=== PATIENT | female | born 1960 | race Caucasian/White ===

== ENCOUNTER 2018-12-07 03:19 | Inpatient (IN) ==
--- NOTE | 2018-12-07 03:32 | Emergency Department Note ---
Disposition Clinical Impression: HCAP (healthcare-associated pneumonia), Collapse of left lung, Mucus plugging of bronchi, Chronic anemia, Hyponatremia Sepsis Qualifiers: Sepsis type: sepsis due to unspecified organism Qualified Code(s): A41.9 - Sepsis, unspecified organism COPD (chronic obstructive pulmonary disease) Qualifiers: COPD type: chronic bronchitis Chronic bronchitis type: unspecified Qualified Code(s): J42 - Unspecified chronic bronchitis Hypothyroid Qualifiers: Hypothyroidism type: unspecified Qualified Code(s): E03.9 - Hypothyroidism, unspecified Disposition: Admitted As Inpatient Condition: Good Referrals: NONE,PCP [Primary Care Provider] - Forms: ED Satisfaction Letter Time of Disposition: 05:36 General Adult HPI - General Chief complaint: ED Shortness of Breath/Dyspnea Stated complaint: SOB Time Seen by Provider: 12/07/18 03:21 Source: patient, EMS Mode of arrival: EMS Limitations: no limitations Nursing Notes Reviewed: Yes Vital Signs Reviewed: Yes - History of Present Illness HPI Narrative: Leanna is a pleasant 58-year-old female with a past medical history of chronic anemia, hypothyroidism, chronic kidney disease and COPD. She presents to the emergency room from a [facility] facility for hypoxia and feeling like she is unable to breathe. She arrives in the emergency room hypoxic on 3 L nasal cannula 70%. Adjustments up to 4 L nasal cannula brother to 92%. She was discharged from [facility] on December 06 to the [facility] facility. She stated and recovery from alcoholism for the past 12 years per her report. She states that she feels shortness of breath. She is unsure if she has any fevers. She denies CP. - Related Data Home Medications Medication Instructions Recorded Confirmed Metoprolol [Lopressor] 50 mg PO BID 02/12/18 12/07/18 Buspirone HCl [Buspar] 10 mg PO BID 12/02/18 12/07/18 Guaifenesin [Mucinex] 600 mg PO BID PRN 12/02/18 12/07/18 Naproxen [Naprosyn] 500 mg PO BID PRN 12/02/18 12/07/18 Quetiapine Fumarate [Seroquel] 300 mg PO HS 12/02/18 12/07/18 Previous Rx's Medication Instructions Recorded hydrOXYzine pamoate [HydrOXYzine 50 mg PO TID PRN #0 capsule 11/08/15 Pamoate] Albuterol Sulfate [Albuterol 2 puff IH Q4HR PRN #1 hfa.aer.ad 11/25/18 Inhaler] Calcium Carbonate [Tums] 1,000 mg PO TID #90 tab.chew 12/06/18 Levothyroxine [Synthroid] 25 mcg PO DAILY@0630 #30 tablet 12/06/18 Megestrol Acetate [Megace] 400 mg PO DAILY #30 udc 12/06/18 Spironolactone [Aldactone] 25 mg PO DAILY #30 tablet 12/06/18 Vitamin B Complex/Vit C/Vit E 1 each PO DAILY #30 tablet 12/06/18 [Stresstab] Allergies Allergy/AdvReac Type Severity Reaction Status Date / Time lamotrigine [From Lamictal] Allergy Nausea Verified 11/25/18 12:25 levetiracetam [From Keppra] Allergy Anaphylaxis Verified 11/25/18 12:25 lorazepam [From Ativan] Allergy Anaphylaxis Verified 11/25/18 12:25 alprazolam [From Xanax] AdvReac Agitated Verified 11/25/18 12:25 clonazepam [From Klonopin] AdvReac Seizure Verified 11/25/18 12:25 diazepam [From Valium] AdvReac Agitated Verified 11/25/18 12:25 latex AdvReac Itching Verified 11/25/18 12:25 All systems ED: reviewed and negative except as stated. 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 thin frame. no acute distress. - General General appearance: alert, cachectic - Head Head exam: atraumatic - ENT ENT exam: mucous membranes dry - Chest Chest inspection: Present: other (thin frame) - Respiratory Respiratory exam: Present: other (left lower crackes) - Cardiovascular Cardiovascular exam: Present: tachycardia (sinus tach varies between 118 and 124. ) - Abdominal Exam Abdominal exam: Present: tenderness (generalized without guarding or rebound), normal bowel sounds - Expanded Lower Extremity Exam Gait: not tested/not observed - Neurological Exam Neurological exam: Present: alert, oriented X3 Course Course Narrative: Patient with newly elevated troponin at 0.04. Second suspect this is residual heart strain due to the mucus plugging. EKG does not show any signs of STEMI. QTc elevated. She was started on Tigan Zosyn and azithromycin in the emergency room. Causing gluconate and magnesium were also replaced. Patient was admitted to the ICU per attending physician Dr. Arechiga. Patient at time of admission was in no acute distress talks in full sentences satting at 98% on a face mask with 5-6 L oxygen flowing. Suspect in ICU patient will need a bronchoscopy. Patient does meet sepsis criteria. Blood cultures were ordered prior to antibiotic administration. Other significant lab values include a change from one episode, 5000 on December 06- thousand white count today. Patient does note recent weight loss. Care of patient was coordinated with Dr. Theodore Simon. Vital Signs Temperature 99.3 F 12/07/18 03:34 Pulse Rate 120 12/07/18 03:34 Respiratory Rate 25 12/07/18 03:34 Blood Pressure 132/86 12/07/18 03:34 O2 Sat by Pulse Oximetry 92 12/07/18 03:34 Temperature 99.3 F 12/07/18 03:34 Pulse Rate 117 12/07/18 04:21 Respiratory Rate 20 12/07/18 04:33 Blood Pressure 130/94 12/07/18 04:21 O2 Sat by Pulse Oximetry 100 12/07/18 04:33 Oxygen Delivery Oxygen Delivery Oximizer Medical Decision Making - MDM Narrative Medical decision making narrative: Patient meets criteria for HCAP. Levaquin not ordered due to QTc level at 510. - Medical Records Medical records reviewed: Yes I reviewed the patient's medical records. - Lab Data Lab results reviewed: Yes I reviewed the patient's lab results. Result diagrams: 12/07/18 03:51 12/07/18 03:51 Lab Results 12/07/18 12/07/18 12/07/18 Range/Units 03:51 03:51 03:51 WBC 11.6 H D (4.3-11.1) K/mcL RBC 4.79 (3.82-4.97) M/mcL Hgb 11.4 L D (11.5-15.4) g/dL Hct 34.4 L (35.3-44.9) % MCV 71.8 L (83.0-100.0) fL MCH 23.8 L (28.0-33.3) pg MCHC 33.1 (31.6-35.5) g/dL RDW 23.9 H (11.5-14.5) % Plt Count 156 (140-400) K/mcL MPV 8.4 L (9.4-12.4) fL Immature Gran % 0.3 (0-4) % Seg Neutrophils % 81.9 % Lymphocytes % 11.5 % Monocytes % 5.6 % Eosinophils % 0.2 % Basophils % 0.5 % Neutrophils # 9.5 H (1.6-8.9) K/mcL Lymphocytes # 1.3 (0.6-4.6) K/mcL Monocytes # 0.7 (0.0-1.3) K/mcL Eosinophils # 0.0 (0.0-0.6) K/mcL Basophils # 0.1 (0.0-0.2) K/mcL Platelet Estimate Normal (Normal) Hypochromasia Present A (Not Present) Anisocytosis 3+ A (Not Present) Microcytosis Present A (Not Present) Macrocytosis Present A (Not Present) PT 11.6 (9.4-12.1) Seconds INR 1.0 APTT 32.1 (26.0-36.0) Seconds VBG pH (7.32-7.42) pH Units VBG pCO2 (41-51) mmHg VBG pO2 (25-50) mmHg VBG HCO3 (21-27) mEq/L Sodium 129 L (136-145) mEq/L Potassium 4.3 D (3.5-5.1) mEq/L Chloride 105 (98-107) mEq/L Carbon Dioxide 22 L (23-29) mEq/L BUN 18 (6-20) mg/dL Creatinine 0.88 (0.60-1.20) mg/dL Est GFR ( Amer) > 60 (> 60) Est GFR (Non-Af Amer) > 60 (> 60) BUN/Creatinine Ratio 20 (6-26) Glucose 100 (70-105) mg/dL Calculated Osmolality 270 L (280-300) Lactic Acid (0.5-2.2) mmol/L Calcium 8.0 L (8.6-10.3) mg/dL Phosphorus 2.4 L (2.7-4.5) mg/dL Magnesium 1.5 L (1.6-2.6) mg/dL Total Bilirubin 0.5 (0.3-1.0) mg/dL AST 13 (13-39) Units/L ALT 5 L (7-52) Units/L Alkaline Phosphatase 107 H (34-104) Units/L Troponin I 0.04 H* (< 0.04) ng/mL B-Natriuretic Peptide (Less than 100) pg/mL Serum Total Protein 5.9 L (6.4-8.9) g/dL Albumin 2.4 L (3.5-5.7) g/dL Globulin 3.5 (2.4-3.5) g/dL Albumin/Globulin Ratio 0.7 L (1.1-2.2) 12/07/18 12/07/18 12/07/18 Range/Units 03:51 03:51 04:02 WBC (4.3-11.1) K/mcL RBC (3.82-4.97) M/mcL Hgb (11.5-15.4) g/dL Hct (35.3-44.9) % MCV (83.0-100.0) fL MCH (28.0-33.3) pg MCHC (31.6-35.5) g/dL RDW (11.5-14.5) % Plt Count (140-400) K/mcL MPV (9.4-12.4) fL Immature Gran % (0-4) % Seg Neutrophils % % Lymphocytes % % Monocytes % % Eosinophils % % Basophils % % Neutrophils # (1.6-8.9) K/mcL Lymphocytes # (0.6-4.6) K/mcL Monocytes # (0.0-1.3) K/mcL Eosinophils # (0.0-0.6) K/mcL Basophils # (0.0-0.2) K/mcL Platelet Estimate (Normal) Hypochromasia (Not Present) Anisocytosis (Not Present) Microcytosis (Not Present) Macrocytosis (Not Present) PT (9.4-12.1) Seconds INR APTT (26.0-36.0) Seconds VBG pH 7.37 (7.32-7.42) pH Units VBG pCO2 39 L (41-51) mmHg VBG pO2 31 (25-50) mmHg VBG HCO3 22 (21-27) mEq/L Sodium (136-145) mEq/L Potassium (3.5-5.1) mEq/L Chloride (98-107) mEq/L Carbon Dioxide (23-29) mEq/L BUN (6-20) mg/dL Creatinine (0.60-1.20) mg/dL Est GFR ( Amer) (> 60) Est GFR (Non-Af Amer) (> 60) BUN/Creatinine Ratio (6-26) Glucose (70-105) mg/dL Calculated Osmolality (280-300) Lactic Acid 1.9 (0.5-2.2) mmol/L Calcium (8.6-10.3) mg/dL Phosphorus (2.7-4.5) mg/dL Magnesium (1.6-2.6) mg/dL Total Bilirubin (0.3-1.0) mg/dL AST (13-39) Units/L ALT (7-52) Units/L Alkaline Phosphatase (34-104) Units/L Troponin I (< 0.04) ng/mL B-Natriuretic Peptide 148 H (Less than 100) pg/mL Serum Total Protein (6.4-8.9) g/dL Albumin (3.5-5.7) g/dL Globulin (2.4-3.5) g/dL Albumin/Globulin Ratio (1.1-2.2) - Radiology Data Radiology results reviewed: Yes I reviewed the patient's radiology results.
[2018-12-07] MEDS ORDERED: Isovue-370 500 ML BOTTLE IVP ONE (03:38)
[2018-12-07] MEDS ORDERED: methylPREDNISolone 125 MG/2 ML VIAL IVP ONE (03:45)
[2018-12-07] MEDS ORDERED: Ipratropium/Albuterol Neb 3 ML IH ONE (03:45)
[2018-12-07 04:08] LABS: VBG HCO3 22 mEq/L (21-27); VBG PCO2 39 mmHg (41-51); VBG PH 7.37 pH Units (7.32-7.42); VBG PO2 31 mmHg (25-50)
[2018-12-07 04:11] LABS: Basophils # 0.1 K/mcL (0.0-0.2); Basophils % 0.5 %; Eosinophils % 0.2 %; Hematocrit 34.4 % (35.3-44.9); Immature Granulocytes % 0.3 % (0-4); Lymphocytes # 1.3 K/mcL (0.6-4.6); Lymphocytes % 11.5 %; Mean Corpuscular HGB Conc 33.1 g/dL (31.6-35.5); Mean Corpuscular Hemoglobin 23.8 pg (28.0-33.3); Mean Corpuscular Volume 71.8 fL (83.0-100.0); Mean Platelet Volume 8.4 fL (9.4-12.4); Monocytes # 0.7 K/mcL (0.0-1.3); Monocytes % 5.6 %; Neutrophils # 9.5 K/mcL (1.6-8.9); Platelet Count 156 K/mcL (140-400); Red Blood Count 4.79 M/mcL (3.82-4.97); Red Cell Distribution Width 23.9 % (11.5-14.5); Segmented Neutrophils % 81.9 %
[2018-12-07 04:12] LABS: Hemoglobin 11.4 g/dL (11.5-15.4)
[2018-12-07 04:18] LABS: Prothrombin Time 11.6 Seconds (9.4-12.1)
[2018-12-07] MEDS: 0.9 % Sodium Chloride 1,000 ML IVC SCH ×2 (04:19→11:43)
[2018-12-07 04:21] LABS: Activated Partial Thrombo Time 32.1 Seconds (26.0-36.0)
[2018-12-07 04:28] LABS: Anisocytosis 3+ (Not Present); Hypochromasia Present (Not Present); Macrocytosis Present (Not Present); Microcytosis Present (Not Present); Platelet Estimate Normal (Normal)
[2018-12-07 04:35] LABS: Alanine Aminotransferase 5 Units/L (7-52); Albumin 2.4 g/dL (3.5-5.7); Albumin/Globulin Ratio 0.7 (1.1-2.2); Alkaline Phosphatase 107 Units/L (34-104); Aspartate Amino Transferase 13 Units/L (13-39); BUN/Creatinine Ratio 20 (6-26); Bilirubin,Total 0.5 mg/dL (0.3-1.0); Blood Urea Nitrogen 18 mg/dL (6-20); Carbon Dioxide 22 mEq/L (23-29); Chloride 105 mEq/L (98-107); Globulin 3.5 g/dL (2.4-3.5); Glucose 100 mg/dL (70-105); Magnesium 1.5 mg/dL (1.6-2.6); Osmolality,Calculated 270 (280-300); Phosphorous 2.4 mg/dL (2.7-4.5); Potassium 4.3 mEq/L (3.5-5.1); Sodium 129 mEq/L (136-145); Total Protein 5.9 g/dL (6.4-8.9); Troponin I 0.04 ng/mL (< 0.04); eGFR For Non-African Americans > 60 (> 60)
[2018-12-07] MEDS ORDERED: Piperacillin/Tazobactam 3.375 GM in Water for inj. (sterile) 20 ML 20 ML IVP ONE (04:41)
--- NOTE | 2018-12-07 04:46 | Emergency Department Note ---
Disposition Clinical Impression: HCAP (healthcare-associated pneumonia), Collapse of left lung Disposition: Admitted As Inpatient Condition: Good Referrals: NONE,PCP [Primary Care Provider] - Forms: ED Satisfaction Letter General Adult HPI - General Chief complaint: ED Shortness of Breath/Dyspnea Stated complaint: SOB Time Seen by Provider: 12/07/18 03:21 Source: patient, EMS Mode of arrival: EMS Limitations: no limitations - History of Present Illness Pain Scale: 0 - Related Data Home Medications Medication Instructions Recorded Confirmed Metoprolol [Lopressor] 50 mg PO BID 02/12/18 12/07/18 Buspirone HCl [Buspar] 10 mg PO BID 12/02/18 12/07/18 Guaifenesin [Mucinex] 600 mg PO BID PRN 12/02/18 12/07/18 Naproxen [Naprosyn] 500 mg PO BID PRN 12/02/18 12/07/18 Quetiapine Fumarate [Seroquel] 300 mg PO HS 12/02/18 12/07/18 Previous Rx's Medication Instructions Recorded hydrOXYzine pamoate [HydrOXYzine 50 mg PO TID PRN #0 capsule 11/08/15 Pamoate] Albuterol Sulfate [Albuterol 2 puff IH Q4HR PRN #1 hfa.aer.ad 11/25/18 Inhaler] Calcium Carbonate [Tums] 1,000 mg PO TID #90 tab.chew 12/06/18 Levothyroxine [Synthroid] 25 mcg PO DAILY@0630 #30 tablet 12/06/18 Megestrol Acetate [Megace] 400 mg PO DAILY #30 udc 12/06/18 Spironolactone [Aldactone] 25 mg PO DAILY #30 tablet 12/06/18 Vitamin B Complex/Vit C/Vit E 1 each PO DAILY #30 tablet 12/06/18 [Stresstab] Allergies Allergy/AdvReac Type Severity Reaction Status Date / Time lamotrigine [From Lamictal] Allergy Nausea Verified 11/25/18 12:25 levetiracetam [From Keppra] Allergy Anaphylaxis Verified 11/25/18 12:25 lorazepam [From Ativan] Allergy Anaphylaxis Verified 11/25/18 12:25 alprazolam [From Xanax] AdvReac Agitated Verified 11/25/18 12:25 clonazepam [From Klonopin] AdvReac Seizure Verified 11/25/18 12:25 diazepam [From Valium] AdvReac Agitated Verified 11/25/18 12:25 latex AdvReac Itching Verified 11/25/18 12:25 Past Medical History - Past Medical History Medical history: Reports: renal disease, hyperlipidemia, hypertension, seizures, other, TIA, kidney stones, COPD Surgical history: Reports: carotid endarterectomy, other Psychiatric history: Reports: anxiety, bipolar, depression 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 - Social History Smoking Status: Current every day smoker Smokeless Tobacco Status: No Alcohol use: Reports: none Drug use: Reports: marijuana Physical Exam - General Limitations: no limitations General appearance: alert, in no apparent distress Course Vital Signs Temperature 99.3 F 12/07/18 03:34 Pulse Rate 120 12/07/18 03:34 Respiratory Rate 25 12/07/18 03:34 Blood Pressure 132/86 12/07/18 03:34 O2 Sat by Pulse Oximetry 92 12/07/18 03:34 Temperature 99.3 F 12/07/18 03:34 Pulse Rate 117 12/07/18 04:21 Respiratory Rate 22 12/07/18 04:21 Blood Pressure 130/94 12/07/18 04:21 O2 Sat by Pulse Oximetry 97 12/07/18 04:21 Oxygen Delivery Oxygen Delivery Oximizer Medical Decision Making - Lab Data Result diagrams: 12/07/18 03:51 12/07/18 03:51 Lab Results 12/07/18 12/07/18 12/07/18 Range/Units 03:51 03:51 03:51 WBC 11.6 H D (4.3-11.1) K/mcL RBC 4.79 (3.82-4.97) M/mcL Hgb 11.4 L D (11.5-15.4) g/dL Hct 34.4 L (35.3-44.9) % MCV 71.8 L (83.0-100.0) fL MCH 23.8 L (28.0-33.3) pg MCHC 33.1 (31.6-35.5) g/dL RDW 23.9 H (11.5-14.5) % Plt Count 156 (140-400) K/mcL MPV 8.4 L (9.4-12.4) fL Immature Gran % 0.3 (0-4) % Seg Neutrophils % 81.9 % Lymphocytes % 11.5 % Monocytes % 5.6 % Eosinophils % 0.2 % Basophils % 0.5 % Neutrophils # 9.5 H (1.6-8.9) K/mcL Lymphocytes # 1.3 (0.6-4.6) K/mcL Monocytes # 0.7 (0.0-1.3) K/mcL Eosinophils # 0.0 (0.0-0.6) K/mcL Basophils # 0.1 (0.0-0.2) K/mcL Platelet Estimate Normal (Normal) Hypochromasia Present A (Not Present) Anisocytosis 3+ A (Not Present) Microcytosis Present A (Not Present) Macrocytosis Present A (Not Present) PT 11.6 (9.4-12.1) Seconds INR 1.0 APTT 32.1 (26.0-36.0) Seconds VBG pH (7.32-7.42) pH Units VBG pCO2 (41-51) mmHg VBG pO2 (25-50) mmHg VBG HCO3 (21-27) mEq/L Sodium 129 L (136-145) mEq/L Potassium 4.3 D (3.5-5.1) mEq/L Chloride 105 (98-107) mEq/L Carbon Dioxide 22 L (23-29) mEq/L BUN 18 (6-20) mg/dL Creatinine 0.88 (0.60-1.20) mg/dL Est GFR ( Amer) > 60 (> 60) Est GFR (Non-Af Amer) > 60 (> 60) BUN/Creatinine Ratio 20 (6-26) Glucose 100 (70-105) mg/dL Calculated Osmolality 270 L (280-300) Lactic Acid (0.5-2.2) mmol/L Calcium 8.0 L (8.6-10.3) mg/dL Phosphorus 2.4 L (2.7-4.5) mg/dL Magnesium 1.5 L (1.6-2.6) mg/dL Total Bilirubin 0.5 (0.3-1.0) mg/dL AST 13 (13-39) Units/L ALT 5 L (7-52) Units/L Alkaline Phosphatase 107 H (34-104) Units/L Troponin I 0.04 H* (< 0.04) ng/mL B-Natriuretic Peptide (Less than 100) pg/mL Serum Total Protein 5.9 L (6.4-8.9) g/dL Albumin 2.4 L (3.5-5.7) g/dL Globulin 3.5 (2.4-3.5) g/dL Albumin/Globulin Ratio 0.7 L (1.1-2.2) 12/07/18 12/07/18 12/07/18 Range/Units 03:51 03:51 04:02 WBC (4.3-11.1) K/mcL RBC (3.82-4.97) M/mcL Hgb (11.5-15.4) g/dL Hct (35.3-44.9) % MCV (83.0-100.0) fL MCH (28.0-33.3) pg MCHC (31.6-35.5) g/dL RDW (11.5-14.5) % Plt Count (140-400) K/mcL MPV (9.4-12.4) fL Immature Gran % (0-4) % Seg Neutrophils % % Lymphocytes % % Monocytes % % Eosinophils % % Basophils % % Neutrophils # (1.6-8.9) K/mcL Lymphocytes # (0.6-4.6) K/mcL Monocytes # (0.0-1.3) K/mcL Eosinophils # (0.0-0.6) K/mcL Basophils # (0.0-0.2) K/mcL Platelet Estimate (Normal) Hypochromasia (Not Present) Anisocytosis (Not Present) Microcytosis (Not Present) Macrocytosis (Not Present) PT (9.4-12.1) Seconds INR APTT (26.0-36.0) Seconds VBG pH 7.37 (7.32-7.42) pH Units VBG pCO2 39 L (41-51) mmHg VBG pO2 31 (25-50) mmHg VBG HCO3 22 (21-27) mEq/L Sodium (136-145) mEq/L Potassium (3.5-5.1) mEq/L Chloride (98-107) mEq/L Carbon Dioxide (23-29) mEq/L BUN (6-20) mg/dL Creatinine (0.60-1.20) mg/dL Est GFR ( Amer) (> 60) Est GFR (Non-Af Amer) (> 60) BUN/Creatinine Ratio (6-26) Glucose (70-105) mg/dL Calculated Osmolality (280-300) Lactic Acid 1.9 (0.5-2.2) mmol/L Calcium (8.6-10.3) mg/dL Phosphorus (2.7-4.5) mg/dL Magnesium (1.6-2.6) mg/dL Total Bilirubin (0.3-1.0) mg/dL AST (13-39) Units/L ALT (7-52) Units/L Alkaline Phosphatase (34-104) Units/L Troponin I (< 0.04) ng/mL B-Natriuretic Peptide 148 H (Less than 100) pg/mL Serum Total Protein (6.4-8.9) g/dL Albumin (3.5-5.7) g/dL Globulin (2.4-3.5) g/dL Albumin/Globulin Ratio (1.1-2.2) Attestation Statement - Attestation Attestation: For this encounter, I have reviewed the EGG BREAKING MACHINE OPERATOR or PA documentation, treatment plan, and medical decision making; and I have had face to face time with this patient. 58 year old female presents to the ED with complaints from [facility] via EMS for difficulty in breathing. PAtient was most recently admitted to hospital for pnuemoina and discharged home to [facility]. She woke up this morning with increased difficuty in breathing and was originally 74% on RA and typically waers 3lNC continually. Patient was then initially increased to 4LNC and was at 88%. PAtinet was placed on an oximask and incresed to 6LNC and is now 98%. she was also tachycardiac to 120s and is inmproving to the 110s with duonebs, steroids, and fluid therapy for a partially collapsed left lung with pnuemonia on top. We will admit to medicine
[2018-12-07] MEDS ORDERED: Azithromycin 500 MG in D5% in Water 250 ML IVPB ONE (04:47)
[2018-12-07 05:50] LABS: Bilirubin,Urine Negative (Negative); Blood,Urine Negative (Negative); Clarity,Urine Cloudy (Clear); Color,Urine Yellow (Yellow); Glucose,Urine (UA) Normal (Normal); Ketones,Urine Negative (Negative); Leukocyte Esterase,Urine Small (Negative); Nitrite,Urine Negative (Negative); Protein,Urine Negative (Neg-Trace); Specific Gravity,Urine > 1.030 (1.010-1.025); Urobilinogen,Urine Normal (Normal)
[2018-12-07 05:53] LABS: Bacteria,Urine None Seen per hpf (None-Few); Hyaline Casts,Urine None Seen per lpf (None-Few); Squamous Epithelial Cell,Urine Many per lpf (None-Few)
--- NOTE | 2018-12-07 07:41 | Internal Med History&Physical ---
Date of Encounter: 12/07/18 Time of Encounter: 07:27 Internal Medicine - H&P: HPI Chief complaint: shortness of breath Admitted From: Long-term Nursing Facility History of present illness: Ms. 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 Patient had extensive malignancy workup which was unremarkable. Patient was started on Synthroid as her TSH was significantly elevated. Patient had a GI workup done for anemia which did not show any signs of active bleeding but she did receive PRBC. 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 Patient was subsequently transferred to rehabilitation facility. Patient started having acute shortness of breath when she went to SNF and was found to have hypoxia. Patient was evaluated in ER and had a CTA which did not show any PE but showed left lower lobe collapse and possible pneumonia. Patient was started on broad- spectrum antibiotics for HCAP given recent hospitalization, tachycardia, tachypnea and white count of 11. Patient subsequently was admitted in ICU. Patient was interviewed in ICU where she felt better in terms of her breathing. She denied any chest pain. She did admit when she had difficulty breathing she felt pressure-like symptoms. Denied any back pain abdominal pain urinary or bowel complaints. She received vancomycin and Zosyn and azithromycin in the ER. She also received magnesium, calcium, 1 L normal saline. She did not have any fevers in the hospital are previously. Admits to having some chills. Past Med Surg Social Fam HX - Past Medical History Medical history: renal disease, hyperlipidemia, hypertension, seizures, other, TIA, kidney stones, COPD Psychiatric history: anxiety, bipolar, depression - Past Surgical History Surgical History: carotid endarterectomy, other Additional surgical history: EAR SURGERY - Social History Smoking Status: Current every day smoker Smokeless Tobacco Status: No Alcohol use: none Drug use: marijuana - Family History Father Hx Family Cardiac Disorders: Yes (CABG) Internal Medicine - H&P: Meds hydrOXYzine pamoate [HydrOXYzine Pamoate] 50 mg PO TID PRN #0 capsule 11/08/15 [Rx] Metoprolol [Lopressor] 50 mg PO BID 02/12/18 [History] Albuterol Sulfate [Albuterol Inhaler] 2 puff IH Q4HR PRN #1 hfa.aer.ad 11/25/18 [Rx] Buspirone HCl [Buspar] 10 mg PO BID 12/02/18 [History] Guaifenesin [Mucinex] 600 mg PO BID PRN 12/02/18 [History] Naproxen [Naprosyn] 500 mg PO BID PRN 12/02/18 [History] Quetiapine Fumarate [Seroquel] 300 mg PO HS 12/02/18 [History] Calcium Carbonate [Tums] 1,000 mg PO TID #90 tab.chew 12/06/18 [Rx] Levothyroxine [Synthroid] 25 mcg PO DAILY@0630 #30 tablet 12/06/18 [Rx] Megestrol Acetate [Megace] 400 mg PO DAILY #30 udc 12/06/18 [Rx] Spironolactone [Aldactone] 25 mg PO DAILY #30 tablet 12/06/18 [Rx] Vitamin B Complex/Vit C/Vit E [Stresstab] 1 each PO DAILY #30 tablet 12/06/18 [ Rx] Allergy/AdvReac Type Severity Reaction Status Date / Time lamotrigine [From Lamictal] Allergy Nausea Verified 11/25/18 12:25 levetiracetam [From Keppra] Allergy Anaphylaxis Verified 11/25/18 12:25 lorazepam [From Ativan] Allergy Anaphylaxis Verified 11/25/18 12:25 alprazolam [From Xanax] AdvReac Agitated Verified 11/25/18 12:25 clonazepam [From Klonopin] AdvReac Seizure Verified 11/25/18 12:25 diazepam [From Valium] AdvReac Agitated Verified 11/25/18 12:25 latex AdvReac Itching Verified 11/25/18 12:25 All Systems PM: A 10-system review of systems was performed and is negative for pertinent findings except as documented above in the HPI. - Constitutional Vitals: Temp Pulse Resp BP Pulse Ox 99.3 F 117 22 140/96 95 12/07/18 03:34 12/07/18 05:51 12/07/18 05:51 12/07/18 05:51 12/07/18 05:51 Exam: Constitutional: Vitals as noted. Conversant. No Apparent Distress. thin build. Eyes : Sclera white, conjunctiva clear, no lid lag, PEARLA. ENT : Grossly normal hearing. Oropharyngeal exam unremarkable. Moist mucus membranes. No JVD, no cervical lymphadenopathy. no thyromegaly or mass. Respiratory : Decreased breath sounds. Occasional rhonchi. No accessory muscle use, rales Cardiovascular : tachycardic, +S1, +S2. no murmur, gallop, rubs. No chest wall tenderness GI/Abdominal : Soft, Non-tender, Non-distended, normal bowel sounds, soft, no peritoneal signs. no orgenomegaly or mass appreciated. no hernia. Musculoskeletal: no deformity noted. no edema or cyanosis. warm extremities, pulses palpable and symmetrical in UE/LE. no calf tenderness. Neurological: AO X3, CN II-XII grossly intact, non focal exam Skin: No skin rash, lesions or ulcers noted. Internal Med - H&P Results - Labs CBC & Chem 7: 12/07/18 03:51 12/07/18 03:51 Labs: Short CBC 12/07/18 Range/Units 03:51 WBC 11.6 H D (4.3-11.1) K/mcL Hgb 11.4 L D (11.5-15.4) g/dL Hct 34.4 L (35.3-44.9) % Plt Count 156 (140-400) K/mcL Neutrophils # 9.5 H (1.6-8.9) K/mcL BMP 12/07/18 03:51 Sodium 129 L Potassium 4.3 D Chloride 105 Carbon Dioxide 22 L BUN 18 Creatinine 0.88 Glucose 100 Calcium 8.0 L Cardiac Enzymes 12/07/18 Range/Units 03:51 Troponin I 0.04 H* (< 0.04) ng/mL Liver Function 12/07/18 Range/Units 03:51 Total Bilirubin 0.5 (0.3-1.0) mg/dL AST 13 (13-39) Units/L ALT 5 L (7-52) Units/L Alkaline Phosphatase 107 H (34-104) Units/L Albumin 2.4 L (3.5-5.7) g/dL Urine 12/07/18 Range/Units 05:00 Urine Color Yellow (Yellow) Urine Clarity Cloudy A (Clear) Urine pH 6.0 (5.0-8.0) pH Units Ur Specific [place] > 1.030 H (1.010-1.025) Urine Protein Negative (Neg-Trace) mg/dL Urine Glucose (UA) Normal (Normal) mg/dL - ABG Interpretation ABG results: 12/07/18 04:02 VBG pH 7.37 VBG pCO2 39 L VBG pO2 31 VBG HCO3 22 - EKG Data -: EKG Interpreted by Myself EKG shows normal: sinus rhythm Rate: tachycardia (st depressions in lead 2,3 avf, v4-5) - Impressions ITS Impressions Chest CTA 12/07/18 03:38 IMPRESSION: 1. No definite scan evidence for pulmonary embolus. 2. Complete left lower lobe collapse with left upper lobe atelectasis or pneumonia. 3. Mediastinal adenopathy. D/ / Phil Cary MD / Phil Cary MD Interpreting Provider: Phil Cary MD - Assessment and plan (1) Collapse of left lung Current Visit: Yes Status: Acute Assessment and plan: - May need bronchoscopy. Keep NPO. Will consult pulmonology - Incentive spirometry and pulmonary toilet. (2) COPD exacerbation Current Visit: Yes Status: Acute Assessment and plan: - Start patient on Duonebs, solumedrol - pulmonology recommendation appreicated. Start symbicort (3) HCAP (healthcare-associated pneumonia) Current Visit: Yes Status: Acute Assessment and plan: - continue Vancomycin, Zosyn and azithromycin - Send MRSA screen, legionella and strep urine antigen, blood and sputum cultures culture. (4) Hypothyroid Current Visit: Yes Status: Acute Assessment and plan: - continue home levothyroxin Qualifiers: Hypothyroidism type: unspecified Qualified Code(s): E03.9 - Hypothyroidism, unspecified (5) Hypomagnesemia Current Visit: No Status: Acute Assessment and plan: - repleted (6) Severe protein-calorie malnutrition Current Visit: No Status: Acute Assessment and plan: - supplements (7) DVT prophylaxis Current Visit: No Status: Acute Assessment and plan: - heparin - Monitor Hb. Will change to EPCD if Hb drops. - Time Spent With Patient Total time spent is greater than 50% in coordination of care (as documented) at patient's floor/unit and/or counseling patient:
--- NOTE | 2018-12-07 08:29 | Pulmonology Consult Note ---
Date of Encounter: 12/07/18 Time of Encounter: 08:25 Assessment and Plan (1) Atelectasis Current Visit: Yes Status: Acute This 58-year-old woman has medical history of COPD who was recently been to the hospital for failure to thrive was discharged to [facility] and return for hypoxia with CT scan findings notable for left lobar collapse. I had a chance to personally review her CT scan and look sick she had previous scans personally atelectasis in the lingula now with the extensive secretions suspected mucus plugging and collapse of lingula and left lower lobe. She does have some mediastinal adenopathy which is likely reactive in nature however patient does have risk factors for primary lung carcinoma. Overall picture concerning for aspiration versus new significant mucus plugging complicated by acute pneumonia and COPD exacerbation Recs: -Agree with broad-spectrum antibiotics to treat for hospital associated organisms given recent hospitalization including MRSA and Pseudomonas would also cover for anaerobic organisms giving him my concern for aspiration. Send sputum culture blood cultures and was per infection panel if not already done so also will need urinary strep pneumo and legionella antigens-MRSA nasal swab if not already obtained -Start IV Solu-Medrol 40 mg IV twice daily -Schedule bronchodilators (duo nebs) every 4 hours with every one hour albuterol as needed -Symbicort 160/4.52 puffs twice a day -Aggressive bronchopulmonary toileting including out of bed to chair suctioning incentive spirometry and would start flutter valve/Aerobika coupled with DuoNeb breathing treatments patient should be discharged with this -Recommend formal speech and swallow evaluation -A bronchoscopy is recommended. The procedure , risks, benefits, complications, and expected outcomes have been reviewed. Benefits of diagnosis, as well as risks to include bleeding, infection, pneumothorax which may require surgical intervention, and in a small population. The patient is aware that sometimes test is nondiagnostic. Discussed with patient and agrees to proceed. (2) COPD (chronic obstructive pulmonary disease) Current Visit: Yes Status: Chronic Qualifiers: COPD type: chronic bronchitis Chronic bronchitis type: unspecified Qualified Code(s): J42 - Unspecified chronic bronchitis (3) HCAP (healthcare-associated pneumonia) Current Visit: Yes Status: Acute (4) Collapse of left lung Current Visit: Yes Status: Acute History of Present Illness Consult date: 12/07/18 Requesting physician: Purav T Jain Reason for consult: pneumonia Chief complaint: Difficulty in Breathing History of present illness: This is a 58-year-old woman who presented to the ED from [facility] via EMS for dif ficulty in breathing. She was recently in the hospital within the last week and was discharged to [facility] but had woken up with increased difficulty in breathing and was known to be 74% on room air although patient has been prescribed 3 L nasal cannula continually. And presentation to the ED was noted to be tachycardic to the 120s she was given a DuoNeb steroids and fluid therapy with a chest x-ray and CT scan concerning for partially collapsed left lung with possible pneumonia. Pulmonary was consulted for further evaluation of this. Patient does have a medical history of COPD seizures hypertension hyperlipidemia former alcoholic and continues to smoke actively with approximately [id number] history of smoking. Most recent hospitalization was notable for failure to thrive of unclear etiology however she was found to be hypothyroid.. Has been noted to 30 pound weight loss and generalized weakness. Today when I spoke with the patient she states that breathing is still labored she said that symptoms hit "all at once" when she was getting into the ambulance to go to the [facility] and have gotten worse since. She is desiring to stop smoking and has not smoked since Sunday since she has been in the hospital we will help her with nicotine replacement as needed Past Med Surg Social Fam HX - Past Medical History Medical history: renal disease, hyperlipidemia, hypertension, seizures, other, TIA, kidney stones, COPD Psychiatric history: anxiety, bipolar, depression - Past Surgical History Surgical History: carotid endarterectomy, other Additional surgical history: EAR SURGERY - Social History Smoking Status: Current every day smoker Smokeless Tobacco Status: No Alcohol use: none Drug use: marijuana - Family History Father Hx Family Cardiac Disorders: Yes (CABG) Medications and Allergies hydrOXYzine pamoate [HydrOXYzine Pamoate] 50 mg PO TID PRN #0 capsule 11/08/15 [Rx] Metoprolol [Lopressor] 50 mg PO BID 02/12/18 [History] Albuterol Sulfate [Albuterol Inhaler] 2 puff IH Q4HR PRN #1 hfa.aer.ad 11/25/18 [Rx] Buspirone HCl [Buspar] 10 mg PO BID 12/02/18 [History] Guaifenesin [Mucinex] 600 mg PO BID PRN 12/02/18 [History] Naproxen [Naprosyn] 500 mg PO BID PRN 12/02/18 [History] Quetiapine Fumarate [Seroquel] 300 mg PO HS 12/02/18 [History] Calcium Carbonate [Tums] 1,000 mg PO TID #90 tab.chew 12/06/18 [Rx] Levothyroxine [Synthroid] 25 mcg PO DAILY@0630 #30 tablet 12/06/18 [Rx] Megestrol Acetate [Megace] 400 mg PO DAILY #30 udc 12/06/18 [Rx] Spironolactone [Aldactone] 25 mg PO DAILY #30 tablet 12/06/18 [Rx] Vitamin B Complex/Vit C/Vit E [Stresstab] 1 each PO DAILY #30 tablet 12/06/18 [Rx] Allergy/AdvReac Type Severity Reaction Status Date / Time lamotrigine [From Lamictal] Allergy Nausea Verified 11/25/18 12:25 levetiracetam [From Keppra] Allergy Anaphylaxis Verified 11/25/18 12:25 lorazepam [From Ativan] Allergy Anaphylaxis Verified 11/25/18 12:25 alprazolam [From Xanax] AdvReac Agitated Verified 11/25/18 12:25 clonazepam [From Klonopin] AdvReac Seizure Verified 11/25/18 12:25 diazepam [From Valium] AdvReac Agitated Verified 11/25/18 12:25 latex AdvReac Itching Verified 11/25/18 12:25 All Systems: The remainder of the systems were reviewed and are negative Physical Examination Vital Signs: Vital Signs, Last 4 Hours Temp Pulse Resp BP Pulse Ox 12/07/18 07:39 105 18 153/100 100 12/07/18 06:39 97.8 F 107 18 166/105 100 12/07/18 05:51 117 22 140/96 95 12/07/18 04:33 20 100 General appearance: other (Frail appearing very pleasant no acute distress) Eyes: nonicteric ENT: oropharynx moist Neck: supple Effort: normal Auscultation: left: diminished breath sounds, bilateral: rhonchi Cardiovascular: regular rate and rhythm Gastrointestinal: normoactive bowel sounds Integumentary: normal Extremities: no cyanosis, no edema, no clubbing Musculoskeletal: no deformities normal mental status, non-focal exam mood appropriate Results - Laboratory Findings CBC and BMP: 12/07/18 03:51 12/07/18 03:51 PT/INR, D-dimer PT 11.6 Seconds (9.4-12.1) 12/07/18 03:51 Abnormal lab findings: Abnormal lab results WBC 11.6 K/mcL (4.3-11.1) H D 12/07/18 03:51 Hgb 11.4 g/dL (11.5-15.4) L D 12/07/18 03:51 Hct 34.4 % (35.3-44.9) L 12/07/18 03:51 MCV 71.8 fL (83.0-100.0) L 12/07/18 03:51 MCH 23.8 pg (28.0-33.3) L 12/07/18 03:51 RDW 23.9 % (11.5-14.5) H 12/07/18 03:51 MPV 8.4 fL (9.4-12.4) L 12/07/18 03:51 Neutrophils # 9.5 K/mcL (1.6-8.9) H 12/07/18 03:51 Hypochromasia Present (Not Present) A 12/07/18 03:51 Anisocytosis 3+ (Not Present) A 12/07/18 03:51 Microcytosis Present (Not Present) A 12/07/18 03:51 Macrocytosis Present (Not Present) A 12/07/18 03:51 VBG pCO2 39 mmHg (41-51) L 12/07/18 04:02 Sodium 129 mEq/L (136-145) L 12/07/18 03:51 Carbon Dioxide 22 mEq/L (23-29) L 12/07/18 03:51 Calculated Osmolality 270 (280-300) L 12/07/18 03:51 Calcium 8.0 mg/dL (8.6-10.3) L 12/07/18 03:51 Phosphorus 2.4 mg/dL (2.7-4.5) L 12/07/18 03:51 Magnesium 1.5 mg/dL (1.6-2.6) L 12/07/18 03:51 ALT 5 Units/L (7-52) L 12/07/18 03:51 Alkaline Phosphatase 107 Units/L (34-104) H 12/07/18 03:51 Troponin I 0.04 ng/mL (< 0.04) H* 12/07/18 03:51 B-Natriuretic Peptide 148 pg/mL (Less than 100) H 12/07/18 03:51 Serum Total Protein 5.9 g/dL (6.4-8.9) L 12/07/18 03:51 Albumin 2.4 g/dL (3.5-5.7) L 12/07/18 03:51 Albumin/Globulin Ratio 0.7 (1.1-2.2) L 12/07/18 03:51 Urine Clarity Cloudy (Clear) A 12/07/18 05:00 Ur Specific [place] > 1.030 (1.010-1.025) H 12/07/18 05:00 Ur Leukocyte Esterase Small (Negative) H 12/07/18 05:00 Urine Microscopic RBC 5-15 per hpf (0-3) H 12/07/18 05:00 Urine Microscopic WBC 5-15 per hpf (0-3) H 12/07/18 05:00 Ur Squamous Epith Cells Many per lpf (None-Few) H 12/07/18 05:00 Ur Culture Indicated? NO. (NO) A 12/07/18 05:00 - Microbiology Findings Microbiology Findings: Microbiology, Last 48 Hours 12/07/18 03:51 Blood Culture - Preliminary Peripheral Venipuncture Culture is incubating and being continuously monitored for growth. Final report to follow. 12/07/18 04:40 Blood Culture - Preliminary Peripheral Venipuncture Culture is incubating and being continuously monitored for growth. Final report to follow. 12/07/18 03:59 Influenza Types A,B Antigen - Final Nasopharyngeal - Diagnostic Findings Chest x-ray: report reviewed, image reviewed CT scan - chest: report reviewed, image reviewed - Clinical Findings Intake & Output: Intake & Output 12/06/18 12/07/18 12/07/18 23:59 07:59 15:59 Intake Total 1532 / 1532 Balance 1532 / 1532 Weight 43.817 kg Consult Discharge Plan - Plan Referrals: NONE,PCP [Primary Care Provider] -
[2018-12-07] MEDS ORDERED: Levofloxacin 500 MG/100 ML 500 MG/100 ML BAG IVPB SCH (09:00)
[2018-12-07] MEDS ORDERED: Spironolactone 25 MG TABLET PO SCH (09:00)
[2018-12-07] MEDS: Piperacillin/Tazobactam 3.375 GM in 0.9 % Sodium Chloride Mini Bag 100 ML IVPB SCH ×2 (09:15→17:03)
[2018-12-07] MEDS: Megestrol Acetate 400 MG/10 ML UDC PO SCH (09:19)
--- NOTE | 2018-12-07 09:56 | Anesthesia Evaluation PreOp ---
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 INSERTER History: Seizures, Other (BIPOLAR, ANXIETY, DEPRESSION) Other Medical History: Other (ANEMIA, MALNUTRITION) Anesthesia History: No Prior Anesthetic Complications, Past Anesthesia Alcohol Use: none Drug use: marijuana Medications and Allergies hydrOXYzine pamoate [HydrOXYzine Pamoate] 50 mg PO TID PRN #0 capsule 11/08/15 [Rx] Metoprolol [Lopressor] 50 mg PO BID 02/12/18 [History] Albuterol Sulfate [Albuterol Inhaler] 2 puff IH Q4HR PRN #1 hfa.aer.ad 11/25/18 [Rx] Buspirone HCl [Buspar] 10 mg PO BID 12/02/18 [History] Guaifenesin [Mucinex] 600 mg PO BID PRN 12/02/18 [History] Naproxen [Naprosyn] 500 mg PO BID PRN 12/02/18 [History] Quetiapine Fumarate [Seroquel] 300 mg PO HS 12/02/18 [History] Calcium Carbonate [Tums] 1,000 mg PO TID #90 tab.chew 12/06/18 [Rx] Levothyroxine [Synthroid] 25 mcg PO DAILY@0630 #30 tablet 12/06/18 [Rx] Megestrol Acetate [Megace] 400 mg PO DAILY #30 udc 12/06/18 [Rx] Spironolactone [Aldactone] 25 mg PO DAILY #30 tablet 12/06/18 [Rx] Vitamin B Complex/Vit C/Vit E [Stresstab] 1 each PO DAILY #30 tablet 12/06/18 [Rx] Allergy/AdvReac Type Severity Reaction Status Date / Time lamotrigine [From Lamictal] Allergy Nausea Verified 11/25/18 12:25 levetiracetam [From Keppra] Allergy Anaphylaxis Verified 11/25/18 12:25 lorazepam [From Ativan] Allergy Anaphylaxis Verified 11/25/18 12:25 alprazolam [From Xanax] AdvReac Agitated Verified 11/25/18 12:25 clonazepam [From Klonopin] AdvReac Seizure Verified 11/25/18 12:25 diazepam [From Valium] AdvReac Agitated Verified 11/25/18 12:25 latex AdvReac Itching Verified 11/25/18 12:25 - Meds/Allergy Pre-op Review Medications Reviewed: Yes Allergies Reviewed: Yes Anesthesia Results - Labs 12/07/18 03:51 12/07/18 03:51 Laboratory Tests 12/07/18 12/07/18 03:51 03:51 Calcium 8.0 L Phosphorus 2.4 L Magnesium 1.5 L B-Natriuretic Peptide 148 H Albumin 2.4 L Globulin 3.5 Anesthesia Exam Vital Signs/O2 Sat/Glucose, Most Recent Temp Pulse Resp BP Pulse Ox 97.8 F 105 18 153/100 100 12/07/18 06:39 12/07/18 07:39 12/07/18 07:39 12/07/18 07:39 12/07/18 07:39 Blood Glucose* 168 Weight: 44 KG, BMI 16 NPO (# of Hours): >8 - HEENT Mallampati: I Teeth: Edentulous Denture Type: Upper: Complete, Lower: Complete Oral Opening: Greater than 3 - Cardiac Rhythm: Regular - Pulmonary Breath Sounds: bilateral Clear Respiratory Effort: Symmetrical Anesthesia Assess/Plan ASA Score: 4 Anesthetic Plan: General Monitoring Plan: Standard Monitors Recovery Plan: PACU
[2018-12-07] MEDS: Ipratropium/Albuterol Neb 3 ML IH SCH ×3 (11:35→19:40)
[2018-12-07] MEDS: Budesonide/Formoterol 160/4.5 1 PUFF INH IH SCH ×2 (11:35→19:40)
[2018-12-07] MEDS ORDERED: *HR* Propofol 200 MG/20 ML VIAL IVP ONE (12:09)
[2018-12-07] MEDS ORDERED: Propofol 500 MG/50 ML INFUS..BTL ONE (12:16)
[2018-12-07] MEDS ORDERED: Lidocaine -MPF 2% 2 ML VIAL ONE (12:19)
[2018-12-07] MEDS ORDERED: *HR* Succinylcholine 200 MG/10 ML VIAL IVP ONE (12:19)
[2018-12-07] MEDS ORDERED: Dexamethasone 4 MG/ML VIAL ONE (12:19)
[2018-12-07] MEDS ORDERED: Lidocaine -MPF 4% 5 ML AMPUL ONE (12:20)
[2018-12-07] MEDS ORDERED: *HR* Metoprolol 5 MG/5 ML VIAL IVP ONE (12:31)
[2018-12-07] MEDS ORDERED: *HR* Labetalol 20 MG/4 ML SYRINGE IVP ONE (12:40)
[2018-12-07] MEDS ORDERED: Albuterol 2.5 MG/3 ML NEBULIZER ONE (12:43)
[2018-12-07] MEDS ORDERED: Albuterol 2.5 MG/3 ML NEBULIZER IH ONE (12:45)
--- NOTE | 2018-12-07 13:19 | Anesthesia Evaluation Post Op ---
Date of Encounter: 12/07/18 Time of Encounter: 13:17 - Discharge PostOp Status: Transfer Patient to floor (Patient's vital signs have been reviewed. Patient is stable postoperatively and has adequately recovered from anesthesia. Patient is determined to have stable airway patency and respiratory function including respiratory rate and oxygen saturation. Patient has a stable heart rate, blood pressure and adequate hydration. Patients mental status is acceptable. Patients temperature is appropriate. Pain and nausea are adequately controlled.)
--- NOTE | 2018-12-07 13:24 | Anesthesia Evaluation Post Op ---
Date of Encounter: 12/07/18 Time of Encounter: 13:15 - Vital Signs Vital Signs: Vital Signs/O2 Sat, Most Current Temp Pulse Resp BP Pulse Ox 98.5 F 88 26 148/98 98 12/07/18 13:12/07/18 13:12/07/18 13:12/07/18 13:12/07/18 13:09 - Lungs Lungs: Clear Ascult./Percussion - Airway Airway: Non-obstructed - Cardiovascular Regular Rate, Baseline Rhythm - Mental Status Mental Status: Alert & Oriented, Answers Appropriately - Pain Pain Scale: 0 Pain Scale used: Numeric (1 - 10) - Nausea Vomiting Nausea Vomiting: Not Present - Hydration Hydration: Tolerates oral liquids, Has not voided - Discharge PostOp Status: Transfer Patient to floor
[2018-12-07 13:47] LABS: Source of Body Fluid LLL BAL
[2018-12-07 15:20] LABS: Appearance of Body Fluid Cloudy (Clear); Volume of Body Fluid 19 mL
[2018-12-07] MEDS: *HR* Heparin 5,000 UNIT/ML VIAL SQ SCH (17:04)
[2018-12-08] MEDS: Ipratropium/Albuterol Neb 3 ML IH SCH ×7 (00:09→23:13)
[2018-12-08] MEDS: Piperacillin/Tazobactam 3.375 GM in 0.9 % Sodium Chloride Mini Bag 100 ML IVPB SCH ×3 (00:18→15:55)
[2018-12-08] MEDS: *HR* Heparin 5,000 UNIT/ML VIAL SQ SCH (05:06)
[2018-12-08] MEDS: Levothyroxine 25 MCG TABLET PO SCH (05:06)
[2018-12-08 05:49] LABS: Hematocrit 21.8 % (35.3-44.9); Immature Granulocytes % 0.9 % (0-4); Lymphocytes # 0.9 K/mcL (0.6-4.6); Lymphocytes % 7.9 %; Mean Corpuscular Hemoglobin 23.9 pg (28.0-33.3); Mean Corpuscular Volume 72.4 fL (83.0-100.0); Mean Platelet Volume 8.5 fL (9.4-12.4); Monocytes # 0.7 K/mcL (0.0-1.3); Platelet Count 121 K/mcL (140-400); Red Blood Count 3.01 M/mcL (3.82-4.97); Red Cell Distribution Width 23.9 % (11.5-14.5); Segmented Neutrophils % 85.2 %
[2018-12-08 05:51] LABS: Hemoglobin 7.2 g/dL (11.5-15.4); Neutrophils # 9.5 K/mcL (1.6-8.9)
[2018-12-08 06:08] LABS: BUN/Creatinine Ratio 20 (6-26); Blood Urea Nitrogen 17 mg/dL (6-20); Calcium 7.5 mg/dL (8.6-10.3); Carbon Dioxide 23 mEq/L (23-29); Chloride 109 mEq/L (98-107); Glucose 122 mg/dL (70-105); Osmolality,Calculated 283 (280-300); Potassium 3.8 mEq/L (3.5-5.1); Sodium 135 mEq/L (136-145); eGFR For Non-African Americans > 60 (> 60)
[2018-12-08 06:22] LABS: Anisocytosis 3+ (Not Present); Hypochromasia Present (Not Present); Microcytosis Present (Not Present); Platelet Estimate Slight Decrease (Normal)
--- NOTE | 2018-12-08 06:42 | Pulmonology Progress Note ---
Date of Encounter: 12/08/18 Time of Encounter: 06:41 Assessment and Plan (1) Atelectasis Current Visit: Yes Status: Acute N significant mucous plugging on Bronch Will f/u Culture results. BPT including IS and Flutter valve (Aerobika TID) OOBTC and Ambulation/PT/OT (2) COPD (chronic obstructive pulmonary disease) Current Visit: Yes Status: Chronic 5day burst of prednisone 40mg cont BDs Symbicort Tobacco cessation Qualifiers: COPD type: chronic bronchitis Chronic bronchitis type: unspecified Qualified Code(s): J42 - Unspecified chronic bronchitis (3) HCAP (healthcare-associated pneumonia) Current Visit: Yes Status: Acute 5-7 days of ABx based upon micro data for Pneumonia. (4) Collapse of left lung Current Visit: Yes Status: Resolved s/p bronch. Pulmonary Will s/o please call with questions. Subjective Principal diagnosis: Pneumonia Interval history: NO acute events overnight. No untoward effects s/p Bronch. Says breathing is better. Afebrile. Hemodynamically stable. Objective PUL Vital signs: Last Vital Signs Temp 97.6 F 12/08/18 03:24 Pulse 92 12/08/18 03:24 Resp 16 12/08/18 03:55 BP 98/55 12/08/18 03:24 Pulse Ox 94 12/08/18 03:55 General appearance: no acute distress, other (frail appearing) Eyes: nonicteric Neck: supple Auscultation: bilateral: diminished breath sounds Cardiovascular: regular rate and rhythm Gastrointestinal: normoactive bowel sounds Integumentary: normal Extremities: no cyanosis, no edema, no clubbing Musculoskeletal: no deformities normal mental status mood appropriate Results - Laboratory Findings CBC and BMP: 12/08/18 07:44 12/08/18 05:37 PT/INR, D-dimer PT 11.6 Seconds (9.4-12.1) 12/07/18 03:51 Abnormal lab findings: Abnormal lab results WBC 11.2 K/mcL (4.3-11.1) H 12/08/18 05:37 RBC 3.01 M/mcL (3.82-4.97) L 12/08/18 05:37 Hgb 7.2 g/dL (11.5-15.4) L D 12/08/18 05:37 Hct 21.8 % (35.3-44.9) L 12/08/18 05:37 MCV 72.4 fL (83.0-100.0) L 12/08/18 05:37 MCH 23.9 pg (28.0-33.3) L 12/08/18 05:37 RDW 23.9 % (11.5-14.5) H 12/08/18 05:37 Plt Count 121 K/mcL (140-400) L 12/08/18 05:37 MPV 8.5 fL (9.4-12.4) L 12/08/18 05:37 Neutrophils # 9.5 K/mcL (1.6-8.9) H 12/08/18 05:37 Platelet Estimate Slight Decrease (Normal) L 12/08/18 05:37 Hypochromasia Present (Not Present) A 12/08/18 05:37 Anisocytosis 3+ (Not Present) A 12/08/18 05:37 Microcytosis Present (Not Present) A 12/08/18 05:37 Macrocytosis Present (Not Present) A 12/07/18 03:51 VBG pCO2 39 mmHg (41-51) L 12/07/18 04:02 Sodium 135 mEq/L (136-145) L 12/08/18 05:37 Chloride 109 mEq/L (98-107) H 12/08/18 05:37 Glucose 122 mg/dL (70-105) H 12/08/18 05:37 POC Glucose 150 mg/dL (70-99) H 12/07/18 11:30 Calcium 7.5 mg/dL (8.6-10.3) L 12/08/18 05:37 Phosphorus 2.4 mg/dL (2.7-4.5) L 12/07/18 03:51 Magnesium 1.5 mg/dL (1.6-2.6) L 12/07/18 03:51 ALT 5 Units/L (7-52) L 12/07/18 03:51 Alkaline Phosphatase 107 Units/L (34-104) H 12/07/18 03:51 Troponin I 0.04 ng/mL (< 0.04) H* 12/07/18 14:11 B-Natriuretic Peptide 148 pg/mL (Less than 100) H 12/07/18 03:51 Serum Total Protein 5.9 g/dL (6.4-8.9) L 12/07/18 03:51 Albumin 2.4 g/dL (3.5-5.7) L 12/07/18 03:51 Albumin/Globulin Ratio 0.7 (1.1-2.2) L 12/07/18 03:51 Urine Clarity Cloudy (Clear) A 12/07/18 05:00 Ur Specific [place] > 1.030 (1.010-1.025) H 12/07/18 05:00 Ur Leukocyte Esterase Small (Negative) H 12/07/18 05:00 Urine Microscopic RBC 5-15 per hpf (0-3) H 12/07/18 05:00 Urine Microscopic WBC 5-15 per hpf (0-3) H 12/07/18 05:00 Ur Squamous Epith Cells Many per lpf (None-Few) H 12/07/18 05:00 Ur Culture Indicated? NO. (NO) A 12/07/18 05:00 Fluid Appearance Cloudy (Clear) A 12/07/18 13:45 - Microbiology Findings Microbiology Findings: Microbiology, Last 48 Hours 12/07/18 13:45 Respiratory Culture - Preliminary Left Lower Lobe Lung 12/07/18 05:00 Legionella Antigen - Final Urine,Clean Catch Streptococcus pneumoniae Antigen (M - Final 12/07/18 03:51 Blood Culture - Preliminary Peripheral Venipuncture Culture is incubating and being continuously monitored for growth. Final report to follow. 12/07/18 04:40 Blood Culture - Preliminary Peripheral Venipuncture Culture is incubating and being continuously monitored for growth. Final report to follow. 12/07/18 03:59 Influenza Types A,B Antigen - Final Nasopharyngeal - Clinical Findings Intake & Output: Intake & Output 12/07/18 12/07/18 12/08/18 15:59 23:59 07:59 Intake Total 321.7 / 321.7 340 / 340 370 / 370 Balance 321.7 / 321.7 340 / 340 370 / 370 Weight 42.9 kg Consult Discharge Plan - Plan Referrals: NONE,PCP [Primary Care Provider] -
[2018-12-08] MEDS: Budesonide/Formoterol 160/4.5 1 PUFF INH IH SCH ×2 (07:19→19:45)
[2018-12-08] MEDS ORDERED: Azithromycin 250 MG TABLET PO SCH (08:00)
--- NOTE | 2018-12-08 08:15 | Internal Med Progress Note ---
Hospitalist Progress Note - Encounter Date of Encounter: 12/08/18 Time of Encounter: 08:12 - Subjective Interval History: I have seen and evaluated the patient at bedside. Patient reports significant improvement on her breathing after the bronchoscopy yesterday. she denies abdominal pain. denies lightheadedness, shortness of breath or chest pain. denies seeing blood in her urine or stool. - Exam Vitals: Temp Pulse Resp BP Pulse Ox 97.6 F 92 16 98/55 94 12/08/18 03:24 12/08/18 03:24 12/08/18 03:55 12/08/18 03:24 12/08/18 03:55 Exam: Vitals: Reviewed General: Cachectic appearing, In no acute distress. Skin: Warm and supple. HEENT: Moist mucous membranes. No conjunctivae pallor. Neck: No lymphadenopathy. No JVD. No carotid bruits. No palpable thyroid. Chest: Diminished thoracic expansion. Reduced breath sounds bilaterally. No wheezes, rales or rhonchi. Heart: RRR, Normal S1 & S2; rhythmic. No rubs or murmurs. Abdomen: Non-distended, soft and non-tender to palpation. Extremities: No edema. No calf tenderness. Normal distal pulses. Neurological: Awake, AOX4. No focal deficits. Psych: Affect appropriate. - Assessment and Plan (1) HCAP (healthcare-associated pneumonia) Current Visit: Yes Status: Acute Assessment and Plan: will continue broad spectrum IV antibiotic to cover MRSA and pseudomonas. on piperacillin/tazobactam 3.375mg/IV Q8HRS and vancomycin per pharmacy dosing. discontinue azithromycin. blood cultures: no growth, pending final report Left lung secretion grain stain: No bacteria observed. (2) Hypomagnesemia Current Visit: No Status: Acute Assessment and Plan: electrolyte will be replaced (3) Hypothyroid Current Visit: Yes Status: Chronic Assessment and Plan: on Levothythorxine 25 mcg/PO daily. (4) Severe protein-calorie malnutrition Current Visit: No Status: Acute Assessment and Plan: continue megestrol (5) Collapse of left lung Current Visit: Yes Status: Resolved Assessment and Plan: s/p brochoscopy. continue IV antibiotics. Incentive spirometry. Pulmonology recommendations appreciated. (6) COPD exacerbation Current Visit: Yes Status: Resolved Assessment and Plan: chest is clear to auscultation. continue scheduled bronchodilators, plus symbicort patient on empiric IV antibiotics (7) Hypotension Current Visit: Yes Status: Acute Assessment and Plan: Possible due to drop in H&H vs antihypertensive medications. will hold antihypertensive medications. (8) Anemia Current Visit: No Status: Chronic Assessment and Plan: significant drop in H&H. Patient had a EGD&colonoscopy 2 days ago for anemia work up and was unremarkable. will repeat cbc. Type and screen. crossmatch 1 unit of PRBCs. will consider transfusing 1 unit of PRBC if Hb <7, Htc <23. started on ferrous sulfate 325mg/PO BID. FOBT ordered. (9) Depression Current Visit: Yes Status: Chronic Assessment and Plan: patient on buspirone and Quetiapine DVT Prophylaxis: will discontinue chemical DVT prophylaxis pending FOBT result. mechanical DVT prophylaxis with plexipulses. - Summary of Assessment and Plan Summary of Assessment and Plan: Patient to remain in the hospital due to anemia, copd exacerbation. potential discharge in a day or two - Time Spent with Patient Total time spent is greater than 50% in coordination of care (as documented) at patient's floor/unit and/or counseling patient: Greater than 35 minutes (45) Plan of Care Discussed with: patient (and the nurse.) Internal Medicine: Result - Labs CBC & Chem 7: 12/08/18 05:37 12/08/18 05:37 Labs: Short CBC 12/08/18 Range/Units 05:37 WBC 11.2 H (4.3-11.1) K/mcL Hgb 7.2 L D (11.5-15.4) g/dL Hct 21.8 L (35.3-44.9) % Plt Count 121 L (140-400) K/mcL Neutrophils # 9.5 H (1.6-8.9) K/mcL BMP 12/08/18 05:37 Sodium 135 L Potassium 3.8 Chloride 109 H Carbon Dioxide 23 BUN 17 Creatinine 0.87 Glucose 122 H Calcium 7.5 L Cardiac Enzymes 12/07/18 12/07/18 Range/Units 08:18 14:11 Troponin I 0.05 H* 0.04 H* (< 0.04) ng/mL - ABG Interpretation ABG results: PT/INR, D-dimer PT 11.6 Seconds (9.4-12.1) 12/07/18 03:51 Consult Discharge Plan - Plan Referrals: NONE,PCP [Primary Care Provider] - (3) Hypothyroid Qualifiers: Hypothyroidism type: unspecified Qualified Code(s): E03.9 - Hypothyroidism, unspecified (7) Hypotension Qualifiers: Hypotension type: unspecified hypotension type Qualified Code(s): I95.9 - Hypotension, unspecified (8) Anemia Qualifiers: Folate deficiency anemia type: unspecified folate deficiency Qualified Code(s): D52.9 - Folate deficiency anemia, unspecified (9) Depression Qualifiers: Depression Type: unspecified Qualified Code(s): F32.9 - Major depressive disorder, single episode, unspecified
[2018-12-08 08:32] LABS: Basophils % 0.1 %; Hematocrit 22.2 % (35.3-44.9); Hemoglobin 7.4 g/dL (11.5-15.4); Immature Granulocytes % 1.2 % (0-4); Lymphocytes # 0.9 K/mcL (0.6-4.6); Lymphocytes % 7.7 %; Mean Corpuscular HGB Conc 33.3 g/dL (31.6-35.5); Mean Corpuscular Volume 72.1 fL (83.0-100.0); Monocytes # 0.8 K/mcL (0.0-1.3); Monocytes % 6.5 %; Platelet Count 138 K/mcL (140-400); Red Blood Count 3.08 M/mcL (3.82-4.97); Segmented Neutrophils % 84.5 %
[2018-12-08 08:33] LABS: Neutrophils # 10.2 K/mcL (1.6-8.9)
[2018-12-08 08:34] LABS: Anisocytosis 2+ (Not Present); Platelet Estimate Normal (Normal)
[2018-12-08 08:39] LABS: Magnesium 1.6 mg/dL (1.6-2.6)
[2018-12-08] MEDS: Megestrol Acetate 400 MG/10 ML UDC PO SCH (09:37)
[2018-12-08 16:28] LABS: Basophils % 0.1 %; Eosinophils % 0.1 %; Hematocrit 24.6 % (35.3-44.9); Hemoglobin 7.9 g/dL (11.5-15.4); Immature Granulocytes % 1.6 % (0-4); Lymphocytes # 1.5 K/mcL (0.6-4.6); Lymphocytes % 10.1 %; Mean Corpuscular HGB Conc 32.1 g/dL (31.6-35.5); Mean Corpuscular Hemoglobin 23.7 pg (28.0-33.3); Mean Corpuscular Volume 73.7 fL (83.0-100.0); Mean Platelet Volume 9.1 fL (9.4-12.4); Monocytes # 0.8 K/mcL (0.0-1.3); Neutrophils # 12.4 K/mcL (1.6-8.9); Platelet Count 158 K/mcL (140-400); Red Blood Count 3.34 M/mcL (3.82-4.97); Red Cell Distribution Width 24.3 % (11.5-14.5); Segmented Neutrophils % 83.1 %
[2018-12-08 16:46] LABS: Anisocytosis 2+ (Not Present); Hypochromasia Present (Not Present); Microcytosis Present (Not Present); Platelet Estimate Normal (Normal)
[2018-12-09] MEDS: Piperacillin/Tazobactam 3.375 GM in 0.9 % Sodium Chloride Mini Bag 100 ML IVPB SCH ×3 (00:44→16:26)
[2018-12-09] MEDS: Ipratropium/Albuterol Neb 3 ML IH SCH ×6 (03:27→23:48)
[2018-12-09] MEDS: Levothyroxine 25 MCG TABLET PO SCH (06:11)
[2018-12-09] MEDS: Budesonide/Formoterol 160/4.5 1 PUFF INH IH SCH ×2 (07:38→19:40)
[2018-12-09] MEDS: Megestrol Acetate 400 MG/10 ML UDC PO SCH (08:24)
--- NOTE | 2018-12-09 09:18 | Pulmonology Progress Note ---
<Rosi Godfrey - Last Filed: 12/09/18 14:08> Date of Encounter: 12/09/18 Time of Encounter: 09:00 Assessment and Plan (1) Atelectasis Current Visit: Yes Status: Acute S/p bronchoscopy on 12/07/18 with no significant mycos plugging noted on broncho scopy. Cytology pending for BAL Left lower lung lobe cultures positive for gram positive cocci, continue vancomycin until sensitivities Continue flutter valve Continue incentive spirometry (2) HCAP (healthcare-associated pneumonia) Current Visit: Yes Status: Acute Shortness of breath. Was recently admitted to the hospital for anemia and failure to thrive. Her CT is significant for emphysema -Left lower lung broncoscopy shows gram positive cocci, sensitivities pending, continue vancomycin -Noted to have left lung mucus plug, continue mucomyst (3) COPD (chronic obstructive pulmonary disease) Current Visit: Yes Status: Chronic History of emphysema, exacerbated due to pneumonia Continue Duoneb Continue symbicort Continue incentive spirometry Qualifiers: COPD type: emphysema Emphysema type: unspecified Qualified Code(s): J43.9 - Emphysema, unspecified Subjective Principal diagnosis: Pneumonia Interval history: Ms. Skelton was seen at bedside this morning. No acute events overnight, remain ed afebrile. Continues to have shortness of breath, stable since admission. Denies cough at this time. Objective PUL Vital signs: Last Vital Signs Temp 98.7 F 12/09/18 06:41 Pulse 102 12/09/18 06:41 Resp 18 12/09/18 06:41 BP 114/72 12/09/18 06:41 Pulse Ox 90 12/09/18 06:41 General appearance: no acute distress, alert, appears uncomfortable Eyes: nonicteric ENT: oropharynx moist Neck: supple Effort: mildly labored Auscultation: bilateral: clear, diminished breath sounds Cardiovascular: other (tahycardic) Gastrointestinal: soft, non-tender, non-distended Extremities: no edema, no clubbing Musculoskeletal: no deformities mood appropriate, affect normal Results - Laboratory Findings CBC and BMP: 12/09/18 08:51 12/09/18 08:51 PT/INR, D-dimer PT 11.6 Seconds (9.4-12.1) 12/07/18 03:51 Abnormal lab findings: Abnormal lab results WBC 14.9 K/mcL (4.3-11.1) H 12/08/18 16:09 RBC 3.34 M/mcL (3.82-4.97) L 12/08/18 16:09 Hgb 7.9 g/dL (11.5-15.4) L 12/08/18 16:09 Hct 24.6 % (35.3-44.9) L 12/08/18 16:09 MCV 73.7 fL (83.0-100.0) L 12/08/18 16:09 MCH 23.7 pg (28.0-33.3) L 12/08/18 16:09 RDW 24.3 % (11.5-14.5) H 12/08/18 16:09 MPV 9.1 fL (9.4-12.4) L 12/08/18 16:09 Neutrophils # 12.4 K/mcL (1.6-8.9) H 12/08/18 16:09 Hypochromasia Present (Not Present) A 12/08/18 16:09 Anisocytosis 2+ (Not Present) A 12/08/18 16:09 Microcytosis Present (Not Present) A 12/08/18 16:09 Macrocytosis Present (Not Present) A 12/07/18 03:51 VBG pCO2 39 mmHg (41-51) L 12/07/18 04:02 Sodium 135 mEq/L (136-145) L 12/08/18 05:37 Chloride 109 mEq/L (98-107) H 12/08/18 05:37 Glucose 122 mg/dL (70-105) H 12/08/18 05:37 POC Glucose 150 mg/dL (70-99) H 12/07/18 11:30 Calcium 7.5 mg/dL (8.6-10.3) L 12/08/18 05:37 Phosphorus 2.4 mg/dL (2.7-4.5) L 12/07/18 03:51 ALT 5 Units/L (7-52) L 12/07/18 03:51 Alkaline Phosphatase 107 Units/L (34-104) H 12/07/18 03:51 Troponin I 0.04 ng/mL (< 0.04) H* 12/07/18 14:11 B-Natriuretic Peptide 148 pg/mL (Less than 100) H 12/07/18 03:51 Serum Total Protein 5.9 g/dL (6.4-8.9) L 12/07/18 03:51 Albumin 2.4 g/dL (3.5-5.7) L 12/07/18 03:51 Albumin/Globulin Ratio 0.7 (1.1-2.2) L 12/07/18 03:51 Urine Clarity Cloudy (Clear) A 12/07/18 05:00 Ur Specific [place] > 1.030 (1.010-1.025) H 12/07/18 05:00 Ur Leukocyte Esterase Small (Negative) H 12/07/18 05:00 Urine Microscopic RBC 5-15 per hpf (0-3) H 12/07/18 05:00 Urine Microscopic WBC 5-15 per hpf (0-3) H 12/07/18 05:00 Ur Squamous Epith Cells Many per lpf (None-Few) H 12/07/18 05:00 Ur Culture Indicated? NO. (NO) A 12/07/18 05:00 Fluid Appearance Cloudy (Clear) A 12/07/18 13:45 - Microbiology Findings Microbiology Findings: Microbiology, Last 48 Hours 12/07/18 13:45 Acid Fast Stain - Final Left Lower Lobe Lung 12/07/18 13:45 Respiratory Culture - Preliminary Left Lower Lobe Lung Gram Positive Cocci 12/07/18 05:00 Legionella Antigen - Final Urine,Clean Catch Streptococcus pneumoniae Antigen (M - Final 12/07/18 03:51 Blood Culture - Preliminary Peripheral Venipuncture Culture is incubating and being continuously monitored for growth. Final report to follow. 12/07/18 04:40 Blood Culture - Preliminary Peripheral Venipuncture Culture is incubating and being continuously monitored for growth. Final report to follow. - Diagnostic Findings Chest x-ray: report reviewed, image reviewed CT scan - chest: report reviewed, image reviewed - Clinical Findings Intake & Output: Intake & Output 12/08/18 12/09/18 12/09/18 23:59 07:59 15:59 Intake Total 340 / 340 100 / 100 Balance 340 / 340 100 / 100 Weight 42 kg Consult Discharge Plan - Plan Referrals: NONE,PCP [Primary Care Provider] - <Koko Evans M - Last Filed: 12/10/18 22:56> Date of Encounter: 12/10/18 Objective PUL Vital signs: Last Vital Signs Temp 98.7 F 12/09/18 06:41 Pulse 102 12/09/18 06:41 Resp 18 12/09/18 06:41 BP 114/72 12/09/18 06:41 Pulse Ox 90 12/09/18 06:41 Results - Laboratory Findings CBC and BMP: 12/10/18 17:41 12/10/18 17:41 PT/INR, D-dimer PT 11.6 Seconds (9.4-12.1) 12/07/18 03:51 Abnormal lab findings: Abnormal lab results WBC 12.4 K/mcL (4.3-11.1) H 12/09/18 08:51 RBC 3.49 M/mcL (3.82-4.97) L 12/09/18 08:51 Hgb 8.5 g/dL (11.5-15.4) L 12/09/18 08:51 Hct 26.2 % (35.3-44.9) L 12/09/18 08:51 MCV 75.1 fL (83.0-100.0) L 12/09/18 08:51 MCH 24.4 pg (28.0-33.3) L 12/09/18 08:51 RDW 25.2 % (11.5-14.5) H 12/09/18 08:51 Neutrophils # 12.4 K/mcL (1.6-8.9) H 12/08/18 16:09 Hypochromasia Present (Not Present) A 12/08/18 16:09 Anisocytosis 2+ (Not Present) A 12/08/18 16:09 Microcytosis Present (Not Present) A 12/08/18 16:09 Macrocytosis Present (Not Present) A 12/07/18 03:51 VBG pCO2 39 mmHg (41-51) L 12/07/18 04:02 POC Glucose 150 mg/dL (70-99) H 12/07/18 11:30 Calcium 7.4 mg/dL (8.6-10.3) L 12/09/18 08:51 Phosphorus 1.5 mg/dL (2.7-4.5) L 12/09/18 08:51 ALT 5 Units/L (7-52) L 12/07/18 03:51 Alkaline Phosphatase 107 Units/L (34-104) H 12/07/18 03:51 Troponin I 0.04 ng/mL (< 0.04) H* 12/07/18 14:11 B-Natriuretic Peptide 148 pg/mL (Less than 100) H 12/07/18 03:51 Serum Total Protein 5.9 g/dL (6.4-8.9) L 12/07/18 03:51 Albumin 2.4 g/dL (3.5-5.7) L 12/07/18 03:51 Albumin/Globulin Ratio 0.7 (1.1-2.2) L 12/07/18 03:51 Urine Clarity Cloudy (Clear) A 12/07/18 05:00 Ur Specific [place] > 1.030 (1.010-1.025) H 12/07/18 05:00 Ur Leukocyte Esterase Small (Negative) H 12/07/18 05:00 Urine Microscopic RBC 5-15 per hpf (0-3) H 12/07/18 05:00 Urine Microscopic WBC 5-15 per hpf (0-3) H 12/07/18 05:00 Ur Squamous Epith Cells Many per lpf (None-Few) H 12/07/18 05:00 Ur Culture Indicated? NO. (NO) A 12/07/18 05:00 Fluid Appearance Cloudy (Clear) A 12/07/18 13:45 - Microbiology Findings Microbiology Findings: Microbiology, Last 48 Hours 12/07/18 13:45 Acid Fast Stain - Final Left Lower Lobe Lung 12/07/18 13:45 Respiratory Culture - Preliminary Left Lower Lobe Lung Gram Positive Cocci 12/07/18 05:00 Legionella Antigen - Final Urine,Clean Catch Streptococcus pneumoniae Antigen (M - Final - Clinical Findings Intake & Output: Intake & Output 12/08/18 12/09/18 12/09/18 23:59 07:59 15:59 Intake Total 340 / 340 100 / 100 Balance 340 / 340 100 / 100 Weight 42 kg - Attending Attestation I examined this patient and my medical decision-making was reviewed with the Resident Physician. I agree with the documented findings, disposition and treatment plan as described except to the extent set forth below. Patient seen and examined. Labs, radiology, chart personally reviewed. Agree with resident's history and physical, assessment, plan with following comments: [employer]: Patient follows commands, Pulmonary: Acceptable oxygenation and ventilation and patient has generalized weakness which unfortunately will affect her breathing status she does not have any significant muscle mass. On examination there is no significant wheezing audible and I do not feel strongly this is COPD exacerbation. Patient will need physical therapy and outpatient workup as well as follow-up in the clinic when she is discharged and pulmonary rehabilitation would be important for this patient. Incentive spirometry and mobilization is extremely important. Mucomyst nebulizer might be helpful as well. I suspect this patient's condition could deteriorate.
[2018-12-09 09:37] LABS: Hematocrit 26.2 % (35.3-44.9); Hemoglobin 8.5 g/dL (11.5-15.4); Mean Corpuscular HGB Conc 32.4 g/dL (31.6-35.5); Mean Corpuscular Hemoglobin 24.4 pg (28.0-33.3); Mean Corpuscular Volume 75.1 fL (83.0-100.0); Mean Platelet Volume 9.5 fL (9.4-12.4); Platelet Count 184 K/mcL (140-400); Red Blood Count 3.49 M/mcL (3.82-4.97); Red Cell Distribution Width 25.2 % (11.5-14.5)
[2018-12-09 09:58] LABS: BUN/Creatinine Ratio 21 (6-26); Blood Urea Nitrogen 18 mg/dL (6-20); Calcium 7.4 mg/dL (8.6-10.3); Carbon Dioxide 25 mEq/L (23-29); Chloride 106 mEq/L (98-107); Glucose 102 mg/dL (70-105); Magnesium 1.6 mg/dL (1.6-2.6); Osmolality,Calculated 284 (280-300); Phosphorous 1.5 mg/dL (2.7-4.5); Potassium 4.4 mEq/L (3.5-5.1); Sodium 136 mEq/L (136-145); eGFR For Non-African Americans > 60 (> 60)
--- NOTE | 2018-12-09 10:40 | Internal Med Progress Note ---
Hospitalist Progress Note - Encounter Date of Encounter: 12/09/18 Time of Encounter: 10:38 - Subjective Interval History: I have seen and evaluated the patient at bedside. she reports feeling short of breath after ambulating in the room. denies chest pain, lightheadedness. Had a BM, denies seeing blood in the stool. denies nausea or vomiting. - Exam Vitals: Temp Pulse Resp BP Pulse Ox 99.1 F 105 22 128/80 83 12/09/18 10:26 12/09/18 10:12/09/18 10:12/09/18 10:12/09/18 10:26 Exam: Vitals: Reviewed General: Cachectic appearing, In mild distress due to shortness of breath Chest: Diminished thoracic expansion. good air entry b/l, no wheezes, rales or rhonchi. Heart: Tachycardic, Normal S1 & S2; rhythmic. No rubs or murmurs. Abdomen: Non-distended, soft and non-tender to palpation. NABS in all 4 quadrants Extremities: No edema. Neurological: Awake, AOX4. Psych: Affect appropriate. - Assessment and Plan (1) Acute on chronic respiratory failure with hypoxemia Current Visit: Yes Status: Acute Assessment and Plan: Patient with a left lung collapse on presentation status post bronchoscopy. Still requiring high oxygen by nasal cannula. Plan Place patient on high flow oxygen We will repeat a chest x-ray Continue bronchodilators as scheduled. And when necessary On Symbicort Incentive spirometry Pulmonology recommendation appreciated. Standby BiPAP (2) Collapse of left lung Current Visit: Yes Status: Resolved (3) COPD exacerbation Current Visit: Yes Status: Chronic Assessment and Plan: Patient with a history of COPD. Not exacerbated. Plan of care as per problem #1. (4) HCAP (healthcare-associated pneumonia) Current Visit: Yes Status: Acute Assessment and Plan: spum culture growing gram positive cocci. negative AFB. continue vancomycin per pharmacy protocol and piperacillin/tazobactam 3.375mg/IV Q8HRs, will narrow antibiotics pending sensitivity and specificity. (5) Hypothyroid Current Visit: Yes Status: Chronic Assessment and Plan: On levothyroxine 25mcg/PO daily (6) Severe protein-calorie malnutrition Current Visit: No Status: Acute (7) Anemia Current Visit: No Status: Chronic Assessment and Plan: H&H is stable. No signs of active bleeding. Patient had a recent GI workup for chronic anemia and was negative. We will continue to monitor H&H. Continue ferrous sulfate 325 mg by mouth twice a day. (8) Depression Current Visit: Yes Status: Chronic Assessment and Plan: Patient is on quetiapine 200 mg by mouth at bedtime and buspirone 10 mg twice a day (9) Hypomagnesemia Current Visit: No Status: Resolved (10) Hypertension Current Visit: No Status: Chronic Assessment and Plan: Patient is on metoprolol 50 mg by mouth twice a day. (11) Sepsis Current Visit: Yes Status: Resolved DVT Prophylaxis: We will add heparin subcutaneous for DVT prophylaxis. - Summary of Assessment and Plan Summary of Assessment and Plan: Patient to remain in the hospital due to acute on chronic hypoxemic respiratory failure, multifocal pneumonia. On high flow oxygen. - Time Spent with Patient Total time spent is greater than 50% in coordination of care (as documented) at patient's floor/unit and/or counseling patient: Greater than 35 minutes (40) Plan of Care Discussed with: patient (and the nurse) Internal Medicine: Result - Labs CBC & Chem 7: 12/09/18 08:51 12/09/18 08:51 Labs: Short CBC 12/08/18 12/09/18 Range/Units 16:09 08:51 WBC 14.9 H 12.4 H (4.3-11.1) K/mcL Hgb 7.9 L 8.5 L (11.5-15.4) g/dL Hct 24.6 L 26.2 L (35.3-44.9) % Plt Count 158 184 (140-400) K/mcL Neutrophils # 12.4 H (1.6-8.9) K/mcL BMP 12/09/18 08:51 Sodium 136 Potassium 4.4 Chloride 106 Carbon Dioxide 25 BUN 18 Creatinine 0.86 Glucose 102 Calcium 7.4 L - ABG Interpretation ABG results: PT/INR, D-dimer PT 11.6 Seconds (9.4-12.1) 12/07/18 03:51 Consult Discharge Plan - Plan Referrals: NONE,PCP [Primary Care Provider] - (5) Hypothyroid Qualifiers: Hypothyroidism type: unspecified Qualified Code(s): E03.9 - Hypothyroidism, unspecified (7) Anemia Qualifiers: Folate deficiency anemia type: unspecified folate deficiency Qualified Code(s): D52.9 - Folate deficiency anemia, unspecified (8) Depression Qualifiers: Depression Type: unspecified Qualified Code(s): F32.9 - Major depressive disorder, single episode, unspecified (10) Hypertension Qualifiers: Hypertension type: essential hypertension Qualified Code(s): I10 - Essential (primary) hypertension (11) Sepsis Qualifiers: Sepsis type: sepsis due to unspecified organism Qualified Code(s): A41.9 - Sepsis, unspecified organism
[2018-12-09 11:24] LABS: ABG Base Excess 1 mEq/L (-2 to 3); ABG HCO3 24 mEq/L (21-27); ABG Oxygen Saturation 88 % (95-98); ABG PCO2 33 mmHg (35-45); ABG PH 7.48 pH Units (7.32-7.45); ABG PO2 50 mmHg (85-104); ABG TCO2 25 mEq/L (20-26)
[2018-12-09] MEDS: *HR* Heparin 5,000 UNIT/ML VIAL SQ SCH ×2 (12:00→16:26)
[2018-12-09] MEDS ORDERED: Aminoglycoside Consult 1 EACH MC ONE (13:47)
[2018-12-09] MEDS: Acetylcysteine 10% 2 ML INHSOL IH SCH ×2 (15:18→23:48)
[2018-12-09] MEDS ORDERED: Furosemide 20 MG TABLET PO SCH (16:00)
[2018-12-09] MEDS ORDERED: Furosemide 40 MG/4 ML VIAL ONE (16:11)
[2018-12-09] MEDS ORDERED: Furosemide 40 MG/4 ML VIAL IVP SCH (16:15)
[2018-12-09] MEDS: Furosemide 40 MG/4 ML VIAL IVP SCH (16:16)
[2018-12-09] MEDS ORDERED: *HR* Heparin 5,000 UNIT/ML VIAL IVP ONE (16:52)
[2018-12-09] MEDS ORDERED: *HR* Heparin 5,000 UNIT/ML VIAL IVP PRN ×2 (16:52)
--- NOTE | 2018-12-09 16:58 | Event Note ---
Date of Encounter: 12/09/18 Time of Encounter: 16:53 Called by the nurse to evaluate the patient due to complain of chest pressure and respiratory distress. O2sat keep trending down with minimal exertion to the mid to low 80s. trop ordered 0.12 from 0.4. chest x-ray with possible interstitial edema and b/l pleural effusion Plan will start patient on a heparin drip cardiology consulted for chest pressure and elevated trops. elevated trops likely due to demand ischemia from respiratory distress will trend trops place on BiPap started on furosemide 40mg/IV BID, first dose now fluid restriction to 1.5 litters a day will obtain a TTE 12 ekg ordered
[2018-12-09 18:22] LABS: Hematocrit 28.2 % (35.3-44.9); Hemoglobin 9.2 g/dL (11.5-15.4); Mean Corpuscular HGB Conc 32.6 g/dL (31.6-35.5); Mean Corpuscular Volume 73.6 fL (83.0-100.0); Platelet Count 210 K/mcL (140-400); Red Blood Count 3.83 M/mcL (3.82-4.97); Red Cell Distribution Width 25.1 % (11.5-14.5)
[2018-12-09 18:40] LABS: Heparin anti-factor XA UFH 0.3 IU/mL (0.30-0.70); INR 1.1; Prothrombin Time 12.5 Seconds (9.4-12.1)
[2018-12-09] MEDS: Heparin 25,000 UNIT/500 ML D5W 25,000 UNIT/500 ML BAG IVC SCH (19:15)
[2018-12-10] MEDS: Piperacillin/Tazobactam 3.375 GM in 0.9 % Sodium Chloride Mini Bag 100 ML IVPB SCH ×2 (00:49→09:27)
[2018-12-10 03:32] LABS: Troponin I 0.16 ng/mL (< 0.04)
[2018-12-10] MEDS: Ipratropium/Albuterol Neb 3 ML IH SCH ×6 (03:35→23:44)
[2018-12-10] MEDS: Levothyroxine 25 MCG TABLET PO SCH (06:44)
[2018-12-10] MEDS: Acetylcysteine 10% 2 ML INHSOL IH SCH ×3 (07:04→23:44)
[2018-12-10 07:48] LABS: BUN/Creatinine Ratio 21 (6-26); Blood Urea Nitrogen 19 mg/dL (6-20); Calcium 7.7 mg/dL (8.6-10.3); Carbon Dioxide 26 mEq/L (23-29); Chloride 102 mEq/L (98-107); Glucose 97 mg/dL (70-105); Magnesium 1.3 mg/dL (1.6-2.6); Osmolality,Calculated 286 (280-300); Phosphorous 4.1 mg/dL (2.7-4.5); Sodium 137 mEq/L (136-145); eGFR For Non-African Americans > 60 (> 60)
[2018-12-10] MEDS ORDERED: Aminoglycoside Consult 1 EACH MC ONE (07:53)
[2018-12-10] MEDS ORDERED: *HR* Atropine Sulfate 1 MG/10 ML SYRINGE IV ONE (07:54)
[2018-12-10] MEDS ORDERED: *HR* Norepinephrine 4 MG/4 ML VIAL IVC ONE (07:54)
[2018-12-10] MEDS ORDERED: D5% in Water 250 ML IV BAG IV ONE (07:54)
[2018-12-10 08:05] LABS: Hematocrit 24.4 % (35.3-44.9); Mean Corpuscular HGB Conc 32.8 g/dL (31.6-35.5); Mean Corpuscular Hemoglobin 24.2 pg (28.0-33.3); Mean Corpuscular Volume 73.9 fL (83.0-100.0); Mean Platelet Volume 8.9 fL (9.4-12.4); Platelet Count 165 K/mcL (140-400); Red Cell Distribution Width 25.5 % (11.5-14.5)
--- NOTE | 2018-12-10 08:46 | Pulmonology Progress Note ---
<Rosi Godfrey - Last Filed: 12/10/18 13:46> Date of Encounter: 12/10/18 Time of Encounter: 08:30 Assessment and Plan (1) Atelectasis Current Visit: Yes Status: Acute S/p bronchoscopy on 12/07/18 with no significant mucus plugging noted on broncho scopy. Cytology pending for BAL Left lower lung lobe cultures positive for gram positive cocci, continue vancomycin until sensitivities Continue flutter valve Continue incentive spirometry (2) HCAP (healthcare-associated pneumonia) Current Visit: Yes Status: Acute Shortness of breath. Was recently admitted to the hospital for anemia and failure to thrive. Her CT is significant for emphysema -Left lower lung broncoscopy shows staph aureus and Haemophilus influenza, on ceftriaxone, zosyn and vanc -Noted to have left lung mucus plug, continue mucomyst (3) COPD (chronic obstructive pulmonary disease) Current Visit: Yes Status: Chronic History of emphysema, exacerbated due to pneumonia Continue Duoneb Continue symbicort Continue incentive spirometry Added IV solu medrol 40 8QHR, taper as tolerated Qualifiers: COPD type: emphysema Emphysema type: unspecified Qualified Code(s): J43.9 - Emphysema, unspecified Subjective Principal diagnosis: Pneumonia Interval history: Ms. Skelton was seen at bedside this morning. No acute events overnight, remained afebrile. Has worsened shortness of breath with movement. She has no other complaints. Denies fever, chills, nausea or emesis. Objective PUL Vital signs: Last Vital Signs Temp 98.4 F 12/10/18 00:53 Pulse 91 12/10/18 00:53 Resp 23 12/10/18 07:05 BP 115/68 12/10/18 00:53 Pulse Ox 91 12/10/18 07:05 General appearance: no acute distress, alert Eyes: nonicteric ENT: oropharynx moist Neck: supple Effort: mildly labored Auscultation: bilateral: diminished breath sounds Cardiovascular: regular rate and rhythm Gastrointestinal: normoactive bowel sounds, soft, non-tender, non-distended Integumentary: normal Extremities: no cyanosis, no edema Musculoskeletal: no deformities normal mental status, pupils equal and round mood appropriate, affect normal Results - Laboratory Findings CBC and BMP: 12/10/18 02:50 12/10/18 02:50 ABG ABG pH 7.48 pH Units (7.32-7.45) H 12/09/18 11:13 ABG pCO2 33 mmHg (35-45) L 12/09/18 11:13 ABG pO2 50 mmHg (85-104) L* 12/09/18 11:13 ABG O2 Saturation 88 % (95-98) L 12/09/18 11:13 PT/INR, D-dimer PT 12.5 Seconds (9.4-12.1) H 12/09/18 17:55 Abnormal lab findings: Abnormal lab results RBC 3.30 M/mcL (3.82-4.97) L 12/10/18 02:50 Hgb 8.0 g/dL (11.5-15.4) L 12/10/18 02:50 Hct 24.4 % (35.3-44.9) L 12/10/18 02:50 MCV 73.9 fL (83.0-100.0) L 12/10/18 02:50 MCH 24.2 pg (28.0-33.3) L 12/10/18 02:50 RDW 25.5 % (11.5-14.5) H 12/10/18 02:50 MPV 8.9 fL (9.4-12.4) L 12/10/18 02:50 Neutrophils # 12.4 K/mcL (1.6-8.9) H 12/08/18 16:09 Hypochromasia Present (Not Present) A 12/08/18 16:09 Anisocytosis 2+ (Not Present) A 12/08/18 16:09 Microcytosis Present (Not Present) A 12/08/18 16:09 Macrocytosis Present (Not Present) A 12/07/18 03:51 PT 12.5 Seconds (9.4-12.1) H 12/09/18 17:55 ABG pH 7.48 pH Units (7.32-7.45) H 12/09/18 11:13 ABG pCO2 33 mmHg (35-45) L 12/09/18 11:13 ABG pO2 50 mmHg (85-104) L* 12/09/18 11:13 ABG O2 Saturation 88 % (95-98) L 12/09/18 11:13 VBG pCO2 39 mmHg (41-51) L 12/07/18 04:02 POC Glucose 150 mg/dL (70-99) H 12/07/18 11:30 Calcium 7.7 mg/dL (8.6-10.3) L 12/10/18 02:50 Magnesium 1.3 mg/dL (1.6-2.6) L 12/10/18 02:50 ALT 5 Units/L (7-52) L 12/07/18 03:51 Alkaline Phosphatase 107 Units/L (34-104) H 12/07/18 03:51 Troponin I 0.16 ng/mL (< 0.04) H* 12/10/18 02:50 B-Natriuretic Peptide 148 pg/mL (Less than 100) H 12/07/18 03:51 Serum Total Protein 5.9 g/dL (6.4-8.9) L 12/07/18 03:51 Albumin 2.4 g/dL (3.5-5.7) L 12/07/18 03:51 Albumin/Globulin Ratio 0.7 (1.1-2.2) L 12/07/18 03:51 Urine Clarity Cloudy (Clear) A 12/07/18 05:00 Ur Specific [place] > 1.030 (1.010-1.025) H 12/07/18 05:00 Ur Leukocyte Esterase Small (Negative) H 12/07/18 05:00 Urine Microscopic RBC 5-15 per hpf (0-3) H 12/07/18 05:00 Urine Microscopic WBC 5-15 per hpf (0-3) H 12/07/18 05:00 Ur Squamous Epith Cells Many per lpf (None-Few) H 12/07/18 05:00 Ur Culture Indicated? NO. (NO) A 12/07/18 05:00 Fluid Appearance Cloudy (Clear) A 12/07/18 13:45 - Microbiology Findings Microbiology Findings: Microbiology, Last 48 Hours 12/07/18 13:45 Respiratory Culture - Final Left Lower Lobe Lung Staphylococcus aureus Haemophilus influenzae 12/07/18 13:45 Acid Fast Stain - Final Left Lower Lobe Lung - Clinical Findings Intake & Output: Intake & Output 12/09/18 12/10/18 12/10/18 23:59 07:59 15:59 Intake Total 200 / 200 89 / 89 Output Total 1200 / 1200 1200 / 1200 Balance -1000 / -1000 -1111 / -1111 Consult Discharge Plan - Plan Referrals: NONE,PCP [Primary Care Provider] - <Koko Evans M - Last Filed: 12/10/18 22:42> Date of Encounter: 12/10/18 Objective PUL Vital signs: Last Vital Signs Temp 97.9 F 12/10/18 19:00 Pulse 91 12/10/18 22:00 Resp 13 12/10/18 22:00 BP 95/72 12/10/18 22:00 Pulse Ox 100 12/10/18 22:00 Ventilator Settings Ventilator Settings: Ventilator Settings, Last 8 Hours Ventilator Tidal Volume 400 Setting Ventilator Tidal Volume 400 Setting Ventilator Tidal Volume 400 Setting Ventilator Tidal Volume 400 Setting Ventilator Tidal Volume 400 Setting Ventilator Tidal Volume 400 Setting Ventilator Tidal Volume 400 Setting Ventilator Tidal Volume 400 Setting Ventilator Tidal Volume 400 Setting Ventilator Tidal Volume 400 Setting Ventilator Respiratory Rate 12 Setting Ventilator Respiratory Rate 12 Setting Ventilator Respiratory Rate 12 Setting Ventilator Respiratory Rate 12 Setting Ventilator Respiratory Rate 12 Setting Ventilator Respiratory Rate 12 Setting Ventilator Respiratory Rate 12 Setting Ventilator Respiratory Rate 12 Setting Ventilator Respiratory Rate 12 Setting Ventilator Respiratory Rate 12 Setting Actual Respiratory Rate 13 Actual Respiratory Rate 14 Actual Respiratory Rate 12 Actual Respiratory Rate 12 Actual Respiratory Rate 13 Actual Respiratory Rate 14 Actual Respiratory Rate 15 Actual Respiratory Rate 29 Positive End Expiratory 8 Pressure Positive End Expiratory 8 Pressure Positive End Expiratory 8 Pressure Positive End Expiratory 8 Pressure Positive End Expiratory 8 Pressure Positive End Expiratory 8 Pressure Positive End Expiratory 8 Pressure Positive End Expiratory 8 Pressure Positive End Expiratory 8 Pressure Positive End Expiratory 8 Pressure Peak Inspiratory Airway 8 Pressure Peak Inspiratory Airway 8.9 Pressure Peak Inspiratory Airway 15 Pressure Peak Inspiratory Airway 13 Pressure Peak Inspiratory Airway 19 Pressure Peak Inspiratory Airway 20 Pressure Peak Inspiratory Airway 20 Pressure Results - Laboratory Findings CBC and BMP: 12/10/18 17:41 12/10/18 17:41 ABG ABG pH 7.43 pH Units (7.32-7.45) 12/10/18 21:22 ABG pCO2 43 mmHg (35-45) 12/10/18 21:22 ABG pO2 134 mmHg (85-104) H D 12/10/18 21:22 ABG O2 Saturation 99 % (95-98) H 12/10/18 21:22 PT/INR, D-dimer PT 12.5 Seconds (9.4-12.1) H 12/09/18 17:55 Abnormal lab findings: Abnormal lab results WBC 16.4 K/mcL (4.3-11.1) H D 12/10/18 17:41 RBC 3.36 M/mcL (3.82-4.97) L 12/10/18 17:41 Hgb 8.1 g/dL (11.5-15.4) L 12/10/18 17:41 Hct 25.5 % (35.3-44.9) L 12/10/18 17:41 MCV 75.9 fL (83.0-100.0) L 12/10/18 17:41 MCH 24.1 pg (28.0-33.3) L 12/10/18 17:41 RDW 25.8 % (11.5-14.5) H 12/10/18 17:41 MPV 9.1 fL (9.4-12.4) L 12/10/18 17:41 Neutrophils # 12.4 K/mcL (1.6-8.9) H 12/08/18 16:09 Hypochromasia Present (Not Present) A 12/08/18 16:09 Anisocytosis 2+ (Not Present) A 12/08/18 16:09 Microcytosis Present (Not Present) A 12/08/18 16:09 Macrocytosis Present (Not Present) A 12/07/18 03:51 PT 12.5 Seconds (9.4-12.1) H 12/09/18 17:55 Heparin Anti-Xa, Unfract 0.01 IU/mL (0.30-0.70) L 12/10/18 17:41 ABG pO2 134 mmHg (85-104) H D 12/10/18 21:22 ABG HCO3 29 mEq/L (21-27) H 12/10/18 21:22 ABG Total CO2 30 mEq/L (20-26) H 12/10/18 21:22 ABG O2 Saturation 99 % (95-98) H 12/10/18 21:22 ABG Base Excess 4 mEq/L (-2 to 3) H 12/10/18 21:22 VBG pCO2 39 mmHg (41-51) L 12/07/18 04:02 BUN 21 mg/dL (6-20) H 12/10/18 17:41 Est GFR (Non-Af Amer) 54 (> 60) L 12/10/18 17:41 Glucose 144 mg/dL (70-105) H 12/10/18 17:41 POC Glucose 150 mg/dL (70-99) H 12/07/18 11:30 Lactic Acid 4.2 mmol/L (0.5-2.2) H* 12/10/18 17:41 Calcium 7.7 mg/dL (8.6-10.3) L 12/10/18 17:41 ALT 5 Units/L (7-52) L 12/07/18 03:51 Alkaline Phosphatase 107 Units/L (34-104) H 12/07/18 03:51 Troponin I 0.09 ng/mL (< 0.04) H* 12/10/18 17:41 B-Natriuretic Peptide 148 pg/mL (Less than 100) H 12/07/18 03:51 Serum Total Protein 5.9 g/dL (6.4-8.9) L 12/07/18 03:51 Albumin 2.4 g/dL (3.5-5.7) L 12/07/18 03:51 Albumin/Globulin Ratio 0.7 (1.1-2.2) L 12/07/18 03:51 Urine Clarity Cloudy (Clear) A 12/07/18 05:00 Ur Specific [place] > 1.030 (1.010-1.025) H 12/07/18 05:00 Ur Leukocyte Esterase Small (Negative) H 12/07/18 05:00 Urine Microscopic RBC 5-15 per hpf (0-3) H 12/07/18 05:00 Urine Microscopic WBC 5-15 per hpf (0-3) H 12/07/18 05:00 Ur Squamous Epith Cells Many per lpf (None-Few) H 12/07/18 05:00 Ur Culture Indicated? NO. (NO) A 12/07/18 05:00 Fluid Appearance Cloudy (Clear) A 12/07/18 13:45 - Microbiology Findings Microbiology Findings: Microbiology, Last 48 Hours 12/07/18 13:45 Respiratory Culture - Final Left Lower Lobe Lung Staphylococcus aureus Haemophilus influenzae 12/07/18 13:45 Acid Fast Stain - Final Left Lower Lobe Lung - Clinical Findings Intake & Output: Intake & Output 12/10/18 12/10/18 12/10/18 07:59 15:59 23:59 Intake Total 89 / 89 141 / 141 Output Total 1200 / 1200 500 / 500 750 / 750 Balance -1111 / -1111 -359 / -359 -722 / -722 Weight 39.3 kg - Attending Attestation I examined this patient and my medical decision-making was reviewed with the Resident Physician. I agree with the documented findings, disposition and treatment plan as described except to the extent set forth below. Patient seen and examined. Labs, radiology, chart personally reviewed. Agree with resident's history and physical, assessment, plan with following comments: Please see documentation under event note when patient was transferred to ICU.
[2018-12-10] MEDS: Megestrol Acetate 400 MG/10 ML UDC PO SCH (09:26)
[2018-12-10] MEDS: Furosemide 40 MG/4 ML VIAL IVP SCH ×2 (09:27→16:31)
[2018-12-10] MEDS ORDERED: MethylPREDNISolone 40 MG/ML VIAL IVP SCH (09:45)
[2018-12-10] MEDS: Budesonide/Formoterol 160/4.5 1 PUFF INH IH SCH ×2 (11:09→19:42)
--- NOTE | 2018-12-10 12:33 | Internal Med Progress Note ---
Hospitalist Progress Note - Encounter Date of Encounter: 12/10/18 Time of Encounter: 12:31 - Subjective Interval History: I have seen and evaluated the patient at bedside. patient reports improvement her respiratory status. denies chest pain or pressure today. denies nausea, vomiting or abdominal pain. - Exam Vitals: Temp Pulse Resp BP Pulse Ox 98.3 F 91 18 119/70 91 12/10/18 11:09 12/10/18 11:09 12/10/18 11:10 12/10/18 11:09 12/10/18 11:10 Exam: Vitals: Reviewed General: Cachectic appearing, In mild distress due to shortness of breath Heart: RRR, Normal S1 & S2; rhythmic. No rubs or murmurs. Chest:good air entry b/l, no wheezes, rales or rhonchi. decreased breath sounds at the bases b/l. Abdomen: Non-distended, soft and non-tender to palpation. NABS in all 4 quadrants Extremities: No edema. Neurological: Awake, AOX4. Psych: Affect appropriate. - Assessment and Plan (1) Acute on chronic respiratory failure with hypoxemia Current Visit: Yes Status: Acute Assessment and Plan: patient continues to require high O2 supplements, O2sat continues dropping to the low 80s with minimal ambulation. this could be related to volume overload and possible pulmonary edema seen on chest x-ray, plus b/l plural effusion. Plan continue high flow O2, alternating with Bipap. patient started on furosemide 40mg/IV BID on bronchodilators symbicort pulm recommendations appreciated will transition to PO steroids, discontinue methylprednisolone (2) COPD exacerbation Current Visit: Yes Status: Chronic (3) Collapse of left lung Current Visit: Yes Status: Resolved (4) HCAP (healthcare-associated pneumonia) Current Visit: Yes Status: Acute Assessment and Plan: sputum culture growing: H. influenza and staph MSSA. 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 on ferrous sulfate. will monitor (8) Depression Current Visit: Yes Status: Chronic Assessment and Plan: On quetiapine 200 mg by mouth at bedtime and buspirone 10 mg twice a day (9) Hypomagnesemia Current Visit: No Status: Resolved Assessment and Plan: electrolyte being replaced. will repeat mag level in the morning (10) Hypertension Current Visit: No Status: Chronic Assessment and Plan: Blood pressure is controlled. Patient on metoprolol 50 mg by mouth twice a day plus furosemide. (11) Sepsis Current Visit: Yes Status: Resolved (12) Elevated troponin Current Visit: Yes Status: Acute Assessment and Plan: Possible secondary to demand ischemia in the setting of acute respiratory failure. Plan Continue heparin drip On a beta glen Cardiology has been consulted, recommendation appreciated. Telemetry monitoring. (13) Diastolic CHF Current Visit: Yes Status: Acute Assessment and Plan: chest congestion x-ray plus b/l pleural effusion. TTE LVEF 60%. Normal LV chamber size, wall thickness and function. Moderate left ventricular diastolic dysfunction. Moderate concentric left ventricular hypertrophy. Plan: On fluid restriction to 1.5 litters a day. furosemide 40mg/IV BID strict intake and output consider repeating a chest x-ray in the morning to eval progression of pleural effusion. DVT Prophylaxis: Patient on a heparin drip due to elevated troponin. - Summary of Assessment and Plan Summary of Assessment and Plan: Patient to remain in the hospital due to acute on chronic hypoxemic respiratory failure, CHF, HCAP. Potential discharge in 1-2 days - Time Spent with Patient Total time spent is greater than 50% in coordination of care (as documented) at patient's floor/unit and/or counseling patient: Greater than 35 minutes (45) Plan of Care Discussed with: patient (and the nurse) Internal Medicine: Result - Labs CBC & Chem 7: 12/10/18 02:50 12/10/18 02:50 Labs: Short CBC 12/09/18 12/10/18 Range/Units 17:55 02:50 WBC 15.9 H 10.6 (4.3-11.1) K/mcL Hgb 9.2 L 8.0 L (11.5-15.4) g/dL Hct 28.2 L 24.4 L (35.3-44.9) % Plt Count 210 165 (140-400) K/mcL BMP 12/10/18 02:50 Sodium 137 Potassium 4.0 Chloride 102 Carbon Dioxide 26 BUN 19 Creatinine 0.91 Glucose 97 Calcium 7.7 L Cardiac Enzymes 12/09/18 12/09/18 12/10/18 Range/Units 16:13 20:39 02:50 Troponin I 0.12 H* 0.17 H* 0.16 H* (< 0.04) ng/mL 12/10/18 Range/Units 09:00 Troponin I 0.12 H* (< 0.04) ng/mL - ABG Interpretation ABG results: ABG ABG pH 7.48 pH Units (7.32-7.45) H 12/09/18 11:13 ABG pCO2 33 mmHg (35-45) L 12/09/18 11:13 ABG pO2 50 mmHg (85-104) L* 12/09/18 11:13 ABG O2 Saturation 88 % (95-98) L 12/09/18 11:13 PT/INR, D-dimer PT 12.5 Seconds (9.4-12.1) H 12/09/18 17:55 - Impressions Impressions Echocardiogram 12/10/18 16:58 Impressions: LVEF 60%. Normal LV chamber size, wall thickness and function. Moderate left ventricular diastolic dysfunction. Moderate concentric left ventricular hypertrophy. Normal right ventricular structure and function. Mild-moderate mitral regurgitation. Regurgitant jet is eccentric and may be underestimated in this study Mild-moderate tricuspid regurgitation. Mild pulmonary hypertension. Left Ventricular Wall Motion: Rest Echo Findings All wall segments showed normal motion. Findings: Study Quality * Technically sub-optimal due to poor echocardiographic windows. ECG Findings * Normal sinus rhythm. Left Ventricle * LVEF 60%. * Normal LV chamber size, wall thickness and function. * Moderate left ventricular diastolic dysfunction. * Moderate concentric left ventricular hypertrophy. Right Ventricle * Normal right ventricular structure and function. Left Atrium * Normal left atrial size. Right Atrium * Normal right atrial size. Interatrial Septum * No evidence of PFO by color Doppler. Aortic Valve * Aortic valve not well visualized. * No aortic regurgitation. * No aortic stenosis. Mitral Valve * No mitral stenosis. * Mildly thickened mitral valve leaflets. * Mild-moderate mitral regurgitation. Regurgitant jet is eccentric and may be underestimated in this study Tricuspid Valve * Mild-moderate tricuspid regurgitation. * Mild pulmonary hypertension. * Estimated RVSP is 38 mmHg. * Estimated RA pressure is 5 mmHg. Pulmonic Valve * Pulmonic valve not well visualized. Aorta * Normally sized aortic root. Pericardium * There is a trivial pericardial effusion present. IVC * Normal IVC dimensions and inspiratory collapse. Pulmonary Artery * Normal visualized portions of the main pulmonary artery. Consult Discharge Plan - Plan Referrals: NONE,PCP [Primary Care Provider] - (5) Hypothyroid Qualifiers: Hypothyroidism type: unspecified Qualified Code(s): E03.9 - Hypothyroidism, unspecified (7) Anemia Qualifiers: Folate deficiency anemia type: unspecified folate deficiency Qualified Code(s): D52.9 - Folate deficiency anemia, unspecified (8) Depression Qualifiers: Depression Type: unspecified Qualified Code(s): F32.9 - Major depressive disorder, single episode, unspecified (10) Hypertension Qualifiers: Hypertension type: essential hypertension Qualified Code(s): I10 - Essential (primary) hypertension (11) Sepsis Qualifiers: Sepsis type: sepsis due to unspecified organism Qualified Code(s): A41.9 - Sepsis, unspecified organism (13) Diastolic CHF Qualifiers: Heart failure chronicity: acute on chronic Qualified Code(s): I50.33 - Acute on chronic diastolic (congestive) heart failure
--- NOTE | 2018-12-10 14:56 | Event Note ---
Date of Encounter: 12/10/18 Time of Encounter: 14:55 - Cardiology Event Note Per discussion with Dr. Gamble, cardiology will signoff with recs for stress testing once resp. status improves. Cardiology follow-up arranged, re-consult if needed. Full cardiology consult pending per Dr. Gamble.
--- NOTE | 2018-12-10 16:17 | Cardiology Consult Note ---
Date of Encounter: 12/10/18 Time of Encounter: 16:14 Assessment and Plan (1) COPD exacerbation Current Visit: Yes Status: Chronic Relative contraindication to chemical stress test at this time (2) HCAP (healthcare-associated pneumonia) Current Visit: Yes Status: Acute Currently managed with antibiotics (3) Elevated troponin Current Visit: Yes Status: Acute Trivial elevated troponins possibly secondary to COPD, chronic kidney disease and severe anemia. Consider ischemic workup with chemical stress test once p atient underlying pulmonary etiologies are stabilized (4) Diastolic CHF Current Visit: Yes Status: Acute Moderate concentric LVH possible heart failure with preserved ejection fraction, low BNP in regards to her respiratory insufficiency therefore less likely cardiac and more likely pulmonary in etiology Qualifiers: Heart failure chronicity: acute on chronic Qualified Code(s): I50.33 - Acute on chronic diastolic (congestive) heart failure Discussion w patient/family: The assessment and plan as outlined above was discussed with the patient and/or family members who expressed understanding and agreement. All questions were answered. Thank you for involving us in the care of your patient. Please call with any questions. History of Present Illness Consult date: 12/10/18 Consult reason: Short of breath and elevated troponins Chief complaint: Short of breath History of present illness: Ms. Skelton is a 58 year old female with history of COPD, pneumonia, left lower lobe collapse, anemia with no obvious culprit lowest hemoglobin 6.3 currently at 8. Patient has nonspecific changes on her EKG with 2200 positive fluid balance. Patient's echocardiogram shows preserved ejection fraction with moderate concentric LVH and moderate diastolic dysfunction. Patient has a history of alcohol abuse currently recovering found to have a troponin of 0.0 6.18 and 0.13 currently with a creatinine kinase of 32 only. BNP was low not correlating with her significant shortness of breath and underlying pulmonary etiologies. Patient likely is a candidate for an ischemic workup however noninvasive and once patient's breathing is better controlled her pneumonia and COPD are stable. Currently slightly high risk for a chemical stress test to evaluate for ischemia with underlying lung etiologies. Once patient is stable and has i mproved with resolution of underlying pneumonia and lung collapse patient may be a candidate for a cardiac workup and ischemic evaluation. Mild troponin elevation may be secondary to her positive fluid balance versus concentric LVH and diastolic dysfunction in the setting of chronic kidney disease. Past Med Surg Social Fam HX - Past Medical History Medical history: renal disease, hyperlipidemia, hypertension, seizures, other, TIA, kidney stones, COPD Psychiatric history: anxiety, bipolar, depression - Past Surgical History Surgical History: carotid endarterectomy, other Additional surgical history: EAR SURGERY - Social History Smoking Status: Current every day smoker Smokeless Tobacco Status: No Alcohol use: none Drug use: marijuana - Family History Father Hx Family Cardiac Disorders: Yes (CABG) Medications and Allergies hydrOXYzine pamoate [HydrOXYzine Pamoate] 50 mg PO TID PRN #0 capsule 11/08/15 [Rx] Metoprolol [Lopressor] 50 mg PO BID 02/12/18 [History] Albuterol Sulfate [Albuterol Inhaler] 2 puff IH Q4HR PRN #1 [id number].[id number] 11/25/18 [Rx] Buspirone HCl [Buspar] 10 mg PO BID 12/02/18 [History] Guaifenesin [Mucinex] 600 mg PO BID PRN 12/02/18 [History] Naproxen [Naprosyn] 500 mg PO BID PRN 12/02/18 [History] Quetiapine Fumarate [Seroquel] 300 mg PO HS 12/02/18 [History] Calcium Carbonate [Tums] 1,000 mg PO TID #90 tab.chew 12/06/18 [Rx] Levothyroxine [Synthroid] 25 mcg PO DAILY@0630 #30 tablet 12/06/18 [Rx] Megestrol Acetate [Megace] 400 mg PO DAILY #30 udc 12/06/18 [Rx] Spironolactone [Aldactone] 25 mg PO DAILY #30 tablet 12/06/18 [Rx] Vitamin B Complex/Vit C/Vit E [Stresstab] 1 each PO DAILY #30 tablet 12/06/18 [Rx] Allergy/AdvReac Type Severity Reaction Status Date / Time levetiracetam [From Keppra] Allergy Anaphylaxis Verified 12/09/18 14:49 lorazepam [From Ativan] Allergy Anaphylaxis Verified 12/09/18 14:49 alprazolam [From Xanax] AdvReac Agitated Verified 12/09/18 14:49 clonazepam [From Klonopin] AdvReac Seizure Verified 12/09/18 14:49 diazepam [From Valium] AdvReac Agitated Verified 12/09/18 14:49 lamotrigine [From Lamictal] AdvReac Nausea Verified 12/09/18 14:49 latex AdvReac Itching Verified 12/09/18 14:49 All Systems Review: The remainder of the systems were reviewed and are negative Physical Examination Vital Signs, Last 4 Hours Temp Pulse Resp BP Pulse Ox 12/10/18 16:13 16 90 12/10/18 15:34 98.3 F 85 16 123/73 90 General: Conversant, No Apparent Distress HEENT: Atraumatic, Normocephaly, Mucus Membranes Moist Neck: No JVD, Normal carotid pulses Cardiac: Reg Rate and Rhythm, Normal S1 and S2, No Murmur Lungs: Normal Breath Sounds, No Wheeze, Rales, Rhonchi Neuro: Alert and responsive, No focal deficits noted Abdomen: Soft, Non-Tender Skin: No rashes noted on visualized skin Musculoskeletal: No Chest Wall Tenderness Extremities: No Clubbing, No Cyanosis, No Edema, Normal Pulses Results 12/10/18 02:50 12/10/18 02:50 Lab Results 12/09/18 12/09/18 12/09/18 16:13 17:55 17:55 WBC 15.9 H Hgb 9.2 L Hct 28.2 L Plt Count 210 INR 1.1 Sodium Potassium Chloride Carbon Dioxide BUN Creatinine Glucose Calcium Magnesium Troponin I 0.12 H* 12/09/18 12/10/18 12/10/18 20:39 02:50 02:50 WBC 10.6 Hgb 8.0 L Hct 24.4 L Plt Count 165 INR Sodium 137 Potassium 4.0 Chloride 102 Carbon Dioxide 26 BUN 19 Creatinine 0.91 Glucose 97 Calcium 7.7 L Magnesium 1.3 L Troponin I 0.17 H* 0.16 H* 12/10/18 09:00 WBC Hgb Hct Plt Count INR Sodium Potassium Chloride Carbon Dioxide BUN Creatinine Glucose Calcium Magnesium Troponin I 0.12 H* Consult Discharge Plan - Plan Referrals: NONE,PCP [Primary Care Provider] -
[2018-12-10] MEDS: cefTRIAXone 2,000 MG in Water for inj. (sterile) 20 ML 20 ML IVP SCH (16:31)
[2018-12-10] MEDS ORDERED: Naloxone 0.4 MG/ML INJ IVP PRN (17:09)
--- NOTE | 2018-12-10 17:09 | Event Note ---
Date of Encounter: 12/10/18 Time of Encounter: 17:05 rapid response was called due to patient being found significantly hypoxemic, lethargic. Patient has been refusing to wear BIPAP during the day. patient was suscessfully intubated and transferred to the ICU, concrete float maker sales compensation analyst informed. chest x-ray post intubation ordered. labs: CBC, mag, phosp, bmp ordered patient started on levophed, BP was found to be in the low 50s. will discontinue Heparin drip. trops elevation as per cardiology due to respiratory status
--- NOTE | 2018-12-10 17:18 | Electrocardiograph Report ---
[address] [place] [address] Test Date: 2018-12-07 Pat Name: Leanna Skelton Department: EXAM21 Room: [facility] Gender: F Regional Clinical Research Associate: : 1960 Requested By: Malia Babin Order Number: [id number] Reading MD: Deanna North Measurements Intervals [place] Rate: 119 P: 84 [place]: 121 QRS: 78 QRSD: 213 T: 72 QT: 467 QTc: 658 Interpretive Statements Sinus tachycardia Probable left ventricular hypertrophy Borderline T abnormalities, lateral leads Prolonged QT interval Electronically Signed On 12-10-2018 17:16:40 EST by Deanna North
[2018-12-10] MEDS ORDERED: *HR* Midazolam HCl 5 MG/5 ML VIAL IVP ONE (17:38)
[2018-12-10 17:43] LABS: ABG Base Excess 0 mEq/L (-2 to 3); ABG HCO3 25 mEq/L (21-27); ABG Oxygen Saturation 90 % (95-98); ABG PCO2 39 mmHg (35-45); ABG PH 7.41 pH Units (7.32-7.45); ABG PO2 58 mmHg (85-104); ABG TCO2 26 mEq/L (20-26); Blood Gas Modality VC; Blood Gas PEEP 8 cm H2O; Blood Gas Respiration Rate 12; Blood Gas VT 400 cc
[2018-12-10] MEDS: FentaNYL (PF) 1,000 MCG in 0.9 % Sodium Chloride 80 ML IVC SCH (18:16)
--- NOTE | 2018-12-10 18:19 | Procedure Note ---
<Maria L Espinosa - Last Filed: 12/10/18 18:16> Date of procedure: 12/10/18 Pre-op diagnosis: Hypotension Post-op diagnosis: same Procedure: Written consent was obtained from the patient's POA. The right femoral vein was surveyed using ultrasound deemed to be reasonable target. The area was cleaned and draped in usual sterile fashion. Under ultrasound guidance, the introducer needle was advanced into the right femoral vein. Dark red, nonpulsatile blood flow was returned. The guidewire was advanced through the needle into the vein without resistance. The needle was removed and the guidewire was confirmed to be in the vein using ultrasound. A alicia in the skin was made in the skin and soft tissues were dilated. The dilator was then removed, and a 16 cm lumen catheter was advanced over the guidewire and into the vein without resistance. The guidewire was removed intact. All 3 ports were tested and shown to draw blood and flush easily. The catheter was then sutured in place. Biopatch and sterile dressing were applied. The patient tolerated the procedure well, there were no immediate complications. Myself and the attending were in attendance for all parts of the procedure. Anesthesia: IV sedation Surgeon: Maria L Espinosa Was there an assistant store manager present: Yes Shaper And Presser: Koko Evans Estimated blood loss (cc): 5 Specimen: None Pathology: none sent Condition: critical Disposition: no change <Koko Evans - Last Filed: 12/10/18 21:46> Procedure: I examined this patient and my medical decision-making was reviewed with the Resident Physician. I agree with the documented findings, disposition and treatment plan as described except to the extent set forth below. I have personally supervised the resident placing central line complications.
[2018-12-10] MEDS ORDERED: *HR* Midazolam HCl 2 MG/2 ML VIAL IVP ONE (18:20)
[2018-12-10] MEDS ORDERED: Artificial Tears SOLN 15 ML BOTTLE BOTH EYES PRN (18:21)
[2018-12-10] MEDS: Norepinephrine 4 MG in D5% in Water 250 ML IVC SCH (18:30)
--- NOTE | 2018-12-10 18:44 | Electrocardiograph Report ---
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
--- NOTE | 2018-12-10 18:51 | Event Note ---
<Tijerina,Faraaz - Last Filed: 12/10/18 19:13> Date of Encounter: 12/10/18 Time of Encounter: 18:47 Rapid response called on patient due to lethargy, somnolence, and hypoxia with O2 Sats down to low 60s. Per hospitalist, pt had been refusing BIPAP throughout the day. Pt was intubated on the floor, and transferred to ICU. Currently on versed, precedex, fentanyl. Femoral Line placed and patient started on levophed. Currently managed with broad spectrum antibiotics - vanc, zosyn. - AB.41/39/58/25 A/P: 1. Acute on Chronic Respiratory Failure 2. Left Lower Lobe Atelectasis 3. HCAP 4. COPD <DevanbeatriceyobaniKoko Viramontes - Last Filed: 12/10/18 21:44> Date of Encounter: 12/10/18 I examined this patient and my medical decision-making was reviewed with the Resident Physician. I agree with the documented findings, disposition and treatment plan as described except to the extent set forth below. Patient seen and examined. Labs, radiology, chart personally reviewed. Agree with resident's history and physical, assessment, plan with following comments: Patient overall condition was deteriorating today and then rapid response was called and patient was transferred to intensive care unit intubated. When patient arrived she was very agitated and she was placed on sedation for comfort and she was also hypertensive. Overall patient condition and deterioration I suspect is multifactorial and unfortunately with her severe protein calorie malnutrition prognosis is is poor and I discussed with the power of finance attorney at the bedside who used to be a ICU nurse in [place] and patient remain full code. Patient is hypotensive and she appears to be in vasodilatory shock and possibly from sedation after intubation and she could be septic as well. I have reviewed her is x-ray and ET tube need to be adjusted and this was communicated with respiratory therapist and patient was started on vasopressors mainly due to acute on chronic respiratory failure and she is showed evidence of intrinsic PEEP which has improved after sedation and repeat ABG which she seems to be comp ensated. I have also discussed with power of finance attorney if she stabilizes, most likely will plan for bronchoscopy to check airway and may help to answer why her condition deteriorated. Central line was placed as well due to vasopressor need. She and is on broad-spectrum antibiotics and continue supportive care I spent 40 min of Critical Care time with this patient. It involved decision making of high complexity to assess, manipulate, and support vital organ system failure and/or to prevent further life threatening deterioration of the patient's condition. The time involved in the performance of separately reportable procedures was not counted toward critical care time.
[2018-12-10] MEDS: *HR* Heparin 5,000 UNIT/ML VIAL SQ SCH (18:53)
[2018-12-10 18:56] LABS: Hematocrit 25.5 % (35.3-44.9); Hemoglobin 8.1 g/dL (11.5-15.4); Mean Corpuscular HGB Conc 31.8 g/dL (31.6-35.5); Mean Corpuscular Hemoglobin 24.1 pg (28.0-33.3); Mean Corpuscular Volume 75.9 fL (83.0-100.0); Mean Platelet Volume 9.1 fL (9.4-12.4); Platelet Count 229 K/mcL (140-400); Red Blood Count 3.36 M/mcL (3.82-4.97); Red Cell Distribution Width 25.8 % (11.5-14.5)
[2018-12-10 19:15] LABS: BUN/Creatinine Ratio 20 (6-26); Blood Urea Nitrogen 21 mg/dL (6-20); Calcium 7.7 mg/dL (8.6-10.3); Carbon Dioxide 23 mEq/L (23-29); Chloride 102 mEq/L (98-107); Glucose 144 mg/dL (70-105); Osmolality,Calculated 292 (280-300); Potassium 3.6 mEq/L (3.5-5.1); Sodium 138 mEq/L (136-145); eGFR For Non-African Americans 54 (> 60)
[2018-12-10 19:20] LABS: Troponin I 0.09 ng/mL (< 0.04)
[2018-12-10] MEDS: Dexmedetomidine HCl 400 MCG/100 ML MLS IVC SCH (19:30)
[2018-12-10] MEDS: Chlorhexidine Rinse 15 ML MOUTHWASH MM SCH (20:10)
[2018-12-10] MEDS: Pantoprazole 40 MG VIAL IVP SCH (20:11)
[2018-12-10] MEDS: Artificial Tears SOLN 15 ML BOTTLE BOTH EYES SCH (20:15)
[2018-12-10 21:25] LABS: ABG Base Excess 4 mEq/L (-2 to 3); ABG HCO3 29 mEq/L (21-27); ABG Oxygen Saturation 99 % (95-98); ABG PCO2 43 mmHg (35-45); ABG PH 7.43 pH Units (7.32-7.45); ABG PO2 134 mmHg (85-104); ABG TCO2 30 mEq/L (20-26); Blood Gas Modality VC; Blood Gas PEEP 8 cm H2O; Blood Gas Respiration Rate 12; Blood Gas VT 400 cc
[2018-12-10 21:37] LABS: Influenza A PCR Body Fluid NOT DETECTED; Influenza B PCR Body Fluid NOT DETECTED; RVP Body Fluid Source BAL LLL
[2018-12-11] MEDS: Piperacillin/Tazobactam 3.375 GM in 0.9 % Sodium Chloride Mini Bag 100 ML IVPB SCH
[2018-12-11] MEDS: Ipratropium/Albuterol Neb 3 ML IH SCH ×6 (03:36→23:43)
[2018-12-11] MEDS: Artificial Tears SOLN 15 ML BOTTLE BOTH EYES SCH ×7 (03:40→23:31)
[2018-12-11 04:43] LABS: Basophils % 0.1 %; Eosinophils % 0.1 %; Hematocrit 22.8 % (35.3-44.9); Hemoglobin 7.4 g/dL (11.5-15.4); Immature Granulocytes % 0.7 % (0-4); Lymphocytes # 1.4 K/mcL (0.6-4.6); Mean Corpuscular HGB Conc 32.5 g/dL (31.6-35.5); Mean Platelet Volume 9.1 fL (9.4-12.4); Monocytes # 0.8 K/mcL (0.0-1.3); Monocytes % 5.1 %; Neutrophils # 13.1 K/mcL (1.6-8.9); Platelet Count 199 K/mcL (140-400); Red Blood Count 3.08 M/mcL (3.82-4.97); Red Cell Distribution Width 25.5 % (11.5-14.5)
[2018-12-11 05:02] LABS: Calcium 7.7 mg/dL (8.6-10.3); Potassium 3.4 mEq/L (3.5-5.1)
[2018-12-11 05:06] LABS: ABG Base Excess 5 mEq/L (-2 to 3); ABG HCO3 30 mEq/L (21-27); ABG Oxygen Saturation 98 % (95-98); ABG PCO2 43 mmHg (35-45); ABG PH 7.45 pH Units (7.32-7.45); ABG PO2 106 mmHg (85-104); ABG TCO2 31 mEq/L (20-26); Blood Gas Modality VC; Blood Gas PEEP 8 cm H2O; Blood Gas Respiration Rate 12; Blood Gas VT 400 cc
[2018-12-11 05:11] LABS: Anisocytosis 3+ (Not Present); Hypochromasia Present (Not Present); Macrocytosis Present (Not Present); Microcytosis Present (Not Present)
[2018-12-11 05:12] LABS: Platelet Estimate Normal (Normal)
[2018-12-11] MEDS: Levothyroxine 25 MCG TABLET PO SCH (05:47)
[2018-12-11] MEDS: *HR* Heparin 5,000 UNIT/ML VIAL SQ SCH ×2 (05:51→18:10)
[2018-12-11] MEDS: Acetylcysteine 10% 2 ML INHSOL IH SCH ×3 (07:25→23:43)
[2018-12-11] MEDS: Budesonide/Formoterol 160/4.5 1 PUFF INH IH SCH ×2 (07:25→20:03)
--- NOTE | 2018-12-11 08:04 | Pulmonology Progress Note ---
<Judy Tijerina - Last Filed: 12/11/18 14:12> Date of Encounter: 12/11/18 Time of Encounter: 08:04 Assessment and Plan (1) Acute on chronic respiratory failure with hypoxemia Current Visit: Yes Status: Acute This is a 58-year-old female with past medical history significant for anxiety/depression, bipolar disorder, hypertension, hyperlipidemia, COPD, active smoker, hypothyroidism who initially presented with shortness of breath. Pt underwent bronchoscopy during admission with following findings: - B/L Lung abnormalities - Mucus plug of airway throughout tracheobronchial tree - BAL Performed Left Lower Lobe Cultures: + Staph Aureus, Haemophilus Influenza Blood Culture Negative x 2 Influenza negative Legionella, Strep Ag negative - Yesterday evening, rapid response called on patient due to lethargy, somnolence, hypoxia, associated with hypotension. Pt intubated, sedated, and femoral line placed for pressors due to hypotension. Per hospitalist, pt had been refusing to use BIPAP throughout the day. PLAN: Acute on chronic respiratory failure likely secondary to CO2 Narcosis secondary to not using BIPAP. Pt has underlying pneumonia, with BAL growing Staph Aureus, Haemophilus Influenza - Cont to monitor vitals - Vent management: Decreased PEEP to 5 this morning. Wean off vent as tolerated. CPAP trial; Otherwise cont precedex, fentanyl for sedation - Wean off levophed as tolerated - Cont Rocephin 2g QD to treat for a total of 7 days - Cont scheduled bronchodilators, solumedrol QD (2) Atelectasis Current Visit: Yes Status: Acute CXR (12/11/18) - Persistent bilateral airspace disease with probable small right pleural effusion. PLAN: - Consider repeat bronchoscopy when extubated - Wean off mechanical intubation; CPAP trial today - Cont Rocephin 2g QD (3) COPD (chronic obstructive pulmonary disease) Current Visit: Yes Status: Chronic PLAN: - Cont duonebs, symbicort - Wean prednisone as tolerated Qualifiers: COPD type: emphysema Emphysema type: unspecified Qualified Code(s): J43.9 - Emphysema, unspecified (4) HCAP (healthcare-associated pneumonia) Current Visit: Yes Status: Acute PLAN: - D/C vanc, zosyn given BAL cultures growing MSSA, H. FLu - Cont Rocephin 2g QD (5) Anemia Current Visit: No Status: Chronic PLAN: - Monitor Hb/Hct; transfuse with Hb < 7 Qualifiers: Folate deficiency anemia type: unspecified folate deficiency Qualified Code(s): D52.9 - Folate deficiency anemia, unspecified (6) Hypertension Current Visit: No Status: Chronic Hold BP Meds for now Qualifiers: Hypertension type: essential hypertension Qualified Code(s): I10 - Essential (primary) hypertension (7) Hypothyroid Current Visit: Yes Status: Chronic - Cont Synthroid Qualifiers: Hypothyroidism type: unspecified Qualified Code(s): E03.9 - Hypothyroidism, unspecified (8) Severe protein-calorie malnutrition Current Visit: No Status: Chronic Follow up nutrition consult; recommendations appreciated (9) Diastolic CHF Current Visit: Yes Status: Acute TTE LVEF 60%. Normal LV chamber size, wall thickness and function. Moderate left ventricular diastolic dysfunction. Moderate concentric left ventricular hypertrophy. PLAN: - Strict Is and Os - Lasix PRN Qualifiers: Heart failure chronicity: acute on chronic Qualified Code(s): I50.33 - Acute on chronic diastolic (congestive) heart failure Subjective Principal diagnosis: Pneumonia Interval history: This is a 58-year-old female with past medical history significant for anxiety/depression, bipolar disorder, hypertension, hyperlipidemia, COPD, active smoker, hypothyroidism who initially presented with shortness of breath. [facility] she was found to have O2 S at = 74% on RA. In the ED patient had CTA negative for PE, but indicated left lower lobe atelectasis and possible pneumonia. Patient started on broad- spectrum antibiotics (Vanc, Zosyn) for treatment of HCAP. Initially admitted to ICU - Of note, Patiently had been recently admitted to the hospital due to failure to thrive and anemia. Malignancy workup was unremarkable. Patient found to be hypothyroid and started on Synthroid. Additionally patient had been started on spironolactone due to suspicion of Conn syndrome. Pt underwent bronchoscopy during admission with following findings: - B/L Lung abnormalities - Mucus plug of airway throughout tracheobronchial tree - BAL Performed Left Lower Lobe Cultures: + Staph Aureus, Haemophilus Influenza Yesterday evening, rapid response called on patient due to lethargy, somnolence, hypoxia, associated with hypotension. Pt intubated, sedated, and femoral line placed for pressors due to hypotension. Per hospitalist, pt had been refusing to use BIPAP throughout the day. Pt seen and examined at bedside this morning. No acute events overnight. ABG this AM = 7.45/43/106/30. Vent: VC mode, RR = 12, O2 = 60%, TV = 400, PEEP = 8. Objective PUL Vital signs: Last Vital Signs Temp 98.3 F 12/11/18 04:00 Pulse 90 12/11/18 06:00 Resp 16 12/11/18 06:00 BP 83/56 12/11/18 06:00 Pulse Ox 100 12/11/18 06:00 General appearance: no acute distress (Frail appearing, elderly female), asleep Eyes: nonicteric ENT: oropharynx moist Neck: supple Auscultation: bilateral: rales (Coarse breath sounds bilaterally; on mechanical ventilation; no wheezing, crackles) Cardiovascular: regular rate and rhythm Gastrointestinal: normoactive bowel sounds, soft, non-tender, non-distended Integumentary: normal Extremities: no edema (femoral line in place right femoral) unable to assess due to mental status Ventilator Settings Ventilator Settings: Ventilator Settings, Last 8 Hours Ventilator Tidal Volume 400 Setting Ventilator Tidal Volume 400 Setting Ventilator Tidal Volume 400 Setting Ventilator Tidal Volume 400 Setting Ventilator Tidal Volume 400 Setting Ventilator Tidal Volume 400 Setting Ventilator Tidal Volume 400 Setting Ventilator Tidal Volume 400 Setting Ventilator Tidal Volume 400 Setting Ventilator Tidal Volume 400 Setting Ventilator Respiratory Rate 12 Setting Ventilator Respiratory Rate 12 Setting Ventilator Respiratory Rate 12 Setting Ventilator Respiratory Rate 12 Setting Ventilator Respiratory Rate 12 Setting Ventilator Respiratory Rate 12 Setting Ventilator Respiratory Rate 12 Setting Ventilator Respiratory Rate 12 Setting Ventilator Respiratory Rate 12 Setting Ventilator Respiratory Rate 12 Setting Actual Respiratory Rate 16 Actual Respiratory Rate 15 Actual Respiratory Rate 16 Actual Respiratory Rate 12 Actual Respiratory Rate 14 Actual Respiratory Rate 12 Actual Respiratory Rate 12 Actual Respiratory Rate 12 Actual Respiratory Rate 12 Positive End Expiratory 8 Pressure Positive End Expiratory 8 Pressure Positive End Expiratory 8 Pressure Positive End Expiratory 8 Pressure Positive End Expiratory 8 Pressure Positive End Expiratory 8 Pressure Positive End Expiratory 8 Pressure Positive End Expiratory 8 Pressure Positive End Expiratory 8 Pressure Positive End Expiratory 8 Pressure Peak Inspiratory Airway 25 Pressure Peak Inspiratory Airway 20 Pressure Peak Inspiratory Airway 21 Pressure Peak Inspiratory Airway 26 Pressure Results - Laboratory Findings CBC and BMP: 12/11/18 04:25 12/11/18 04:25 ABG ABG pH 7.45 pH Units (7.32-7.45) 12/11/18 05:03 ABG pCO2 43 mmHg (35-45) 12/11/18 05:03 ABG pO2 106 mmHg (85-104) H 12/11/18 05:03 ABG O2 Saturation 98 % (95-98) 12/11/18 05:03 PT/INR, D-dimer PT 12.5 Seconds (9.4-12.1) H 12/09/18 17:55 Abnormal lab findings: Abnormal lab results WBC 15.4 K/mcL (4.3-11.1) H 12/11/18 04:25 RBC 3.08 M/mcL (3.82-4.97) L 12/11/18 04:25 Hgb 7.4 g/dL (11.5-15.4) L 12/11/18 04:25 Hct 22.8 % (35.3-44.9) L 12/11/18 04:25 MCV 74.0 fL (83.0-100.0) L 12/11/18 04:25 MCH 24.0 pg (28.0-33.3) L 12/11/18 04:25 RDW 25.5 % (11.5-14.5) H 12/11/18 04:25 MPV 9.1 fL (9.4-12.4) L 12/11/18 04:25 Neutrophils # 13.1 K/mcL (1.6-8.9) H 12/11/18 04:25 Hypochromasia Present (Not Present) A 12/11/18 04:25 Anisocytosis 3+ (Not Present) A 12/11/18 04:25 Microcytosis Present (Not Present) A 12/11/18 04:25 Macrocytosis Present (Not Present) A 12/11/18 04:25 PT 12.5 Seconds (9.4-12.1) H 12/09/18 17:55 Heparin Anti-Xa, Unfract 0.01 IU/mL (0.30-0.70) L 12/10/18 17:41 ABG pO2 106 mmHg (85-104) H 12/11/18 05:03 ABG HCO3 30 mEq/L (21-27) H 12/11/18 05:03 ABG Total CO2 31 mEq/L (20-26) H 12/11/18 05:03 ABG Base Excess 5 mEq/L (-2 to 3) H 12/11/18 05:03 VBG pCO2 39 mmHg (41-51) L 12/07/18 04:02 Potassium 3.4 mEq/L (3.5-5.1) L 12/11/18 04:25 BUN 24 mg/dL (6-20) H 12/11/18 04:25 Est GFR ( Amer) 57 (> 60) L 12/11/18 04:25 Est GFR (Non-Af Amer) 47 (> 60) L 12/11/18 04:25 Glucose 117 mg/dL (70-105) H 12/11/18 04:25 POC Glucose 122 mg/dL (70-99) H 12/10/18 23:46 Calcium 7.7 mg/dL (8.6-10.3) L 12/11/18 04:25 ALT 5 Units/L (7-52) L 12/07/18 03:51 Alkaline Phosphatase 107 Units/L (34-104) H 12/07/18 03:51 Troponin I 0.09 ng/mL (< 0.04) H* 12/10/18 17:41 B-Natriuretic Peptide 148 pg/mL (Less than 100) H 12/07/18 03:51 Serum Total Protein 5.9 g/dL (6.4-8.9) L 12/07/18 03:51 Albumin 2.4 g/dL (3.5-5.7) L 12/07/18 03:51 Albumin/Globulin Ratio 0.7 (1.1-2.2) L 12/07/18 03:51 Urine Clarity Cloudy (Clear) A 12/07/18 05:00 Ur Specific [place] > 1.030 (1.010-1.025) H 12/07/18 05:00 Ur Leukocyte Esterase Small (Negative) H 12/07/18 05:00 Urine Microscopic RBC 5-15 per hpf (0-3) H 12/07/18 05:00 Urine Microscopic WBC 5-15 per hpf (0-3) H 12/07/18 05:00 Ur Squamous Epith Cells Many per lpf (None-Few) H 12/07/18 05:00 Ur Culture Indicated? NO. (NO) A 12/07/18 05:00 Fluid Appearance Cloudy (Clear) A 12/07/18 13:45 - Microbiology Findings Microbiology Findings: Microbiology, Last 48 Hours 12/07/18 13:45 Respiratory Culture - Final Left Lower Lobe Lung Staphylococcus aureus Haemophilus influenzae 12/07/18 13:45 Acid Fast Stain - Final Left Lower Lobe Lung - Clinical Findings Intake & Output: Intake & Output 12/10/18 12/11/18 12/11/18 23:59 07:59 15:59 Intake Total 28 / 28 351 / 351 Output Total 750 / 750 200 / 200 Balance -722 / -722 151 / 151 Weight 39.3 kg 39.3 kg Consult Discharge Plan - Plan Referrals: NONE,PCP [Primary Care Provider] - <Koko Evans M - Last Filed: 12/11/18 14:44> Date of Encounter: 12/11/18 Objective PUL Vital signs: Last Vital Signs Temp 97.9 F 12/11/18 12:04 Pulse 98 12/11/18 14:00 Resp 16 12/11/18 14:00 BP 99/73 12/11/18 14:00 Pulse Ox 99 12/11/18 14:00 Ventilator Settings Ventilator Settings: Ventilator Settings, Last 8 Hours Ventilator Tidal Volume 400 Setting Ventilator Tidal Volume 400 Setting Ventilator Tidal Volume 400 Setting Ventilator Tidal Volume 400 Setting Ventilator Tidal Volume 400 Setting Ventilator Tidal Volume 400 Setting Ventilator Respiratory Rate 12 Setting Ventilator Respiratory Rate 12 Setting Ventilator Respiratory Rate 12 Setting Ventilator Respiratory Rate 12 Setting Ventilator Respiratory Rate 12 Setting Ventilator Respiratory Rate 12 Setting Ventilator Respiratory Rate 12 Setting Ventilator Respiratory Rate 12 Setting Actual Respiratory Rate 17 Actual Respiratory Rate 17 Actual Respiratory Rate 10 Actual Respiratory Rate 16 Actual Respiratory Rate 16 Actual Respiratory Rate 16 Actual Respiratory Rate 16 Actual Respiratory Rate 16 Positive End Expiratory 5 Pressure Positive End Expiratory 5 Pressure Positive End Expiratory 5 Pressure Positive End Expiratory 5 Pressure Positive End Expiratory 8 Pressure Positive End Expiratory 8 Pressure Positive End Expiratory 8 Pressure Positive End Expiratory 8 Pressure Peak Inspiratory Airway 16 Pressure Peak Inspiratory Airway 16 Pressure Peak Inspiratory Airway 16 Pressure Peak Inspiratory Airway 16 Pressure Peak Inspiratory Airway 16 Pressure Peak Inspiratory Airway 25 Pressure Peak Inspiratory Airway 26 Pressure Peak Inspiratory Airway 26 Pressure Results - Laboratory Findings CBC and BMP: 12/11/18 04:25 12/11/18 04:25 ABG ABG pH 7.45 pH Units (7.32-7.45) 12/11/18 05:03 ABG pCO2 43 mmHg (35-45) 12/11/18 05:03 ABG pO2 106 mmHg (85-104) H 12/11/18 05:03 ABG O2 Saturation 98 % (95-98) 12/11/18 05:03 PT/INR, D-dimer PT 12.5 Seconds (9.4-12.1) H 12/09/18 17:55 Abnormal lab findings: Abnormal lab results WBC 15.4 K/mcL (4.3-11.1) H 12/11/18 04:25 RBC 3.08 M/mcL (3.82-4.97) L 12/11/18 04:25 Hgb 7.4 g/dL (11.5-15.4) L 12/11/18 04:25 Hct 22.8 % (35.3-44.9) L 12/11/18 04:25 MCV 74.0 fL (83.0-100.0) L 12/11/18 04:25 MCH 24.0 pg (28.0-33.3) L 12/11/18 04:25 RDW 25.5 % (11.5-14.5) H 12/11/18 04:25 MPV 9.1 fL (9.4-12.4) L 12/11/18 04:25 Neutrophils # 13.1 K/mcL (1.6-8.9) H 12/11/18 04:25 Hypochromasia Present (Not Present) A 12/11/18 04:25 Anisocytosis 3+ (Not Present) A 12/11/18 04:25 Microcytosis Present (Not Present) A 12/11/18 04:25 Macrocytosis Present (Not Present) A 12/11/18 04:25 PT 12.5 Seconds (9.4-12.1) H 12/09/18 17:55 Heparin Anti-Xa, Unfract 0.01 IU/mL (0.30-0.70) L 12/10/18 17:41 ABG pO2 106 mmHg (85-104) H 12/11/18 05:03 ABG HCO3 30 mEq/L (21-27) H 12/11/18 05:03 ABG Total CO2 31 mEq/L (20-26) H 12/11/18 05:03 ABG Base Excess 5 mEq/L (-2 to 3) H 12/11/18 05:03 VBG pCO2 39 mmHg (41-51) L 12/07/18 04:02 Potassium 3.4 mEq/L (3.5-5.1) L 12/11/18 04:25 BUN 24 mg/dL (6-20) H 12/11/18 04:25 Est GFR ( Amer) 57 (> 60) L 12/11/18 04:25 Est GFR (Non-Af Amer) 47 (> 60) L 12/11/18 04:25 Glucose 117 mg/dL (70-105) H 12/11/18 04:25 POC Glucose 122 mg/dL (70-99) H 12/10/18 23:46 Calcium 7.7 mg/dL (8.6-10.3) L 12/11/18 04:25 Phosphorus 4.7 mg/dL (2.7-4.5) H 12/11/18 04:25 ALT 5 Units/L (7-52) L 12/07/18 03:51 Alkaline Phosphatase 107 Units/L (34-104) H 12/07/18 03:51 Troponin I 0.09 ng/mL (< 0.04) H* 12/10/18 17:41 B-Natriuretic Peptide 148 pg/mL (Less than 100) H 12/07/18 03:51 Serum Total Protein 5.9 g/dL (6.4-8.9) L 12/07/18 03:51 Albumin 2.4 g/dL (3.5-5.7) L 12/07/18 03:51 Albumin/Globulin Ratio 0.7 (1.1-2.2) L 12/07/18 03:51 Urine Clarity Cloudy (Clear) A 12/07/18 05:00 Ur Specific [place] > 1.030 (1.010-1.025) H 12/07/18 05:00 Ur Leukocyte Esterase Small (Negative) H 12/07/18 05:00 Urine Microscopic RBC 5-15 per hpf (0-3) H 12/07/18 05:00 Urine Microscopic WBC 5-15 per hpf (0-3) H 12/07/18 05:00 Ur Squamous Epith Cells Many per lpf (None-Few) H 12/07/18 05:00 Ur Culture Indicated? NO. (NO) A 12/07/18 05:00 Fluid Appearance Cloudy (Clear) A 12/07/18 13:45 - Microbiology Findings Microbiology Findings: Microbiology, Last 48 Hours 12/07/18 13:45 Respiratory Culture - Final Left Lower Lobe Lung Staphylococcus aureus Haemophilus influenzae 12/07/18 13:45 Acid Fast Stain - Final Left Lower Lobe Lung - Clinical Findings Intake & Output: Intake & Output 12/10/18 12/11/18 12/11/18 23:59 07:59 15:59 Intake Total 28 / 28 351 / 351 60 / 60 Output Total 750 / 750 200 / 200 50 / 50 Balance -722 / -722 151 / 151 10 10 Weight 39.3 kg 39.3 kg - Attending Attestation I examined this patient and my medical decision-making was reviewed with the Resident Physician. I agree with the documented findings, disposition and treatment plan as described except to the extent set forth below. Patient seen and examined. Labs, radiology, chart personally reviewed. Agree with resident's history and physical, assessment, plan with following comments: MOHEL: Patient follows commands, she seems to be agitated and anxious and she is on Precedex for that. Pulmonary: Acceptable oxygenation and ventilation. Reviewed Chest x-ray personally and there is some improvement. I will lower her PEEP on the ventilator and try to wean off FiO2 and if she tolerates this then we will plan for spontaneous breathing trial and possible extubation. There is no need for bronchoscopy since there is improvement and I do not see any major lung collapse. One problem with the patient's anxiety and if she does not tolerate noninvasive ventilation after extubation. Cardiovascular: Patient remained on low-dose vasopressor and still not clear but it could be sepsis. With more aggressive fluid resuscitation will affect her oxygenation and we may need to use some albumin for resuscitation. GI: Nutrition per dietary and GI prophylaxis per routine Heme: DVT prophylaxis per routine ID: Continue antibiotics and plan to de-escalation Renal; urine out put and renal funtion reviewed Endorcine: blood glucose is monitored Lines: all lines checked and no evidence of infections Skin: skin care to prevent pressure ulcers per nursing routine care I spent 35 min of Critical Care time with this patient. It involved decision making of high complexity to assess, manipulate, and support vital organ system failure and/or to prevent further life threatening deterioration of the patient's condition. The time involved in the performance of separately reportable procedures was not counted toward critical care time.
[2018-12-11] MEDS: Megestrol Acetate 400 MG/10 ML UDC PO SCH (08:46)
[2018-12-11] MEDS: MethylPREDNISolone 40 MG/ML VIAL IVP SCH (08:47)
[2018-12-11] MEDS: Pantoprazole 40 MG VIAL IVP SCH (08:47)
[2018-12-11] MEDS: Chlorhexidine Rinse 15 ML MOUTHWASH MM SCH ×2 (08:47→20:50)
[2018-12-11] MEDS ORDERED: Potassium Chloride Elixir 20 MEQ/15 ML UDC GTUBE ONE (10:26)
[2018-12-11 11:04] LABS: Magnesium 1.6 mg/dL (1.6-2.6); Phosphorous 4.7 mg/dL (2.7-4.5)
[2018-12-11] MEDS: Dexmedetomidine HCl 400 MCG/100 ML MLS IVC SCH (14:15)
[2018-12-11 15:15] LABS: RSV PCR Body Fluid NOT DETECTED
[2018-12-11] MEDS: cefTRIAXone 2,000 MG in Water for inj. (sterile) 20 ML 20 ML IVP SCH (16:14)
[2018-12-11] MEDS ORDERED: Ondansetron 4 MG/2 ML VIAL IVP ONE (17:47)
[2018-12-11] MEDS: FentaNYL (PF) 1,000 MCG in 0.9 % Sodium Chloride 80 ML IVC SCH (19:00)
[2018-12-11] MEDS: Norepinephrine 4 MG in D5% in Water 250 ML IVC SCH (20:15)
[2018-12-12] MEDS: Artificial Tears SOLN 15 ML BOTTLE BOTH EYES SCH ×2 (03:21→08:14)
[2018-12-12] MEDS: Ipratropium/Albuterol Neb 3 ML IH SCH ×6 (03:27→23:39)
[2018-12-12 04:59] LABS: ABG Base Excess 5 mEq/L (-2 to 3); ABG HCO3 29 mEq/L (21-27); ABG Oxygen Saturation 96 % (95-98); ABG PCO2 42 mmHg (35-45); ABG PH 7.46 pH Units (7.32-7.45); ABG PO2 79 mmHg (85-104); ABG TCO2 31 mEq/L (20-26); Blood Gas Modality ASSIST CONTROL; Blood Gas PEEP 5 cm H2O; Blood Gas Respiration Rate 12; Blood Gas VT 400 cc
[2018-12-12] MEDS: *HR* Heparin 5,000 UNIT/ML VIAL SQ SCH ×2 (06:03→17:07)
[2018-12-12] MEDS: Levothyroxine 25 MCG TABLET PO SCH (06:05)
[2018-12-12] MEDS: Acetylcysteine 10% 2 ML INHSOL IH SCH (07:29)
[2018-12-12] MEDS: Budesonide/Formoterol 160/4.5 1 PUFF INH IH SCH ×2 (07:30→20:17)
--- NOTE | 2018-12-12 07:48 | Pulmonology Progress Note ---
<Janessa Evansstefani M - Last Filed: 12/12/18 10:11> Date of Encounter: 12/12/18 Objective PUL Vital signs: Last Vital Signs Temp 97.6 F 12/12/18 07:40 Pulse 116 12/12/18 10:00 Resp 22 12/12/18 10:00 BP 105/77 12/12/18 10:00 Pulse Ox 89 12/12/18 10:00 Ventilator Settings Ventilator Settings: Ventilator Settings, Last 8 Hours Ventilator Tidal Volume 400 Setting Ventilator Tidal Volume 400 Setting Ventilator Tidal Volume 400 Setting Ventilator Tidal Volume 400 Setting Ventilator Tidal Volume 400 Setting Ventilator Tidal Volume 400 Setting Ventilator Tidal Volume 400 Setting Ventilator Tidal Volume 400 Setting Ventilator Respiratory Rate 12 Setting Ventilator Respiratory Rate 12 Setting Ventilator Respiratory Rate 12 Setting Ventilator Respiratory Rate 12 Setting Ventilator Respiratory Rate 12 Setting Ventilator Respiratory Rate 12 Setting Ventilator Respiratory Rate 12 Setting Ventilator Respiratory Rate 12 Setting Actual Respiratory Rate 10 Actual Respiratory Rate 15 Actual Respiratory Rate 15 Actual Respiratory Rate 14 Actual Respiratory Rate 20 Actual Respiratory Rate 20 Actual Respiratory Rate 14 Actual Respiratory Rate 15 Positive End Expiratory 5 Pressure Positive End Expiratory 5 Pressure Positive End Expiratory 5 Pressure Positive End Expiratory 5 Pressure Positive End Expiratory 5 Pressure Positive End Expiratory 5 Pressure Positive End Expiratory 5 Pressure Positive End Expiratory 5 Pressure Positive End Expiratory 5 Pressure Peak Inspiratory Airway 15 Pressure Peak Inspiratory Airway 16 Pressure Peak Inspiratory Airway 16 Pressure Peak Inspiratory Airway 14 Pressure Peak Inspiratory Airway 18 Pressure Peak Inspiratory Airway 7 Pressure Peak Inspiratory Airway 13 Pressure Peak Inspiratory Airway 15 Pressure Results - Laboratory Findings CBC and BMP: 12/12/18 08:15 12/12/18 08:15 ABG ABG pH 7.46 pH Units (7.32-7.45) H 12/12/18 04:56 ABG pCO2 42 mmHg (35-45) 12/12/18 04:56 ABG pO2 79 mmHg (85-104) L 12/12/18 04:56 ABG O2 Saturation 96 % (95-98) 12/12/18 04:56 PT/INR, D-dimer PT 12.5 Seconds (9.4-12.1) H 12/09/18 17:55 Abnormal lab findings: Abnormal lab results WBC 11.2 K/mcL (4.3-11.1) H 12/12/18 08:15 RBC 2.76 M/mcL (3.82-4.97) L 12/12/18 08:15 Hgb 6.7 g/dL (11.5-15.4) L 12/12/18 08:15 Hct 20.8 % (35.3-44.9) L 12/12/18 08:15 MCV 75.4 fL (83.0-100.0) L 12/12/18 08:15 MCH 24.3 pg (28.0-33.3) L 12/12/18 08:15 RDW 26.3 % (11.5-14.5) H 12/12/18 08:15 MPV 8.7 fL (9.4-12.4) L 12/12/18 08:15 Neutrophils # 9.8 K/mcL (1.6-8.9) H 12/12/18 08:15 Hypochromasia Present (Not Present) A 12/12/18 08:15 Poikilocytosis 1+ (Not Present) A 12/12/18 08:15 Anisocytosis 2+ (Not Present) A 12/12/18 08:15 Microcytosis Present (Not Present) A 12/12/18 08:15 Macrocytosis Present (Not Present) A 12/11/18 04:25 Spherocytes 1+ (Not Present) A 12/12/18 08:15 Target Cells 1+ (Not Present) A 12/12/18 08:15 Tear Drop Cells 1+ (Not Present) A 12/12/18 08:15 PT 12.5 Seconds (9.4-12.1) H 12/09/18 17:55 Heparin Anti-Xa, Unfract 0.01 IU/mL (0.30-0.70) L 12/10/18 17:41 ABG pH 7.46 pH Units (7.32-7.45) H 12/12/18 04:56 ABG pO2 79 mmHg (85-104) L 12/12/18 04:56 ABG HCO3 29 mEq/L (21-27) H 12/12/18 04:56 ABG Total CO2 31 mEq/L (20-26) H 12/12/18 04:56 ABG Base Excess 5 mEq/L (-2 to 3) H 12/12/18 04:56 VBG pCO2 39 mmHg (41-51) L 12/07/18 04:02 Potassium 3.2 mEq/L (3.5-5.1) L 12/12/18 08:15 BUN 27 mg/dL (6-20) H 12/12/18 08:15 Creatinine 1.24 mg/dL (0.60-1.20) H 12/12/18 08:15 Est GFR ( Amer) 54 (> 60) L 12/12/18 08:15 Est GFR (Non-Af Amer) 44 (> 60) L 12/12/18 08:15 POC Glucose 118 mg/dL (70-99) H 12/11/18 23:20 Calcium 8.0 mg/dL (8.6-10.3) L 12/12/18 08:15 ALT 5 Units/L (7-52) L 12/07/18 03:51 Alkaline Phosphatase 107 Units/L (34-104) H 12/07/18 03:51 Troponin I 0.09 ng/mL (< 0.04) H* 12/10/18 17:41 B-Natriuretic Peptide 148 pg/mL (Less than 100) H 12/07/18 03:51 Serum Total Protein 5.9 g/dL (6.4-8.9) L 12/07/18 03:51 Albumin 2.4 g/dL (3.5-5.7) L 12/07/18 03:51 Albumin/Globulin Ratio 0.7 (1.1-2.2) L 12/07/18 03:51 Urine Clarity Cloudy (Clear) A 12/07/18 05:00 Ur Specific [place] > 1.030 (1.010-1.025) H 12/07/18 05:00 Ur Leukocyte Esterase Small (Negative) H 12/07/18 05:00 Urine Microscopic RBC 5-15 per hpf (0-3) H 12/07/18 05:00 Urine Microscopic WBC 5-15 per hpf (0-3) H 12/07/18 05:00 Ur Squamous Epith Cells Many per lpf (None-Few) H 12/07/18 05:00 Ur Culture Indicated? NO. (NO) A 12/07/18 05:00 Fluid Appearance Cloudy (Clear) A 12/07/18 13:45 - Microbiology Findings Microbiology Findings: Microbiology, Last 48 Hours 12/07/18 03:51 Blood Culture - Final Peripheral Venipuncture No growth. Final report. 12/07/18 04:40 Blood Culture - Final Peripheral Venipuncture No growth. Final report. 12/07/18 13:45 Respiratory Culture - Final Left Lower Lobe Lung Staphylococcus aureus Haemophilus influenzae - Clinical Findings Intake & Output: Intake & Output 12/11/18 12/12/18 12/12/18 23:59 07:59 15:59 Intake Total 356 / 356 558 / 558 Output Total 50 / 50 150 / 150 Balance 306 / 306 408 / 408 Weight 36.8 kg Consult Discharge Plan - Plan Referrals: NONE,PCP [Primary Care Provider] - - Attending Attestation I examined this patient and my medical decision-making was reviewed with the Resident Physician. I agree with the documented findings, disposition and treatment plan as described except to the extent set forth below. Patient seen and examined. Labs, radiology, chart personally reviewed. Agree with resident's history and physical, assessment, plan with following comments: DESK EDITOR: Patient follows commands, Pulmonary: Acceptable oxygenation and ventilation and pt extubated. Change steroid to oral. Physical therapy. Cardiovascular: stable GI: Nutrition per dietary and GI prophylaxis per routine Heme: DVT prophylaxis per routine ID: Continue antibiotics and plan to de-escalation Renal; urine out put and renal funtion reviewed Endorcine: blood glucose is monitored Lines: all lines checked and no evidence of infections Skin: skin care to prevent pressure ulcers per nursing routine care <Judy Tijerina - Last Filed: 12/12/18 10:51> Date of Encounter: 12/12/18 Time of Encounter: 07:48 Assessment and Plan (1) Acute on chronic respiratory failure with hypoxemia Current Visit: Yes Status: Acute This is a 58-year-old female with past medical history significant for anxiety/depression, bipolar disorder, hypertension, hyperlipidemia, COPD, active smoker, hypothyroidism who initially presented with shortness of breath. Pt underwent bronchoscopy during admission with following findings: - B/L Lung abnormalities - Mucus plug of airway throughout tracheobronchial tree - BAL Performed Left Lower Lobe Cultures: + Staph Aureus, Haemophilus Influenza Blood Culture Negative x 2 Influenza negative Legionella, Strep Ag negative - Rapid response called on patient (12/10/18) due to lethargy, somnolence, hypoxia, associated with hypotension. Pt intubated, sedated, and femoral line placed for pressors due to hypotension. Per hospitalist, pt had been refusing to use BIPAP throughout the day. Pt improved this AM; No longer on pressors. ABG = 7.46/42/79/29. Completed CPAP trial, and extubated. Currently managed on 6L O2 via nasal cannula. Sats appropriate PLAN: Acute on chronic respiratory failure likely secondary to CO2 Narcosis secondary to not using BIPAP. Pt has underlying pneumonia, with BAL growing Staph Aureus, Haemophilus Influenza; Extubated this AM - Cont to monitor vitals; titrate to keep O2 > 88%; wean supplemental O2 as tolerated - Cont Rocephin 2g QD to treat for a total of 7 days - Cont scheduled bronchodilators - Will switch to PO steroids 40mg QD starting tomorrow; taper by 10mg every 3 days (2) Atelectasis Current Visit: Yes Status: Acute Per pulm, no need for bronchoscopy due to improvement on CXR, and no major atelectasis. CXR (12/11/18) - Persistent bilateral airspace disease with probable small right pleural effusion. PLAN: - Cont supplemental O2; titrate to keep O2 sat > 88% - Cont Rocephin 2g QD (3) COPD (chronic obstructive pulmonary disease) Current Visit: Yes Status: Chronic PLAN: - Cont duonebs, symbicort - Switch to PO Prednisone 40mg QD tomorrow Qualifiers: COPD type: emphysema Emphysema type: unspecified Qualified Code(s): J43.9 - Emphysema, unspecified (4) HCAP (healthcare-associated pneumonia) Current Visit: Yes Status: Acute PLAN: - D/C vanc, zosyn given BAL cultures growing MSSA, H. FLu - Cont Rocephin 2g QD (5) Anemia Current Visit: No Status: Chronic Hb this AM = 6.7 --> will transfuse 1U PRBC PLAN: - Monitor Hb/Hct; transfuse with Hb < 7 Qualifiers: Folate deficiency anemia type: unspecified folate deficiency Qualified Cod e(s): D52.9 - Folate deficiency anemia, unspecified (6) Hypertension Current Visit: No Status: Chronic Hold BP Meds for now Qualifiers: Hypertension type: essential hypertension Qualified Code(s): I10 - Essential (primary) hypertension (7) Hypothyroid Current Visit: Yes Status: Chronic - Cont Synthroid Qualifiers: Hypothyroidism type: unspecified Qualified Code(s): E03.9 - Hypothyroidism, unspecified (8) Severe protein-calorie malnutrition Current Visit: No Status: Chronic Follow up nutrition consult; recommendations appreciated PLAN: - Advance diet as tolerated --> Regular diet with ensure - Electrolyte protocol - replete as needed (9) Diastolic CHF Current Visit: Yes Status: Acute TTE LVEF 60%. Normal LV chamber size, wall thickness and function. Moderate left ventricular diastolic dysfunction. Moderate concentric left ventricular hypertrophy. PLAN: - Strict Is and Os - Lasix PRN Qualifiers: Heart failure chronicity: acute on chronic Qualified Code(s): I50.33 - Acute on chronic diastolic (congestive) heart failure (10) Hypokalemia Current Visit: No Status: Resolved Replete as needed Subjective Principal diagnosis: Pneumonia Interval history: Pt seen and examined resting comfortably at bedside. Extubated this AM, after CPAP trial. Currently O2 sats appropriate on 6L O2 via oxymask. However, with any movement to lean forward in bed, O2 sats drop. Looks significantly more alert, improved. Pt denies any current complaints aside from lethargy, fatigue. Will slowly advance diet. Cont Rocephin 2g QD for 7d total. Objective PUL Vital signs: Last Vital Signs Temp 97.6 F 12/12/18 04:00 Pulse 107 12/12/18 06:00 Resp 10 12/12/18 07:31 BP 122/84 12/12/18 06:00 Pulse Ox 99 12/12/18 07:31 General appearance: no acute distress, alert Eyes: nonicteric ENT: oropharynx moist Neck: supple Effort: normal Auscultation: bilateral: clear (No wheezes, rales, rhonchi) Cardiovascular: regular rate and rhythm Gastrointestinal: normoactive bowel sounds, soft, non-tender, non-distended Integumentary: normal Extremities: no cyanosis, no edema normal mental status, non-focal exam, pupils equal and round, CN II-XII normal mood appropriate, affect normal Ventilator Settings Ventilator Settings: Ventilator Settings, Last 8 Hours Ventilator Tidal Volume 400 Setting Ventilator Tidal Volume 400 Setting Ventilator Tidal Volume 400 Setting Ventilator Tidal Volume 400 Setting Ventilator Tidal Volume 400 Setting Ventilator Tidal Volume 400 Setting Ventilator Tidal Volume 400 Setting Ventilator Tidal Volume 400 Setting Ventilator Tidal Volume 400 Setting Ventilator Tidal Volume 400 Setting Ventilator Tidal Volume 400 Setting Ventilator Tidal Volume 400 Setting Ventilator Respiratory Rate 12 Setting Ventilator Respiratory Rate 12 Setting Ventilator Respiratory Rate 12 Setting Ventilator Respiratory Rate 12 Setting Ventilator Respiratory Rate 12 Setting Ventilator Respiratory Rate 12 Setting Ventilator Respiratory Rate 12 Setting Ventilator Respiratory Rate 12 Setting Ventilator Respiratory Rate 12 Setting Ventilator Respiratory Rate 12 Setting Ventilator Respiratory Rate 12 Setting Actual Respiratory Rate 10 Actual Respiratory Rate 15 Actual Respiratory Rate 14 Actual Respiratory Rate 20 Actual Respiratory Rate 20 Actual Respiratory Rate 14 Actual Respiratory Rate 15 Actual Respiratory Rate 15 Actual Respiratory Rate 14 Actual Respiratory Rate 18 Actual Respiratory Rate 16 Positive End Expiratory 5 Pressure Positive End Expiratory 5 Pressure Positive End Expiratory 5 Pressure Positive End Expiratory 5 Pressure Positive End Expiratory 5 Pressure Positive End Expiratory 5 Pressure Positive End Expiratory 5 Pressure Positive End Expiratory 5 Pressure Positive End Expiratory 5 Pressure Positive End Expiratory 5 Pressure Positive End Expiratory 5 Pressure Positive End Expiratory 5 Pressure Peak Inspiratory Airway 15 Pressure Peak Inspiratory Airway 16 Pressure Peak Inspiratory Airway 14 Pressure Peak Inspiratory Airway 18 Pressure Peak Inspiratory Airway 7 Pressure Peak Inspiratory Airway 13 Pressure Peak Inspiratory Airway 15 Pressure Peak Inspiratory Airway 19 Pressure Peak Inspiratory Airway 15 Pressure Peak Inspiratory Airway 18 Pressure Peak Inspiratory Airway 14 Pressure Results - Laboratory Findings CBC and BMP: 12/12/18 08:15 12/12/18 08:15 ABG ABG pH 7.46 pH Units (7.32-7.45) H 12/12/18 04:56 ABG pCO2 42 mmHg (35-45) 12/12/18 04:56 ABG pO2 79 mmHg (85-104) L 12/12/18 04:56 ABG O2 Saturation 96 % (95-98) 12/12/18 04:56 PT/INR, D-dimer PT 12.5 Seconds (9.4-12.1) H 12/09/18 17:55 Abnormal lab findings: Abnormal lab results WBC 15.4 K/mcL (4.3-11.1) H 12/11/18 04:25 RBC 3.08 M/mcL (3.82-4.97) L 12/11/18 04:25 Hgb 7.4 g/dL (11.5-15.4) L 12/11/18 04:25 Hct 22.8 % (35.3-44.9) L 12/11/18 04:25 MCV 74.0 fL (83.0-100.0) L 12/11/18 04:25 MCH 24.0 pg (28.0-33.3) L 12/11/18 04:25 RDW 25.5 % (11.5-14.5) H 12/11/18 04:25 MPV 9.1 fL (9.4-12.4) L 12/11/18 04:25 Neutrophils # 13.1 K/mcL (1.6-8.9) H 12/11/18 04:25 Hypochromasia Present (Not Present) A 12/11/18 04:25 Anisocytosis 3+ (Not Present) A 12/11/18 04:25 Microcytosis Present (Not Present) A 12/11/18 04:25 Macrocytosis Present (Not Present) A 12/11/18 04:25 PT 12.5 Seconds (9.4-12.1) H 12/09/18 17:55 Heparin Anti-Xa, Unfract 0.01 IU/mL (0.30-0.70) L 12/10/18 17:41 ABG pH 7.46 pH Units (7.32-7.45) H 12/12/18 04:56 ABG pO2 79 mmHg (85-104) L 12/12/18 04:56 ABG HCO3 29 mEq/L (21-27) H 12/12/18 04:56 ABG Total CO2 31 mEq/L (20-26) H 12/12/18 04:56 ABG Base Excess 5 mEq/L (-2 to 3) H 12/12/18 04:56 VBG pCO2 39 mmHg (41-51) L 12/07/18 04:02 Potassium 3.4 mEq/L (3.5-5.1) L 12/11/18 04:25 BUN 24 mg/dL (6-20) H 12/11/18 04:25 Est GFR ( Amer) 57 (> 60) L 12/11/18 04:25 Est GFR (Non-Af Amer) 47 (> 60) L 12/11/18 04:25 Glucose 117 mg/dL (70-105) H 12/11/18 04:25 POC Glucose 118 mg/dL (70-99) H 12/11/18 23:20 Calcium 7.7 mg/dL (8.6-10.3) L 12/11/18 04:25 Phosphorus 4.7 mg/dL (2.7-4.5) H 12/11/18 04:25 ALT 5 Units/L (7-52) L 12/07/18 03:51 Alkaline Phosphatase 107 Units/L (34-104) H 12/07/18 03:51 Troponin I 0.09 ng/mL (< 0.04) H* 12/10/18 17:41 B-Natriuretic Peptide 148 pg/mL (Less than 100) H 12/07/18 03:51 Serum Total Protein 5.9 g/dL (6.4-8.9) L 12/07/18 03:51 Albumin 2.4 g/dL (3.5-5.7) L 12/07/18 03:51 Albumin/Globulin Ratio 0.7 (1.1-2.2) L 12/07/18 03:51 Urine Clarity Cloudy (Clear) A 12/07/18 05:00 Ur Specific [place] > 1.030 (1.010-1.025) H 12/07/18 05:00 Ur Leukocyte Esterase Small (Negative) H 12/07/18 05:00 Urine Microscopic RBC 5-15 per hpf (0-3) H 12/07/18 05:00 Urine Microscopic WBC 5-15 per hpf (0-3) H 12/07/18 05:00 Ur Squamous Epith Cells Many per lpf (None-Few) H 12/07/18 05:00 Ur Culture Indicated? NO. (NO) A 12/07/18 05:00 Fluid Appearance Cloudy (Clear) A 12/07/18 13:45 - Microbiology Findings Microbiology Findings: Microbiology, Last 48 Hours 12/07/18 03:51 Blood Culture - Final Peripheral Venipuncture No growth. Final report. 12/07/18 04:40 Blood Culture - Final Peripheral Venipuncture No growth. Final report. 12/07/18 13:45 Respiratory Culture - Final Left Lower Lobe Lung Staphylococcus aureus Haemophilus influenzae - Clinical Findings Intake & Output: Intake & Output 12/11/18 12/11/18 12/12/18 15:59 23:59 07:59 Intake Total 120 / 120 356 / 356 558 / 558 Output Total 50 / 50 50 / 50 100 / 100 Balance 70 / 70 306 / 306 458 / 458 Weight 36.8 kg
[2018-12-12] MEDS: Chlorhexidine Rinse 15 ML MOUTHWASH MM SCH (08:15)
[2018-12-12 08:36] LABS: Eosinophils # 0.1 K/mcL (0.0-0.6); Eosinophils % 0.5 %; Hematocrit 20.8 % (35.3-44.9); Hemoglobin 6.7 g/dL (11.5-15.4); Immature Granulocytes % 0.7 % (0-4); Lymphocytes # 0.8 K/mcL (0.6-4.6); Lymphocytes % 7.5 %; Mean Corpuscular HGB Conc 32.2 g/dL (31.6-35.5); Mean Corpuscular Hemoglobin 24.3 pg (28.0-33.3); Mean Corpuscular Volume 75.4 fL (83.0-100.0); Mean Platelet Volume 8.7 fL (9.4-12.4); Monocytes # 0.4 K/mcL (0.0-1.3); Monocytes % 3.8 %; Neutrophils # 9.8 K/mcL (1.6-8.9); Platelet Count 181 K/mcL (140-400); Red Blood Count 2.76 M/mcL (3.82-4.97); Red Cell Distribution Width 26.3 % (11.5-14.5); Segmented Neutrophils % 87.5 %
[2018-12-12 08:53] LABS: Magnesium 1.6 mg/dL (1.6-2.6); Microcytosis Present (Not Present); Phosphorous 3.9 mg/dL (2.7-4.5); Potassium 3.2 mEq/L (3.5-5.1)
[2018-12-12 08:54] LABS: Platelet Estimate Normal (Normal); Poikilocytosis 1+ (Not Present); Spherocytes 1+ (Not Present); Target Cells 1+ (Not Present); Tear Drop Cells 1+ (Not Present)
[2018-12-12 08:55] LABS: Anisocytosis 2+ (Not Present); Hypochromasia Present (Not Present)
[2018-12-12] MEDS ORDERED: Potassium Chloride Elixir 20 MEQ/15 ML UDC PO ONE (09:45)
[2018-12-12] MEDS: Pantoprazole 40 MG VIAL IVP SCH (09:48)
[2018-12-12] MEDS: MethylPREDNISolone 40 MG/ML VIAL IVP SCH (09:48)
[2018-12-12] MEDS: Megestrol Acetate 400 MG/10 ML UDC PO SCH (09:48)
[2018-12-12] MEDS: Multivit/Ca/Min/Fe/FA 1 TAB TABLET PO SCH (11:43)
[2018-12-12] MEDS ORDERED: 0.9 % Sodium Chloride 250 ML ONE (14:00)
[2018-12-12] MEDS ORDERED: *HR* Metoprolol 5 MG/5 ML VIAL IVP ONE (16:51)
[2018-12-12] MEDS: cefTRIAXone 2,000 MG in Water for inj. (sterile) 20 ML 20 ML IVP SCH (17:06)
[2018-12-12] MEDS ORDERED: Potassium Phosphate 44 MEQ in 0.9 % Sodium Chloride 250 ML IVPB PRN (18:13)
[2018-12-12 18:50] LABS: VBG Ionized Calcium 1.17 mmol/L (1.15-1.35)
[2018-12-12 18:53] LABS: Basophils % 0.1 %; Immature Granulocytes % 0.6 % (0-4); Lymphocytes # 0.5 K/mcL (0.6-4.6); Lymphocytes % 2.9 %; Mean Corpuscular HGB Conc 31.9 g/dL (31.6-35.5); Mean Corpuscular Hemoglobin 24.8 pg (28.0-33.3); Mean Corpuscular Volume 77.7 fL (83.0-100.0); Mean Platelet Volume 9.1 fL (9.4-12.4); Monocytes # 0.4 K/mcL (0.0-1.3); Monocytes % 2.2 %; Neutrophils # 14.8 K/mcL (1.6-8.9); Platelet Count 232 K/mcL (140-400); Red Blood Count 4.12 M/mcL (3.82-4.97); Red Cell Distribution Width 23.9 % (11.5-14.5); Segmented Neutrophils % 94.2 %
[2018-12-12 19:12] LABS: Calcium 8.6 mg/dL (8.6-10.3); Potassium 4.2 mEq/L (3.5-5.1)
[2018-12-12 19:13] LABS: Magnesium 1.7 mg/dL (1.6-2.6); Phosphorous 3.3 mg/dL (2.7-4.5)
[2018-12-12 19:19] LABS: Hemoglobin 10.2 g/dL (11.5-15.4)
[2018-12-12 20:34] LABS: Anisocytosis 2+ (Not Present); Platelet Estimate Normal (Normal)
[2018-12-13] MEDS ORDERED: Ondansetron 4 MG/2 ML VIAL ONE (03:23)
[2018-12-13 03:54] LABS: Basophils % 0.1 %; Eosinophils % 0.3 %; Hematocrit 27.5 % (35.3-44.9); Hemoglobin 9.3 g/dL (11.5-15.4); Immature Granulocytes % 0.5 % (0-4); Lymphocytes # 1.4 K/mcL (0.6-4.6); Lymphocytes % 9.3 %; Mean Corpuscular HGB Conc 33.8 g/dL (31.6-35.5); Mean Corpuscular Hemoglobin 25.5 pg (28.0-33.3); Mean Corpuscular Volume 75.5 fL (83.0-100.0); Mean Platelet Volume 8.8 fL (9.4-12.4); Monocytes # 0.4 K/mcL (0.0-1.3); Monocytes % 2.4 %; Neutrophils # 13.2 K/mcL (1.6-8.9); Platelet Count 200 K/mcL (140-400); Red Blood Count 3.64 M/mcL (3.82-4.97); Red Cell Distribution Width 23.9 % (11.5-14.5); Segmented Neutrophils % 87.4 %
--- NOTE | 2018-12-13 03:54 | Procedure Note ---
Date of procedure: 12/13/18 Pre-op diagnosis: respiratory failure, not tolerating BiPAP Post-op diagnosis: same Procedure: Endotracheal Intubation Date: 12/13/18 Time: 0355 Indication: Respiratory Distress, BiPAP failure A time-out was completed verifying correct patient, procedure, site, positioning, and special equipment if applicable. The patient was placed in a flat position. Sedation was obtained using versed 5mg, and additionally with Etomidate 20mg. The patient was easily ventilated using an ambu bag. The glidoscope and Mac blade was used and inserted into the oropharynx at which time there was a Grade 1 view of the vocal cords. A 7.5-greenlandic endotracheal tube was inserted and visualized going through the vocal cords. The stylette was removed. Colorimetric change was visualized on the CO2 meter. Breath sounds were heard in both lung wolf equally. The endotracheal tube was placed at 23 cm, measured at the teeth. Myself, Dr Conti and Dr Worthington was present for the entire procedure. A chest x-ray was ordered to assess for pneumothorax and verify endotrachealtube placement. NG tube was visualized in the stomach. Estimated Blood Loss: 0cc The patient tolerated the procedure well and there were no complications At approx [address] Conti was notified that the pt was becoming increasingly hypoxic and was having difficulty maintaining O2 sat. She threw up as well. The decision was made to intubate the pt. We re-confirmed CODE status and she changed to DNR-CCA but still wishes to have intubation. Family notified at 0415. ABG ordered for 0500 with morning labs. Anesthesia: IV sedation Surgeon: Varun Yepez Was there an assistant professor of marine biology present: Yes Men'S Designer: Didier Conti Estimated blood loss (cc): 0 IV fluids (cc): 0 Urine output (cc): 0 Specimen: 0 Pathology: none sent Condition: critical Disposition: ICU
[2018-12-13 03:56] LABS: VBG Ionized Calcium 1.15 mmol/L (1.15-1.35)
[2018-12-13 03:59] LABS: Eosinophils # 0.1 K/mcL (0.0-0.6)
[2018-12-13] MEDS ORDERED: Dexmedetomidine HCl 400 MCG/100 ML MLS IVC ONE (04:07)
[2018-12-13 04:10] LABS: BUN/Creatinine Ratio 22 (6-26); Blood Urea Nitrogen 23 mg/dL (6-20); Calcium 8.3 mg/dL (8.6-10.3); Carbon Dioxide 25 mEq/L (23-29); Chloride 104 mEq/L (98-107); Glucose 98 mg/dL (70-105); Magnesium 2.1 mg/dL (1.6-2.6); Osmolality,Calculated 286 (280-300); Phosphorous 2.2 mg/dL (2.7-4.5); Potassium 3.5 mEq/L (3.5-5.1); Sodium 136 mEq/L (136-145); eGFR For Non-African Americans 53 (> 60)
[2018-12-13] MEDS: Dexmedetomidine HCl 400 MCG/100 ML MLS IVC SCH ×2 (04:10→16:30)
[2018-12-13] MEDS ORDERED: *HR* Midazolam HCl 2 MG/2 ML VIAL ONE ×2 (04:14→10:42)
[2018-12-13] MEDS ORDERED: Ondansetron 4 MG/2 ML VIAL IVP ONE (04:14)
[2018-12-13] MEDS ORDERED: *HR* Midazolam HCl 2 MG/2 ML VIAL IVP ONE ×2 (04:15→10:45)
[2018-12-13] MEDS ORDERED: *HR* FentaNYL (PF) 100 MCG/2 ML VIAL ONE (04:26)
[2018-12-13] MEDS ORDERED: *HR* FentaNYL (PF) 100 MCG/2 ML VIAL IVP ONE (04:27)
[2018-12-13] MEDS: Ipratropium/Albuterol Neb 3 ML IH SCH ×6 (04:31→23:29)
[2018-12-13] MEDS: Scopolamine Patch 1.5 MG PATCH.TD72 TD SCH (04:33)
[2018-12-13 04:45] LABS: Anisocytosis 2+ (Not Present); Hypochromasia Present (Not Present); Platelet Estimate Normal (Normal)
[2018-12-13] MEDS: FentaNYL (PF) 1,000 MCG in 0.9 % Sodium Chloride 80 ML IVC SCH ×2 (05:06→16:27)
[2018-12-13 05:36] LABS: ABG Base Excess 4 mEq/L (-2 to 3); ABG HCO3 28 mEq/L (21-27); ABG Oxygen Saturation 96 % (95-98); ABG PCO2 35 mmHg (35-45); ABG PO2 77 mmHg (85-104); ABG TCO2 29 mEq/L (20-26); Blood Gas Modality PRVC; Blood Gas PEEP 5 cm H2O; Blood Gas Respiration Rate 12; Blood Gas VT 450 cc
[2018-12-13] MEDS: Levothyroxine 25 MCG TABLET PO SCH (05:39)
[2018-12-13] MEDS: *HR* Heparin 5,000 UNIT/ML VIAL SQ SCH ×2 (05:41→16:59)
[2018-12-13] MEDS ORDERED: *HR* Succinylcholine 200 MG/10 ML VIAL IVP ONE (07:28)
[2018-12-13] MEDS ORDERED: *HR* Etomidate 20 MG/10 ML AMPUL IVP ONE (07:28)
[2018-12-13] MEDS: Budesonide/Formoterol 160/4.5 1 PUFF INH IH SCH ×2 (07:31→19:36)
[2018-12-13] MEDS: Megestrol Acetate 400 MG/10 ML UDC PO SCH (07:34)
[2018-12-13] MEDS: Piperacillin/Tazobactam 3.375 GM in 0.9 % Sodium Chloride Mini Bag 100 ML IVPB SCH (07:47)
[2018-12-13] MEDS: Heparin 25,000 UNIT/500 ML D5W 25,000 UNIT/500 ML BAG IVC SCH (07:47)
[2018-12-13] MEDS ORDERED: predniSONE 20 MG TABLET PO SCH (09:00)
[2018-12-13] MEDS ORDERED: Artificial Tears SOLN 15 ML BOTTLE BOTH EYES PRN (09:19)
[2018-12-13] MEDS: Pantoprazole 40 MG VIAL IVP SCH (09:21)
[2018-12-13] MEDS: Multivit/Ca/Min/Fe/FA 1 TAB TABLET PO SCH (09:21)
[2018-12-13] MEDS: predniSONE 20 MG TABLET PO SCH (09:21)
--- NOTE | 2018-12-13 09:25 | Pulmonology Progress Note ---
<Jesús,Lacey N - Last Filed: 12/13/18 14:51> Date of Encounter: 12/13/18 Time of Encounter: 09:25 Assessment and Plan (1) Acute on chronic respiratory failure with hypoxemia Current Visit: Yes Status: Acute This is a 58-year-old female with past medical history significant for anxiety/depression, bipolar disorder, hypertension, hyperlipidemia, COPD, active smoker, hypothyroidism who initially presented with shortness of breath. Pt underwent bronchoscopy during admission with following findings: - B/L Lung abnormalities - Mucus plug of airway throughout tracheobronchial tree - BAL Performed Left Lower Lobe Cultures: + Staph Aureus, Haemophilus Influenza Blood Culture Negative x 2 Influenza negative Legionella, Strep Ag negative - Rapid response called on patient (12/10/18) due to lethargy, somnolence, hypoxia, associated with hypotension. Pt intubated, sedated, and femoral line placed for pressors due to hypotension. Per hospitalist, pt had been refusing to use BIPAP throughout the day. Pt improved yesterday; however, she required reintubation overnight due to worsening hypoxia. Repeat bronchoscopy today revealed extensive mucous secretions, with several mucus plugs removed. PLAN: Acute on chronic respiratory failure likely secondary to CO2 Narcosis secondary to not using BIPAP as well as HCAP. - Cont to mechanical ventilation - Cont Rocephin 2g QD to treat for a total of 7 days - Cont scheduled bronchodilators - Continue prednisone 40mg QD; taper by 10mg every 3 days (2) HCAP (healthcare-associated pneumonia) Current Visit: Yes Status: Acute Repeat bronchoscopy this morning demonstrated presence of copious, mucoid, thick secretions in the left lower lobe completely obstructing the airway. Mucoid secretions were also found throughout the tracheobronchial tree. BAL was performed, with specimen sent for microbiology. - Continue rocephin 2g pending results of BAL microbiology studies. (3) Severe protein-calorie malnutrition Current Visit: No Status: Chronic - Continue tube feedings per nutrition recommendations. - Consider possibility of PEG tube placement prior to discharge. - Monitor for electrolytes and replete as necessary per protocol. Subjective Principal diagnosis: Pneumonia Interval history: Patient was noted to have worsening respiratory status with hypoxia and ov ernight, and ultimately required repeat intubation. She did undergo repeat bronchoscopy today with Dr. Evans this morning. At the time of examination, she is sedated and unable to answer any questions regarding her current condition. Objective PUL Vital signs: Last Vital Signs Temp 99.3 F 12/13/18 08:44 Pulse 95 12/13/18 06:00 Resp 15 12/13/18 09:09 BP 104/87 12/13/18 09:09 Pulse Ox 95 12/13/18 09:09 General appearance: no acute distress, other (sedated) Eyes: nonicteric Auscultation: bilateral: diminished breath sounds Cardiovascular: regular rate and rhythm Gastrointestinal: soft, non-tender, non-distended Integumentary: normal Extremities: no cyanosis, no edema, no clubbing non-focal exam, pupils equal and round, other Ventilator Settings Ventilator Settings: Ventilator Settings, Last 8 Hours Ventilator Tidal Volume 400 Setting Ventilator Tidal Volume 400 Setting Ventilator Tidal Volume 450 Setting Ventilator Tidal Volume 450 Setting Ventilator Tidal Volume 450 Setting Ventilator Tidal Volume 450 Setting Ventilator Tidal Volume 450 Setting Ventilator Tidal Volume 450 Setting Ventilator Respiratory Rate 12 Setting Ventilator Respiratory Rate 12 Setting Ventilator Respiratory Rate 12 Setting Ventilator Respiratory Rate 12 Setting Ventilator Respiratory Rate 12 Setting Ventilator Respiratory Rate 12 Setting Ventilator Respiratory Rate 12 Setting Ventilator Respiratory Rate 12 Setting Actual Respiratory Rate 14 Actual Respiratory Rate 12 Actual Respiratory Rate 12 Actual Respiratory Rate 12 Actual Respiratory Rate 12 Actual Respiratory Rate 12 Actual Respiratory Rate 12 Positive End Expiratory 5 Pressure Positive End Expiratory 5 Pressure Positive End Expiratory 5 Pressure Positive End Expiratory 5 Pressure Positive End Expiratory 5 Pressure Positive End Expiratory 5 Pressure Positive End Expiratory 5 Pressure Positive End Expiratory 5 Pressure Peak Inspiratory Airway 19 Pressure Peak Inspiratory Airway 16 Pressure Peak Inspiratory Airway 27 Pressure Peak Inspiratory Airway 28 Pressure Peak Inspiratory Airway 26 Pressure Peak Inspiratory Airway 22 Pressure Peak Inspiratory Airway 25 Pressure Results - Laboratory Findings CBC and BMP: 12/13/18 03:36 12/13/18 03:36 ABG ABG pH 7.50 pH Units (7.32-7.45) H 12/13/18 05:30 ABG pCO2 35 mmHg (35-45) 12/13/18 05:30 ABG pO2 77 mmHg (85-104) L 12/13/18 05:30 ABG O2 Saturation 96 % (95-98) 12/13/18 05:30 PT/INR, D-dimer PT 12.5 Seconds (9.4-12.1) H 12/09/18 17:55 Abnormal lab findings: Abnormal lab results WBC 15.1 K/mcL (4.3-11.1) H 12/13/18 03:36 RBC 3.64 M/mcL (3.82-4.97) L 12/13/18 03:36 Hgb 9.3 g/dL (11.5-15.4) L 12/13/18 03:36 Hct 27.5 % (35.3-44.9) L 12/13/18 03:36 MCV 75.5 fL (83.0-100.0) L 12/13/18 03:36 MCH 25.5 pg (28.0-33.3) L 12/13/18 03:36 RDW 23.9 % (11.5-14.5) H 12/13/18 03:36 MPV 8.8 fL (9.4-12.4) L 12/13/18 03:36 Neutrophils # 13.2 K/mcL (1.6-8.9) H 12/13/18 03:36 Hypochromasia Present (Not Present) A 12/13/18 03:36 Poikilocytosis 1+ (Not Present) A 12/12/18 08:15 Anisocytosis 2+ (Not Present) A 12/13/18 03:36 Microcytosis Present (Not Present) A 12/12/18 08:15 Macrocytosis Present (Not Present) A 12/11/18 04:25 Spherocytes 1+ (Not Present) A 12/12/18 08:15 Target Cells 1+ (Not Present) A 12/12/18 08:15 Tear Drop Cells 1+ (Not Present) A 12/12/18 08:15 PT 12.5 Seconds (9.4-12.1) H 12/09/18 17:55 Heparin Anti-Xa, Unfract 0.01 IU/mL (0.30-0.70) L 12/10/18 17:41 ABG pH 7.50 pH Units (7.32-7.45) H 12/13/18 05:30 ABG pO2 77 mmHg (85-104) L 12/13/18 05:30 ABG HCO3 28 mEq/L (21-27) H 12/13/18 05:30 ABG Total CO2 29 mEq/L (20-26) H 12/13/18 05:30 ABG Base Excess 4 mEq/L (-2 to 3) H 12/13/18 05:30 VBG pCO2 39 mmHg (41-51) L 12/07/18 04:02 BUN 23 mg/dL (6-20) H 12/13/18 03:36 Est GFR (Non-Af Amer) 53 (> 60) L 12/13/18 03:36 POC Glucose 103 mg/dL (70-99) H 12/12/18 11:25 Calcium 8.3 mg/dL (8.6-10.3) L 12/13/18 03:36 Phosphorus 2.2 mg/dL (2.7-4.5) L 12/13/18 03:36 ALT 5 Units/L (7-52) L 12/07/18 03:51 Alkaline Phosphatase 107 Units/L (34-104) H 12/07/18 03:51 Troponin I 0.09 ng/mL (< 0.04) H* 12/10/18 17:41 B-Natriuretic Peptide 148 pg/mL (Less than 100) H 12/07/18 03:51 Serum Total Protein 5.9 g/dL (6.4-8.9) L 12/07/18 03:51 Albumin 2.4 g/dL (3.5-5.7) L 12/07/18 03:51 Albumin/Globulin Ratio 0.7 (1.1-2.2) L 12/07/18 03:51 Urine Clarity Cloudy (Clear) A 12/07/18 05:00 Ur Specific Minerva > 1.030 (1.010-1.025) H 12/07/18 05:00 Ur Leukocyte Esterase Small (Negative) H 12/07/18 05:00 Urine Microscopic RBC 5-15 per hpf (0-3) H 12/07/18 05:00 Urine Microscopic WBC 5-15 per hpf (0-3) H 12/07/18 05:00 Ur Squamous Epith Cells Many per lpf (None-Few) H 12/07/18 05:00 Ur Culture Indicated? NO. (NO) A 12/07/18 05:00 Fluid Appearance Cloudy (Clear) A 12/07/18 13:45 - Microbiology Findings Microbiology Findings: Microbiology, Last 48 Hours 12/07/18 13:45 Legionella Culture - Final Left Lower Lobe Lung 12/07/18 03:51 Blood Culture - Final Peripheral Venipuncture No growth. Final report. 12/07/18 04:40 Blood Culture - Final Peripheral Venipuncture No growth. Final report. - Clinical Findings Intake & Output: Intake & Output 12/12/18 12/13/18 12/13/18 23:59 07:59 15:59 Intake Total 539 / 539 106 / 106 100 / 100 Output Total 125 / 125 250 / 250 Balance 414 / 414 -144 / -144 100 / 100 Weight 40 kg Consult Discharge Plan - Plan Referrals: NONE,PCP [Primary Care Provider] - <Koko Evans - Last Filed: 12/14/18 23:51> Date of Encounter: 12/14/18 Objective PUL Vital signs: Last Vital Signs Temp 98.6 F 12/13/18 15:33 Pulse 101 12/13/18 16:00 Resp 12 12/13/18 16:12 BP 100/68 12/13/18 16:12 Pulse Ox 98 12/13/18 16:12 Ventilator Settings Ventilator Settings: Ventilator Settings, Last 8 Hours Ventilator Tidal Volume 400 Setting Ventilator Tidal Volume 400 Setting Ventilator Tidal Volume 400 Setting Ventilator Tidal Volume 400 Setting Ventilator Tidal Volume 400 Setting Ventilator Tidal Volume 400 Setting Ventilator Respiratory Rate 12 Setting Ventilator Respiratory Rate 12 Setting Ventilator Respiratory Rate 12 Setting Ventilator Respiratory Rate 12 Setting Ventilator Respiratory Rate 12 Setting Ventilator Respiratory Rate 12 Setting Actual Respiratory Rate 13 Actual Respiratory Rate 13 Actual Respiratory Rate 14 Actual Respiratory Rate 15 Actual Respiratory Rate 12 Actual Respiratory Rate 14 Positive End Expiratory 5 Pressure Positive End Expiratory 5 Pressure Positive End Expiratory 5 Pressure Positive End Expiratory 5 Pressure Positive End Expiratory 5 Pressure Positive End Expiratory 5 Pressure Peak Inspiratory Airway 8.5 Pressure Peak Inspiratory Airway 7.6 Pressure Peak Inspiratory Airway 10 Pressure Peak Inspiratory Airway 9.4 Pressure Peak Inspiratory Airway 19 Pressure Peak Inspiratory Airway 19 Pressure Results - Laboratory Findings CBC and BMP: 12/14/18 03:30 12/14/18 03:30 ABG ABG pH 7.50 pH Units (7.32-7.45) H 12/13/18 05:30 ABG pCO2 35 mmHg (35-45) 12/13/18 05:30 ABG pO2 77 mmHg (85-104) L 12/13/18 05:30 ABG O2 Saturation 96 % (95-98) 12/13/18 05:30 PT/INR, D-dimer PT 12.5 Seconds (9.4-12.1) H 12/09/18 17:55 Abnormal lab findings: Abnormal lab results WBC 15.1 K/mcL (4.3-11.1) H 12/13/18 03:36 RBC 3.64 M/mcL (3.82-4.97) L 12/13/18 03:36 Hgb 9.3 g/dL (11.5-15.4) L 12/13/18 03:36 Hct 27.5 % (35.3-44.9) L 12/13/18 03:36 MCV 75.5 fL (83.0-100.0) L 12/13/18 03:36 MCH 25.5 pg (28.0-33.3) L 12/13/18 03:36 RDW 23.9 % (11.5-14.5) H 12/13/18 03:36 MPV 8.8 fL (9.4-12.4) L 12/13/18 03:36 Neutrophils # 13.2 K/mcL (1.6-8.9) H 12/13/18 03:36 Hypochromasia Present (Not Present) A 12/13/18 03:36 Poikilocytosis 1+ (Not Present) A 12/12/18 08:15 Anisocytosis 2+ (Not Present) A 12/13/18 03:36 Microcytosis Present (Not Present) A 12/12/18 08:15 Macrocytosis Present (Not Present) A 12/11/18 04:25 Spherocytes 1+ (Not Present) A 12/12/18 08:15 Target Cells 1+ (Not Present) A 12/12/18 08:15 Tear Drop Cells 1+ (Not Present) A 12/12/18 08:15 PT 12.5 Seconds (9.4-12.1) H 12/09/18 17:55 Heparin Anti-Xa, Unfract 0.01 IU/mL (0.30-0.70) L 12/10/18 17:41 ABG pH 7.50 pH Units (7.32-7.45) H 12/13/18 05:30 ABG pO2 77 mmHg (85-104) L 12/13/18 05:30 ABG HCO3 28 mEq/L (21-27) H 12/13/18 05:30 ABG Total CO2 29 mEq/L (20-26) H 12/13/18 05:30 ABG Base Excess 4 mEq/L (-2 to 3) H 12/13/18 05:30 VBG pCO2 39 mmHg (41-51) L 12/07/18 04:02 BUN 23 mg/dL (6-20) H 12/13/18 03:36 Est GFR (Non-Af Amer) 53 (> 60) L 12/13/18 03:36 POC Glucose 103 mg/dL (70-99) H 12/12/18 11:25 Calcium 8.3 mg/dL (8.6-10.3) L 12/13/18 03:36 Phosphorus 2.2 mg/dL (2.7-4.5) L 12/13/18 03:36 ALT 5 Units/L (7-52) L 12/07/18 03:51 Alkaline Phosphatase 107 Units/L (34-104) H 12/07/18 03:51 Troponin I 0.09 ng/mL (< 0.04) H* 12/10/18 17:41 B-Natriuretic Peptide 148 pg/mL (Less than 100) H 12/07/18 03:51 Serum Total Protein 5.9 g/dL (6.4-8.9) L 12/07/18 03:51 Albumin 2.4 g/dL (3.5-5.7) L 12/07/18 03:51 Albumin/Globulin Ratio 0.7 (1.1-2.2) L 12/07/18 03:51 Urine Clarity Cloudy (Clear) A 12/07/18 05:00 Ur Specific Minerva > 1.030 (1.010-1.025) H 12/07/18 05:00 Ur Leukocyte Esterase Small (Negative) H 12/07/18 05:00 Urine Microscopic RBC 5-15 per hpf (0-3) H 12/07/18 05:00 Urine Microscopic WBC 5-15 per hpf (0-3) H 12/07/18 05:00 Ur Squamous Epith Cells Many per lpf (None-Few) H 12/07/18 05:00 Ur Culture Indicated? NO. (NO) A 12/07/18 05:00 Fluid Appearance Cloudy (Clear) A 12/07/18 13:45 - Microbiology Findings Microbiology Findings: Microbiology, Last 48 Hours 12/13/18 10:50 Respiratory Culture - Preliminary Left Lower Lobe Lung 12/07/18 13:45 Legionella Culture - Final Left Lower Lobe Lung 12/07/18 03:51 Blood Culture - Final Peripheral Venipuncture No growth. Final report. 12/07/18 04:40 Blood Culture - Final Peripheral Venipuncture No growth. Final report. - Clinical Findings Intake & Output: Intake & Output 12/13/18 12/13/18 12/13/18 07:59 15:59 23:59 Intake Total 111 / 111 756 / 756 133 / 133 Output Total 250 / 250 150 / 150 75 / 75 Balance -139 / -139 606 / 606 58 / 58 Weight 40 kg - Attending Attestation I examined this patient and my medical decision-making was reviewed with the Resident Physician. I agree with the documented findings, disposition and treatment plan as described except to the extent set forth below. Patient seen and examined. Labs, radiology, chart personally reviewed. 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 There is significant intrinsic PEEP and had to adjust minute ventilation especially with lowering tidal volume and also there is a possibility this patient will need trach and PEG. Reviewing CXR there is an area that I suspect could be mucous plagging and bronchoscopy might be helpful and that was discussed with her POA and she understand agreed. Cardiovascular: relatively stable, however with sedation sometimes her BP in the low side GI: Nutrition per dietary and GI prophylaxis per routine. Nutrition is extremily important since she has severe protein calorie malnutrion that is affecting her overall condtion and prognosis. Heme: DVT prophylaxis per routine ID: Continue antibiotics and plan to de-escalation Renal; urine out put and renal funtion reviewed Endorcine: blood glucose is monitored Lines: all lines checked and no evidence of infections Skin: skin care to prevent pressure ulcers per nursing routine care Prognosis is poor and POA understand that. I spent 32 min of Critical Care time with this patient. It involved decision making of high complexity to assess, manipulate, and support vital organ system failure and/or to prevent further life threatening deterioration of the patient's condition. The time involved in the performance of separately reportable procedures was not counted toward critical care time.
[2018-12-13] MEDS ORDERED: Lidocaine -MPF 1% 5 ML AMPUL INFILT ONE (12:31)
[2018-12-13] MEDS: Artificial Tears SOLN 15 ML BOTTLE BOTH EYES SCH ×3 (12:47→19:42)
[2018-12-13] MEDS: Chlorhexidine Rinse 15 ML MOUTHWASH MM SCH ×2 (12:47→19:42)
[2018-12-13] MEDS: cefTRIAXone 2,000 MG in Water for inj. (sterile) 20 ML 20 ML IVP SCH (15:56)
[2018-12-13 17:56] LABS: Phosphorous 5.7 mg/dL (2.7-4.5); Potassium 5.2 mEq/L (3.5-5.1)
[2018-12-13 20:18] LABS: BUN/Creatinine Ratio 22 (6-26); Blood Urea Nitrogen 21 mg/dL (6-20); Calcium 7.9 mg/dL (8.6-10.3); Carbon Dioxide 26 mEq/L (23-29); Chloride 104 mEq/L (98-107); Glucose 113 mg/dL (70-105); Osmolality,Calculated 284 (280-300); Potassium 5.4 mEq/L (3.5-5.1); Sodium 135 mEq/L (136-145); eGFR For Non-African Americans > 60 (> 60)
[2018-12-14] MEDS: Artificial Tears SOLN 15 ML BOTTLE BOTH EYES SCH ×7 (00:48→23:53)
[2018-12-14] MEDS: FentaNYL (PF) 1,000 MCG in 0.9 % Sodium Chloride 80 ML IVC SCH ×3 (01:35→22:20)
[2018-12-14] MEDS: Ipratropium/Albuterol Neb 3 ML IH SCH ×6 (03:38→23:33)
[2018-12-14 03:48] LABS: VBG Ionized Calcium 1.13 mmol/L (1.15-1.35)
[2018-12-14 04:08] LABS: Magnesium 1.9 mg/dL (1.6-2.6)
[2018-12-14 04:09] LABS: BUN/Creatinine Ratio 23 (6-26); Basophils % 0.1 %; Blood Urea Nitrogen 21 mg/dL (6-20); Calcium 7.9 mg/dL (8.6-10.3); Carbon Dioxide 25 mEq/L (23-29); Chloride 104 mEq/L (98-107); Glucose 109 mg/dL (70-105); Hematocrit 24.7 % (35.3-44.9); Hemoglobin 8.1 g/dL (11.5-15.4); Immature Granulocytes % 0.6 % (0-4); Lymphocytes # 0.6 K/mcL (0.6-4.6); Lymphocytes % 5.4 %; Mean Corpuscular HGB Conc 32.8 g/dL (31.6-35.5); Mean Corpuscular Hemoglobin 25.6 pg (28.0-33.3); Mean Corpuscular Volume 78.2 fL (83.0-100.0); Monocytes # 0.3 K/mcL (0.0-1.3); Monocytes % 2.6 %; Neutrophils # 9.7 K/mcL (1.6-8.9); Osmolality,Calculated 286 (280-300); Platelet Count 177 K/mcL (140-400); Red Blood Count 3.16 M/mcL (3.82-4.97); Red Cell Distribution Width 24.5 % (11.5-14.5); Segmented Neutrophils % 91.3 %; Sodium 136 mEq/L (136-145); eGFR For Non-African Americans > 60 (> 60)
[2018-12-14 04:33] LABS: Anisocytosis 2+ (Not Present); Hypochromasia Present (Not Present); Platelet Estimate Normal (Normal)
[2018-12-14] MEDS: Dexmedetomidine HCl 400 MCG/100 ML MLS IVC SCH ×2 (05:15→18:24)
[2018-12-14] MEDS: Levothyroxine 25 MCG TABLET PO SCH (05:39)
[2018-12-14] MEDS: *HR* Heparin 5,000 UNIT/ML VIAL SQ SCH ×2 (05:39→17:22)
[2018-12-14 06:14] LABS: ABG Base Excess 1 mEq/L (-2 to 3); ABG HCO3 23 mEq/L (21-27); ABG Oxygen Saturation 100 % (95-98); ABG PCO2 26 mmHg (35-45); ABG PH 7.56 pH Units (7.32-7.45); ABG PO2 181 mmHg (85-104); ABG TCO2 24 mEq/L (20-26); Blood Gas Modality ASSIST CONTROL; Blood Gas PEEP 5 cm H2O; Blood Gas Respiration Rate 12; Blood Gas VT 400 cc
--- NOTE | 2018-12-14 07:55 | Pulmonology Progress Note ---
<Judy Tijerina - Last Filed: 12/14/18 10:15> Date of Encounter: 12/14/18 Time of Encounter: 10:15 Assessment and Plan (1) Acute on chronic respiratory failure with hypoxemia Current Visit: Yes Status: Acute This is a 58-year-old female with past medical history significant for anxiety/depression, bipolar disorder, hypertension, hyperlipidemia, COPD, active smoker, hypothyroidism who initially presented with shortness of breath. Pt underwent bronchoscopy during admission with following findings: - B/L Lung abnormalities - Mucus plug of airway throughout tracheobronchial tree - BAL Performed Left Lower Lobe Cultures: + Staph Aureus, Haemophilus Influenza Blood Culture Negative x 2 Influenza negative Legionella, Strep Ag negative - Rapid response called on patient (12/10/18) due to lethargy, somnolence, hypoxia, associated with hypotension. Pt intubated, sedated, and femoral line placed for pressors due to hypotension. Per hospitalist, pt had been refusing to use BIPAP throughout the day. Pt had improved as of 12/12/18, and was extubated. However, overnight she was noted to be hypoxic. Also noted to be vomiting. Pt was re-intubated. Pt underwent repeat bronchoscopy (12/13/18): - Noted to have copious, mucoid, thick secretions found in left lower lobe - Mucoid secretions found throughout tracheobronchial tree - BAL performed PLAN: Acute on chronic respiratory failure likely secondary to CO2 Narcosis secondary to not using BIPAP. Pt has underlying HCAP pneumonia, with BAL growing Staph Aureus, Haemophilus Influenza - Cont mechanical ventilation - Cont Rocephin 2g QD to treat for a total of 7 days (currently day #5) - Cont scheduled bronchodilators - Cont prednisone 40mg QD (2) COPD (chronic obstructive pulmonary disease) Current Visit: Yes Status: Chronic PLAN: - Cont duonebs, symbicort - Cont PO Prednisone 40mg QD Qualifiers: COPD type: emphysema Emphysema type: unspecified Qualified Code(s): J43.9 - Emphysema, unspecified (3) HCAP (healthcare-associated pneumonia) Current Visit: Yes Status: Acute S/p Bronchoscopy 12/13/18 - copious mucoid secretions found in tracheobronchial tree; mucoid secretions found completing obstructing LLL airway; BAL collected PLAN: - Cont Rocephin 2g QD - Follow BAL - adjust antibiotics as necessary (4) Anemia Current Visit: No Status: Chronic Hb this AM = 8.1 PLAN: - Monitor Hb/Hct; transfuse with Hb < 7 Qualifiers: Folate deficiency anemia type: unspecified folate deficiency Qualified Code(s): D52.9 - Folate deficiency anemia, unspecified (5) Hypothyroid Current Visit: Yes Status: Chronic PLAN: - Cont Synthroid Qualifiers: Hypothyroidism type: unspecified Qualified Code(s): E03.9 - Hypothyroidism, unspecified (6) Severe protein-calorie malnutrition Current Visit: No Status: Chronic PLAN: - Cont tube feedings per nutrition recommendations - Electrolyte protocol - replete as needed - Consider possibility of PEG tube placement prior to discharge Subjective Principal diagnosis: Pneumonia Interval history: Pt seen and examined at bedside. Remains intubated this morning. Currently on precedex and fentanyl drips. S/p repeat bronchoscopy yesterday. Currently managed with Rocephin 2g QD for management of MSSA, and Haemophilus Influenza. Pt currently sedated at time of examination. Accompanied by sister at bedside. ABG this AM = 7.56/26/181/23; adjusted vent settings to RR = 10, FiO2 = 40, PEEP = 5, TV = 380. Repeat ABG this afternoon. Objective PUL Vital signs: Last Vital Signs Temp 98.4 F 12/14/18 04:40 Pulse 98 12/14/18 06:00 Resp 12 12/14/18 06:00 BP 132/92 12/14/18 06:00 Pulse Ox 99 12/14/18 06:00 General appearance: no acute distress, lethargic (Awakes to verbal/ tactile stimulation), asleep Eyes: nonicteric Neck: supple Auscultation: bilateral: rhonchi (Mild rhonchi b/l, no wheezes, rales, crackles; remains intubated) Cardiovascular: regular rate and rhythm Gastrointestinal: hypoactive bowel sounds, soft, non-tender, non-distended Extremities: no cyanosis, no edema unable to assess due to mental status Ventilator Settings Ventilator Settings: Ventilator Settings, Last 8 Hours Ventilator Tidal Volume 400 Setting Ventilator Tidal Volume 400 Setting Ventilator Tidal Volume 400 Setting Ventilator Tidal Volume 400 Setting Ventilator Tidal Volume 400 Setting Ventilator Tidal Volume 400 Setting Ventilator Tidal Volume 400 Setting Ventilator Tidal Volume 400 Setting Ventilator Tidal Volume 400 Setting Ventilator Respiratory Rate 12 Setting Ventilator Respiratory Rate 12 Setting Ventilator Respiratory Rate 12 Setting Ventilator Respiratory Rate 12 Setting Ventilator Respiratory Rate 12 Setting Ventilator Respiratory Rate 12 Setting Ventilator Respiratory Rate 12 Setting Ventilator Respiratory Rate 12 Setting Ventilator Respiratory Rate 12 Setting Actual Respiratory Rate 14 Actual Respiratory Rate 12 Actual Respiratory Rate 12 Actual Respiratory Rate 12 Actual Respiratory Rate 12 Actual Respiratory Rate 13 Actual Respiratory Rate 12 Actual Respiratory Rate 14 Actual Respiratory Rate 14 Positive End Expiratory 5 Pressure Positive End Expiratory 5 Pressure Positive End Expiratory 5 Pressure Positive End Expiratory 5 Pressure Positive End Expiratory 5 Pressure Positive End Expiratory 5 Pressure Positive End Expiratory 5 Pressure Positive End Expiratory 5 Pressure Positive End Expiratory 5 Pressure Peak Inspiratory Airway 18 Pressure Peak Inspiratory Airway 17 Pressure Peak Inspiratory Airway 17 Pressure Peak Inspiratory Airway 17 Pressure Peak Inspiratory Airway 17 Pressure Peak Inspiratory Airway 17 Pressure Peak Inspiratory Airway 18 Pressure Peak Inspiratory Airway 16 Pressure Peak Inspiratory Airway 13 Pressure Results - Laboratory Findings CBC and BMP: 12/14/18 03:30 12/14/18 03:30 ABG ABG pH 7.56 pH Units (7.32-7.45) H 12/14/18 06:11 ABG pCO2 26 mmHg (35-45) L 12/14/18 06:11 ABG pO2 181 mmHg (85-104) H 12/14/18 06:11 ABG O2 Saturation 100 % (95-98) H 12/14/18 06:11 PT/INR, D-dimer PT 12.5 Seconds (9.4-12.1) H 12/09/18 17:55 Abnormal lab findings: Abnormal lab results RBC 3.16 M/mcL (3.82-4.97) L 12/14/18 03:30 Hgb 8.1 g/dL (11.5-15.4) L 12/14/18 03:30 Hct 24.7 % (35.3-44.9) L 12/14/18 03:30 MCV 78.2 fL (83.0-100.0) L 12/14/18 03:30 MCH 25.6 pg (28.0-33.3) L 12/14/18 03:30 RDW 24.5 % (11.5-14.5) H 12/14/18 03:30 MPV 9.0 fL (9.4-12.4) L 12/14/18 03:30 Neutrophils # 9.7 K/mcL (1.6-8.9) H 12/14/18 03:30 Hypochromasia Present (Not Present) A 12/14/18 03:30 Poikilocytosis 1+ (Not Present) A 12/12/18 08:15 Anisocytosis 2+ (Not Present) A 12/14/18 03:30 Microcytosis Present (Not Present) A 12/12/18 08:15 Macrocytosis Present (Not Present) A 12/11/18 04:25 Spherocytes 1+ (Not Present) A 12/12/18 08:15 Target Cells 1+ (Not Present) A 12/12/18 08:15 Tear Drop Cells 1+ (Not Present) A 12/12/18 08:15 PT 12.5 Seconds (9.4-12.1) H 12/09/18 17:55 Heparin Anti-Xa, Unfract 0.01 IU/mL (0.30-0.70) L 12/10/18 17:41 ABG pH 7.56 pH Units (7.32-7.45) H 12/14/18 06:11 ABG pCO2 26 mmHg (35-45) L 12/14/18 06:11 ABG pO2 181 mmHg (85-104) H 12/14/18 06:11 ABG O2 Saturation 100 % (95-98) H 12/14/18 06:11 VBG pCO2 39 mmHg (41-51) L 12/07/18 04:02 BUN 21 mg/dL (6-20) H 12/14/18 03:30 Glucose 109 mg/dL (70-105) H 12/14/18 03:30 POC Glucose 106 mg/dL (70-99) H 12/13/18 23:47 Calcium 7.9 mg/dL (8.6-10.3) L 12/14/18 03:30 Venous Ioniz Calcium 1.13 mmol/L (1.15-1.35) L 12/14/18 03:43 Phosphorus 5.0 mg/dL (2.7-4.5) H 12/14/18 03:30 ALT 5 Units/L (7-52) L 12/07/18 03:51 Alkaline Phosphatase 107 Units/L (34-104) H 12/07/18 03:51 Troponin I 0.09 ng/mL (< 0.04) H* 12/10/18 17:41 B-Natriuretic Peptide 148 pg/mL (Less than 100) H 12/07/18 03:51 Serum Total Protein 5.9 g/dL (6.4-8.9) L 12/07/18 03:51 Albumin 2.4 g/dL (3.5-5.7) L 12/07/18 03:51 Albumin/Globulin Ratio 0.7 (1.1-2.2) L 12/07/18 03:51 Urine Clarity Cloudy (Clear) A 12/07/18 05:00 Ur Specific [place] > 1.030 (1.010-1.025) H 12/07/18 05:00 Ur Leukocyte Esterase Small (Negative) H 12/07/18 05:00 Urine Microscopic RBC 5-15 per hpf (0-3) H 12/07/18 05:00 Urine Microscopic WBC 5-15 per hpf (0-3) H 12/07/18 05:00 Ur Squamous Epith Cells Many per lpf (None-Few) H 12/07/18 05:00 Ur Culture Indicated? NO. (NO) A 12/07/18 05:00 Fluid Appearance Cloudy (Clear) A 12/07/18 13:45 - Microbiology Findings Microbiology Findings: Microbiology, Last 48 Hours 12/13/18 10:50 Respiratory Culture - Preliminary Left Lower Lobe Lung 12/07/18 13:45 Legionella Culture - Final Left Lower Lobe Lung 12/07/18 03:51 Blood Culture - Final Peripheral Venipuncture No growth. Final report. 12/07/18 04:40 Blood Culture - Final Peripheral Venipuncture No growth. Final report. - Clinical Findings Intake & Output: Intake & Output 12/13/18 12/13/18 12/14/18 15:59 23:59 07:59 Intake Total 756 / 756 333 / 333 400 / 400 Output Total 150 / 150 125 / 125 125 / 125 Balance 606 / 606 208 / 208 275 / 275 Weight 42.4 kg Consult Discharge Plan - Plan Referrals: NONE,PCP [Primary Care Provider] - <Koko Evans - Last Filed: 12/14/18 22:46> Date of Encounter: 12/14/18 Objective PUL Vital signs: Last Vital Signs Temp 96.7 F L 12/14/18 08:57 Pulse 97 12/14/18 10:00 Resp 17 12/14/18 10:00 BP 141/94 12/14/18 10:00 Pulse Ox 97 12/14/18 10:00 Ventilator Settings Ventilator Settings: Ventilator Settings, Last 8 Hours Ventilator Tidal Volume 380 Setting Ventilator Tidal Volume 380 Setting Ventilator Tidal Volume 380 Setting Ventilator Tidal Volume 380 Setting Ventilator Tidal Volume 400 Setting Ventilator Tidal Volume 400 Setting Ventilator Tidal Volume 400 Setting Ventilator Tidal Volume 400 Setting Ventilator Tidal Volume 400 Setting Ventilator Tidal Volume 400 Setting Ventilator Tidal Volume 400 Setting Ventilator Respiratory Rate 10 Setting Ventilator Respiratory Rate 10 Setting Ventilator Respiratory Rate 10 Setting Ventilator Respiratory Rate 10 Setting Ventilator Respiratory Rate 10 Setting Ventilator Respiratory Rate 12 Setting Ventilator Respiratory Rate 12 Setting Ventilator Respiratory Rate 12 Setting Ventilator Respiratory Rate 12 Setting Ventilator Respiratory Rate 12 Setting Ventilator Respiratory Rate 12 Setting Actual Respiratory Rate 17 Actual Respiratory Rate 12 Actual Respiratory Rate 11 Actual Respiratory Rate 10 Actual Respiratory Rate 12 Actual Respiratory Rate 14 Actual Respiratory Rate 14 Actual Respiratory Rate 12 Actual Respiratory Rate 12 Actual Respiratory Rate 12 Positive End Expiratory 5 Pressure Positive End Expiratory 5 Pressure Positive End Expiratory 5 Pressure Positive End Expiratory 5 Pressure Positive End Expiratory 5 Pressure Positive End Expiratory 5 Pressure Positive End Expiratory 5 Pressure Positive End Expiratory 5 Pressure Positive End Expiratory 5 Pressure Positive End Expiratory 5 Pressure Positive End Expiratory 5 Pressure Peak Inspiratory Airway 8 Pressure Peak Inspiratory Airway 5.7 Pressure Peak Inspiratory Airway 5 Pressure Peak Inspiratory Airway 15 Pressure Peak Inspiratory Airway 14 Pressure Peak Inspiratory Airway 18 Pressure Peak Inspiratory Airway 18 Pressure Peak Inspiratory Airway 17 Pressure Peak Inspiratory Airway 17 Pressure Peak Inspiratory Airway 17 Pressure Results - Laboratory Findings CBC and BMP: 12/14/18 03:30 12/14/18 03:30 ABG ABG pH 7.56 pH Units (7.32-7.45) H 12/14/18 06:11 ABG pCO2 26 mmHg (35-45) L 12/14/18 06:11 ABG pO2 181 mmHg (85-104) H 12/14/18 06:11 ABG O2 Saturation 100 % (95-98) H 12/14/18 06:11 PT/INR, D-dimer PT 12.5 Seconds (9.4-12.1) H 12/09/18 17:55 Abnormal lab findings: Abnormal lab results RBC 3.16 M/mcL (3.82-4.97) L 12/14/18 03:30 Hgb 8.1 g/dL (11.5-15.4) L 12/14/18 03:30 Hct 24.7 % (35.3-44.9) L 12/14/18 03:30 MCV 78.2 fL (83.0-100.0) L 12/14/18 03:30 MCH 25.6 pg (28.0-33.3) L 12/14/18 03:30 RDW 24.5 % (11.5-14.5) H 12/14/18 03:30 MPV 9.0 fL (9.4-12.4) L 12/14/18 03:30 Neutrophils # 9.7 K/mcL (1.6-8.9) H 12/14/18 03:30 Hypochromasia Present (Not Present) A 12/14/18 03:30 Poikilocytosis 1+ (Not Present) A 12/12/18 08:15 Anisocytosis 2+ (Not Present) A 12/14/18 03:30 Microcytosis Present (Not Present) A 12/12/18 08:15 Macrocytosis Present (Not Present) A 12/11/18 04:25 Spherocytes 1+ (Not Present) A 12/12/18 08:15 Target Cells 1+ (Not Present) A 12/12/18 08:15 Tear Drop Cells 1+ (Not Present) A 12/12/18 08:15 PT 12.5 Seconds (9.4-12.1) H 12/09/18 17:55 Heparin Anti-Xa, Unfract 0.01 IU/mL (0.30-0.70) L 12/10/18 17:41 ABG pH 7.56 pH Units (7.32-7.45) H 12/14/18 06:11 ABG pCO2 26 mmHg (35-45) L 12/14/18 06:11 ABG pO2 181 mmHg (85-104) H 12/14/18 06:11 ABG O2 Saturation 100 % (95-98) H 12/14/18 06:11 VBG pCO2 39 mmHg (41-51) L 12/07/18 04:02 BUN 21 mg/dL (6-20) H 12/14/18 03:30 Glucose 109 mg/dL (70-105) H 12/14/18 03:30 POC Glucose 106 mg/dL (70-99) H 12/13/18 23:47 Calcium 7.9 mg/dL (8.6-10.3) L 12/14/18 03:30 Venous Ioniz Calcium 1.13 mmol/L (1.15-1.35) L 12/14/18 03:43 Phosphorus 5.0 mg/dL (2.7-4.5) H 12/14/18 03:30 ALT 5 Units/L (7-52) L 12/07/18 03:51 Alkaline Phosphatase 107 Units/L (34-104) H 12/07/18 03:51 Troponin I 0.09 ng/mL (< 0.04) H* 12/10/18 17:41 B-Natriuretic Peptide 148 pg/mL (Less than 100) H 12/07/18 03:51 Serum Total Protein 5.9 g/dL (6.4-8.9) L 12/07/18 03:51 Albumin 2.4 g/dL (3.5-5.7) L 12/07/18 03:51 Albumin/Globulin Ratio 0.7 (1.1-2.2) L 12/07/18 03:51 Urine Clarity Cloudy (Clear) A 12/07/18 05:00 Ur Specific [place] > 1.030 (1.010-1.025) H 12/07/18 05:00 Ur Leukocyte Esterase Small (Negative) H 12/07/18 05:00 Urine Microscopic RBC 5-15 per hpf (0-3) H 12/07/18 05:00 Urine Microscopic WBC 5-15 per hpf (0-3) H 12/07/18 05:00 Ur Squamous Epith Cells Many per lpf (None-Few) H 12/07/18 05:00 Ur Culture Indicated? NO. (NO) A 12/07/18 05:00 Fluid Appearance Cloudy (Clear) A 12/07/18 13:45 - Microbiology Findings Microbiology Findings: Microbiology, Last 48 Hours 12/13/18 10:50 Respiratory Culture - Preliminary Left Lower Lobe Lung 12/07/18 13:45 Legionella Culture - Final Left Lower Lobe Lung - Clinical Findings Intake & Output: Intake & Output 12/13/18 12/14/18 12/14/18 23:59 07:59 15:59 Intake Total 333 / 333 400 / 400 254 / 254 Output Total 125 / 125 125 / 125 100 / 100 Balance 208 / 208 275 / 275 154 / 154 Weight 42.4 kg - Attending Attestation I examined this patient and my medical decision-making was reviewed with the Resident Physician. I agree with the documented findings, disposition and treatment plan as described except to the extent set forth below. Patient seen and examined. Labs, radiology, chart personally reviewed. Agree with resident's history and physical, assessment, plan with following comments: WATCH TECHNICIAN: Patient follows commands, Patient has agitation sometimes and to continue drips for sedation to help that. Pulmonary: Acceptable oxygenation and ventilation and did trial of spontaneous breathing trial. Hopefully she will be able to be liberated from the ventilator before her condition worsen and may need tracheostomy. Cardiovascular: stable GI: Nutrition per dietary and GI prophylaxis per routine. Continue to feed for more nutrition and support. She has severe protein calorie malnutrition and perhaps she will get stronger with continuation of nutrition, maybe she will do better and will need for re-intubation if she get extubated. Heme: DVT prophylaxis per routine ID: Continue antibiotics and plan to de-escalation Renal; urine out put and renal funtion reviewed Endorcine: blood glucose is monitored Lines: all lines checked and no evidence of infections Skin: skin care to prevent pressure ulcers per nursing routine care Overall prognosis is poor.
[2018-12-14] MEDS: Budesonide/Formoterol 160/4.5 1 PUFF INH IH SCH ×2 (08:06→20:16)
[2018-12-14] MEDS: Chlorhexidine Rinse 15 ML MOUTHWASH MM SCH ×2 (10:21→20:51)
[2018-12-14] MEDS: Pantoprazole 40 MG VIAL IVP SCH (10:21)
[2018-12-14] MEDS: Megestrol Acetate 400 MG/10 ML UDC PO SCH (10:21)
[2018-12-14] MEDS: predniSONE 20 MG TABLET PO SCH (10:22)
[2018-12-14] MEDS: Multivit/Ca/Min/Fe/FA 1 TAB TABLET PO SCH (10:22)
[2018-12-14 13:53] LABS: ABG Base Excess 2 mEq/L (-2 to 3); ABG HCO3 26 mEq/L (21-27); ABG Oxygen Saturation 95 % (95-98); ABG PCO2 39 mmHg (35-45); ABG PH 7.44 pH Units (7.32-7.45); ABG PO2 73 mmHg (85-104); ABG TCO2 27 mEq/L (20-26); Blood Gas Modality AF; Blood Gas PEEP 5 cm H2O; Blood Gas Respiration Rate 10; Blood Gas VT 380 cc
[2018-12-14] MEDS: cefTRIAXone 2,000 MG in Water for inj. (sterile) 20 ML 20 ML IVP SCH (15:55)
[2018-12-15] MEDS: Ipratropium/Albuterol Neb 3 ML IH SCH ×5 (03:41→20:12)
[2018-12-15] MEDS: Artificial Tears SOLN 15 ML BOTTLE BOTH EYES SCH ×5 (04:35→21:06)
[2018-12-15 04:42] LABS: ABG Base Excess 1 mEq/L (-2 to 3); ABG HCO3 26 mEq/L (21-27); ABG Oxygen Saturation 96 % (95-98); ABG PCO2 40 mmHg (35-45); ABG PH 7.42 pH Units (7.32-7.45); ABG PO2 80 mmHg (85-104); ABG TCO2 27 mEq/L (20-26); Blood Gas PEEP 5 cm H2O; Blood Gas Respiration Rate 10; Blood Gas VT 380 cc
[2018-12-15 04:58] LABS: Eosinophils % 0.2 %; Hematocrit 25.5 % (35.3-44.9); Immature Granulocytes % 0.9 % (0-4); Lymphocytes # 0.9 K/mcL (0.6-4.6); Lymphocytes % 8.7 %; Mean Corpuscular HGB Conc 31.4 g/dL (31.6-35.5); Mean Corpuscular Hemoglobin 24.9 pg (28.0-33.3); Mean Corpuscular Volume 79.4 fL (83.0-100.0); Mean Platelet Volume 8.9 fL (9.4-12.4); Monocytes # 0.2 K/mcL (0.0-1.3); Monocytes % 1.9 %; Neutrophils # 8.7 K/mcL (1.6-8.9); Platelet Count 203 K/mcL (140-400); Red Blood Count 3.21 M/mcL (3.82-4.97); Red Cell Distribution Width 25.1 % (11.5-14.5); Segmented Neutrophils % 88.3 %
[2018-12-15 05:12] LABS: BUN/Creatinine Ratio 24 (6-26); Blood Urea Nitrogen 21 mg/dL (6-20); Calcium 8.2 mg/dL (8.6-10.3); Carbon Dioxide 25 mEq/L (23-29); Chloride 104 mEq/L (98-107); Glucose 118 mg/dL (70-105); Osmolality,Calculated 284 (280-300); Potassium 4.7 mEq/L (3.5-5.1); Sodium 135 mEq/L (136-145); eGFR For Non-African Americans > 60 (> 60)
[2018-12-15 05:16] LABS: Anisocytosis 2+ (Not Present); Hypochromasia Present (Not Present); Platelet Estimate Normal (Normal)
[2018-12-15] MEDS: Levothyroxine 25 MCG TABLET PO SCH (05:54)
[2018-12-15] MEDS: *HR* Heparin 5,000 UNIT/ML VIAL SQ SCH ×2 (05:54→18:28)
[2018-12-15] MEDS: Dexmedetomidine HCl 400 MCG/100 ML MLS IVC SCH ×2 (05:55→15:32)
--- NOTE | 2018-12-15 06:47 | Pulmonology Progress Note ---
Date of Encounter: 12/15/18 Time of Encounter: 06:47 Assessment and Plan (1) Acute and chronic respiratory failure with hypoxia Current Visit: Yes Status: Acute In conclusion Leanna Skelton and presented with acute on chronic respiratory failure found to have mucus plugging secondary to acute pneumonia complicated by COPD exacerbation and physical deconditioning/malnutrition. She underwent bronchoscopy on admission and unfortunately had subsequent respiratory failure requiring intubation this is multifactorial including her underlying poor perfo rmance status and physical deconditioning as well as his severity of her underlying lung disease (COPD acutely exacerbated). Plan to keep on vent today. She was on SBT for 2 hours with the failure s econdary to hypertension tachycardia and discomfort so will be placed back on assist control ventilation . We will continue with daily spontaneous breathing trials. May need Tracheostomy placement. I suspect she will need improvement nutrition to maintain work of breathing requirements once liberated. To this and formal consultation with nutrition services and we will consider a PEG tube placement as this has been discussed in the past. Continue bronchodilators steroids and antibiotics for Staph/Haemophilus PNA PPi/DVT prophy/VAP bundle given (2) Atelectasis Current Visit: Yes Status: Acute (3) COPD (chronic obstructive pulmonary disease) Current Visit: Yes Status: Chronic Qualifiers: COPD type: chronic bronchitis Chronic bronchitis type: unspecified Qualified Code(s): J42 - Unspecified chronic bronchitis (4) HCAP (healthcare-associated pneumonia) Current Visit: Yes Status: Acute (5) Collapse of left lung Current Visit: Yes Status: Resolved . Subjective Principal diagnosis: Pneumonia Interval history: NO acute events overnight. Patient is awake. She denies being in any pain. Objective PUL Vital signs: Last Vital Signs Temp 96.8 F L 12/15/18 04:00 Pulse 113 12/15/18 06:00 Resp 18 12/15/18 06:11 BP 148/104 12/15/18 06:00 Pulse Ox 99 12/15/18 06:11 General appearance: no acute distress, other (Appearing) ENT: other (Endotracheal tube noted in satisfactory position) Auscultation: bilateral: diminished breath sounds, rhonchi Cardiovascular: regular rate and rhythm Gastrointestinal: normoactive bowel sounds, soft, non-tender Integumentary: normal Extremities: no cyanosis, no edema, no clubbing Musculoskeletal: no deformities normal mental status, non-focal exam depressed Ventilator Settings Ventilator Settings: Ventilator Settings, Last 8 Hours Ventilator Tidal Volume 380 Setting Ventilator Tidal Volume 380 Setting Ventilator Tidal Volume 380 Setting Ventilator Tidal Volume 380 Setting Ventilator Tidal Volume 380 Setting Ventilator Tidal Volume 380 Setting Ventilator Tidal Volume 380 Setting Ventilator Tidal Volume 380 Setting Ventilator Tidal Volume 380 Setting Ventilator Tidal Volume 380 Setting Ventilator Tidal Volume 380 Setting Ventilator Tidal Volume 380 Setting Ventilator Respiratory Rate 10 Setting Ventilator Respiratory Rate 10 Setting Ventilator Respiratory Rate 10 Setting Ventilator Respiratory Rate 10 Setting Ventilator Respiratory Rate 10 Setting Ventilator Respiratory Rate 10 Setting Ventilator Respiratory Rate 10 Setting Ventilator Respiratory Rate 10 Setting Ventilator Respiratory Rate 10 Setting Ventilator Respiratory Rate 10 Setting Ventilator Respiratory Rate 10 Setting Ventilator Respiratory Rate 10 Setting Actual Respiratory Rate 12 Actual Respiratory Rate 10 Actual Respiratory Rate 11 Actual Respiratory Rate 11 Actual Respiratory Rate 10 Actual Respiratory Rate 12 Actual Respiratory Rate 22 Actual Respiratory Rate 12 Actual Respiratory Rate 11 Actual Respiratory Rate 12 Actual Respiratory Rate 12 Positive End Expiratory 5 Pressure Positive End Expiratory 5 Pressure Positive End Expiratory 5 Pressure Positive End Expiratory 5 Pressure Positive End Expiratory 5 Pressure Positive End Expiratory 5 Pressure Positive End Expiratory 5 Pressure Positive End Expiratory 5 Pressure Positive End Expiratory 5 Pressure Positive End Expiratory 5 Pressure Positive End Expiratory 5 Pressure Positive End Expiratory 5 Pressure Peak Inspiratory Airway 34 Pressure Peak Inspiratory Airway 12 Pressure Peak Inspiratory Airway 6 Pressure Peak Inspiratory Airway 16 Pressure Peak Inspiratory Airway 17 Pressure Peak Inspiratory Airway 5.3 Pressure Peak Inspiratory Airway 14 Pressure Peak Inspiratory Airway 17 Pressure Peak Inspiratory Airway 15 Pressure Peak Inspiratory Airway 18 Pressure Peak Inspiratory Airway 19 Pressure Results - Laboratory Findings CBC and BMP: 12/15/18 04:30 12/15/18 04:30 ABG ABG pH 7.42 pH Units (7.32-7.45) 12/15/18 04:38 ABG pCO2 40 mmHg (35-45) 12/15/18 04:38 ABG pO2 80 mmHg (85-104) L 12/15/18 04:38 ABG O2 Saturation 96 % (95-98) 12/15/18 04:38 PT/INR, D-dimer PT 12.5 Seconds (9.4-12.1) H 12/09/18 17:55 Abnormal lab findings: Abnormal lab results RBC 3.21 M/mcL (3.82-4.97) L 12/15/18 04:30 Hgb 8.0 g/dL (11.5-15.4) L 12/15/18 04:30 Hct 25.5 % (35.3-44.9) L 12/15/18 04:30 MCV 79.4 fL (83.0-100.0) L 12/15/18 04:30 MCH 24.9 pg (28.0-33.3) L 12/15/18 04:30 MCHC 31.4 g/dL (31.6-35.5) L 12/15/18 04:30 RDW 25.1 % (11.5-14.5) H 12/15/18 04:30 MPV 8.9 fL (9.4-12.4) L 12/15/18 04:30 Hypochromasia Present (Not Present) A 12/15/18 04:30 Poikilocytosis 1+ (Not Present) A 12/12/18 08:15 Anisocytosis 2+ (Not Present) A 12/15/18 04:30 Microcytosis Present (Not Present) A 12/12/18 08:15 Macrocytosis Present (Not Present) A 12/11/18 04:25 Spherocytes 1+ (Not Present) A 12/12/18 08:15 Target Cells 1+ (Not Present) A 12/12/18 08:15 Tear Drop Cells 1+ (Not Present) A 12/12/18 08:15 PT 12.5 Seconds (9.4-12.1) H 12/09/18 17:55 Heparin Anti-Xa, Unfract 0.01 IU/mL (0.30-0.70) L 12/10/18 17:41 ABG pO2 80 mmHg (85-104) L 12/15/18 04:38 ABG Total CO2 27 mEq/L (20-26) H 12/15/18 04:38 VBG pCO2 39 mmHg (41-51) L 12/07/18 04:02 Sodium 135 mEq/L (136-145) L 12/15/18 04:30 BUN 21 mg/dL (6-20) H 12/15/18 04:30 Glucose 118 mg/dL (70-105) H 12/15/18 04:30 POC Glucose 108 mg/dL (70-99) H 12/14/18 23:12 Calcium 8.2 mg/dL (8.6-10.3) L 12/15/18 04:30 Venous Ioniz Calcium 1.13 mmol/L (1.15-1.35) L 12/14/18 03:43 Phosphorus 5.0 mg/dL (2.7-4.5) H 12/14/18 03:30 ALT 5 Units/L (7-52) L 12/07/18 03:51 Alkaline Phosphatase 107 Units/L (34-104) H 12/07/18 03:51 Troponin I 0.09 ng/mL (< 0.04) H* 12/10/18 17:41 B-Natriuretic Peptide 148 pg/mL (Less than 100) H 12/07/18 03:51 Serum Total Protein 5.9 g/dL (6.4-8.9) L 12/07/18 03:51 Albumin 2.4 g/dL (3.5-5.7) L 12/07/18 03:51 Albumin/Globulin Ratio 0.7 (1.1-2.2) L 12/07/18 03:51 Urine Clarity Cloudy (Clear) A 12/07/18 05:00 Ur Specific [place] > 1.030 (1.010-1.025) H 12/07/18 05:00 Ur Leukocyte Esterase Small (Negative) H 12/07/18 05:00 Urine Microscopic RBC 5-15 per hpf (0-3) H 12/07/18 05:00 Urine Microscopic WBC 5-15 per hpf (0-3) H 12/07/18 05:00 Ur Squamous Epith Cells Many per lpf (None-Few) H 12/07/18 05:00 Ur Culture Indicated? NO. (NO) A 12/07/18 05:00 Fluid Appearance Cloudy (Clear) A 12/07/18 13:45 - Microbiology Findings Microbiology Findings: Microbiology, Last 48 Hours 12/13/18 10:50 Respiratory Culture - Preliminary Left Lower Lobe Lung - Clinical Findings Intake & Output: Intake & Output 12/14/18 12/14/18 12/15/18 15:59 23:59 07:59 Intake Total 484 / 484 838 / 838 272 / 272 Output Total 175 / 175 225 / 225 75 / 75 Balance 309 / 309 613 / 613 197 / 197 Weight 44 kg Consult Discharge Plan - Plan Referrals: NONE,PCP [Primary Care Provider] -
[2018-12-15] MEDS: Budesonide/Formoterol 160/4.5 1 PUFF INH IH SCH ×2 (08:11→20:12)
[2018-12-15] MEDS: predniSONE 20 MG TABLET PO SCH (09:25)
[2018-12-15] MEDS: Megestrol Acetate 400 MG/10 ML UDC PO SCH (09:25)
[2018-12-15] MEDS: Multivit/Ca/Min/Fe/FA 1 TAB TABLET PO SCH (09:25)
[2018-12-15] MEDS: Pantoprazole 40 MG VIAL IVP SCH (09:26)
[2018-12-15] MEDS: Chlorhexidine Rinse 15 ML MOUTHWASH MM SCH ×2 (09:26→21:06)
[2018-12-15 12:39] LABS: Hematocrit 25.5 % (35.3-44.9); Hemoglobin 8.1 g/dL (11.5-15.4)
[2018-12-15] MEDS: cefTRIAXone 2,000 MG in Water for inj. (sterile) 20 ML 20 ML IVP SCH (15:32)
[2018-12-15] MEDS: FentaNYL (PF) 1,000 MCG in 0.9 % Sodium Chloride 80 ML IVC SCH (21:20)
[2018-12-16] MEDS: Ipratropium/Albuterol Neb 3 ML IH SCH ×7 (00:21→23:49)
[2018-12-16] MEDS: Artificial Tears SOLN 15 ML BOTTLE BOTH EYES SCH ×7 (00:40→23:14)
[2018-12-16] MEDS: Dexmedetomidine HCl 400 MCG/100 ML MLS IVC SCH ×2 (02:35→15:43)
[2018-12-16 03:59] LABS: Basophils % 0.1 %; Eosinophils % 0.3 %; Hematocrit 24.9 % (35.3-44.9); Hemoglobin 7.9 g/dL (11.5-15.4); Immature Granulocytes % 0.9 % (0-4); Lymphocytes # 1.5 K/mcL (0.6-4.6); Lymphocytes % 15.4 %; Mean Corpuscular HGB Conc 31.7 g/dL (31.6-35.5); Mean Corpuscular Hemoglobin 25.5 pg (28.0-33.3); Mean Corpuscular Volume 80.3 fL (83.0-100.0); Mean Platelet Volume 8.8 fL (9.4-12.4); Monocytes # 0.4 K/mcL (0.0-1.3); Neutrophils # 7.6 K/mcL (1.6-8.9); Platelet Count 207 K/mcL (140-400); Red Cell Distribution Width 24.5 % (11.5-14.5); Segmented Neutrophils % 79.3 %
[2018-12-16 04:16] LABS: BUN/Creatinine Ratio 23 (6-26); Blood Urea Nitrogen 19 mg/dL (6-20); Carbon Dioxide 25 mEq/L (23-29); Chloride 104 mEq/L (98-107); Glucose 87 mg/dL (70-105); Osmolality,Calculated 282 (280-300); Potassium 4.5 mEq/L (3.5-5.1); Sodium 135 mEq/L (136-145); eGFR For Non-African Americans > 60 (> 60)
[2018-12-16 04:38] LABS: Anisocytosis 1+ (Not Present); Platelet Estimate Normal (Normal); Target Cells 1+ (Not Present)
[2018-12-16 05:02] LABS: ABG Base Excess 2 mEq/L (-2 to 3); ABG HCO3 26 mEq/L (21-27); ABG Oxygen Saturation 89 % (95-98); ABG PCO2 37 mmHg (35-45); ABG PH 7.46 pH Units (7.32-7.45); ABG PO2 53 mmHg (85-104); ABG TCO2 27 mEq/L (20-26); Blood Gas Modality ASSIST CONTROL; Blood Gas PEEP 5 cm H2O; Blood Gas Respiration Rate 10; Blood Gas VT 380 cc
[2018-12-16] MEDS: *HR* Heparin 5,000 UNIT/ML VIAL SQ SCH ×2 (05:13→19:03)
[2018-12-16] MEDS: Scopolamine Patch 1.5 MG PATCH.TD72 TD SCH (05:13)
[2018-12-16] MEDS: Levothyroxine 25 MCG TABLET PO SCH (05:14)
[2018-12-16] MEDS: Budesonide/Formoterol 160/4.5 1 PUFF INH IH SCH ×2 (07:50→19:44)
[2018-12-16] MEDS: Pantoprazole 40 MG VIAL IVP SCH (08:13)
[2018-12-16] MEDS: Megestrol Acetate 400 MG/10 ML UDC PO SCH (08:13)
[2018-12-16] MEDS: Chlorhexidine Rinse 15 ML MOUTHWASH MM SCH ×2 (08:13→19:54)
[2018-12-16] MEDS: predniSONE 20 MG TABLET PO SCH (08:13)
[2018-12-16] MEDS: Multivit/Ca/Min/Fe/FA 1 TAB TABLET PO SCH (08:13)
--- NOTE | 2018-12-16 08:48 | Pulmonology Progress Note ---
Date of Encounter: 12/16/18 Time of Encounter: 08:46 Assessment and Plan (1) Acute and chronic respiratory failure with hypoxia Current Visit: Yes Status: Acute In conclusion Leanna Skelton presented with acute on chronic respiratory failure found to have mucus plugging secondary to acute pneumonia complicated by COPD exacerbation and physical deconditioning/malnutrition. She underwent bronchoscopy on admission and unfortunately had subsequent respiratory failure requiring intubation this is multifactorial including her underlying poor performance status and physical deconditioning as well as his severity of her underlying lung disease (COPD acutely exacerbated). Recs: Passed SBT Extubation once definitive nutrition source has been determined (PEG vs TPN) Goal Sedation [place] 2 while in vent (Precedex as needed) Nutrition consult cont abx Steroids/BDs DVT Prophy/PPi/VAP bundle/TOILET PRODUCTS MOLDER protocol to prevent ulcers. Early PT/OT (2) Atelectasis Current Visit: Yes Status: Acute N significant mucous plugging on Bronch Will f/u Culture results. BPT including IS and Flutter valve (Aerobika TID) OOBTC and Ambulation/PT/OT (3) COPD (chronic obstructive pulmonary disease) Current Visit: Yes Status: Chronic 5day burst of prednisone 40mg cont BDs Symbicort Tobacco cessation Qualifiers: COPD type: chronic bronchitis Chronic bronchitis type: unspecified Qualified Code(s): J42 - Unspecified chronic bronchitis (4) HCAP (healthcare-associated pneumonia) Current Visit: Yes Status: Acute 5-7 days of ABx based upon micro data for Pneumonia. (5) Collapse of left lung Current Visit: Yes Status: Resolved . Subjective Principal diagnosis: Pneumonia Interval history: NO acute events overnight. Patient is awake sitting in bed. Remains hemodynamically stable and afebrile. Objective PUL Vital signs: Last Vital Signs Temp 100 F H 12/16/18 08:37 Pulse 118 12/16/18 06:00 Resp 13 12/16/18 07:51 BP 109/70 12/16/18 06:16 Pulse Ox 95 12/16/18 07:51 General appearance: no acute distress, other (Frail appearing) ENT: other (Endotracheal tube noted in satisfactory position) Neck: supple, no JVD Auscultation: bilateral: rhonchi (Scattered throughout both lung wolf) Cardiovascular: regular rate and rhythm Gastrointestinal: normoactive bowel sounds, soft, non-tender, other (scaphoid ab domen) Integumentary: normal, other (Heel ulcers bilaterally. Mild from pressure and dressed appropriately) Extremities: no cyanosis, no edema Musculoskeletal: no deformities normal mental status, non-focal exam mood appropriate Ventilator Settings Ventilator Settings: Ventilator Settings, Last 8 Hours Ventilator Tidal Volume 380 Setting Ventilator Tidal Volume 380 Setting Ventilator Tidal Volume 380 Setting Ventilator Tidal Volume 380 Setting Ventilator Tidal Volume 380 Setting Ventilator Tidal Volume 380 Setting Ventilator Tidal Volume 380 Setting Ventilator Tidal Volume 380 Setting Ventilator Tidal Volume 380 Setting Ventilator Respiratory Rate 10 Setting Ventilator Respiratory Rate 10 Setting Ventilator Respiratory Rate 10 Setting Ventilator Respiratory Rate 10 Setting Ventilator Respiratory Rate 10 Setting Ventilator Respiratory Rate 10 Setting Ventilator Respiratory Rate 10 Setting Ventilator Respiratory Rate 10 Setting Ventilator Respiratory Rate 10 Setting Actual Respiratory Rate 14 Actual Respiratory Rate 13 Actual Respiratory Rate 13 Actual Respiratory Rate 12 Actual Respiratory Rate 14 Actual Respiratory Rate 14 Actual Respiratory Rate 14 Actual Respiratory Rate 14 Actual Respiratory Rate 14 Positive End Expiratory 5 Pressure Positive End Expiratory 5 Pressure Positive End Expiratory 5 Pressure Positive End Expiratory 5 Pressure Positive End Expiratory 5 Pressure Positive End Expiratory 5 Pressure Positive End Expiratory 5 Pressure Positive End Expiratory 5 Pressure Positive End Expiratory 5 Pressure Positive End Expiratory 5 Pressure Peak Inspiratory Airway 10 Pressure Peak Inspiratory Airway 6.5 Pressure Peak Inspiratory Airway 7.9 Pressure Peak Inspiratory Airway 8.3 Pressure Peak Inspiratory Airway 20 Pressure Peak Inspiratory Airway 16 Pressure Peak Inspiratory Airway 16 Pressure Peak Inspiratory Airway 7.5 Pressure Peak Inspiratory Airway 5.3 Pressure Results - Laboratory Findings CBC and BMP: 12/16/18 03:48 12/16/18 03:48 ABG ABG pH 7.46 pH Units (7.32-7.45) H 12/16/18 04:59 ABG pCO2 37 mmHg (35-45) 12/16/18 04:59 ABG pO2 53 mmHg (85-104) L 12/16/18 04:59 ABG O2 Saturation 89 % (95-98) L 12/16/18 04:59 PT/INR, D-dimer PT 12.5 Seconds (9.4-12.1) H 12/09/18 17:55 Abnormal lab findings: Abnormal lab results RBC 3.10 M/mcL (3.82-4.97) L 12/16/18 03:48 Hgb 7.9 g/dL (11.5-15.4) L 12/16/18 03:48 Hct 24.9 % (35.3-44.9) L 12/16/18 03:48 MCV 80.3 fL (83.0-100.0) L 12/16/18 03:48 MCH 25.5 pg (28.0-33.3) L 12/16/18 03:48 RDW 24.5 % (11.5-14.5) H 12/16/18 03:48 MPV 8.8 fL (9.4-12.4) L 12/16/18 03:48 Hypochromasia Present (Not Present) A 12/15/18 04:30 Poikilocytosis 1+ (Not Present) A 12/12/18 08:15 Anisocytosis 1+ (Not Present) A 12/16/18 03:48 Microcytosis Present (Not Present) A 12/12/18 08:15 Macrocytosis Present (Not Present) A 12/11/18 04:25 Spherocytes 1+ (Not Present) A 12/12/18 08:15 Target Cells 1+ (Not Present) A 12/16/18 03:48 Tear Drop Cells 1+ (Not Present) A 12/12/18 08:15 PT 12.5 Seconds (9.4-12.1) H 12/09/18 17:55 Heparin Anti-Xa, Unfract 0.01 IU/mL (0.30-0.70) L 12/10/18 17:41 ABG pH 7.46 pH Units (7.32-7.45) H 12/16/18 04:59 ABG pO2 53 mmHg (85-104) L 12/16/18 04:59 ABG Total CO2 27 mEq/L (20-26) H 12/16/18 04:59 ABG O2 Saturation 89 % (95-98) L 12/16/18 04:59 VBG pCO2 39 mmHg (41-51) L 12/07/18 04:02 Sodium 135 mEq/L (136-145) L 12/16/18 03:48 Calcium 8.0 mg/dL (8.6-10.3) L 12/16/18 03:48 Venous Ioniz Calcium 1.13 mmol/L (1.15-1.35) L 12/14/18 03:43 Phosphorus 5.0 mg/dL (2.7-4.5) H 12/14/18 03:30 ALT 5 Units/L (7-52) L 12/07/18 03:51 Alkaline Phosphatase 107 Units/L (34-104) H 12/07/18 03:51 Troponin I 0.09 ng/mL (< 0.04) H* 12/10/18 17:41 B-Natriuretic Peptide 148 pg/mL (Less than 100) H 12/07/18 03:51 Serum Total Protein 5.9 g/dL (6.4-8.9) L 12/07/18 03:51 Albumin 2.4 g/dL (3.5-5.7) L 12/07/18 03:51 Albumin/Globulin Ratio 0.7 (1.1-2.2) L 12/07/18 03:51 Urine Clarity Cloudy (Clear) A 12/07/18 05:00 Ur Specific [place] > 1.030 (1.010-1.025) H 12/07/18 05:00 Ur Leukocyte Esterase Small (Negative) H 12/07/18 05:00 Urine Microscopic RBC 5-15 per hpf (0-3) H 12/07/18 05:00 Urine Microscopic WBC 5-15 per hpf (0-3) H 12/07/18 05:00 Ur Squamous Epith Cells Many per lpf (None-Few) H 12/07/18 05:00 Ur Culture Indicated? NO. (NO) A 12/07/18 05:00 Fluid Appearance Cloudy (Clear) A 12/07/18 13:45 - Microbiology Findings Microbiology Findings: Microbiology, Last 48 Hours 12/13/18 10:50 Respiratory Culture - Final Left Lower Lobe Lung - Clinical Findings Intake & Output: Intake & Output 12/15/18 12/16/18 12/16/18 23:59 07:59 15:59 Intake Total 203 / 203 607 / 607 Output Total 100 / 100 150 / 150 125 / 125 Balance 103 / 103 457 / 457 -125 / -125 Weight 41.9 kg Consult Discharge Plan - Plan Referrals: NONE,PCP [Primary Care Provider] -
[2018-12-16 09:27] LABS: Magnesium 1.5 mg/dL (1.6-2.6); Phosphorous 2.8 mg/dL (2.7-4.5)
--- NOTE | 2018-12-16 14:34 | General Surgery Consult Note ---
Addendum entered and electronically signed by Abiola Gruber CNP 12/16/18 16:12: After further review with Dr. Ventura and Dr. Ohara given that patinet appropriately nodds head yes and no to questions and refuses PEG d/t not wanting any further life sustaining measures. Surgery will not attempt PEG accordingly. IF the patient changes her mind, please reconsult surgery. Original Note: <Abiola Gruber - Last Filed: 12/16/18 15:58> Date of Encounter: 12/16/18 Time of Encounter: 14:34 Assessment and Plan (1) COPD (chronic obstructive pulmonary disease) Current Visit: Yes Status: Chronic Qualifiers: COPD type: emphysema Emphysema type: unspecified Qualified Code(s): J43.9 - Emphysema, unspecified (2) Decreased body mass index (BMI) Current Visit: Yes Status: Acute Nutrition profile pending. Recommendations regarding possible peg tube pending nutrition profile and further exploration of possibility of PEG tube. Pt's sister is at bedside during asst and states medical POA is en route to hospital. When asked about clincal course (as reviewed per HPI), pt nodds head "yes," when asked about PEG tube, patient shakes head, "no," and when further explored as to reasoning for refusing PEG, pt indicates she wants no further life-sustaining measures. Will further review when medical POA is present. History of Present Illness Consult date: 12/16/18 (Dr. Andrew Ventura) Reason for consult: other Requesting physician: Maria L Espinosa History of present illness: Pt is intubated. Past medical, surgical, social, and family history reviewed via EMR Surgery has been consulted for recommendations regarding possible PEG tube placement Limited ROS d/t intubation. She is awake and nodds head yes or no to questions. She denies pain at this time. She nodds head yes to clinical course below. Per record review, Ms. Skelton presented for copd exacerbation and subsequent acute on chronic respiratory failure found to have a mucous plug secondary to acute pneumonia complicated by a COPD exacerbation physical decond itioning/malnutrition. She underwent a bronchoscopy this admission and subsequently had respiratory failure requiring intubation; possibly to be extubated pending nutrition recommendations. Her code status has been changed to [id number] Past Med Surg Social Fam HX - Past Medical History Source: old records reviewed Medical history: renal disease, hyperlipidemia, hypertension, seizures, other, TIA, kidney stones, COPD Psychiatric history: anxiety, bipolar, depression - Past Surgical History Surgical History: carotid endarterectomy, other Additional surgical history: EAR SURGERY - Social History Smoking Status: Current every day smoker Smokeless Tobacco Status: No Alcohol use: none Drug use: marijuana - Family History Father Hx Family Cardiac Disorders: Yes (CABG) Medications and Allergies hydrOXYzine pamoate [HydrOXYzine Pamoate] 50 mg PO TID PRN #0 capsule 11/08/15 [Rx] Metoprolol [Lopressor] 50 mg PO BID 02/12/18 [History] Albuterol Sulfate [Albuterol Inhaler] 2 puff IH Q4HR PRN #1 hfa.aer.[id number] 11/25/18 [Rx] Buspirone HCl [Buspar] 10 mg PO BID 12/02/18 [History] Guaifenesin [Mucinex] 600 mg PO BID PRN 12/02/18 [History] Naproxen [Naprosyn] 500 mg PO BID PRN 12/02/18 [History] Quetiapine Fumarate [Seroquel] 300 mg PO HS 12/02/18 [History] Calcium Carbonate [Tums] 1,000 mg PO TID #90 tab.chew 12/06/18 [Rx] Levothyroxine [Synthroid] 25 mcg PO DAILY@0630 #30 tablet 12/06/18 [Rx] Megestrol Acetate [Megace] 400 mg PO DAILY #30 udc 12/06/18 [Rx] Spironolactone [Aldactone] 25 mg PO DAILY #30 tablet 12/06/18 [Rx] Vitamin B Complex/Vit C/Vit E [Stresstab] 1 each PO DAILY #30 tablet 12/06/18 [Rx] Allergy/AdvReac Type Severity Reaction Status Date / Time levetiracetam [From Keppra] Allergy Anaphylaxis Verified 12/09/18 14:49 lorazepam [From Ativan] Allergy Anaphylaxis Verified 12/09/18 14:49 alprazolam [From Xanax] AdvReac Agitated Verified 12/09/18 14:49 clonazepam [From Klonopin] AdvReac Seizure Verified 12/09/18 14:49 diazepam [From Valium] AdvReac Agitated Verified 12/09/18 14:49 lamotrigine [From Lamictal] AdvReac Nausea Verified 12/09/18 14:49 latex AdvReac Itching Verified 12/09/18 14:49 Review of Systems ROS unobtainable: due to endotracheal tube All systems PM: The remainder of the systems were reviewed and are negative General Surgery Exam Initial Vital Signs Temp Pulse Resp BP Pulse Ox 99.3 F 120 25 132/86 92 12/07/18 03:34 12/07/18 03:34 12/07/18 03:34 12/07/18 03:34 12/07/18 03:34 Exam Initial Vital Signs Temp Pulse Resp BP Pulse Ox 99.3 F 120 25 132/86 92 12/07/18 03:34 12/07/18 03:34 12/07/18 03:34 12/07/18 03:34 12/07/18 03:34 Results - Labs 12/16/18 03:48 12/16/18 03:48 Abnormal lab results RBC 3.10 M/mcL (3.82-4.97) L 12/16/18 03:48 Hgb 7.9 g/dL (11.5-15.4) L 12/16/18 03:48 Hct 24.9 % (35.3-44.9) L 12/16/18 03:48 MCV 80.3 fL (83.0-100.0) L 12/16/18 03:48 MCH 25.5 pg (28.0-33.3) L 12/16/18 03:48 RDW 24.5 % (11.5-14.5) H 12/16/18 03:48 MPV 8.8 fL (9.4-12.4) L 12/16/18 03:48 Hypochromasia Present (Not Present) A 12/15/18 04:30 Poikilocytosis 1+ (Not Present) A 12/12/18 08:15 Anisocytosis 1+ (Not Present) A 12/16/18 03:48 Microcytosis Present (Not Present) A 12/12/18 08:15 Macrocytosis Present (Not Present) A 12/11/18 04:25 Spherocytes 1+ (Not Present) A 12/12/18 08:15 Target Cells 1+ (Not Present) A 12/16/18 03:48 Tear Drop Cells 1+ (Not Present) A 12/12/18 08:15 PT 12.5 Seconds (9.4-12.1) H 12/09/18 17:55 Heparin Anti-Xa, Unfract 0.01 IU/mL (0.30-0.70) L 12/10/18 17:41 ABG pH 7.46 pH Units (7.32-7.45) H 12/16/18 04:59 ABG pO2 53 mmHg (85-104) L 12/16/18 04:59 ABG Total CO2 27 mEq/L (20-26) H 12/16/18 04:59 ABG O2 Saturation 89 % (95-98) L 12/16/18 04:59 VBG pCO2 39 mmHg (41-51) L 12/07/18 04:02 Sodium 135 mEq/L (136-145) L 12/16/18 03:48 Calcium 8.0 mg/dL (8.6-10.3) L 12/16/18 03:48 Venous Ioniz Calcium 1.13 mmol/L (1.15-1.35) L 12/14/18 03:43 Magnesium 1.5 mg/dL (1.6-2.6) L 12/16/18 08:51 ALT 5 Units/L (7-52) L 12/07/18 03:51 Alkaline Phosphatase 107 Units/L (34-104) H 12/07/18 03:51 Troponin I 0.09 ng/mL (< 0.04) H* 12/10/18 17:41 B-Natriuretic Peptide 148 pg/mL (Less than 100) H 12/07/18 03:51 Serum Total Protein 5.9 g/dL (6.4-8.9) L 12/07/18 03:51 Albumin 2.4 g/dL (3.5-5.7) L 12/07/18 03:51 Albumin/Globulin Ratio 0.7 (1.1-2.2) L 12/07/18 03:51 Urine Clarity Cloudy (Clear) A 12/07/18 05:00 Ur Specific [place] > 1.030 (1.010-1.025) H 12/07/18 05:00 Ur Leukocyte Esterase Small (Negative) H 12/07/18 05:00 Urine Microscopic RBC 5-15 per hpf (0-3) H 12/07/18 05:00 Urine Microscopic WBC 5-15 per hpf (0-3) H 12/07/18 05:00 Ur Squamous Epith Cells Many per lpf (None-Few) H 12/07/18 05:00 Ur Culture Indicated? NO. (NO) A 12/07/18 05:00 Fluid Appearance Cloudy (Clear) A 12/07/18 13:45 Diabetes panel 12/16/18 Range/Units 03:48 Sodium 135 L (136-145) mEq/L Potassium 4.5 (3.5-5.1) mEq/L Chloride 104 (98-107) mEq/L Carbon Dioxide 25 (23-29) mEq/L BUN 19 (6-20) mg/dL Creatinine 0.82 (0.60-1.20) mg/dL Glucose 87 (70-105) mg/dL Calcium 8.0 L (8.6-10.3) mg/dL Calcium panel 12/16/18 12/16/18 Range/Units 03:48 08:51 Calcium 8.0 L (8.6-10.3) mg/dL Phosphorus 2.8 (2.7-4.5) mg/dL Pituitary panel 12/16/18 Range/Units 03:48 Sodium 135 L (136-145) mEq/L Potassium 4.5 (3.5-5.1) mEq/L Chloride 104 (98-107) mEq/L Carbon Dioxide 25 (23-29) mEq/L BUN 19 (6-20) mg/dL Creatinine 0.82 (0.60-1.20) mg/dL Glucose 87 (70-105) mg/dL Calcium 8.0 L (8.6-10.3) mg/dL Adrenal panel 12/16/18 Range/Units 03:48 Sodium 135 L (136-145) mEq/L Potassium 4.5 (3.5-5.1) mEq/L Chloride 104 (98-107) mEq/L Carbon Dioxide 25 (23-29) mEq/L BUN 19 (6-20) mg/dL Creatinine 0.82 (0.60-1.20) mg/dL Glucose 87 (70-105) mg/dL Calcium 8.0 L (8.6-10.3) mg/dL All other labs normal. Consult Discharge Plan - Plan Referrals: NONE,PCP [Primary Care Provider] - <Andrew Ventura - Last Filed: 12/16/18 22:00> Date of Encounter: 12/16/18 Assessment and Plan (1) COPD (chronic obstructive pulmonary disease) Current Visit: Yes Status: Chronic Qualifiers: COPD type: emphysema Emphysema type: unspecified Qualified Code(s): J43.9 - Emphysema, unspecified (2) Decreased body mass index (BMI) Current Visit: Yes Status: Acute Review of Systems All systems PM: The remainder of the systems were reviewed and are negative General Surgery Exam Initial Vital Signs Temp Pulse Resp BP Pulse Ox 99.3 F 120 25 132/86 92 12/07/18 03:34 12/07/18 03:34 12/07/18 03:34 12/07/18 03:34 12/07/18 03:34 Exam Initial Vital Signs Temp Pulse Resp BP Pulse Ox 99.3 F 120 25 132/86 92 12/07/18 03:34 12/07/18 03:34 12/07/18 03:34 12/07/18 03:34 12/07/18 03:34 Results - Labs 12/16/18 03:48 12/16/18 03:48 Abnormal lab results RBC 3.10 M/mcL (3.82-4.97) L 12/16/18 03:48 Hgb 7.9 g/dL (11.5-15.4) L 12/16/18 03:48 Hct 24.9 % (35.3-44.9) L 12/16/18 03:48 MCV 80.3 fL (83.0-100.0) L 12/16/18 03:48 MCH 25.5 pg (28.0-33.3) L 12/16/18 03:48 RDW 24.5 % (11.5-14.5) H 12/16/18 03:48 MPV 8.8 fL (9.4-12.4) L 12/16/18 03:48 Hypochromasia Present (Not Present) A 12/15/18 04:30 Poikilocytosis 1+ (Not Present) A 12/12/18 08:15 Anisocytosis 1+ (Not Present) A 12/16/18 03:48 Microcytosis Present (Not Present) A 12/12/18 08:15 Macrocytosis Present (Not Present) A 12/11/18 04:25 Spherocytes 1+ (Not Present) A 12/12/18 08:15 Target Cells 1+ (Not Present) A 12/16/18 03:48 Tear Drop Cells 1+ (Not Present) A 12/12/18 08:15 PT 12.5 Seconds (9.4-12.1) H 12/09/18 17:55 Heparin Anti-Xa, Unfract 0.01 IU/mL (0.30-0.70) L 12/10/18 17:41 ABG pH 7.46 pH Units (7.32-7.45) H 12/16/18 04:59 ABG pO2 53 mmHg (85-104) L 12/16/18 04:59 ABG Total CO2 27 mEq/L (20-26) H 12/16/18 04:59 ABG O2 Saturation 89 % (95-98) L 12/16/18 04:59 VBG pCO2 39 mmHg (41-51) L 12/07/18 04:02 Sodium 135 mEq/L (136-145) L 12/16/18 03:48 Calcium 8.0 mg/dL (8.6-10.3) L 12/16/18 03:48 Venous Ioniz Calcium 1.13 mmol/L (1.15-1.35) L 12/14/18 03:43 Magnesium 1.5 mg/dL (1.6-2.6) L 12/16/18 08:51 AST 10 Units/L (13-39) L 12/16/18 14:50 Troponin I 0.09 ng/mL (< 0.04) H* 12/10/18 17:41 B-Natriuretic Peptide 148 pg/mL (Less than 100) H 12/07/18 03:51 Serum Total Protein 5.1 g/dL (6.4-8.9) L 12/16/18 14:50 Albumin 2.1 g/dL (3.5-5.7) L 12/16/18 17:00 Albumin/Globulin Ratio 0.6 (1.1-2.2) L 12/16/18 14:50 Prealbumin 10.0 mg/dL (17.0-34.0) L 12/16/18 14:50 Urine Clarity Cloudy (Clear) A 12/07/18 05:00 Ur Specific [place] > 1.030 (1.010-1.025) H 12/07/18 05:00 Ur Leukocyte Esterase Small (Negative) H 12/07/18 05:00 Urine Microscopic RBC 5-15 per hpf (0-3) H 12/07/18 05:00 Urine Microscopic WBC 5-15 per hpf (0-3) H 12/07/18 05:00 Ur Squamous Epith Cells Many per lpf (None-Few) H 12/07/18 05:00 Ur Culture Indicated? NO. (NO) A 12/07/18 05:00 Fluid Appearance Cloudy (Clear) A 12/07/18 13:45 Diabetes panel 12/16/18 12/16/18 12/16/18 Range/Units 03:48 14:50 17:00 Sodium 135 L (136-145) mEq/L Potassium 4.5 (3.5-5.1) mEq/L Chloride 104 (98-107) mEq/L Carbon Dioxide 25 (23-29) mEq/L BUN 19 (6-20) mg/dL Creatinine 0.82 (0.60-1.20) mg/dL Glucose 87 (70-105) mg/dL Calcium 8.0 L (8.6-10.3) mg/dL AST 10 L (13-39) Units/L ALT 7 (7-52) Units/L Alkaline Phosphatase 60 (34-104) Units/L Albumin 2.0 L 2.1 L (3.5-5.7) g/dL Calcium panel 12/16/18 12/16/18 12/16/18 Range/Units 03:48 08:51 14:50 Calcium 8.0 L (8.6-10.3) mg/dL Phosphorus 2.8 (2.7-4.5) mg/dL Albumin 2.0 L (3.5-5.7) g/dL 12/16/18 Range/Units 17:00 Calcium (8.6-10.3) mg/dL Phosphorus (2.7-4.5) mg/dL Albumin 2.1 L (3.5-5.7) g/dL Pituitary panel 12/16/18 Range/Units 03:48 Sodium 135 L (136-145) mEq/L Potassium 4.5 (3.5-5.1) mEq/L Chloride 104 (98-107) mEq/L Carbon Dioxide 25 (23-29) mEq/L BUN 19 (6-20) mg/dL Creatinine 0.82 (0.60-1.20) mg/dL Glucose 87 (70-105) mg/dL Calcium 8.0 L (8.6-10.3) mg/dL Adrenal panel 12/16/18 12/16/18 12/16/18 Range/Units 03:48 14:50 17:00 Sodium 135 L (136-145) mEq/L Potassium 4.5 (3.5-5.1) mEq/L Chloride 104 (98-107) mEq/L Carbon Dioxide 25 (23-29) mEq/L BUN 19 (6-20) mg/dL Creatinine 0.82 (0.60-1.20) mg/dL Glucose 87 (70-105) mg/dL Calcium 8.0 L (8.6-10.3) mg/dL Total Bilirubin 0.3 (0.3-1.0) mg/dL AST 10 L (13-39) Units/L ALT 7 (7-52) Units/L Alkaline Phosphatase 60 (34-104) Units/L Albumin 2.0 L 2.1 L (3.5-5.7) g/dL All other labs normal. - Attending Attestation I have personally performed a face to face evaluation on this patient. I have reviewed and agree with the care plan. History and Exam by me shows: Review the assessment and evaluation with the patient and family member degree to the above plan. Patient has had severe protein calorie malnutrition with poor appetite. She is currently intubated and plan for possible extubation was planned however due to her poor and overall nutrition which is been for many years there was concern about possible placing a feeding tube. The patient is only had a tubal ligation in the past she denies any history of abdominal pain. She is not tender to palpation on current examination she has had a prior EGD and colonoscopy during this admission which did not show any signs of a tumor mass or explanation behind her malnutrition. The patient and family member agree to a PEG tube placement.
[2018-12-16] MEDS: FentaNYL (PF) 1,000 MCG in 0.9 % Sodium Chloride 80 ML IVC SCH (15:19)
[2018-12-16 15:27] LABS: Albumin/Globulin Ratio 0.6 (1.1-2.2); Bilirubin,Direct 0.1 mg/dL (0.0-0.2); Bilirubin,Indirect 0.2 mg/dL (0.0-1.2); Bilirubin,Total 0.3 mg/dL (0.3-1.0); Globulin 3.1 g/dL (2.4-3.5); Total Protein 5.1 g/dL (6.4-8.9)
[2018-12-17] MEDS: Dexmedetomidine HCl 400 MCG/100 ML MLS IVC SCH ×3 (00:42→22:22)
[2018-12-17] MEDS: *HR* Metoprolol 5 MG/5 ML VIAL IVP PRN ×2 (02:07→20:09)
[2018-12-17 03:21] LABS: Basophils % 0.1 %; Eosinophils # 0.1 K/mcL (0.0-0.6); Eosinophils % 0.9 %; Hematocrit 24.4 % (35.3-44.9); Hemoglobin 7.8 g/dL (11.5-15.4); Mean Corpuscular Hemoglobin 25.4 pg (28.0-33.3); Mean Corpuscular Volume 79.5 fL (83.0-100.0); Mean Platelet Volume 8.7 fL (9.4-12.4); Monocytes # 0.4 K/mcL (0.0-1.3); Monocytes % 4.5 %; Neutrophils # 6.8 K/mcL (1.6-8.9); Platelet Count 232 K/mcL (140-400); Red Blood Count 3.07 M/mcL (3.82-4.97); Red Cell Distribution Width 24.3 % (11.5-14.5); Segmented Neutrophils % 73.5 %
[2018-12-17] MEDS: Artificial Tears SOLN 15 ML BOTTLE BOTH EYES SCH ×6 (03:21→23:57)
[2018-12-17 03:26] LABS: Lymphocytes # 1.8 K/mcL (0.6-4.6)
[2018-12-17 03:41] LABS: Alanine Aminotransferase 7 Units/L (7-52); Albumin 1.9 g/dL (3.5-5.7); Albumin/Globulin Ratio 0.7 (1.1-2.2); Alkaline Phosphatase 56 Units/L (34-104); Aspartate Amino Transferase 9 Units/L (13-39); BUN/Creatinine Ratio 21 (6-26); Bilirubin,Total 0.3 mg/dL (0.3-1.0); Blood Urea Nitrogen 17 mg/dL (6-20); Calcium 8.1 mg/dL (8.6-10.3); Carbon Dioxide 26 mEq/L (23-29); Chloride 101 mEq/L (98-107); Globulin 2.8 g/dL (2.4-3.5); Glucose 98 mg/dL (70-105); Magnesium 1.5 mg/dL (1.6-2.6); Osmolality,Calculated 276 (280-300); Phosphorous 3.1 mg/dL (2.7-4.5); Potassium 4.1 mEq/L (3.5-5.1); Sodium 132 mEq/L (136-145); Total Protein 4.7 g/dL (6.4-8.9); eGFR For Non-African Americans > 60 (> 60)
[2018-12-17 03:51] LABS: Anisocytosis 2+ (Not Present); Ovalocytes 2+ (Not Present); Platelet Estimate Normal (Normal); Target Cells 1+ (Not Present); Tear Drop Cells 2+ (Not Present)
[2018-12-17] MEDS: Ipratropium/Albuterol Neb 3 ML IH SCH ×5 (03:54→20:20)
[2018-12-17 05:21] LABS: ABG Base Excess 2 mEq/L (-2 to 3); ABG HCO3 26 mEq/L (21-27); ABG Oxygen Saturation 95 % (95-98); ABG PCO2 35 mmHg (35-45); ABG PH 7.48 pH Units (7.32-7.45); ABG PO2 68 mmHg (85-104); ABG TCO2 27 mEq/L (20-26); Blood Gas Modality ASSIST CONTROL; Blood Gas PEEP 5 cm H2O; Blood Gas Respiration Rate 10; Blood Gas VT 380 cc
[2018-12-17] MEDS: Levothyroxine 25 MCG TABLET PO SCH (05:38)
[2018-12-17] MEDS: *HR* Heparin 5,000 UNIT/ML VIAL SQ SCH ×2 (05:38→18:54)
--- NOTE | 2018-12-17 07:21 | Pulmonology Progress Note ---
Date of Encounter: 12/17/18 Time of Encounter: 07:21 Assessment and Plan (1) Acute and chronic respiratory failure with hypoxia Current Visit: Yes Status: Acute In conclusion Leanna Skelton presented with acute on chronic respiratory failure found to have mucus plugging secondary to acute pneumonia complicated by COPD exacerbation and physical deconditioning/malnutrition. She underwent bronchoscopy on admission and unfortunately had subsequent respiratory failure requiring intubation this is multifactorial including her underlying poor performance status and physical deconditioning as well as his severity of her underlying lung disease (COPD acutely exacerbated). Recs: Passed SBT Extubation once PEG placed - appreciate gen surgery consult. Goal Sedation Rachel 2 while in vent (Precedex as needed) Nutrition consulted - appreciate recs Completed ABx for PNA. Yeast species a contaminant Steroids/BDs DVT Prophy/PPi/VAP bundle/[employer] protocol to prevent ulcers. Early PT/OT (2) Atelectasis Current Visit: Yes Status: Acute N significant mucous plugging on Bronch Will f/u Culture results. BPT including IS and Flutter valve (Aerobika TID) OOBTC and Ambulation/PT/OT (3) COPD (chronic obstructive pulmonary disease) Current Visit: Yes Status: Chronic 5day burst of prednisone 40mg cont BDs Symbicort Tobacco cessation Qualifiers: COPD type: chronic bronchitis Chronic bronchitis type: unspecified Qualified Code(s): J42 - Unspecified chronic bronchitis (4) HCAP (healthcare-associated pneumonia) Current Visit: Yes Status: Acute 5-7 days of ABx based upon micro data for Pneumonia. (5) Collapse of left lung Current Visit: Yes Status: Resolved . Subjective Principal diagnosis: Pneumonia Interval history: No acute events overnight. Patient is awake sitting in bed. Remains hemodynamically stable and afebrile. Plan for PEG tube today Objective PUL Vital signs: Last Vital Signs Temp 99.0 F 12/17/18 06:58 Pulse 96 12/17/18 06:00 Resp 12 12/17/18 06:19 BP 133/81 12/17/18 06:19 Pulse Ox 98 12/17/18 06:19 General appearance: no acute distress, other (Frail appearing) Eyes: nonicteric ENT: other (Endotracheal tube noted in satisfactory position) Auscultation: bilateral: rhonchi Cardiovascular: regular rate and rhythm Gastrointestinal: normoactive bowel sounds, soft, non-tender Integumentary: normal Extremities: no cyanosis, no edema, no clubbing Musculoskeletal: no deformities normal mental status, non-focal exam mood appropriate Ventilator Settings Ventilator Settings: Ventilator Settings, Last 8 Hours Ventilator Tidal Volume 380 Setting Ventilator Tidal Volume 380 Setting Ventilator Tidal Volume 380 Setting Ventilator Tidal Volume 380 Setting Ventilator Tidal Volume 380 Setting Ventilator Tidal Volume 380 Setting Ventilator Tidal Volume 380 Setting Ventilator Tidal Volume 380 Setting Ventilator Tidal Volume 380 Setting Ventilator Tidal Volume 380 Setting Ventilator Tidal Volume 380 Setting Ventilator Respiratory Rate 10 Setting Ventilator Respiratory Rate 10 Setting Ventilator Respiratory Rate 10 Setting Ventilator Respiratory Rate 10 Setting Ventilator Respiratory Rate 10 Setting Ventilator Respiratory Rate 10 Setting Ventilator Respiratory Rate 10 Setting Ventilator Respiratory Rate 10 Setting Ventilator Respiratory Rate 10 Setting Ventilator Respiratory Rate 10 Setting Ventilator Respiratory Rate 10 Setting Actual Respiratory Rate 12 Actual Respiratory Rate 13 Actual Respiratory Rate 13 Actual Respiratory Rate 13 Actual Respiratory Rate 11 Actual Respiratory Rate 10 Actual Respiratory Rate 11 Actual Respiratory Rate 12 Actual Respiratory Rate 12 Actual Respiratory Rate 13 Positive End Expiratory 5 Pressure Positive End Expiratory 5 Pressure Positive End Expiratory 5 Pressure Positive End Expiratory 5 Pressure Positive End Expiratory 5 Pressure Positive End Expiratory 5 Pressure Positive End Expiratory 5 Pressure Positive End Expiratory 5 Pressure Positive End Expiratory 5 Pressure Positive End Expiratory 5 Pressure Positive End Expiratory 5 Pressure Peak Inspiratory Airway 5.6 Pressure Peak Inspiratory Airway 4.5 Pressure Peak Inspiratory Airway 5.6 Pressure Peak Inspiratory Airway 14 Pressure Peak Inspiratory Airway 17 Pressure Peak Inspiratory Airway 17 Pressure Peak Inspiratory Airway 18 Pressure Peak Inspiratory Airway 7.1 Pressure Peak Inspiratory Airway 11 Pressure Peak Inspiratory Airway 11 Pressure Results - Laboratory Findings CBC and BMP: 12/17/18 03:10 12/17/18 03:10 ABG ABG pH 7.48 pH Units (7.32-7.45) H 12/17/18 05:18 ABG pCO2 35 mmHg (35-45) 12/17/18 05:18 ABG pO2 68 mmHg (85-104) L 12/17/18 05:18 ABG O2 Saturation 95 % (95-98) 12/17/18 05:18 PT/INR, D-dimer PT 12.5 Seconds (9.4-12.1) H 12/09/18 17:55 Abnormal lab findings: Abnormal lab results RBC 3.07 M/mcL (3.82-4.97) L 12/17/18 03:10 Hgb 7.8 g/dL (11.5-15.4) L 12/17/18 03:10 Hct 24.4 % (35.3-44.9) L 12/17/18 03:10 MCV 79.5 fL (83.0-100.0) L 12/17/18 03:10 MCH 25.4 pg (28.0-33.3) L 12/17/18 03:10 RDW 24.3 % (11.5-14.5) H 12/17/18 03:10 MPV 8.7 fL (9.4-12.4) L 12/17/18 03:10 Hypochromasia Present (Not Present) A 12/15/18 04:30 Poikilocytosis 1+ (Not Present) A 12/12/18 08:15 Anisocytosis 2+ (Not Present) A 12/17/18 03:10 Microcytosis Present (Not Present) A 12/12/18 08:15 Macrocytosis Present (Not Present) A 12/11/18 04:25 Spherocytes 1+ (Not Present) A 12/12/18 08:15 Target Cells 1+ (Not Present) A 12/17/18 03:10 Tear Drop Cells 2+ (Not Present) A 12/17/18 03:10 Ovalocytes 2+ (Not Present) A 12/17/18 03:10 PT 12.5 Seconds (9.4-12.1) H 12/09/18 17:55 Heparin Anti-Xa, Unfract 0.01 IU/mL (0.30-0.70) L 12/10/18 17:41 ABG pH 7.48 pH Units (7.32-7.45) H 12/17/18 05:18 ABG pO2 68 mmHg (85-104) L 12/17/18 05:18 ABG Total CO2 27 mEq/L (20-26) H 12/17/18 05:18 VBG pCO2 39 mmHg (41-51) L 12/07/18 04:02 Sodium 132 mEq/L (136-145) L 12/17/18 03:10 Calculated Osmolality 276 (280-300) L 12/17/18 03:10 Calcium 8.1 mg/dL (8.6-10.3) L 12/17/18 03:10 Venous Ioniz Calcium 1.13 mmol/L (1.15-1.35) L 12/14/18 03:43 Magnesium 1.5 mg/dL (1.6-2.6) L 12/17/18 03:10 AST 9 Units/L (13-39) L 12/17/18 03:10 Troponin I 0.09 ng/mL (< 0.04) H* 12/10/18 17:41 B-Natriuretic Peptide 148 pg/mL (Less than 100) H 12/07/18 03:51 Serum Total Protein 4.7 g/dL (6.4-8.9) L 12/17/18 03:10 Albumin 1.9 g/dL (3.5-5.7) L 12/17/18 03:10 Albumin/Globulin Ratio 0.7 (1.1-2.2) L 12/17/18 03:10 Prealbumin 10.0 mg/dL (17.0-34.0) L 12/16/18 14:50 Urine Clarity Cloudy (Clear) A 12/07/18 05:00 Ur Specific [place] > 1.030 (1.010-1.025) H 12/07/18 05:00 Ur Leukocyte Esterase Small (Negative) H 12/07/18 05:00 Urine Microscopic RBC 5-15 per hpf (0-3) H 12/07/18 05:00 Urine Microscopic WBC 5-15 per hpf (0-3) H 12/07/18 05:00 Ur Squamous Epith Cells Many per lpf (None-Few) H 12/07/18 05:00 Ur Culture Indicated? NO. (NO) A 12/07/18 05:00 Fluid Appearance Cloudy (Clear) A 12/07/18 13:45 - Microbiology Findings Microbiology Findings: Microbiology, Last 48 Hours 12/07/18 13:45 Fungal Culture - Preliminary Left Lower Lobe Lung Yeast Species 12/13/18 10:50 Respiratory Culture - Final Left Lower Lobe Lung - Clinical Findings Intake & Output: Intake & Output 12/16/18 12/16/18 12/17/18 15:59 23:59 07:59 Intake Total 400 / 400 300 / 300 216.5 / 216.5 Output Total 225 / 225 175 / 175 350 / 350 Balance 175 / 175 125 / 125 -133.5 / -133.5 Weight 43.1 kg Consult Discharge Plan - Plan Referrals: NONE,PCP [Primary Care Provider] -
[2018-12-17] MEDS: Budesonide/Formoterol 160/4.5 1 PUFF INH IH SCH ×2 (07:22→20:21)
[2018-12-17] MEDS: Multivit/Ca/Min/Fe/FA 1 TAB TABLET PO SCH (08:06)
[2018-12-17] MEDS: Chlorhexidine Rinse 15 ML MOUTHWASH MM SCH ×2 (08:06→19:58)
[2018-12-17] MEDS: Pantoprazole 40 MG VIAL IVP SCH (08:06)
[2018-12-17] MEDS: predniSONE 20 MG TABLET PO SCH (08:06)
[2018-12-17] MEDS: Megestrol Acetate 400 MG/10 ML UDC PO SCH (08:06)
[2018-12-17] MEDS: FentaNYL (PF) 1,000 MCG in 0.9 % Sodium Chloride 80 ML IVC SCH ×3 (08:07→22:45)
--- NOTE | 2018-12-17 17:35 | Pre-Sedation Evaluation ---
Pre-sedation evaluation - Pre-sedation checklist Date of procedure: 12/13/18 Procedure: EGD/colonoscopy Recent Vitals: Last Vital Signs Temp 98.5 F 12/17/18 15:50 Pulse 96 12/17/18 15:25 Resp 10 12/17/18 15:34 BP 120/78 12/17/18 15:00 Pulse Ox 100 12/17/18 15:34 H&P (including ROS) documented in medical record: Yes Previous reaction to sedatives/anesthetics: No Dietary Status: NPO after Midnight Airway Assessment: Patient can open mouth completely, TMJ function normal Dentition: dentures removed Possible difficult airway: No ASA Classification *see protocol: CLASS IV-Severe systemic disease/constant threat to pt's life Plan of Care: Pt appropriate candidate for procedure/moderate/conscious sedation
[2018-12-17] MEDS ORDERED: cefOXitin 1,000 MG in Water for inj. (sterile) 20 ML 10 ML IVP ONE (18:40)
[2018-12-18] MEDS: Ipratropium/Albuterol Neb 3 ML IH SCH ×7 (00:08→23:57)
--- NOTE | 2018-12-18 00:37 | Electrocardiograph Report ---
[place] [id number] Test Date: 2018-12-13 Pat Name: Leanna Skelton Department: 109 Room: [facility] Gender: F Senior Executive Assistant: : 1960 Requested By: Didier Conti Order Number: [id number] Reading MD: Deanna North Measurements Intervals [place] Rate: 112 P: 71 KS: 162 QRS: 56 QRSD: 83 T: 58 QT: 315 QTc: 382 Interpretive Statements SINUS TACHYCARDIA NONSPECIFIC T-WAVE ABNORMALITY ABNORMAL RHYTHM ECG Electronically Signed On 12-18-2018 0:36:07 EST by Deanna North
[2018-12-18] MEDS: Artificial Tears SOLN 15 ML BOTTLE BOTH EYES SCH ×5 (03:49→19:53)
[2018-12-18 03:55] LABS: Basophils % 0.1 %; Eosinophils # 0.1 K/mcL (0.0-0.6); Eosinophils % 0.6 %; Hematocrit 24.8 % (35.3-44.9); Hemoglobin 7.7 g/dL (11.5-15.4); Immature Granulocytes % 1.2 % (0-4); Lymphocytes # 1.5 K/mcL (0.6-4.6); Lymphocytes % 19.8 %; Mean Corpuscular Hemoglobin 25.1 pg (28.0-33.3); Mean Corpuscular Volume 80.8 fL (83.0-100.0); Mean Platelet Volume 9.1 fL (9.4-12.4); Monocytes # 0.4 K/mcL (0.0-1.3); Monocytes % 5.6 %; Neutrophils # 5.6 K/mcL (1.6-8.9); Platelet Count 260 K/mcL (140-400); Red Blood Count 3.07 M/mcL (3.82-4.97); Red Cell Distribution Width 24.3 % (11.5-14.5); Segmented Neutrophils % 72.7 %
[2018-12-18 03:59] LABS: VBG Ionized Calcium 1.21 mmol/L (1.15-1.35)
[2018-12-18 04:15] LABS: Alanine Aminotransferase 7 Units/L (7-52); Albumin 1.9 g/dL (3.5-5.7); Albumin/Globulin Ratio 0.7 (1.1-2.2); Alkaline Phosphatase 54 Units/L (34-104); Aspartate Amino Transferase 9 Units/L (13-39); BUN/Creatinine Ratio 18 (6-26); Bilirubin,Total 0.3 mg/dL (0.3-1.0); Blood Urea Nitrogen 14 mg/dL (6-20); Calcium 8.2 mg/dL (8.6-10.3); Carbon Dioxide 24 mEq/L (23-29); Chloride 102 mEq/L (98-107); Globulin 2.7 g/dL (2.4-3.5); Glucose 77 mg/dL (70-105); Osmolality,Calculated 275 (280-300); Phosphorous 3.5 mg/dL (2.7-4.5); Potassium 4.2 mEq/L (3.5-5.1); Sodium 133 mEq/L (136-145); Total Protein 4.6 g/dL (6.4-8.9); eGFR For Non-African Americans > 60 (> 60)
[2018-12-18 04:21] LABS: ABG Base Excess 0 mEq/L (-2 to 3); ABG HCO3 25 mEq/L (21-27); ABG Oxygen Saturation 91 % (95-98); ABG PCO2 40 mmHg (35-45); ABG PH 7.41 pH Units (7.32-7.45); ABG PO2 60 mmHg (85-104); ABG TCO2 26 mEq/L (20-26); Blood Gas Modality VC; Blood Gas PEEP 5 cm H2O; Blood Gas Respiration Rate 10; Blood Gas VT 380 cc
[2018-12-18 04:30] LABS: Anisocytosis 2+ (Not Present); Hypochromasia Present (Not Present); Microcytosis Present (Not Present); Platelet Estimate Normal (Normal); Reactive Lymphocytes Present (Not Present)
[2018-12-18] MEDS: Levothyroxine 25 MCG TABLET PO SCH (05:55)
[2018-12-18] MEDS: *HR* Heparin 5,000 UNIT/ML VIAL SQ SCH ×2 (05:55→17:02)
[2018-12-18] MEDS: FentaNYL (PF) 1,000 MCG in 0.9 % Sodium Chloride 80 ML IVC SCH (06:01)
--- NOTE | 2018-12-18 07:31 | Pulmonology Progress Note ---
<Judy Tijerina - Last Filed: 12/18/18 11:34> Date of Encounter: 12/18/18 Time of Encounter: 07:31 Assessment and Plan (1) Acute on chronic respiratory failure with hypoxemia Current Visit: Yes Status: Acute This is a 58-year-old female with past medical history significant for anxiety/depression, bipolar disorder, hypertension, hyperlipidemia, COPD, active smoker, hypothyroidism who initially presented with shortness of breath. Pt underwent bronchoscopy during admission with following findings: - B/L Lung abnormalities - Mucus plug of airway throughout tracheobronchial tree - BAL Performed Left Lower Lobe Cultures: + Staph Aureus, Haemophilus Influenza Blood Culture Negative x 2 Influenza negative Legionella, Strep Ag negative - Rapid response called on patient (12/10/18) due to lethargy, somnolence, hypoxia, associated with hypotension. Pt intubated, sedated, and femoral line placed for pressors due to hypotension. Per hospitalist, pt had been refusing to use BIPAP throughout the day. Pt had improved as of 12/12/18, and was extubated. However, overnight she was noted to be hypoxic. Also noted to be vomiting. Pt was re-intubated. Pt underwent repeat bronchoscopy (12/13/18): - Noted to have copious, mucoid, thick secretions found in left lower lobe - Mucoid secretions found throughout tracheobronchial tree - BAL performed Improving this AM; AB.41/40/60/25; s/p PEG placement yesterday evening PLAN: Acute on chronic respiratory failure likely secondary to CO2 Narcosis secondary to not using BIPAP. Pt has underlying HCAP pneumonia, with BAL growing Staph Aureus, Haemophilus Influenza; s/p completed course of antibiotics - CPAP Trial this AM; Plan to extubate if tolerating; Cont BIPAP at night - Cont scheduled bronchodilators - Cont prednisone 30mg QD and wean as tolerated - Start incentive spirometry when extubated - Encourage out of bed to chair, ambulation, PT/OT as tolerated - Lasix PRN (2) COPD (chronic obstructive pulmonary disease) Current Visit: Yes Status: Chronic PLAN: - Cont duonebs, symbicort - Cont PO Prednisone 30mg QD Qualifiers: COPD type: emphysema Emphysema type: unspecified Qualified Code(s): J43.9 - Emphysema, unspecified (3) HCAP (healthcare-associated pneumonia) Current Visit: Yes Status: Acute S/p Bronchoscopy 12/13/18 - copious mucoid secretions found in tracheobronchial tree; mucoid secretions found completing obstructing LLL airway; BAL collected PLAN: - s/p full course of antibiotics - Follow BAL - adjust antibiotics as necessary (4) Anemia Current Visit: No Status: Chronic Hb this AM = 7.7 PLAN: - Monitor Hb/Hct; transfuse with Hb < 7 Qualifiers: Folate deficiency anemia type: unspecified folate deficiency Qualified Code(s): D52.9 - Folate deficiency anemia, unspecified (5) Hypothyroid Current Visit: Yes Status: Chronic PLAN: - Cont Synthroid Qualifiers: Hypothyroidism type: unspecified Qualified Code(s): E03.9 - Hypothyroidism, unspecified (6) Severe protein-calorie malnutrition Current Visit: No Status: Chronic PLAN: - Cont tube feedings per nutrition recommendations - Electrolyte protocol - replete as needed - S/p PEG placement yesterday Subjective Principal diagnosis: Pneumonia Interval history: Pt seen and examined at bedside this morning. No acute events overnight. Vitals hemodynamically stable. Remains intubated, but currently on CPAP trial. Alert, and rolls eyes, shakes head, and nods. Currently on precedex and fentanyl drips. Completed course of antibiotics for management of MSSA and Haemophilus Influenza. S/p PEG tube placement yesterday. Area clean, dry, non-erythematous. PEG tube in place. ABG this AM = 7.41/40/60/25. Objective PUL Vital signs: Last Vital Signs Temp 97.6 F 12/18/18 04:58 Pulse 88 12/18/18 07:00 Resp 10 12/18/18 07:00 BP 147/100 12/18/18 07:00 Pulse Ox 98 12/18/18 07:00 General appearance: no acute distress, alert Eyes: nonicteric ENT: oropharynx moist Neck: supple Effort: normal Auscultation: bilateral: clear (No wheezes, rales, rhonchi) Cardiovascular: regular rate and rhythm Gastrointestinal: soft, non-tender, non-distended Extremities: no edema normal mental status, non-focal exam, pupils equal and round, CN II-XII normal mood appropriate, affect normal Ventilator Settings Ventilator Settings: Ventilator Settings, Last 8 Hours Ventilator Tidal Volume 380 Setting Ventilator Tidal Volume 380 Setting Ventilator Tidal Volume 380 Setting Ventilator Tidal Volume 380 Setting Ventilator Tidal Volume 380 Setting Ventilator Tidal Volume 380 Setting Ventilator Tidal Volume 380 Setting Ventilator Tidal Volume 380 Setting Ventilator Tidal Volume 380 Setting Ventilator Tidal Volume 380 Setting Ventilator Tidal Volume 380 Setting Ventilator Tidal Volume 380 Setting Ventilator Respiratory Rate 10 Setting Ventilator Respiratory Rate 10 Setting Ventilator Respiratory Rate 10 Setting Ventilator Respiratory Rate 10 Setting Ventilator Respiratory Rate 10 Setting Ventilator Respiratory Rate 10 Setting Ventilator Respiratory Rate 10 Setting Ventilator Respiratory Rate 10 Setting Ventilator Respiratory Rate 10 Setting Ventilator Respiratory Rate 10 Setting Ventilator Respiratory Rate 10 Setting Ventilator Respiratory Rate 10 Setting Actual Respiratory Rate 10 Actual Respiratory Rate 10 Actual Respiratory Rate 10 Actual Respiratory Rate 10 Actual Respiratory Rate 13 Actual Respiratory Rate 10 Actual Respiratory Rate 10 Actual Respiratory Rate 10 Actual Respiratory Rate 10 Actual Respiratory Rate 10 Actual Respiratory Rate 10 Positive End Expiratory 5 Pressure Positive End Expiratory 5 Pressure Positive End Expiratory 5 Pressure Positive End Expiratory 5 Pressure Positive End Expiratory 5 Pressure Positive End Expiratory 5 Pressure Positive End Expiratory 5 Pressure Positive End Expiratory 5 Pressure Positive End Expiratory 5 Pressure Positive End Expiratory 5 Pressure Positive End Expiratory 5 Pressure Positive End Expiratory 5 Pressure Positive End Expiratory 5 Pressure Peak Inspiratory Airway 18 Pressure Peak Inspiratory Airway 20 Pressure Peak Inspiratory Airway 19 Pressure Peak Inspiratory Airway 21 Pressure Peak Inspiratory Airway 21 Pressure Peak Inspiratory Airway 25 Pressure Peak Inspiratory Airway 23 Pressure Peak Inspiratory Airway 28 Pressure Peak Inspiratory Airway 23 Pressure Peak Inspiratory Airway 23 Pressure Peak Inspiratory Airway 23 Pressure Results - Laboratory Findings CBC and BMP: 12/18/18 03:27 12/18/18 03:27 ABG ABG pH 7.41 pH Units (7.32-7.45) 12/18/18 04:18 ABG pCO2 40 mmHg (35-45) 12/18/18 04:18 ABG pO2 60 mmHg (85-104) L 12/18/18 04:18 ABG O2 Saturation 91 % (95-98) L 12/18/18 04:18 PT/INR, D-dimer PT 12.5 Seconds (9.4-12.1) H 12/09/18 17:55 Abnormal lab findings: Abnormal lab results RBC 3.07 M/mcL (3.82-4.97) L 12/18/18 03:27 Hgb 7.7 g/dL (11.5-15.4) L 12/18/18 03:27 Hct 24.8 % (35.3-44.9) L 12/18/18 03:27 MCV 80.8 fL (83.0-100.0) L 12/18/18 03:27 MCH 25.1 pg (28.0-33.3) L 12/18/18 03:27 MCHC 31.0 g/dL (31.6-35.5) L 12/18/18 03:27 RDW 24.3 % (11.5-14.5) H 12/18/18 03:27 MPV 9.1 fL (9.4-12.4) L 12/18/18 03:27 Reactive Lymphocytes Present (Not Present) A 12/18/18 03:27 Hypochromasia Present (Not Present) A 12/18/18 03:27 Poikilocytosis 1+ (Not Present) A 12/12/18 08:15 Anisocytosis 2+ (Not Present) A 12/18/18 03:27 Microcytosis Present (Not Present) A 12/18/18 03:27 Macrocytosis Present (Not Present) A 12/11/18 04:25 Spherocytes 1+ (Not Present) A 12/12/18 08:15 Target Cells 1+ (Not Present) A 12/17/18 03:10 Tear Drop Cells 2+ (Not Present) A 12/17/18 03:10 Ovalocytes 2+ (Not Present) A 12/17/18 03:10 PT 12.5 Seconds (9.4-12.1) H 12/09/18 17:55 Heparin Anti-Xa, Unfract 0.01 IU/mL (0.30-0.70) L 12/10/18 17:41 ABG pO2 60 mmHg (85-104) L 12/18/18 04:18 ABG O2 Saturation 91 % (95-98) L 12/18/18 04:18 VBG pCO2 39 mmHg (41-51) L 12/07/18 04:02 Sodium 133 mEq/L (136-145) L 12/18/18 03:27 Calculated Osmolality 275 (280-300) L 12/18/18 03:27 Calcium 8.2 mg/dL (8.6-10.3) L 12/18/18 03:27 AST 9 Units/L (13-39) L 12/18/18 03:27 Troponin I 0.09 ng/mL (< 0.04) H* 02/12/19 17:41 B-Natriuretic Peptide 148 pg/mL (Less than 100) H 12/07/18 03:51 Serum Total Protein 4.6 g/dL (6.4-8.9) L 12/18/18 03:27 Albumin 1.9 g/dL (3.5-5.7) L 12/18/18 03:27 Albumin/Globulin Ratio 0.7 (1.1-2.2) L 12/18/18 03:27 Prealbumin 10.0 mg/dL (17.0-34.0) L 12/16/18 14:50 Urine Clarity Cloudy (Clear) A 12/07/18 05:00 Ur Specific [place] > 1.030 (1.010-1.025) H 12/07/18 05:00 Ur Leukocyte Esterase Small (Negative) H 12/07/18 05:00 Urine Microscopic RBC 5-15 per hpf (0-3) H 12/07/18 05:00 Urine Microscopic WBC 5-15 per hpf (0-3) H 12/07/18 05:00 Ur Squamous Epith Cells Many per lpf (None-Few) H 12/07/18 05:00 Ur Culture Indicated? NO. (NO) A 12/07/18 05:00 Fluid Appearance Cloudy (Clear) A 12/07/18 13:45 - Microbiology Findings Microbiology Findings: Microbiology, Last 48 Hours 12/07/18 13:45 Legionella Culture - Final Left Lower Lobe Lung Legionella Culture - Final 12/07/18 13:45 Fungal Culture - Preliminary Left Lower Lobe Lung Yeast Species 12/13/18 10:50 Respiratory Culture - Final Left Lower Lobe Lung - Clinical Findings Intake & Output: Intake & Output 12/17/18 12/17/18 12/18/18 15:59 23:59 07:59 Intake Total 324.5 / 324.5 299 / 299 372.1 / 372.1 Output Total 300 / 300 100 / 100 400 / 400 Balance 24.5 / 24.5 199 / 199 -27.9 / -27.9 Weight 42.6 kg Consult Discharge Plan - Plan Referrals: NONE,PCP [Primary Care Provider] - <Beto Diego - Last Filed: 12/18/18 16:56> Date of Encounter: 12/18/18 Objective PUL Vital signs: Last Vital Signs Temp 97.7 F 12/18/18 14:30 Pulse 122 12/18/18 16:00 Resp 18 12/18/18 16:00 BP 112/75 12/18/18 16:00 Pulse Ox 96 12/18/18 16:00 Results - Laboratory Findings CBC and BMP: 12/18/18 03:27 12/18/18 03:27 ABG ABG pH 7.41 pH Units (7.32-7.45) 12/18/18 04:18 ABG pCO2 40 mmHg (35-45) 12/18/18 04:18 ABG pO2 60 mmHg (85-104) L 12/18/18 04:18 ABG O2 Saturation 91 % (95-98) L 12/18/18 04:18 PT/INR, D-dimer PT 12.5 Seconds (9.4-12.1) H 12/09/18 17:55 Abnormal lab findings: Abnormal lab results RBC 3.07 M/mcL (3.82-4.97) L 12/18/18 03:27 Hgb 7.7 g/dL (11.5-15.4) L 12/18/18 03:27 Hct 24.8 % (35.3-44.9) L 12/18/18 03:27 MCV 80.8 fL (83.0-100.0) L 12/18/18 03:27 MCH 25.1 pg (28.0-33.3) L 12/18/18 03:27 MCHC 31.0 g/dL (31.6-35.5) L 12/18/18 03:27 RDW 24.3 % (11.5-14.5) H 12/18/18 03:27 MPV 9.1 fL (9.4-12.4) L 12/18/18 03:27 Reactive Lymphocytes Present (Not Present) A 12/18/18 03:27 Hypochromasia Present (Not Present) A 12/18/18 03:27 Poikilocytosis 1+ (Not Present) A 12/12/18 08:15 Anisocytosis 2+ (Not Present) A 12/18/18 03:27 Microcytosis Present (Not Present) A 12/18/18 03:27 Macrocytosis Present (Not Present) A 12/11/18 04:25 Spherocytes 1+ (Not Present) A 12/12/18 08:15 Target Cells 1+ (Not Present) A 12/17/18 03:10 Tear Drop Cells 2+ (Not Present) A 12/17/18 03:10 Ovalocytes 2+ (Not Present) A 12/17/18 03:10 PT 12.5 Seconds (9.4-12.1) H 12/09/18 17:55 Heparin Anti-Xa, Unfract 0.01 IU/mL (0.30-0.70) L 12/10/18 17:41 ABG pO2 60 mmHg (85-104) L 12/18/18 04:18 ABG O2 Saturation 91 % (95-98) L 12/18/18 04:18 VBG pCO2 39 mmHg (41-51) L 12/07/18 04:02 Sodium 133 mEq/L (136-145) L 12/18/18 03:27 Calculated Osmolality 275 (280-300) L 12/18/18 03:27 Calcium 8.2 mg/dL (8.6-10.3) L 12/18/18 03:27 AST 9 Units/L (13-39) L 12/18/18 03:27 Troponin I 0.09 ng/mL (< 0.04) H* 12/10/18 17:41 B-Natriuretic Peptide 148 pg/mL (Less than 100) H 12/07/18 03:51 Serum Total Protein 4.6 g/dL (6.4-8.9) L 12/18/18 03:27 Albumin 1.9 g/dL (3.5-5.7) L 12/18/18 03:27 Albumin/Globulin Ratio 0.7 (1.1-2.2) L 12/18/18 03:27 Prealbumin 10.0 mg/dL (17.0-34.0) L 12/16/18 14:50 Urine Clarity Cloudy (Clear) A 12/07/18 05:00 Ur Specific [place] > 1.030 (1.010-1.025) H 12/07/18 05:00 Ur Leukocyte Esterase Small (Negative) H 12/07/18 05:00 Urine Microscopic RBC 5-15 per hpf (0-3) H 12/07/18 05:00 Urine Microscopic WBC 5-15 per hpf (0-3) H 12/07/18 05:00 Ur Squamous Epith Cells Many per lpf (None-Few) H 12/07/18 05:00 Ur Culture Indicated? NO. (NO) A 12/07/18 05:00 Fluid Appearance Cloudy (Clear) A 12/07/18 13:45 - Microbiology Findings Microbiology Findings: Microbiology, Last 48 Hours 12/07/18 13:45 Fungal Culture - Preliminary Left Lower Lobe Lung Yeast Species 12/07/18 13:45 Legionella Culture - Final Left Lower Lobe Lung Legionella Culture - Final - Clinical Findings Intake & Output: Intake & Output 12/18/18 12/18/18 12/18/18 07:59 15:59 23:59 Intake Total 372.1 / 372.1 247.9 / 247.9 Output Total 400 / 400 400 / 400 Balance -27.9 / -27.9 -152.1 / -152.1 Weight 42.6 kg - Attending Attestation I saw and evaluated this patient and my medical decision-making was reviewed with the Resident Physician. I agree with the documented findings, disposition and treatment plan as described except to the extent set forth below. We independently had [id number] contact with the patient I spent of 35 minutes of Critical Care time with this patient. It involved decision making of high complexity to assess, manipulate, and support vital organ system failure and/or to prevent further life threatening deterioration of the patient's condition. The time involved in the performance of separately reportable procedures was not counted toward critical care time. Patient seen and examined at bedside Labs, radiology, chart personally reviewed. Management was reviewed during multidisciplinary critical care rounds. GIMP TACKER: Patient is conscious oriented following commands Pulm: Patient has acceptable oxygenation and ventilation , we will attempt spontaneous breathing trial if she passes will extubate patient respiratory status is still tenuous will need BiPAP while sleeping and also at night. She completed the course of antibiotics. Cards: Patient is hemodynamically stable FEN-GI: Patient will be nothing by mouth until she gets extubated Renal: Labs and output were reviewed ID: Patient completed the course of antibiotics and BAL grew staph aureus and H influenza Heme/Onc: Labs reviewed Endo: Glucose Monitored Integ/MSK: Skin Care per routine ICU Nursing Protocol to prevent ulcers. Lines: All lines examined without evidence of infection : Dispo: Critically ill CODE:[id number]
[2018-12-18] MEDS: Budesonide/Formoterol 160/4.5 1 PUFF INH IH SCH ×2 (07:54→20:08)
[2018-12-18] MEDS: predniSONE 20 MG TABLET PO SCH (08:51)
[2018-12-18] MEDS: *HR* Metoprolol 5 MG/5 ML VIAL IVP PRN ×2 (08:52→17:03)
[2018-12-18] MEDS: Chlorhexidine Rinse 15 ML MOUTHWASH MM SCH ×2 (08:52→20:48)
[2018-12-18] MEDS: Multivit/Ca/Min/Fe/FA 1 TAB TABLET PO SCH (08:52)
[2018-12-18] MEDS: Megestrol Acetate 400 MG/10 ML UDC PO SCH (08:52)
[2018-12-18] MEDS: Pantoprazole 40 MG VIAL IVP SCH (08:52)
[2018-12-18] MEDS: Multivitamin Liquid 15 ML UDC GTUBE SCH (09:56)
[2018-12-18] MEDS ORDERED: Furosemide 40 MG/4 ML VIAL IVP ONE (11:02)
[2018-12-18] MEDS ORDERED: *HR* Dextrose 50 % in Water (Syg) 50 ML SYRINGE ONE (11:43)
[2018-12-18] MEDS: *HR* Dextrose 50 % in Water (Syg) 50 ML SYRINGE IVP PRN ×2 (11:54→14:31)
--- NOTE | 2018-12-18 13:27 | Event Note ---
Date of Encounter: 12/18/18 Time of Encounter: 13:26 PEG tube site CDI. OK to be used. Will sign off. No need for outpatient follow up. Please contact us if any questions.
[2018-12-19] MEDS: Artificial Tears SOLN 15 ML BOTTLE BOTH EYES SCH ×4 (00:22→10:27)
[2018-12-19] MEDS: Ipratropium/Albuterol Neb 3 ML IH SCH ×5 (03:20→20:12)
[2018-12-19] MEDS: Scopolamine Patch 1.5 MG PATCH.TD72 TD SCH (04:09)
[2018-12-19 04:13] LABS: Basophils % 0.1 %; Eosinophils % 0.2 %; Hematocrit 26.5 % (35.3-44.9); Hemoglobin 8.6 g/dL (11.5-15.4); Immature Granulocytes % 0.6 % (0-4); Lymphocytes # 1.8 K/mcL (0.6-4.6); Lymphocytes % 14.1 %; Mean Corpuscular HGB Conc 32.5 g/dL (31.6-35.5); Mean Corpuscular Hemoglobin 25.2 pg (28.0-33.3); Mean Corpuscular Volume 77.7 fL (83.0-100.0); Mean Platelet Volume 8.9 fL (9.4-12.4); Monocytes # 0.6 K/mcL (0.0-1.3); Monocytes % 5.1 %; Neutrophils # 9.9 K/mcL (1.6-8.9); Platelet Count 342 K/mcL (140-400); Red Blood Count 3.41 M/mcL (3.82-4.97); Red Cell Distribution Width 24.4 % (11.5-14.5); Segmented Neutrophils % 79.9 %
[2018-12-19 04:23] LABS: BUN/Creatinine Ratio 17 (6-26); Blood Urea Nitrogen 14 mg/dL (6-20); Calcium 6.7 mg/dL (8.6-10.3); Carbon Dioxide 26 mEq/L (23-29); Chloride 101 mEq/L (98-107); Glucose 93 mg/dL (70-105); Magnesium 1.5 mg/dL (1.6-2.6); Osmolality,Calculated 282 (280-300); Phosphorous 2.7 mg/dL (2.7-4.5); Potassium 4.2 mEq/L (3.5-5.1); Sodium 136 mEq/L (136-145); eGFR For Non-African Americans > 60 (> 60)
[2018-12-19 04:44] LABS: Platelet Estimate Normal (Normal)
[2018-12-19 04:45] LABS: Anisocytosis 2+ (Not Present); Hypochromasia Present (Not Present); Target Cells 1+ (Not Present)
[2018-12-19 04:46] LABS: Microcytosis Present (Not Present)
[2018-12-19] MEDS: *HR* Heparin 5,000 UNIT/ML VIAL SQ SCH ×2 (05:59→16:03)
[2018-12-19] MEDS: Levothyroxine 25 MCG TABLET PO SCH (06:00)
[2018-12-19] MEDS: Budesonide/Formoterol 160/4.5 1 PUFF INH IH SCH ×2 (07:34→20:12)
--- NOTE | 2018-12-19 08:05 | Pulmonology Progress Note ---
<Judy Tijerina - Last Filed: 12/19/18 12:19> Date of Encounter: 12/19/18 Time of Encounter: 08:05 Assessment and Plan (1) Acute on chronic respiratory failure with hypoxemia Current Visit: Yes Status: Acute This is a 58-year-old female with past medical history significant for anxiety/depression, bipolar disorder, hypertension, hyperlipidemia, COPD, active smoker, hypothyroidism who initially presented with shortness of breath. Pt underwent bronchoscopy during admission with following findings: - B/L Lung abnormalities - Mucus plug of airway throughout tracheobronchial tree - BAL Performed Left Lower Lobe Cultures: + Staph Aureus, Haemophilus Influenza Blood Culture Negative x 2 Influenza negative Legionella, Strep Ag negative - Rapid response called on patient (12/10/18) due to lethargy, somnolence, hypoxia, associated with hypotension. Pt intubated, sedated, and femoral line placed for pressors due to hypotension. Per hospitalist, pt had been refusing to use BIPAP throughout the day. Pt had improved as of 12/12/18, and was extubated. However, overnight she was noted to be hypoxic. Also noted to be vomiting. Pt was re-intubated. Pt underwent repeat bronchoscopy (12/13/18): - Noted to have copious, mucoid, thick secretions found in left lower lobe - Mucoid secretions found throughout tracheobronchial tree - BAL performed PLAN: Acute on chronic respiratory failure likely secondary to CO2 Narcosis secondary to not using BIPAP. Pt has underlying HCAP pneumonia, with BAL growing Staph Aureus, Haemophilus Influenza; s/p completed course of antibiotics - Pt extubated yesterday; O2 sats stable on 2L O2 via NC - Cont scheduled bronchodilators - Cont prednisone 20mg QD and wean as tolerated - Start incentive spirometry - Encourage out of bed to chair, ambulation, PT/OT as tolerated - Lasix 40mg BID - BIPAP QHS (2) COPD (chronic obstructive pulmonary disease) Current Visit: Yes Status: Chronic PLAN: - Cont duonebs, symbicort - Cont PO Prednisone 20mg QD; and weans as tolerated - Encourage use of BIPAP at night Qualifiers: COPD type: emphysema Emphysema type: unspecified Qualified Code(s): J43.9 - Emphysema, unspecified (3) HCAP (healthcare-associated pneumonia) Current Visit: Yes Status: Acute S/p Bronchoscopy 12/13/18 - copious mucoid secretions found in tracheobronchial tree; mucoid secretions found completing obstructing LLL airway; BAL collected PLAN: - s/p full course of antibiotics - Follow BAL - adjust antibiotics as necessary - Consider broad spectrum antibiotics with fever or increasing WBCs - currently clinically in no distress and no signs of acute infection (4) Anemia Current Visit: No Status: Chronic Hb this AM = 8.6 PLAN: - Monitor Hb/Hct; transfuse with Hb < 7 Qualifiers: Folate deficiency anemia type: unspecified folate deficiency Qualified Code(s): D52.9 - Folate deficiency anemia, unspecified (5) Hypothyroid Current Visit: Yes Status: Chronic PLAN: - Cont Synthroid Qualifiers: Hypothyroidism type: unspecified Qualified Code(s): E03.9 - Hypothyroidism, unspecified (6) Severe protein-calorie malnutrition Current Visit: No Status: Chronic PLAN: - Cont tube feedings per nutrition recommendations - Electrolyte protocol - replete as needed - S/p PEG placement yesterday Subjective Principal diagnosis: Pneumonia Interval history: Pt seen and examined at bedside this morning. No acute events overnight. Vitals remain hemodynamically stable. O2 sats appropriate on 2L O2 via NC. Pt is supposed to use BIPAP at night, but did not receive BIPAP yesterday overnight. Denies any current complaints. States that she has been eating, but has very little appetite. Plan to transfer patient to telemetry today. Spoke with hospitalist Dr. Singh who accepted patient. Objective PUL Vital signs: Last Vital Signs Temp 98.8 F 12/19/18 04:00 Pulse 105 12/19/18 07:00 Resp 16 12/19/18 07:34 BP 134/79 12/19/18 07:00 Pulse Ox 100 12/19/18 07:34 General appearance: no acute distress, alert Eyes: nonicteric ENT: oropharynx moist Neck: supple Auscultation: bilateral: diminished breath sounds (Slightly diminished breath sounds, but otherwise no wheezes, rales, crackles, rhonchi) Cardiovascular: regular rate and rhythm Gastrointestinal: normoactive bowel sounds, soft, non-tender, non-distended, other (PEG tube in place; no erythema, no signs of infection) Integumentary: normal Extremities: no cyanosis, no edema normal mental status, non-focal exam, pupils equal and round, CN II-XII normal mood appropriate, affect normal Results - Laboratory Findings CBC and BMP: 12/19/18 03:20 12/19/18 03:20 ABG ABG pH 7.41 pH Units (7.32-7.45) 12/18/18 04:18 ABG pCO2 40 mmHg (35-45) 12/18/18 04:18 ABG pO2 60 mmHg (85-104) L 12/18/18 04:18 ABG O2 Saturation 91 % (95-98) L 12/18/18 04:18 PT/INR, D-dimer PT 12.5 Seconds (9.4-12.1) H 12/09/18 17:55 Abnormal lab findings: Abnormal lab results WBC 12.4 K/mcL (4.3-11.1) H D 12/19/18 03:20 RBC 3.41 M/mcL (3.82-4.97) L 12/19/18 03:20 Hgb 8.6 g/dL (11.5-15.4) L 12/19/18 03:20 Hct 26.5 % (35.3-44.9) L 12/19/18 03:20 MCV 77.7 fL (83.0-100.0) L 12/19/18 03:20 MCH 25.2 pg (28.0-33.3) L 12/19/18 03:20 RDW 24.4 % (11.5-14.5) H 12/19/18 03:20 MPV 8.9 fL (9.4-12.4) L 12/19/18 03:20 Neutrophils # 9.9 K/mcL (1.6-8.9) H 12/19/18 03:20 Reactive Lymphocytes Present (Not Present) A 12/18/18 03:27 Hypochromasia Present (Not Present) A 12/19/18 03:20 Poikilocytosis 1+ (Not Present) A 12/12/18 08:15 Anisocytosis 2+ (Not Present) A 12/19/18 03:20 Microcytosis Present (Not Present) A 12/19/18 03:20 Macrocytosis Present (Not Present) A 12/11/18 04:25 Spherocytes 1+ (Not Present) A 12/12/18 08:15 Target Cells 1+ (Not Present) A 12/19/18 03:20 Tear Drop Cells 2+ (Not Present) A 12/17/18 03:10 Ovalocytes 2+ (Not Present) A 12/17/18 03:10 PT 12.5 Seconds (9.4-12.1) H 12/09/18 17:55 Heparin Anti-Xa, Unfract 0.01 IU/mL (0.30-0.70) L 12/10/18 17:41 ABG pO2 60 mmHg (85-104) L 12/18/18 04:18 ABG O2 Saturation 91 % (95-98) L 12/18/18 04:18 VBG pCO2 39 mmHg (41-51) L 12/07/18 04:02 Calcium 6.7 mg/dL (8.6-10.3) L 12/19/18 03:20 Magnesium 1.5 mg/dL (1.6-2.6) L 12/19/18 03:20 AST 9 Units/L (13-39) L 12/18/18 03:27 Troponin I 0.09 ng/mL (< 0.04) H* 12/10/18 17:41 B-Natriuretic Peptide 148 pg/mL (Less than 100) H 12/07/18 03:51 Serum Total Protein 4.6 g/dL (6.4-8.9) L 12/18/18 03:27 Albumin 1.9 g/dL (3.5-5.7) L 12/18/18 03:27 Albumin/Globulin Ratio 0.7 (1.1-2.2) L 12/18/18 03:27 Prealbumin 10.0 mg/dL (17.0-34.0) L 12/16/18 14:50 Urine Clarity Cloudy (Clear) A 12/07/18 05:00 Ur Specific [place] > 1.030 (1.010-1.025) H 12/07/18 05:00 Ur Leukocyte Esterase Small (Negative) H 12/07/18 05:00 Urine Microscopic RBC 5-15 per hpf (0-3) H 12/07/18 05:00 Urine Microscopic WBC 5-15 per hpf (0-3) H 12/07/18 05:00 Ur Squamous Epith Cells Many per lpf (None-Few) H 12/07/18 05:00 Ur Culture Indicated? NO. (NO) A 12/07/18 05:00 Fluid Appearance Cloudy (Clear) A 12/07/18 13:45 - Microbiology Findings Microbiology Findings: Microbiology, Last 48 Hours 12/07/18 13:45 Fungal Culture - Preliminary Left Lower Lobe Lung Yeast Species 12/07/18 13:45 Legionella Culture - Final Left Lower Lobe Lung Legionella Culture - Final - Clinical Findings Intake & Output: Intake & Output 12/18/18 12/19/18 12/19/18 23:59 07:59 15:59 Intake Total 357 / 357 0 / 0 Output Total 400 / 400 100 / 100 Balance -43 / -43 -100 / -100 Weight 41.2 kg Consult Discharge Plan - Plan Referrals: NONE,PCP [Primary Care Provider] - <Beto Diego - Last Filed: 12/19/18 14:26> Date of Encounter: 12/19/18 Objective PUL Vital signs: Last Vital Signs Temp 97.3 F L 12/19/18 12:26 Pulse 102 12/19/18 12:00 Resp 18 12/19/18 12:00 BP 139/84 12/19/18 12:00 Pulse Ox 99 12/19/18 12:00 Results - Laboratory Findings CBC and BMP: 12/19/18 03:20 12/19/18 03:20 ABG ABG pH 7.41 pH Units (7.32-7.45) 12/18/18 04:18 ABG pCO2 40 mmHg (35-45) 12/18/18 04:18 ABG pO2 60 mmHg (85-104) L 12/18/18 04:18 ABG O2 Saturation 91 % (95-98) L 12/18/18 04:18 PT/INR, D-dimer PT 12.5 Seconds (9.4-12.1) H 12/09/18 17:55 Abnormal lab findings: Abnormal lab results WBC 12.4 K/mcL (4.3-11.1) H D 12/19/18 03:20 RBC 3.41 M/mcL (3.82-4.97) L 12/19/18 03:20 Hgb 8.6 g/dL (11.5-15.4) L 12/19/18 03:20 Hct 26.5 % (35.3-44.9) L 12/19/18 03:20 MCV 77.7 fL (83.0-100.0) L 12/19/18 03:20 MCH 25.2 pg (28.0-33.3) L 12/19/18 03:20 RDW 24.4 % (11.5-14.5) H 12/19/18 03:20 MPV 8.9 fL (9.4-12.4) L 12/19/18 03:20 Neutrophils # 9.9 K/mcL (1.6-8.9) H 12/19/18 03:20 Reactive Lymphocytes Present (Not Present) A 12/18/18 03:27 Hypochromasia Present (Not Present) A 12/19/18 03:20 Poikilocytosis 1+ (Not Present) A 12/12/18 08:15 Anisocytosis 2+ (Not Present) A 12/19/18 03:20 Microcytosis Present (Not Present) A 12/19/18 03:20 Macrocytosis Present (Not Present) A 12/11/18 04:25 Spherocytes 1+ (Not Present) A 12/12/18 08:15 Target Cells 1+ (Not Present) A 12/19/18 03:20 Tear Drop Cells 2+ (Not Present) A 12/17/18 03:10 Ovalocytes 2+ (Not Present) A 12/17/18 03:10 PT 12.5 Seconds (9.4-12.1) H 12/09/18 17:55 Heparin Anti-Xa, Unfract 0.01 IU/mL (0.30-0.70) L 12/10/18 17:41 ABG pO2 60 mmHg (85-104) L 12/18/18 04:18 ABG O2 Saturation 91 % (95-98) L 12/18/18 04:18 VBG pCO2 39 mmHg (41-51) L 12/07/18 04:02 Calcium 6.7 mg/dL (8.6-10.3) L 12/19/18 03:20 Magnesium 1.5 mg/dL (1.6-2.6) L 12/19/18 03:20 AST 9 Units/L (13-39) L 12/18/18 03:27 Troponin I 0.09 ng/mL (< 0.04) H* 12/10/18 17:41 B-Natriuretic Peptide 148 pg/mL (Less than 100) H 12/07/18 03:51 Serum Total Protein 4.6 g/dL (6.4-8.9) L 12/18/18 03:27 Albumin 1.9 g/dL (3.5-5.7) L 12/18/18 03:27 Albumin/Globulin Ratio 0.7 (1.1-2.2) L 12/18/18 03:27 Prealbumin 10.0 mg/dL (17.0-34.0) L 12/16/18 14:50 Urine Clarity Cloudy (Clear) A 12/07/18 05:00 Ur Specific [place] > 1.030 (1.010-1.025) H 12/07/18 05:00 Ur Leukocyte Esterase Small (Negative) H 12/07/18 05:00 Urine Microscopic RBC 5-15 per hpf (0-3) H 12/07/18 05:00 Urine Microscopic WBC 5-15 per hpf (0-3) H 12/07/18 05:00 Ur Squamous Epith Cells Many per lpf (None-Few) H 12/07/18 05:00 Ur Culture Indicated? NO. (NO) A 12/07/18 05:00 Fluid Appearance Cloudy (Clear) A 12/07/18 13:45 - Microbiology Findings Microbiology Findings: Microbiology, Last 48 Hours 12/07/18 13:45 Fungal Culture - Preliminary Left Lower Lobe Lung Yeast Species 12/07/18 13:45 Legionella Culture - Final Left Lower Lobe Lung Legionella Culture - Final - Clinical Findings Intake & Output: Intake & Output 12/18/18 12/19/18 12/19/18 23:59 07:59 15:59 Intake Total 357 / 357 0 / 0 1759 / 1759 Output Total 400 / 400 100 / 100 1050 / 1050 Balance -43 / -43 -100 / -100 709 / 709 Weight 41.2 kg - Attending Attestation - Attending Attestation I saw and evaluated this patient and my medical decision-making was reviewed with the Resident Physician. I agree with the documented findings, disposition and treatment plan as described except to the extent set forth below. We independently had [id number] contact with the patient Patient seen and examined at bedside Labs, radiology, chart personally reviewed. Management was reviewed during multidisciplinary critical care rounds. HAND PACKER: Patient is conscious oriented following commands Pulm: Patient has acceptable oxygenation and ventilation ,patient will need BIPAP at night Cards: Patient is hemodynamically stable FEN-GI: Advance diet as tolerated Renal: Labs and output were reviewed ID: Patient completed the course of antibiotics and BAL grew staph aureus and H influenza Heme/Onc: Labs reviewed Endo: Glucose Monitored Integ/MSK: Skin Care per routine ICU Nursing Protocol to prevent ulcers. Lines: All lines examined without evidence of infection : Dispo: Can be transferred to Medical Telemetry CODE:[id number]
[2018-12-19] MEDS: predniSONE 20 MG TABLET PO SCH (08:42)
[2018-12-19] MEDS: Megestrol Acetate 400 MG/10 ML UDC PO SCH (08:42)
[2018-12-19] MEDS: Chlorhexidine Rinse 15 ML MOUTHWASH MM SCH (08:44)
[2018-12-19] MEDS: Pantoprazole 40 MG VIAL IVP SCH (08:44)
[2018-12-19] MEDS: Multivitamin Liquid 15 ML UDC GTUBE SCH (08:44)
[2018-12-19] MEDS ORDERED: Furosemide 40 MG/4 ML VIAL IVP SCH (09:00)
[2018-12-19] MEDS ORDERED: *HR* Metoprolol 5 MG/5 ML VIAL IVP PRN (13:10)
[2018-12-19] MEDS ORDERED: Potassium Phosphate 44 MEQ in 0.9 % Sodium Chloride 250 ML IVPB PRN (13:10)
[2018-12-19] MEDS ORDERED: Naloxone 0.4 MG/ML INJ IVP PRN (13:10)
[2018-12-19] MEDS ORDERED: *HR* Dextrose 50 % in Water (Syg) 50 ML SYRINGE IVP PRN (13:10)
[2018-12-19] MEDS: Furosemide 40 MG/4 ML VIAL IVP SCH (16:01)
[2018-12-20] MEDS: Ipratropium/Albuterol Neb 3 ML IH SCH ×6 (00:16→19:51)
[2018-12-20] MEDS ORDERED: Melatonin 3 MG TABLET PO ONE (00:33)
[2018-12-20 05:21] LABS: Basophils % 0.1 %; Hematocrit 24.6 % (35.3-44.9); Hemoglobin 7.9 g/dL (11.5-15.4); Immature Granulocytes % 0.5 % (0-4); Lymphocytes # 0.7 K/mcL (0.6-4.6); Lymphocytes % 9.1 %; Mean Corpuscular HGB Conc 32.1 g/dL (31.6-35.5); Mean Corpuscular Hemoglobin 25.4 pg (28.0-33.3); Mean Corpuscular Volume 79.1 fL (83.0-100.0); Mean Platelet Volume 9.5 fL (9.4-12.4); Monocytes # 0.5 K/mcL (0.0-1.3); Neutrophils # 6.5 K/mcL (1.6-8.9); Platelet Count 317 K/mcL (140-400); Red Blood Count 3.11 M/mcL (3.82-4.97); Red Cell Distribution Width 24.6 % (11.5-14.5); Segmented Neutrophils % 84.3 %
[2018-12-20 05:33] LABS: BUN/Creatinine Ratio 20 (6-26); Blood Urea Nitrogen 16 mg/dL (6-20); Calcium 7.8 mg/dL (8.6-10.3); Carbon Dioxide 28 mEq/L (23-29); Chloride 99 mEq/L (98-107); Glucose 134 mg/dL (70-105); Osmolality,Calculated 291 (280-300); Potassium 3.1 mEq/L (3.5-5.1); Sodium 139 mEq/L (136-145); eGFR For Non-African Americans > 60 (> 60)
[2018-12-20 05:56] LABS: Anisocytosis 3+ (Not Present); Hypochromasia Present (Not Present)
[2018-12-20] MEDS: Levothyroxine 25 MCG TABLET PO SCH (05:56)
[2018-12-20] MEDS: *HR* Heparin 5,000 UNIT/ML VIAL SQ SCH ×2 (05:56→18:45)
[2018-12-20 05:57] LABS: Platelet Estimate Normal (Normal)
[2018-12-20] MEDS: Budesonide/Formoterol 160/4.5 1 PUFF INH IH SCH ×2 (07:22→19:51)
--- NOTE | 2018-12-20 08:44 | Internal Med Progress Note ---
Hospitalist Progress Note - Encounter Date of Encounter: 12/20/18 Time of Encounter: 08:41 - Subjective Interval History: I have seen and evaluated the patient at bedside. she reports improvement on her breathing, but reports concern about going to back to ECF today because she thinks she will be back in the hospital. denies chest pain, nausea or vomiting. - Exam Vitals: Temp Pulse Resp BP Pulse Ox 98.3 F 103 18 130/75 96 12/20/18 06:49 12/20/18 06:49 12/20/18 06:49 12/20/18 06:49 12/20/18 06:49 Exam: Vitals: Reviewed General: Cachectic appearing, In no acute distress. Chest: Diminished thoracic expansion. Reduced breath sounds bilaterally. No wheezes, rales or rhonchi. Heart: RRR, Normal S1 & S2; rhythmic. No rubs or murmurs. Abdomen: Non-distended, soft and non-tender to palpation. PEG in place, intact. Extremities: No edema. Neurological: Awake, AOX4. Psych: Affect appropriate. - Assessment and Plan (1) Severe protein-calorie malnutrition Current Visit: No Status: Chronic Assessment and Plan: s/p PEG tube placement. continue nutritional support with osmolite, per chief technician team recommendations. (2) Acute on chronic respiratory failure with hypoxemia Current Visit: Yes Status: Resolved Assessment and Plan: patient status post 2 bronchoscopy and short intubation course. respiratory status significantly improved. will continue bronchodilators Q4HR scheduled and PRN stand by Bipap O2 by nasal cannula, titrate for O2Sat >92% Incentive spirometry continue prednisone 20mg/PO daily on symbicort (3) HCAP (healthcare-associated pneumonia) Current Visit: Yes Status: Resolved Assessment and Plan: patient completed treatment for pneumonia. (4) Diastolic CHF Current Visit: Yes Status: Chronic Assessment and Plan: not acutely exacerbated. continue furosemide 40mg/PO BID fluids restriction to 1.5 litters a day, patient has a positive balance of 6 litters due to requiring fluids resuscitation due to hypotension on a bb (5) Depression Current Visit: Yes Status: Chronic Assessment and Plan: Any some buspirone 10 mg by mouth twice a day, and quetiapine 300 mg by mouth at bedtime. (6) Hypothyroid Current Visit: Yes Status: Chronic Assessment and Plan: On levothyroxine 25 mcg/po daily (7) Hypokalemia Current Visit: No Status: Acute Assessment and Plan: electrolyte replaced (8) Hypomagnesemia Current Visit: No Status: Acute Assessment and Plan: Electrolytes being replaced. DVT Prophylaxis: Continue heparin subcutaneous. - Summary of Assessment and Plan Summary of Assessment and Plan: Patient pending placement to ECF. - Time Spent with Patient Total time spent is greater than 50% in coordination of care (as documented) at patient's floor/unit and/or counseling patient: Greater than 35 minutes (40) Plan of Care Discussed with: patient (and the nurse) Internal Medicine: Result - Labs CBC & Chem 7: 12/20/18 04:59 12/20/18 04:59 Labs: Short CBC 12/20/18 Range/Units 04:59 WBC 7.7 (4.3-11.1) K/mcL Hgb 7.9 L (11.5-15.4) g/dL Hct 24.6 L (35.3-44.9) % Plt Count 317 (140-400) K/mcL Neutrophils # 6.5 (1.6-8.9) K/mcL BMP 12/20/18 04:59 Sodium 139 Potassium 3.1 L Chloride 99 Carbon Dioxide 28 BUN 16 Creatinine 0.82 Glucose 134 H Calcium 7.8 L - ABG Interpretation ABG results: ABG ABG pH 7.41 pH Units (7.32-7.45) 12/18/18 04:18 ABG pCO2 40 mmHg (35-45) 12/18/18 04:18 ABG pO2 60 mmHg (85-104) L 12/18/18 04:18 ABG O2 Saturation 91 % (95-98) L 12/18/18 04:18 PT/INR, D-dimer PT 12.5 Seconds (9.4-12.1) H 12/09/18 17:55 Consult Discharge Plan - Plan Referrals: NONE,PCP [Primary Care Provider] - (4) Diastolic CHF Qualifiers: Heart failure chronicity: acute on chronic Qualified Code(s): I50.33 - Acute on chronic diastolic (congestive) heart failure (5) Depression Qualifiers: Depression Type: unspecified Qualified Code(s): F32.9 - Major depressive disorder, single episode, unspecified (6) Hypothyroid Qualifiers: Hypothyroidism type: unspecified Qualified Code(s): E03.9 - Hypothyroidism, unspecified
[2018-12-20 09:11] LABS: Magnesium 1.6 mg/dL (1.6-2.6)
[2018-12-20] MEDS: Furosemide 40 MG/4 ML VIAL IVP SCH ×2 (10:46→18:45)
[2018-12-20] MEDS: Megestrol Acetate 400 MG/10 ML UDC PO SCH (10:46)
[2018-12-20] MEDS: Multivitamin Liquid 15 ML UDC GTUBE SCH (10:46)
[2018-12-20] MEDS: predniSONE 20 MG TABLET PO SCH (10:47)
[2018-12-20] MEDS: traMADol 50 MG TABLET PO PRN (13:05)
[2018-12-21] MEDS: Ipratropium/Albuterol Neb 3 ML IH SCH ×7 (00:12→23:32)
[2018-12-21] MEDS: Levothyroxine 25 MCG TABLET PO SCH (06:09)
[2018-12-21] MEDS: *HR* Heparin 5,000 UNIT/ML VIAL SQ SCH ×2 (06:10→17:33)
[2018-12-21] MEDS: Budesonide/Formoterol 160/4.5 1 PUFF INH IH SCH ×2 (07:22→19:44)
[2018-12-21] MEDS: Furosemide 40 MG/4 ML VIAL IVP SCH ×2 (09:00→17:33)
--- NOTE | 2018-12-21 09:03 | Discharge Summary ---
- NOTES TO OUTPATIENT PROVIDER Notes to Outpatient Provider: Follow up with pulmonology within a week of hospital discharge Orders not resulted at time of discharge: Pending orders 12/07/18 13:45 AFB Culture, Respiratory [TB] Routine AFB Smear [TB] Routine 12/21/18 07:47 BMP [Basic Metabolic Panel] Stat CBC [Complete Blood Count] [HEME] Stat Magnesium Stat Phosphorous Stat Date of Encounter: 12/21/18 Time of Encounter: 08:58 - Discharge Diagnosis (1) Acute on chronic respiratory failure with hypoxemia Priority: Primary Status: Resolved (2) Severe protein-calorie malnutrition Priority: Secondary Status: Chronic (3) HCAP (healthcare-associated pneumonia) Priority: Primary Status: Resolved (4) Diastolic CHF Priority: Secondary Status: Chronic Qualifiers: Heart failure chronicity: acute on chronic Qualified Code(s): I50.33 - Acute on chronic diastolic (congestive) heart failure (5) Depression Priority: Secondary Status: Chronic Qualifiers: Depression Type: unspecified Qualified Code(s): F32.9 - Major depressive disorder, single episode, unspecified (6) Hypothyroid Priority: Secondary Status: Chronic Qualifiers: Hypothyroidism type: unspecified Qualified Code(s): E03.9 - Hypothyroidism, unspecified (7) Hypokalemia Priority: Secondary Status: Resolved (8) Hypomagnesemia Priority: Secondary Status: Resolved (9) Chronic anemia Priority: Secondary Status: Chronic (10) Collapse of left lung Priority: Primary Status: Resolved (11) Hypertension Priority: Secondary Status: Chronic Qualifiers: Hypertension type: essential hypertension Qualified Code(s): I10 - Essential (primary) hypertension Hospital course: Ms. Skelton is a 58 year old female PMH hyperlipidemia, hypertension, seizures, TIA, kidney stones, COPD, anxiety, bipolar, and depression. patient was brought to the ED from a longterm due to shortness of breath and hypoxia. A CTA of the chest done in the ED and patient was found to have left lower lobe collapse and pneumonia. Pulmonology was consulted and patient underwent bronchoscopy. With resolution of her symptoms. But during the hospitalization patient respiratory status deteriotated and patient refused to be placed on Bipap. on (12/10/18) a Rapid response was called due to lethargy, somnolence, hypoxia, associated with hypotension. Pt intubated, sedated and transferred to ICU. on 12/12/18 patient was extubated, but required to be re-intubated and underwent a second bronchoscopy. Patient successful extubated and transferred to the floor. Left Lower Lobe Cultures: + Staph Aureus, Haemophilus Influenza, Blood Culture Negative x 2. Influenza negative Legionella, Strep Ag negative. Patient completed treatment for HCAP with broad spectrum antibiotics while hospitalized. Due to patient severe caloric malnutrition surgery was consulted for PEG tube placement for nutritional support. PEG inserted on 12/13/18. Patient's acute symptoms have resolved and she is hemodynamically stable to be transferred to ECF/SNF. Recommended to follow up with pulmonology within 1-2 weeks of hospital discharge. - Time Spent with Patient Total time spent providing and/or coordinating discharge services: Greater than 30 minutes (35) - Discharge Medications Prescriptions: New Furosemide [Lasix] 40 mg PO DAILY 30 Days #30 tablet predniSONE [PredniSONE] 20 mg PO DAILY 2 Days #2 tablet predniSONE [PredniSONE] 10 mg PO DAILY 2 Days #2 tablet predniSONE [PredniSONE] 5 mg PO DAILY 1 Days #1 tablet Continue Naproxen [Naprosyn] 500 mg PO BID PRN PRN Reason: Pain Guaifenesin [Mucinex] 600 mg PO BID PRN PRN Reason: Congestion Quetiapine Fumarate [Seroquel] 300 mg PO HS Buspirone HCl [Buspar] 10 mg PO BID Calcium Carbonate [Tums] 1,000 mg PO TID #90 tab.chew Levothyroxine [Synthroid] 25 mcg PO DAILY@0630 #30 tablet Megestrol Acetate [Megace] 400 mg PO DAILY #30 udc Vitamin B Complex/Vit C/Vit E [Stresstab] 1 each PO DAILY #30 tablet hydrOXYzine pamoate [HydrOXYzine Pamoate] 50 mg PO TID PRN #0 capsule PRN Reason: Anxiety Metoprolol [Lopressor] 50 mg PO BID Albuterol Sulfate [Albuterol Inhaler] 2 puff IH Q4HR PRN #1 hfa.aer.ad PRN Reason: Shortness Of Breath Discontinued Spironolactone [Aldactone] 25 mg PO DAILY #30 tablet Home Medications: hydrOXYzine pamoate [HydrOXYzine Pamoate] 50 mg PO TID PRN #0 capsule 01/11/16 [Rx] Metoprolol [Lopressor] 50 mg PO BID 02/12/18 [History] Albuterol Sulfate [Albuterol Inhaler] 2 puff IH Q4HR PRN #1 hfa.aer.ad 11/25/18 [Rx] Buspirone HCl [Buspar] 10 mg PO BID 12/02/18 [History] Guaifenesin [Mucinex] 600 mg PO BID PRN 12/02/18 [History] Naproxen [Naprosyn] 500 mg PO BID PRN 12/02/18 [History] Quetiapine Fumarate [Seroquel] 300 mg PO HS 12/02/18 [History] Calcium Carbonate [Tums] 1,000 mg PO TID #90 tab.chew 12/06/18 [Rx] Levothyroxine [Synthroid] 25 mcg PO DAILY@0630 #30 tablet 12/06/18 [Rx] Megestrol Acetate [Megace] 400 mg PO DAILY #30 udc 12/06/18 [Rx] Vitamin B Complex/Vit C/Vit E [Stresstab] 1 each PO DAILY #30 tablet 12/06/18 [Rx] Furosemide [Lasix] 40 mg PO DAILY 30 Days #30 tablet 12/21/18 [Rx] predniSONE [PredniSONE] 5 mg PO DAILY 1 Days #1 tablet 12/21/18 [Rx] predniSONE [PredniSONE] 10 mg PO DAILY 2 Days #2 tablet 12/21/18 [Rx] predniSONE [PredniSONE] 20 mg PO DAILY 2 Days #2 tablet 12/21/18 [Rx] Allergies/Adverse Reactions: Allergy/AdvReac Type Severity Reaction Status Date / Time levetiracetam [From Keppra] Allergy Anaphylaxis Verified 12/09/18 14:49 lorazepam [From Ativan] Allergy Anaphylaxis Verified 12/09/18 14:49 alprazolam [From Xanax] AdvReac Agitated Verified 12/09/18 14:49 clonazepam [From Klonopin] AdvReac Seizure Verified 12/09/18 14:49 diazepam [From Valium] AdvReac Agitated Verified 12/09/18 14:49 lamotrigine [From Lamictal] AdvReac Nausea Verified 12/09/18 14:49 latex AdvReac Itching Verified 12/09/18 14:49 Date of admission: 12/07/18 08:51 Primary care physician: PCP NONE Consults: 12/07/18 07:52 Consult to Pulmonology [CONS] Routine Consulting Provider: [facility] Reason for Consult: left lower lobe collapse Call Completed: Yes 12/09/18 08:22 Consult to Bindery Worker [CONS] Routine Reason for SW Consult: return to signature 12/09/18 08:23 Consult to Nurse Navigator [CONS] Routine Comment: copd, pn 12/09/18 16:51 Consult to Cardiology [CONS] Routine Comment: Consulting Provider: Cardiology [facility] Reason for Consult: elevated trops Call Completed: No 12/11/18 15:40 Consult to Nutrition [CONS] Routine Comment: Verbal order, also per physician note Consulting Provider: NUTRITION Reason for Dietary Consult: Tube Feed Start & Manage 12/13/18 11:41 PICC LINE [Consult to Invasive Line Access Team] [CONS] Stat Reason for Consult: Hypotension requiring pressors Line Type: PICC 12/13/18 12:31 Consult to Invasive Line Access Team [CONS] Routine Reason for Consult: Picc Line Insertion Line Type: PICC 12/16/18 11:19 Consult to Surgery [CONS] Routine Consulting Provider: Surgery [facility] Reason for Consult: PEG tube placement Time Notified: 11:20 Call Completed: No 12/20/18 10:28 Consult to Physical Therapy [CONS] Routine Comment: Evaluate, develop and implement POC Reason for Consult: Patient is medically stable to work with now. Deconditioning. Would like to go to a different SNF and will need therapy notes for referral. Does patient have active BEDREST order?: No Is patient medically & hemodynamically stable?: Yes Patient assessed for mobility or mobilized this visit?: Yes 12/20/18 10:29 Consult to Occupational Therapy [CONS] Routine Comment: Evaluate, develop and implement POC Reason for Consult: Patient is medically stable to work with now. Deconditioning. Would like to go to a different SNF and will need therapy notes for referral. Does patient have active BEDREST order?: No Is patient medically & hemodynamically stable?: Yes Patient assessed for mobility or mobilized this visit?: Yes - Constitutional Vitals: Temp Pulse Resp BP Pulse Ox 98.4 F 89 18 108/68 94 12/21/18 07:34 12/21/18 07:34 12/21/18 07:34 02/23/19 07:34 12/21/18 07:34 Exam: Vitals: Reviewed General: Cachectic appearing, In no acute distress. Chest: Diminished thoracic expansion. Reduced breath sounds bilaterally. No wheezes, rales or rhonchi. Heart: RRR, Normal S1 & S2; rhythmic. No rubs or murmurs. Abdomen: Non-distended, soft and non-tender to palpation. PEG in place, intact. NABS in all 4 quadrants Extremities: No edema. Neurological: Awake, AOX4. Psych: Affect appropriate. - Patient Status Disposition: Transfer SNF Condition: Good Functional capacity at discharge: uses cane/walker Overall status at discharge: patient is back to baseline - Discharge Instructions Follow Up With: NONE,PCP [Primary Care Provider] - - Diet and Activity Activity: as per physical therapy, wear oxygen at all times Diet: low salt diet
--- NOTE | 2018-12-21 09:16 | Physician Discharge Referral ---
[facility] Referral Info [facility] - Diagnosis (1) Acute on chronic respiratory failure with hypoxemia Priority: Primary Status: Resolved (2) Severe protein-calorie malnutrition Priority: Secondary Status: Chronic (3) HCAP (healthcare-associated pneumonia) Priority: Secondary Status: Resolved (4) Diastolic CHF Priority: Secondary Status: Chronic (5) Depression Priority: Secondary Status: Chronic (6) Hypothyroid Priority: Secondary Status: Chronic (7) Hypokalemia Priority: Secondary Status: Resolved (8) Hypomagnesemia Priority: Secondary Status: Resolved (9) Chronic anemia Priority: Secondary Status: Chronic (10) Collapse of left lung Priority: Secondary Status: Resolved (11) Hypertension Priority: Secondary Status: Chronic Prognosis: Fair Aware of Diagnosis: Patient Aware of Prognosis: Patient - Transfer Medications Prescriptions: Furosemide [Lasix] 40 mg PO DAILY 30 Days #30 tablet predniSONE [PredniSONE] 10 mg PO DAILY 2 Days #2 tablet predniSONE [PredniSONE] 20 mg PO DAILY 2 Days #2 tablet predniSONE [PredniSONE] 5 mg PO DAILY 1 Days #1 tablet Home Medications: hydrOXYzine pamoate [HydrOXYzine Pamoate] 50 mg PO TID PRN #0 capsule 11/08/15 [Rx] Metoprolol [Lopressor] 50 mg PO BID 02/12/18 [History] Albuterol Sulfate [Albuterol Inhaler] 2 puff IH Q4HR PRN #1 hfa.aer.ad 11/25/18 [Rx] Buspirone HCl [Buspar] 10 mg PO BID 12/02/18 [History] Guaifenesin [Mucinex] 600 mg PO BID PRN 12/02/18 [History] Naproxen [Naprosyn] 500 mg PO BID PRN 12/02/18 [History] Quetiapine Fumarate [Seroquel] 300 mg PO HS 12/02/18 [History] Calcium Carbonate [Tums] 1,000 mg PO TID #90 tab.chew 12/06/18 [Rx] Levothyroxine [Synthroid] 25 mcg PO DAILY@0630 #30 tablet 12/06/18 [Rx] Megestrol Acetate [Megace] 400 mg PO DAILY #30 udc 12/06/18 [Rx] Vitamin B Complex/Vit C/Vit E [Stresstab] 1 each PO DAILY #30 tablet 12/06/18 [Rx] Furosemide [Lasix] 40 mg PO DAILY 30 Days #30 tablet 12/21/18 [Rx] predniSONE [PredniSONE] 5 mg PO DAILY 1 Days #1 tablet 12/21/18 [Rx] predniSONE [PredniSONE] 10 mg PO DAILY 2 Days #2 tablet 12/21/18 [Rx] predniSONE [PredniSONE] 20 mg PO DAILY 2 Days #2 tablet 12/21/18 [Rx] Allergies/Adverse Reactions: Allergy/AdvReac Type Severity Reaction Status Date / Time levetiracetam [From Keppra] Allergy Anaphylaxis Verified 12/09/18 14:49 lorazepam [From Ativan] Allergy Anaphylaxis Verified 12/09/18 14:49 alprazolam [From Xanax] AdvReac Agitated Verified 12/09/18 14:49 clonazepam [From Klonopin] AdvReac Seizure Verified 12/09/18 14:49 diazepam [From Valium] AdvReac Agitated Verified 12/09/18 14:49 lamotrigine [From Lamictal] AdvReac Nausea Verified 12/09/18 14:49 latex AdvReac Itching Verified 12/09/18 14:49 - Respiratory Orders Oxygen / L per min (3 litters) Smoking Cessation: Smoking cessation has been advised. For more information, call the [place] Tobacco Quit Line at 7-423-BMNCNOW. - Advance Directives Code Status: DNR-Comfort Care - Mobility Orders Chair, Ambulate - Rehabiliation Orders Rehab Potential: Fair Rehab Orders: Evaluation for Physical Therapy, Evaluation for Occupational Therapy - Diet Orders Regular CERTIFICATION: I certify that the transfer of the above named patient to an Extended Care Facility is necessary for the continuing treatment of the diagnosis listed. The above information is true and accurate reflection of patient's current condition. Confidential - Redisclosure prohibited without a patient's written consent.
[2018-12-21 09:24] LABS: Eosinophils # 0.1 K/mcL (0.0-0.6); Eosinophils % 0.9 %; Hemoglobin 8.3 g/dL (11.5-15.4); Immature Granulocytes % 0.4 % (0-4); Lymphocytes # 1.8 K/mcL (0.6-4.6); Lymphocytes % 22.6 %; Mean Corpuscular HGB Conc 31.9 g/dL (31.6-35.5); Mean Corpuscular Hemoglobin 25.9 pg (28.0-33.3); Mean Platelet Volume 9.2 fL (9.4-12.4); Monocytes # 0.5 K/mcL (0.0-1.3); Monocytes % 5.9 %; Neutrophils # 5.5 K/mcL (1.6-8.9); Platelet Count 344 K/mcL (140-400); Red Blood Count 3.21 M/mcL (3.82-4.97); Red Cell Distribution Width 24.5 % (11.5-14.5); Segmented Neutrophils % 70.2 %
[2018-12-21 09:33] LABS: Anisocytosis 2+ (Not Present); Platelet Estimate Normal (Normal)
[2018-12-21 09:43] LABS: BUN/Creatinine Ratio 22 (6-26); Blood Urea Nitrogen 17 mg/dL (6-20); Calcium 7.8 mg/dL (8.6-10.3); Carbon Dioxide 32 mEq/L (23-29); Chloride 98 mEq/L (98-107); Glucose 135 mg/dL (70-105); Magnesium 1.2 mg/dL (1.6-2.6); Osmolality,Calculated 286 (280-300); Phosphorous 2.1 mg/dL (2.7-4.5); Potassium 2.9 mEq/L (3.5-5.1); Sodium 136 mEq/L (136-145); eGFR For Non-African Americans > 60 (> 60)
[2018-12-21] MEDS: predniSONE 20 MG TABLET PO SCH (12:58)
[2018-12-21] MEDS: traMADol 50 MG TABLET PO PRN ×2 (12:58→20:41)
[2018-12-21] MEDS: Megestrol Acetate 400 MG/10 ML UDC PO SCH (12:59)
[2018-12-21] MEDS: Multivitamin Liquid 15 ML UDC GTUBE SCH (12:59)
[2018-12-22] MEDS: Ipratropium/Albuterol Neb 3 ML IH SCH ×6 (04:19→23:04)
[2018-12-22] MEDS ORDERED: Scopolamine Patch 1.5 MG PATCH.TD72 TD SCH (04:30)
[2018-12-22 05:42] LABS: Hematocrit 22.9 % (35.3-44.9); Hemoglobin 7.1 g/dL (11.5-15.4); Immature Granulocytes % 0.4 % (0-4); Lymphocytes # 0.8 K/mcL (0.6-4.6); Mean Corpuscular Volume 83.9 fL (83.0-100.0); Mean Platelet Volume 9.2 fL (9.4-12.4); Monocytes # 0.4 K/mcL (0.0-1.3); Monocytes % 6.5 %; Neutrophils # 5.5 K/mcL (1.6-8.9); Platelet Count 308 K/mcL (140-400); Red Blood Count 2.73 M/mcL (3.82-4.97); Red Cell Distribution Width 25.2 % (11.5-14.5); Segmented Neutrophils % 81.1 %
[2018-12-22 06:05] LABS: BUN/Creatinine Ratio 30 (6-26); Blood Urea Nitrogen 19 mg/dL (6-20); Calcium 6.9 mg/dL (8.6-10.3); Carbon Dioxide 30 mEq/L (23-29); Chloride 99 mEq/L (98-107); Glucose 124 mg/dL (70-105); Magnesium 1.5 mg/dL (1.6-2.6); Osmolality,Calculated 304 (280-300); Phosphorous > 20.0 mg/dL (2.7-4.5); Sodium 145 mEq/L (136-145); eGFR For Non-African Americans > 60 (> 60)
[2018-12-22 06:08] LABS: Anisocytosis 2+ (Not Present); Hypochromasia Present (Not Present); Microcytosis Present (Not Present); Platelet Estimate Normal (Normal)
[2018-12-22] MEDS: Levothyroxine 25 MCG TABLET PO SCH (06:35)
[2018-12-22] MEDS: *HR* Heparin 5,000 UNIT/ML VIAL SQ SCH ×2 (06:35→17:05)
[2018-12-22] MEDS: Budesonide/Formoterol 160/4.5 1 PUFF INH IH SCH ×2 (07:35→20:03)
--- NOTE | 2018-12-22 08:46 | Internal Med Progress Note ---
Hospitalist Progress Note - Encounter Date of Encounter: 12/22/18 Time of Encounter: 08:42 - Subjective Interval History: I have seen and evaluated the patient at bedside. patient reports feeling well. her breathing is back to her baseline. but reports feeling tired. denies chest pain or shortness of breath. - Exam Vitals: Temp Pulse Resp BP Pulse Ox 98.5 F 97 12 131/77 92 12/22/18 07:47 12/22/18 07:47 12/22/18 07:47 12/22/18 07:47 12/22/18 07:47 Exam: Vitals: Reviewed General: Cachectic appearing. In mild distress due to generalized weakness Chest: Diminished thoracic expansion. Reduced breath sounds bilaterally. No wheezes, rales or rhonchi. Heart: RRR, Normal S1 & S2; rhythmic. No rubs or murmurs. Abdomen: Non-distended, soft and non-tender to palpation. PEG in place, intact. NABS in all 4 quadrants Extremities: No edema. Neurological: Awake, AOX4. No focal neurological deficits Psych: Affect appropriate. - Assessment and Plan (1) Acute on chronic respiratory failure with hypoxemia Current Visit: Yes Status: Resolved Assessment and Plan: patient respiratory status is back to her baseline. Plan Decrease prednisone to 10mg/PO daily x3 days Incentive spirometry Continue Symbicort, and bronchodilators scheduled. Oxygen by nasal cannula, titrate for O2 sat duration more than 92%. (2) Severe protein-calorie malnutrition Current Visit: No Status: Chronic Assessment and Plan: Patient with PEG tube for nutritional support. patient had a watery diarrhea BM. Possible due to Tube feeding, will test for C.diff with diarrhea persists. (3) HCAP (healthcare-associated pneumonia) Current Visit: Yes Status: Resolved Assessment and Plan: patient completed treatment (4) Diastolic CHF Current Visit: Yes Status: Chronic Assessment and Plan: Patient is euvolemic. Change furosemide to by mouth. Continue fluid restrictive strategies to 1.5 L a day. strict intake and outputs and daily weight. (5) Depression Current Visit: Yes Status: Chronic Assessment and Plan: Patient on buspirone 10 mg twice a day and quetiapine 300mgPO daily (6) Hypothyroid Current Visit: Yes Status: Chronic Assessment and Plan: ON levothyroxine 50 mcg/PO daily (7) Hypokalemia Current Visit: No Status: Resolved (8) Hypomagnesemia Current Visit: No Status: Acute Assessment and Plan: Electrolytes being replaced. (9) Chronic anemia Current Visit: Yes Status: Chronic Assessment and Plan: Likely AOCD. H&H stable. patient with extensive GI work up recently. No sings of active bleeding. (10) Collapse of left lung Current Visit: Yes Status: Resolved (11) Hypertension Current Visit: No Status: Chronic Assessment and Plan: Blood pressure is controlled on metoprolol and furosemide. (12) Weakness Current Visit: No Status: Acute Assessment and Plan: daily PT/OT ordered DVT Prophylaxis: On heparin subcutaneous. - Summary of Assessment and Plan Summary of Assessment and Plan: Patient pending placement to ECF/SNF - Time Spent with Patient Total time spent is greater than 50% in coordination of care (as documented) at patient's floor/unit and/or counseling patient: Greater than 35 minutes (40) Plan of Care Discussed with: patient (and the nurse) Internal Medicine: Result - Labs CBC & Chem 7: 12/22/18 05:33 12/22/18 04:00 Labs: Short CBC 12/21/18 12/22/18 Range/Units 08:10 05:33 WBC 7.8 6.8 (4.3-11.1) K/mcL Hgb 8.3 L 7.1 L (11.5-15.4) g/dL Hct 26.0 L 22.9 L (35.3-44.9) % Plt Count 344 308 (140-400) K/mcL Neutrophils # 5.5 5.5 (1.6-8.9) K/mcL BMP 12/21/18 12/22/18 08:10 04:00 Sodium 136 145 D Potassium 2.9 L 4.0 D Chloride 98 99 Carbon Dioxide 32 H 30 H BUN 17 19 Creatinine 0.78 0.63 Glucose 135 H 124 H Calcium 7.8 L 6.9 L - ABG Interpretation ABG results: ABG ABG pH 7.41 pH Units (7.32-7.45) 12/18/18 04:18 ABG pCO2 40 mmHg (35-45) 12/18/18 04:18 ABG pO2 60 mmHg (85-104) L 12/18/18 04:18 ABG O2 Saturation 91 % (95-98) L 12/18/18 04:18 PT/INR, D-dimer PT 12.5 Seconds (9.4-12.1) H 12/09/18 17:55 Consult Discharge Plan - Plan Referrals: NONE,PCP [Primary Care Provider] - Prescriptions: Furosemide [Lasix] 40 mg PO DAILY 30 Days #30 tablet predniSONE [PredniSONE] 10 mg PO DAILY 2 Days #2 tablet predniSONE [PredniSONE] 20 mg PO DAILY 2 Days #2 tablet (4) Diastolic CHF Qualifiers: Heart failure chronicity: acute on chronic Qualified Code(s): I50.33 - Acute on chronic diastolic (congestive) heart failure (5) Depression Qualifiers: Depression Type: unspecified Qualified Code(s): F32.9 - Major depressive disorder, single episode, unspecified (6) Hypothyroid Qualifiers: Hypothyroidism type: unspecified Qualified Code(s): E03.9 - Hypothyroidism, unspecified (11) Hypertension Qualifiers: Hypertension type: essential hypertension Qualified Code(s): I10 - Essential (primary) hypertension
[2018-12-22] MEDS: Magnesium Oxide 400 MG TABLET PO SCH (09:18)
[2018-12-22] MEDS: Megestrol Acetate 400 MG/10 ML UDC PO SCH (09:18)
[2018-12-22] MEDS: Multivitamin Liquid 15 ML UDC GTUBE SCH (09:18)
[2018-12-22] MEDS: predniSONE 10 MG TABLET PO SCH (09:18)
[2018-12-22] MEDS: traMADol 50 MG TABLET PO PRN ×3 (09:21→21:11)
[2018-12-22] MEDS: Furosemide 40 MG TABLET PO SCH (17:05)
[2018-12-23] MEDS: Ipratropium/Albuterol Neb 3 ML IH SCH ×5 (04:13→19:40)
[2018-12-23] MEDS: traMADol 50 MG TABLET PO PRN ×2 (04:34→11:18)
[2018-12-23] MEDS: *HR* Heparin 5,000 UNIT/ML VIAL SQ SCH ×2 (06:19→17:07)
[2018-12-23] MEDS: Levothyroxine 25 MCG TABLET PO SCH (06:19)
[2018-12-23] MEDS: Budesonide/Formoterol 160/4.5 1 PUFF INH IH SCH ×2 (07:25→19:40)
[2018-12-23 08:56] LABS: Basophils % 0.2 %; Eosinophils # 0.2 K/mcL (0.0-0.6); Eosinophils % 1.9 %; Hemoglobin 8.5 g/dL (11.5-15.4); Immature Granulocytes % 0.5 % (0-4); Lymphocytes % 26.4 %; Mean Corpuscular HGB Conc 31.5 g/dL (31.6-35.5); Mean Corpuscular Hemoglobin 26.1 pg (28.0-33.3); Mean Corpuscular Volume 82.8 fL (83.0-100.0); Mean Platelet Volume 9.1 fL (9.4-12.4); Monocytes # 0.7 K/mcL (0.0-1.3); Monocytes % 6.4 %; Neutrophils # 6.7 K/mcL (1.6-8.9); Platelet Count 380 K/mcL (140-400); Red Blood Count 3.26 M/mcL (3.82-4.97); Red Cell Distribution Width 24.6 % (11.5-14.5); Segmented Neutrophils % 64.6 %
[2018-12-23 08:57] LABS: Lymphocytes # 2.8 K/mcL (0.6-4.6)
[2018-12-23 09:37] LABS: BUN/Creatinine Ratio 26 (6-26); Blood Urea Nitrogen 20 mg/dL (6-20); Calcium 7.9 mg/dL (8.6-10.3); Carbon Dioxide 31 mEq/L (23-29); Chloride 98 mEq/L (98-107); Glucose 98 mg/dL (70-105); Magnesium 1.5 mg/dL (1.6-2.6); Osmolality,Calculated 279 (280-300); Phosphorous 2.5 mg/dL (2.7-4.5); Potassium 4.5 mEq/L (3.5-5.1); Sodium 133 mEq/L (136-145); eGFR For Non-African Americans > 60 (> 60)
[2018-12-23] MEDS: Furosemide 40 MG TABLET PO SCH ×2 (10:35→17:06)
[2018-12-23] MEDS: Magnesium Oxide 400 MG TABLET PO SCH (11:01)
[2018-12-23] MEDS: predniSONE 10 MG TABLET PO SCH (11:01)
[2018-12-23] MEDS: Megestrol Acetate 400 MG/10 ML UDC PO SCH (11:01)
[2018-12-23] MEDS: Multivitamin Liquid 15 ML UDC GTUBE SCH (11:01)
--- NOTE | 2018-12-23 11:15 | Event Note ---
Date of Encounter: 12/23/18 Time of Encounter: 11:09 I have seen and evaluated the patient at bedside. she voices no complaints. Physical exam: Vitals: Reviewed General: Cachectic appearing. In mild distress due to generalized weakness Chest: Diminished thoracic expansion. Reduced breath sounds bilaterally. No wheezes, rales or rhonchi. Heart: RRR, Normal S1 & S2; rhythmic. No rubs or murmurs. Abdomen: Non-distended, soft and non-tender to palpation. PEG in place, intact. NABS in all 4 quadrants Extremities: No edema. Neurological: Awake, AOX4. No focal neurological deficits Psych: Affect appropriate. Assessment and Plan 1. chronic hypoxic respiratory failure 2. COPD 3. Severe caloric malnutrition 4. Hypomagnesemia 5. Hypophosphatemia 6. HFpEF 7. HTN 8. VTE prophylaxis 9. HCAP (treated) 10. Hypothyroidism 12. Depression Plan electrolyte being replaced continue bronchodilators on furosemide and metoprolol for BP control Tube feed by backup engineer recommendations continue mood stabilizing medication continue prednisone 10mg/PO once more dose on Levothyroxine continue mood stabilizing medications Disposition: - Patient discharged. Pending placement.
[2018-12-23 14:21] VITALS: BP 132/77
[2018-12-23] MEDS ORDERED: Magnesium Oxide 400 MG TABLET PO ONE (16:45)
== END 2018-12-23 20:21 | disposition other institution (70) | DRG 853 ==
LOC: EMEROOARM 03:19 → ICNU 03:19 → SUATTDRO 08:51 → 2ANU 11:12 → ICNU 12-10 16:59 → 3ANU 12-19 19:16
PROVIDERS: ADMIT Pediatrics; ATTEND Internal Medicine

== ENCOUNTER 2020-07-16 12:08 | Inpatient (IN) ==
[2020-07-16] MEDS ORDERED: Acetaminophen 325 MG TABLET PO PRN (17:57)
[2020-07-16] MEDS ORDERED: Ondansetron 4 MG/2 ML VIAL IVP PRN (17:57)
[2020-07-16] MEDS ORDERED: Naloxone 0.4 MG/ML INJ IVP PRN (17:57)
[2020-07-16 19:21] LABS: Acetaminophen < 10 mcg/mL (10-20); Salicylate < 2.5 mg/dL (15.0-30.0)
[2020-07-16] MEDS ORDERED: Ringers Solution, Lactated 1,000 ML IVC SCH (20:00)
[2020-07-16] MEDS: Divalproex (24 HR) 500 MG TABLET PO SCH (20:50)
[2020-07-16] MEDS: OLANZapine 5 MG TAB.RAPDIS PO SCH (20:50)
[2020-07-16] MEDS: QUEtiapine Fumarate 300 MG TABLET PO SCH (21:23)
[2020-07-16] MEDS ORDERED: 0.9 % Sodium Chloride 250 ML IVC ONE (23:08)
[2020-07-16] MEDS ORDERED: 0.9 % Sodium Chloride 250 ML ONE (23:11)
[2020-07-17 01:13] LABS: Basophils # 0.1 K/mcL (0.0-0.2); Basophils % 1.2 %; Eosinophils % 0.4 %; Hematocrit 33.6 % (35.3-44.9); Hemoglobin 11.6 g/dL (11.5-15.4); Immature Granulocytes % 0.9 % (0-4); Lymphocytes # 2.8 K/mcL (0.6-4.6); Lymphocytes % 41.6 %; Mean Corpuscular HGB Conc 34.5 g/dL (31.6-35.5); Mean Corpuscular Hemoglobin 30.5 pg (28.0-33.3); Mean Corpuscular Volume 88.4 fL (83.0-100.0); Mean Platelet Volume 8.4 fL (9.4-12.4); Monocytes # 0.9 K/mcL (0.0-1.3); Monocytes % 12.6 %; Platelet Count 277 K/mcL (140-400); Red Cell Distribution Width 14.7 % (11.5-14.5); Segmented Neutrophils % 43.3 %; White Blood Count 6.8 K/mcL (4.3-11.1)
[2020-07-17 01:33] LABS: Calcium 8.6 mg/dL (8.6-10.3); Magnesium 1.7 mg/dL (1.6-2.6); Phosphorous 3.6 mg/dL (2.7-4.5); Potassium 3.2 mEq/L (3.5-5.1)
[2020-07-17 01:50] LABS: Triiodothyronine (T3) Free 3.24 pg/mL (2.50-3.90)
[2020-07-17 01:55] LABS: Triiodothyronine (T3) Total 0.93 ng/mL (0.87-1.78)
[2020-07-17] MEDS: *HR* Heparin 5,000 UNIT/ML VIAL SQ SCH ×2 (05:01→19:37)
[2020-07-17 05:35] LABS: ABG Base Excess 3 mEq/L (-2 to 3); ABG HCO3 26 mEq/L (21-27); ABG Oxygen Saturation 95 % (95-98); ABG PCO2 36 mmHg (35-45); ABG PH 7.48 pH Units (7.32-7.45); ABG PO2 70 mmHg (85-104); ABG TCO2 28 mEq/L (20-26)
[2020-07-17] MEDS: cefTRIAXone 1,000 MG in Water for inj. (sterile) 10 ML IVP SCH (08:05)
[2020-07-17] MEDS: Mirtazapine 15 MG TABLET PO SCH (09:48)
[2020-07-17] MEDS: Vitamin B Complex/Vit C/Vit E 1 EACH TABLET PO SCH (09:49)
[2020-07-17] MEDS: Furosemide 20 MG TABLET PO SCH (09:49)
[2020-07-17] MEDS: Zinc Sulfate 220 MG CAPSULE PO SCH (09:49)
[2020-07-17 12:20] LABS: Hematocrit 40.2 % (35.3-44.9)
[2020-07-17 12:23] LABS: Hemoglobin 13.2 g/dL (11.5-15.4)
[2020-07-17] MEDS: QUEtiapine Fumarate 300 MG TABLET PO SCH (19:45)
[2020-07-17] MEDS: hydrOXYzine pamoate 25 MG CAPSULE PO SCH (19:45)
[2020-07-17] MEDS: Divalproex (24 HR) 500 MG TABLET PO SCH (19:45)
[2020-07-17] MEDS: OLANZapine 5 MG TAB.RAPDIS PO SCH (20:06)
[2020-07-17] MEDS: Divalproex Sodium 125 MG Sprinkle Capsule (DR) PO SCH (21:46)
[2020-07-18 03:34] LABS: Hematocrit 36.1 % (35.3-44.9); Hemoglobin 12.2 g/dL (11.5-15.4); Mean Corpuscular HGB Conc 33.8 g/dL (31.6-35.5); Mean Corpuscular Hemoglobin 30.2 pg (28.0-33.3); Mean Corpuscular Volume 89.4 fL (83.0-100.0); Mean Platelet Volume 8.7 fL (9.4-12.4); Platelet Count 319 K/mcL (140-400); Red Blood Count 4.04 M/mcL (3.82-4.97); Red Cell Distribution Width 14.5 % (11.5-14.5); White Blood Count 7.3 K/mcL (4.3-11.1)
[2020-07-18 03:53] LABS: Calcium 9.3 mg/dL (8.6-10.3); Potassium 2.8 mEq/L (3.5-5.1)
[2020-07-18] MEDS: *HR* Heparin 5,000 UNIT/ML VIAL SQ SCH ×2 (06:28→17:29)
[2020-07-18] MEDS: Furosemide 20 MG TABLET PO SCH (09:36)
[2020-07-18] MEDS: Zinc Sulfate 220 MG CAPSULE PO SCH (09:36)
[2020-07-18] MEDS: Vitamin B Complex/Vit C/Vit E 1 EACH TABLET PO SCH (09:36)
[2020-07-18] MEDS: Divalproex Sodium 125 MG Sprinkle Capsule (DR) PO SCH ×2 (09:36→20:08)
[2020-07-18] MEDS: Mirtazapine 15 MG TABLET PO SCH (09:37)
[2020-07-18] MEDS: cefTRIAXone 1,000 MG in Water for inj. (sterile) 10 ML IVP SCH (09:37)
[2020-07-18] MEDS: QUEtiapine Fumarate 300 MG TABLET PO SCH (20:08)
[2020-07-18] MEDS: hydrOXYzine pamoate 25 MG CAPSULE PO SCH (20:08)
[2020-07-18] MEDS: OLANZapine 5 MG TAB.RAPDIS PO SCH (20:08)
[2020-07-19] MEDS ORDERED: hydrOXYzine pamoate 25 MG CAPSULE PO ONE (03:35)
[2020-07-19 04:24] LABS: Hematocrit 37.4 % (35.3-44.9); Hemoglobin 12.2 g/dL (11.5-15.4); Mean Corpuscular HGB Conc 32.6 g/dL (31.6-35.5); Mean Corpuscular Hemoglobin 28.6 pg (28.0-33.3); Mean Corpuscular Volume 87.8 fL (83.0-100.0); Mean Platelet Volume 8.2 fL (9.4-12.4); Platelet Count 277 K/mcL (140-400); Red Blood Count 4.26 M/mcL (3.82-4.97); Red Cell Distribution Width 14.4 % (11.5-14.5); White Blood Count 7.1 K/mcL (4.3-11.1)
[2020-07-19 04:48] LABS: BUN/Creatinine Ratio 26 (6-26); Blood Urea Nitrogen 27 mg/dL (8-23); Calcium 9.3 mg/dL (8.6-10.3); Carbon Dioxide 26 mEq/L (23-29); Chloride 95 mEq/L (98-107); Glucose 102 mg/dL (70-105); Osmolality,Calculated 279 (280-300); Sodium 132 mEq/L (136-145); eGFR For African Americans > 60 (> 60); eGFR For Non-African Americans 54 (> 60)
[2020-07-19] MEDS: *HR* Heparin 5,000 UNIT/ML VIAL SQ SCH (05:54)
[2020-07-19] MEDS: Zinc Sulfate 220 MG CAPSULE PO SCH (10:19)
[2020-07-19] MEDS: Mirtazapine 15 MG TABLET PO SCH (10:20)
[2020-07-19] MEDS: Vitamin B Complex/Vit C/Vit E 1 EACH TABLET PO SCH (10:20)
[2020-07-19] MEDS: cefTRIAXone 1,000 MG in Water for inj. (sterile) 10 ML IVP SCH (10:20)
[2020-07-19] MEDS: Divalproex Sodium 125 MG Sprinkle Capsule (DR) PO SCH (10:20)
[2020-07-19 10:54] VITALS: BP 167/89
== END 2020-07-19 13:50 | disposition home or self-care (01) | DRG 92 ==
LOC: 3BNU → SUATTDRO 14:21
PROVIDERS: ADMIT Internal Medicine; ATTEND Internal Medicine

== ENCOUNTER 2022-03-08 15:10 | Observation (INO) ==
[2022-03-08] MEDS ORDERED: Naloxone 0.4 MG/ML INJ IVP PRN (19:26)
[2022-03-08] MEDS ORDERED: Acetaminophen 325 MG TABLET PO PRN (19:26)
[2022-03-08] MEDS ORDERED: Ondansetron 4 MG/2 ML VIAL IVP PRN (19:26)
[2022-03-08 20:56] LABS: Acetaminophen < 10 mcg/mL (10-20); Creatine Kinase 49 Units/L (30-223); Salicylate < 2.5 mg/dL (15.0-30.0); Troponin I 0.05 ng/mL (< 0.04)
[2022-03-08 21:07] LABS: Folate > 22.3 ng/mL (3.0-16.0); Thyroid Stimulating Hormone 0.944 mcIU/mL (0.340-5.600); Vitamin B12 735 pg/mL (250-1100)
[2022-03-08] MEDS ORDERED: Perflutren Lipid Microsphere 1.3 ML in 0.9 % Sodium Chloride 8.7 ML IVP PRN (21:22)
[2022-03-08] MEDS ORDERED: Ringers Solution, Lactated 1,000 ML IVC SCH (21:30)
[2022-03-08] MEDS: Ipratropium/Albuterol Neb 3 ML IH SCH (21:59)
[2022-03-08] MEDS: Budesonide/Formoterol 160/4.5 1 PUFF INH IH SCH (21:59)
[2022-03-08] MEDS ORDERED: Valproic Acid INJ 1,000 MG in 0.9 % Sodium Chloride 100 ML IVPB ONE (22:00)
[2022-03-08 22:15] LABS: Triiodothyronine (T3) Total 82 ng/dL (87-178)
[2022-03-08] MEDS: Metoprolol XL (24 HR) Succ 25 MG TAB.ER.24H PO SCH (22:54)
[2022-03-09 02:18] LABS: Basophils % 0.6 %; Hematocrit 43.5 % (35.3-44.9); Hemoglobin 14.5 g/dL (11.5-15.4); Immature Granulocytes % 0.6 % (0-4); Lymphocytes # 0.8 K/mcL (0.6-4.6); Lymphocytes % 23.8 %; Mean Corpuscular HGB Conc 33.3 g/dL (31.6-35.5); Mean Corpuscular Hemoglobin 28.9 pg (28.0-33.3); Mean Corpuscular Volume 86.7 fL (83.0-100.0); Mean Platelet Volume 8.9 fL (9.4-12.4); Monocytes # 0.1 K/mcL (0.0-1.3); Monocytes % 2.9 %; Neutrophils # 2.5 K/mcL (1.6-8.9); Platelet Count 335 K/mcL (140-400); Red Blood Count 5.02 M/mcL (3.82-4.97); Red Cell Distribution Width 13.8 % (11.5-14.5); Segmented Neutrophils % 72.1 %; White Blood Count 3.4 K/mcL (4.3-11.1)
[2022-03-09] MEDS: Melatonin 3 MG TABLET PO PRN ×2 (02:21→21:35)
[2022-03-09 02:26] LABS: INR 1.1; Prothrombin Time 12.4 Seconds (9.4-12.1)
[2022-03-09 02:28] LABS: Activated Partial Thrombo Time 36.2 Seconds (26.0-36.0)
[2022-03-09 02:32] LABS: Alanine Aminotransferase 9 Units/L (7-52); Albumin/Globulin Ratio 1.2 (1.1-2.2); Alkaline Phosphatase 157 Units/L (34-104); Aspartate Amino Transferase 15 Units/L (13-39); BUN/Creatinine Ratio 18 (6-26); Bilirubin,Total 0.3 mg/dL (0.3-1.0); Blood Urea Nitrogen 19 mg/dL (8-23); Calcium 9.6 mg/dL (8.6-10.3); Carbon Dioxide 26 mEq/L (23-29); Chloride 95 mEq/L (98-107); Globulin 3.4 g/dL (2.4-3.5); Glucose 105 mg/dL (70-105); Osmolality,Calculated 283 (280-300); Phosphorous 3.2 mg/dL (2.7-4.5); Sodium 135 mEq/L (136-145); Total Protein 7.4 g/dL (6.4-8.9); eGFR For African Americans > 60 (> 60); eGFR For Non-African Americans 51 (> 60)
[2022-03-09 02:33] LABS: Chol/HDL Ratio 3.3 (0-4.9)
[2022-03-09 02:37] LABS: Estimated Average Glucose 120 mg/dl; Hemoglobin A1C 5.8 %
[2022-03-09] MEDS: Ipratropium/Albuterol Neb 3 ML IH SCH ×4 (04:33→19:54)
[2022-03-09] MEDS ORDERED: cefTRIAXone 1,000 MG in 0.9 % Sodium Chloride 10 ML IVPB SCH (09:00)
[2022-03-09] MEDS: Nicotine 14 MG PATCH.TD24 TD SCH (09:19)
[2022-03-09] MEDS: Chlorhexidine Rinse 15 ML MOUTHWASH MM SCH ×2 (09:20→21:36)
[2022-03-09] MEDS: Metoprolol XL (24 HR) Succ 25 MG TAB.ER.24H PO SCH (09:20)
[2022-03-09] MEDS: Multivit/Ca/Min/Fe/FA 1 TAB TABLET PO SCH (09:21)
[2022-03-09] MEDS: Aspirin 81 MG TAB.CHEW PO SCH (09:22)
[2022-03-09] MEDS: levoFLOXacin 750 MG/150 ML 750 MG/150 ML BAG IVPB SCH (09:25)
[2022-03-09] MEDS: *HR* Heparin 5,000 UNIT/ML VIAL SQ SCH ×3 (09:47→21:35)
[2022-03-09] MEDS: Budesonide/Formoterol 160/4.5 1 PUFF INH IH SCH ×2 (10:43→19:54)
[2022-03-09] MEDS ORDERED: Mirtazapine 15 MG TABLET PO SCH (21:00)
[2022-03-09] MEDS ORDERED: Divalproex (24 HR) 500 MG TABLET PO SCH (21:00)
[2022-03-09] MEDS ORDERED: QUEtiapine Fumarate 300 MG TABLET PO SCH (21:00)
[2022-03-09] MEDS ORDERED: *HR* Metoprolol 5 MG/5 ML VIAL IVP ONE (22:44)
[2022-03-10] MEDS: *HR* Heparin 5,000 UNIT/ML VIAL SQ SCH ×2 (06:15→14:39)
[2022-03-10] MEDS: levoFLOXacin 750 MG/150 ML 750 MG/150 ML BAG IVPB SCH (08:42)
[2022-03-10] MEDS: Aspirin 81 MG TAB.CHEW PO SCH (08:46)
[2022-03-10] MEDS: Multivit/Ca/Min/Fe/FA 1 TAB TABLET PO SCH (08:46)
[2022-03-10] MEDS: Nicotine 14 MG PATCH.TD24 TD SCH (08:47)
[2022-03-10] MEDS ORDERED: Furosemide 20 MG TABLET PO SCH (09:00)
[2022-03-10 15:01] VITALS: BP 160/86; PULSE 85; TEMP 98.1
[2022-03-10 16:15] VITALS: O2SAT 93
== END 2022-03-10 18:55 | disposition home or self-care (01) ==
LOC: 3BNU → SUATTDRO 18:33
PROVIDERS: ADMIT Internal Medicine; ATTEND Registered Nurse

== ENCOUNTER 2022-03-30 01:21 | Observation (INO) ==
[2022-03-30] MEDS ORDERED: Naloxone 0.4 MG/ML INJ IVP PRN (03:17)
[2022-03-30] MEDS ORDERED: Acetaminophen 325 MG TABLET PO PRN (03:17)
[2022-03-30] MEDS ORDERED: Ondansetron 4 MG/2 ML VIAL IVP PRN (03:17)
[2022-03-30 04:57] LABS: Basophils % 0.5 %; Eosinophils # 0.1 K/mcL (0.0-0.6); Eosinophils % 1.2 %; Hematocrit 32.7 % (35.3-44.9); Hemoglobin 11.1 g/dL (11.5-15.4); Immature Granulocytes % 0.5 % (0-4); Lymphocytes # 1.9 K/mcL (0.6-4.6); Lymphocytes % 45.2 %; Mean Corpuscular HGB Conc 33.9 g/dL (31.6-35.5); Mean Corpuscular Hemoglobin 28.5 pg (28.0-33.3); Mean Corpuscular Volume 84.1 fL (83.0-100.0); Mean Platelet Volume 9.4 fL (9.4-12.4); Monocytes # 0.7 K/mcL (0.0-1.3); Monocytes % 16.4 %; Neutrophils # 1.5 K/mcL (1.6-8.9); Platelet Count 220 K/mcL (140-400); Red Blood Count 3.89 M/mcL (3.82-4.97); Red Cell Distribution Width 13.6 % (11.5-14.5); Segmented Neutrophils % 36.2 %; White Blood Count 4.1 K/mcL (4.3-11.1)
[2022-03-30 05:05] LABS: INR 1.2; Prothrombin Time 13.7 Seconds (9.4-12.1)
[2022-03-30 05:14] LABS: BUN/Creatinine Ratio 7 (6-26); Blood Urea Nitrogen 7 mg/dL (8-23); Calcium 7.7 mg/dL (8.6-10.3); Carbon Dioxide 31 mEq/L (23-29); Chloride 92 mEq/L (98-107); Chol/HDL Ratio 2.7 (0-4.9); Glucose 92 mg/dL (70-105); Magnesium 1.6 mg/dL (1.6-2.6); Osmolality,Calculated 264 (280-300); Phosphorous 2.2 mg/dL (2.7-4.5); Sodium 128 mEq/L (136-145); eGFR For African Americans > 60 (> 60); eGFR For Non-African Americans 58 (> 60)
[2022-03-30 05:30] LABS: Thyroid Stimulating Hormone 0.041 mcIU/mL (0.340-5.600)
[2022-03-30] MEDS: 0.9 % Sodium Chloride 1,000 ML IVC SCH ×2 (05:30→18:36)
[2022-03-30 11:52] LABS: BUN/Creatinine Ratio 7 (6-26); Blood Urea Nitrogen 6 mg/dL (8-23); Carbon Dioxide 28 mEq/L (23-29); Chloride 96 mEq/L (98-107); Glucose 84 mg/dL (70-105); Osmolality,Calculated 267 (280-300); Potassium 3.7 mEq/L (3.5-5.1); Sodium 130 mEq/L (136-145); eGFR For African Americans > 60 (> 60); eGFR For Non-African Americans > 60 (> 60)
[2022-03-30 12:48] LABS: Influenza A PCR Negative (Negative); Influenza B PCR Negative (Negative); Resp. Syncytial Virus PCR Negative (Negative)
[2022-03-30 12:49] LABS: SARS-CoV-2 by PCR (In House) Negative (Negative)
[2022-03-30] MEDS ORDERED: Ipratropium/Albuterol Neb 3 ML IH PRN (17:07)
[2022-03-30 17:30] LABS: BUN/Creatinine Ratio 5 (6-26); Blood Urea Nitrogen 5 mg/dL (8-23); Calcium 8.4 mg/dL (8.6-10.3); Carbon Dioxide 29 mEq/L (23-29); Chloride 96 mEq/L (98-107); Glucose 136 mg/dL (70-105); Osmolality,Calculated 271 (280-300); Potassium 3.6 mEq/L (3.5-5.1); Sodium 131 mEq/L (136-145); eGFR For African Americans > 60 (> 60); eGFR For Non-African Americans 59 (> 60)
[2022-03-30] MEDS: Zinc Sulfate 220 MG CAPSULE PO SCH (20:07)
[2022-03-30] MEDS: Mirtazapine 15 MG TABLET PO SCH (20:07)
[2022-03-30] MEDS: QUEtiapine Fumarate 300 MG TABLET PO SCH (20:07)
[2022-03-30] MEDS: Magnesium Oxide 400 MG TABLET PO SCH (20:07)
[2022-03-30 23:16] LABS: BUN/Creatinine Ratio 5 (6-26); Blood Urea Nitrogen 5 mg/dL (8-23); Calcium 7.9 mg/dL (8.6-10.3); Carbon Dioxide 28 mEq/L (23-29); Chloride 96 mEq/L (98-107); Glucose 85 mg/dL (70-105); Osmolality,Calculated 265 (280-300); Potassium 4.3 mEq/L (3.5-5.1); Sodium 129 mEq/L (136-145); eGFR For African Americans > 60 (> 60); eGFR For Non-African Americans > 60 (> 60)
[2022-03-31 04:31] LABS: Eosinophils # 0.1 K/mcL (0.0-0.6); Hematocrit 31.8 % (35.3-44.9); Hemoglobin 10.6 g/dL (11.5-15.4); Mean Corpuscular HGB Conc 33.3 g/dL (31.6-35.5); Mean Corpuscular Volume 86.9 fL (83.0-100.0); Mean Platelet Volume 9.6 fL (9.4-12.4); Platelet Count 208 K/mcL (140-400); Red Blood Count 3.66 M/mcL (3.82-4.97); Red Cell Distribution Width 14.4 % (11.5-14.5); White Blood Count 3.8 K/mcL (4.3-11.1)
[2022-03-31 04:55] LABS: % Iron Saturation 11 % (15-50); Alanine Aminotransferase 8 Units/L (7-52); Albumin 2.8 g/dL (3.5-5.7); Albumin/Globulin Ratio 1.2 (1.1-2.2); Alkaline Phosphatase 85 Units/L (34-104); Aspartate Amino Transferase 13 Units/L (13-39); BUN/Creatinine Ratio 6 (6-26); Bilirubin,Direct 0.1 mg/dL (0.0-0.2); Bilirubin,Indirect 0.2 mg/dL (0.0-1.0); Bilirubin,Total 0.3 mg/dL (0.3-1.0); Blood Urea Nitrogen 5 mg/dL (8-23); Carbon Dioxide 27 mEq/L (23-29); Chloride 98 mEq/L (98-107); Globulin 2.3 g/dL (2.4-3.5); Glucose 97 mg/dL (70-105); Iron 26 mcg/dL (50-170); Magnesium 1.3 mg/dL (1.6-2.6); Osmolality,Calculated 267 (280-300); Potassium 4.1 mEq/L (3.5-5.1); Sodium 130 mEq/L (136-145); Total Protein 5.1 g/dL (6.4-8.9); Transferrin 165 mg/dL (203-362); eGFR For African Americans > 60 (> 60); eGFR For Non-African Americans > 60 (> 60)
[2022-03-31 05:07] LABS: Ferritin 47 ng/mL (10-120)
[2022-03-31 05:13] LABS: Folate 18.9 ng/mL (3.0-16.0)
[2022-03-31 05:31] LABS: Monocytes # 0.3 K/mcL (0.0-1.3); Neutrophils # 1.4 K/mcL (1.6-8.9); Platelet Estimate Normal (Normal)
[2022-03-31] MEDS: *HR* Enoxaparin 40 MG/0.4 ML SYRINGE SQ SCH (07:12)
[2022-03-31] MEDS ORDERED: Iron Sucrose Complex 250 MG in 0.9 % Sodium Chloride 250 ML IVPB ONE (07:39)
[2022-03-31] MEDS: Divalproex (24 HR) 500 MG TABLET PO SCH (09:37)
[2022-03-31] MEDS: Furosemide 20 MG TABLET PO SCH (09:37)
[2022-03-31] MEDS: Zinc Sulfate 220 MG CAPSULE PO SCH ×4 (09:37→20:28)
[2022-03-31] MEDS: Magnesium Oxide 400 MG TABLET PO SCH ×2 (09:37→20:28)
[2022-03-31] MEDS: 0.9 % Sodium Chloride 1,000 ML IVC SCH ×2 (18:23)
[2022-03-31] MEDS: QUEtiapine Fumarate 300 MG TABLET PO SCH (20:28)
[2022-03-31] MEDS: Mirtazapine 15 MG TABLET PO SCH (20:28)
[2022-04-01 02:01] LABS: Basophils # 0.1 K/mcL (0.0-0.2); Basophils % 1.3 %; Eosinophils # 0.1 K/mcL (0.0-0.6); Eosinophils % 1.9 %; Hematocrit 32.1 % (35.3-44.9); Hemoglobin 10.5 g/dL (11.5-15.4); Immature Granulocytes % 0.4 % (0-4); Lymphocytes # 2.1 K/mcL (0.6-4.6); Lymphocytes % 45.7 %; Mean Corpuscular HGB Conc 32.7 g/dL (31.6-35.5); Mean Corpuscular Hemoglobin 28.5 pg (28.0-33.3); Mean Corpuscular Volume 87.2 fL (83.0-100.0); Mean Platelet Volume 9.6 fL (9.4-12.4); Monocytes # 0.7 K/mcL (0.0-1.3); Monocytes % 15.8 %; Neutrophils # 1.6 K/mcL (1.6-8.9); Platelet Count 208 K/mcL (140-400); Red Blood Count 3.68 M/mcL (3.82-4.97); Red Cell Distribution Width 14.6 % (11.5-14.5); Segmented Neutrophils % 34.9 %; White Blood Count 4.6 K/mcL (4.3-11.1)
[2022-04-01 02:13] LABS: BUN/Creatinine Ratio 6 (6-26); Blood Urea Nitrogen 5 mg/dL (8-23); Carbon Dioxide 26 mEq/L (23-29); Chloride 100 mEq/L (98-107); Glucose 88 mg/dL (70-105); Magnesium 1.7 mg/dL (1.6-2.6); Osmolality,Calculated 269 (280-300); Sodium 131 mEq/L (136-145); eGFR For African Americans > 60 (> 60); eGFR For Non-African Americans > 60 (> 60)
[2022-04-01] MEDS: Divalproex (24 HR) 500 MG TABLET PO SCH (07:20)
[2022-04-01] MEDS: Magnesium Oxide 400 MG TABLET PO SCH ×2 (07:20→20:44)
[2022-04-01] MEDS: Furosemide 20 MG TABLET PO SCH (07:20)
[2022-04-01] MEDS: *HR* Enoxaparin 40 MG/0.4 ML SYRINGE SQ SCH (07:20)
[2022-04-01] MEDS: Zinc Sulfate 220 MG CAPSULE PO SCH ×3 (07:21→20:43)
[2022-04-01] MEDS: 0.9 % Sodium Chloride 1,000 ML IVC SCH ×2 (08:56→22:08)
[2022-04-01] MEDS ORDERED: Iron Sucrose Complex 200 MG in 0.9 % Sodium Chloride 100 ML IVPB ONE (09:00)
[2022-04-01] MEDS: Mirtazapine 15 MG TABLET PO SCH (20:43)
[2022-04-01] MEDS: QUEtiapine Fumarate 300 MG TABLET PO SCH (20:44)
[2022-04-02 04:42] LABS: Basophils # 0.1 K/mcL (0.0-0.2); Basophils % 1.2 %; Eosinophils # 0.2 K/mcL (0.0-0.6); Eosinophils % 2.9 %; Hematocrit 34.2 % (35.3-44.9); Hemoglobin 11.3 g/dL (11.5-15.4); Immature Granulocytes % 0.4 % (0-4); Lymphocytes # 2.2 K/mcL (0.6-4.6); Lymphocytes % 42.8 %; Mean Corpuscular Hemoglobin 28.9 pg (28.0-33.3); Mean Corpuscular Volume 87.5 fL (83.0-100.0); Mean Platelet Volume 9.4 fL (9.4-12.4); Monocytes # 0.7 K/mcL (0.0-1.3); Monocytes % 13.2 %; Platelet Count 234 K/mcL (140-400); Red Blood Count 3.91 M/mcL (3.82-4.97); Red Cell Distribution Width 14.6 % (11.5-14.5); Segmented Neutrophils % 39.5 %; White Blood Count 5.2 K/mcL (4.3-11.1)
[2022-04-02 05:01] LABS: BUN/Creatinine Ratio 7 (6-26); Blood Urea Nitrogen 6 mg/dL (8-23); Calcium 8.3 mg/dL (8.6-10.3); Carbon Dioxide 26 mEq/L (23-29); Chloride 100 mEq/L (98-107); Glucose 83 mg/dL (70-105); Magnesium 1.2 mg/dL (1.6-2.6); Osmolality,Calculated 273 (280-300); Potassium 3.7 mEq/L (3.5-5.1); Sodium 133 mEq/L (136-145); eGFR For African Americans > 60 (> 60); eGFR For Non-African Americans > 60 (> 60)
[2022-04-02] MEDS: *HR* Enoxaparin 40 MG/0.4 ML SYRINGE SQ SCH (06:30)
[2022-04-02] MEDS: Divalproex (24 HR) 500 MG TABLET PO SCH (09:53)
[2022-04-02] MEDS: Magnesium Oxide 400 MG TABLET PO SCH ×2 (09:53→20:25)
[2022-04-02] MEDS: Zinc Sulfate 220 MG CAPSULE PO SCH ×3 (09:53→20:26)
[2022-04-02] MEDS: Furosemide 20 MG TABLET PO SCH (09:53)
[2022-04-02] MEDS: 0.9 % Sodium Chloride 1,000 ML IVC SCH (11:57)
[2022-04-02] MEDS: QUEtiapine Fumarate 300 MG TABLET PO SCH (20:25)
[2022-04-02] MEDS: Mirtazapine 15 MG TABLET PO SCH (20:25)
[2022-04-03] MEDS ORDERED: *HR* Labetalol 20 MG/4 ML SYRINGE IVP ONE (02:26)
[2022-04-03] MEDS: 0.9 % Sodium Chloride 1,000 ML IVC SCH (02:45)
[2022-04-03 08:19] LABS: Basophils % 0.6 %; Eosinophils # 0.1 K/mcL (0.0-0.6); Eosinophils % 1.4 %; Hematocrit 37.5 % (35.3-44.9); Immature Granulocytes % 0.2 % (0-4); Lymphocytes # 1.3 K/mcL (0.6-4.6); Lymphocytes % 20.9 %; Mean Corpuscular Hemoglobin 28.6 pg (28.0-33.3); Mean Corpuscular Volume 89.5 fL (83.0-100.0); Mean Platelet Volume 9.3 fL (9.4-12.4); Monocytes # 0.7 K/mcL (0.0-1.3); Neutrophils # 4.2 K/mcL (1.6-8.9); Platelet Count 240 K/mcL (140-400); Red Blood Count 4.19 M/mcL (3.82-4.97); Red Cell Distribution Width 14.6 % (11.5-14.5); Segmented Neutrophils % 65.9 %; White Blood Count 6.4 K/mcL (4.3-11.1)
[2022-04-03 08:48] LABS: BUN/Creatinine Ratio 8 (6-26); Blood Urea Nitrogen 7 mg/dL (8-23); Calcium 8.7 mg/dL (8.6-10.3); Carbon Dioxide 28 mEq/L (23-29); Chloride 97 mEq/L (98-107); Glucose 105 mg/dL (70-105); Magnesium 1.4 mg/dL (1.6-2.6); Osmolality,Calculated 272 (280-300); Potassium 3.4 mEq/L (3.5-5.1); Sodium 132 mEq/L (136-145); eGFR For African Americans > 60 (> 60); eGFR For Non-African Americans > 60 (> 60)
[2022-04-03] MEDS: Zinc Sulfate 220 MG CAPSULE PO SCH ×3 (09:17→20:12)
[2022-04-03] MEDS: Divalproex (24 HR) 500 MG TABLET PO SCH (09:17)
[2022-04-03] MEDS: Furosemide 20 MG TABLET PO SCH (09:17)
[2022-04-03] MEDS: Magnesium Oxide 400 MG TABLET PO SCH ×2 (09:19→20:12)
[2022-04-03] MEDS: *HR* Enoxaparin 40 MG/0.4 ML SYRINGE SQ SCH (09:22)
[2022-04-03] MEDS: QUEtiapine Fumarate 300 MG TABLET PO SCH (20:12)
[2022-04-03] MEDS: Mirtazapine 15 MG TABLET PO SCH (20:12)
[2022-04-03] MEDS ORDERED: Melatonin 3 MG TABLET PO ONE (21:08)
[2022-04-04 02:54] LABS: Basophils # 0.1 K/mcL (0.0-0.2); Basophils % 0.8 %; Eosinophils # 0.1 K/mcL (0.0-0.6); Eosinophils % 1.6 %; Hematocrit 34.6 % (35.3-44.9); Hemoglobin 11.5 g/dL (11.5-15.4); Immature Granulocytes % 0.4 % (0-4); Lymphocytes # 1.9 K/mcL (0.6-4.6); Lymphocytes % 26.4 %; Mean Corpuscular HGB Conc 33.2 g/dL (31.6-35.5); Mean Corpuscular Volume 87.2 fL (83.0-100.0); Mean Platelet Volume 9.3 fL (9.4-12.4); Monocytes # 1.1 K/mcL (0.0-1.3); Monocytes % 15.2 %; Neutrophils # 4.1 K/mcL (1.6-8.9); Platelet Count 244 K/mcL (140-400); Red Blood Count 3.97 M/mcL (3.82-4.97); Red Cell Distribution Width 14.6 % (11.5-14.5); Segmented Neutrophils % 55.6 %; White Blood Count 7.3 K/mcL (4.3-11.1)
[2022-04-04 03:21] LABS: BUN/Creatinine Ratio 11 (6-26); Blood Urea Nitrogen 10 mg/dL (8-23); Calcium 8.6 mg/dL (8.6-10.3); Carbon Dioxide 25 mEq/L (23-29); Chloride 101 mEq/L (98-107); Glucose 85 mg/dL (70-105); Magnesium 1.8 mg/dL (1.6-2.6); Osmolality,Calculated 272 (280-300); Potassium 5.7 mEq/L (3.5-5.1); Sodium 132 mEq/L (136-145); eGFR For African Americans > 60 (> 60); eGFR For Non-African Americans > 60 (> 60)
[2022-04-04] MEDS ORDERED: Furosemide 40 MG/4 ML VIAL IVP ONE (07:40)
[2022-04-04] MEDS ORDERED: *HR* Dextrose 50 % in Water (Syg) 50 ML SYRINGE IVP ONE (07:41)
[2022-04-04] MEDS ORDERED: Insulin Human Regular 10 UNIT in 0.9 % Sodium Chloride 10 ML IV ONE (07:41)
[2022-04-04] MEDS: Divalproex (24 HR) 500 MG TABLET PO SCH (07:43)
[2022-04-04] MEDS: Magnesium Oxide 400 MG TABLET PO SCH (07:44)
[2022-04-04] MEDS: Zinc Sulfate 220 MG CAPSULE PO SCH (07:44)
[2022-04-04] MEDS: *HR* Enoxaparin 40 MG/0.4 ML SYRINGE SQ SCH (08:22)
[2022-04-04 11:20] VITALS: BP 103/62; PULSE 70; TEMP 98.2; O2SAT 94
== END 2022-04-04 13:35 | disposition home health service (06) ==
LOC: 2ANU → SUATTDRO 02:23
PROVIDERS: ADMIT Internal Medicine; ATTEND Pharmacist

== ENCOUNTER 2022-04-25 17:15 | Inpatient (IN) ==
[2022-04-25] MEDS ORDERED: Naloxone 0.4 MG/ML INJ IVP PRN (18:46)
[2022-04-25] MEDS ORDERED: *HR* HYDROcodone/Acet 5/325 mg TABLET PO PRN (18:46)
[2022-04-25] MEDS ORDERED: Ondansetron 4 MG/2 ML VIAL IVP PRN (18:46)
[2022-04-25] MEDS ORDERED: Acetaminophen 325 MG TABLET PO PRN (18:46)
[2022-04-25] MEDS: 0.9 % Sodium Chloride 1,000 ML IVC SCH (20:37)
[2022-04-25] MEDS ORDERED: Ipratropium/Albuterol Neb 3 ML IH PRN (21:08)
[2022-04-26] MEDS: 0.9 % Sodium Chloride 1,000 ML IVC SCH ×3 (03:23→23:09)
[2022-04-26] MEDS ORDERED: *HR* Metoprolol 5 MG/5 ML VIAL IVP ONE (03:29)
[2022-04-26] MEDS: *HR* Enoxaparin 40 MG/0.4 ML SYRINGE SQ SCH (06:04)
[2022-04-26 07:07] LABS: Basophils # 0.1 K/mcL (0.0-0.2); Basophils % 0.4 %; Eosinophils % 0.1 %; Hematocrit 26.2 % (35.3-44.9); Hemoglobin 8.6 g/dL (11.5-15.4); Immature Granulocytes % 1.6 % (0-4); Lymphocytes # 0.7 K/mcL (0.6-4.6); Lymphocytes % 5.7 %; Mean Corpuscular HGB Conc 32.8 g/dL (31.6-35.5); Mean Corpuscular Volume 88.2 fL (83.0-100.0); Mean Platelet Volume 9.5 fL (9.4-12.4); Monocytes # 1.7 K/mcL (0.0-1.3); Monocytes % 13.5 %; Neutrophils # 9.7 K/mcL (1.6-8.9); Platelet Count 154 K/mcL (140-400); Red Blood Count 2.97 M/mcL (3.82-4.97); Segmented Neutrophils % 78.7 %; White Blood Count 12.3 K/mcL (4.3-11.1)
[2022-04-26 07:33] LABS: Calcium 7.3 mg/dL (8.6-10.3); Magnesium 1.2 mg/dL (1.6-2.6); Phosphorous 2.7 mg/dL (2.7-4.5); Potassium 3.5 mEq/L (3.5-5.1)
[2022-04-26] MEDS: Divalproex (24 HR) 500 MG TABLET PO SCH ×2 (10:54→11:07)
[2022-04-26] MEDS ORDERED: Iopamidol - 370 500 ML MLS IVP ONE (13:40)
[2022-04-26] MEDS ORDERED: Metoprolol XL (24 HR) Succ 25 MG TAB.ER.24H PO SCH (13:45)
[2022-04-26] MEDS: Divalproex Sodium 125 MG Sprinkle Capsule (DR) PO SCH (23:20)
[2022-04-27] MEDS: *HR* Enoxaparin 40 MG/0.4 ML SYRINGE SQ SCH (05:31)
[2022-04-27] MEDS: 0.9 % Sodium Chloride 1,000 ML IVC SCH (05:35)
[2022-04-27 06:04] LABS: Basophils % 0.2 %; Hematocrit 33.5 % (35.3-44.9); Hemoglobin 10.3 g/dL (11.5-15.4); Immature Granulocytes % 2.6 % (0-4); Lymphocytes # 0.8 K/mcL (0.6-4.6); Lymphocytes % 5.9 %; Mean Corpuscular HGB Conc 30.7 g/dL (31.6-35.5); Mean Corpuscular Hemoglobin 28.2 pg (28.0-33.3); Mean Corpuscular Volume 91.8 fL (83.0-100.0); Mean Platelet Volume 9.6 fL (9.4-12.4); Monocytes # 1.3 K/mcL (0.0-1.3); Neutrophils # 11.6 K/mcL (1.6-8.9); Platelet Count 190 K/mcL (140-400); Red Blood Count 3.65 M/mcL (3.82-4.97); Red Cell Distribution Width 15.7 % (11.5-14.5); Segmented Neutrophils % 82.3 %; White Blood Count 14.1 K/mcL (4.3-11.1)
[2022-04-27 06:33] LABS: Calcium 7.7 mg/dL (8.6-10.3); Magnesium 1.2 mg/dL (1.6-2.6); Phosphorous 2.7 mg/dL (2.7-4.5)
[2022-04-27] MEDS ORDERED: levoFLOXacin 750 MG/150 ML 750 MG/150 ML BAG IVPB SCH ×2 (09:00)
[2022-04-27] MEDS: Divalproex Sodium 125 MG Sprinkle Capsule (DR) PO SCH ×2 (10:10→20:26)
[2022-04-27] MEDS: QUEtiapine Fumarate 300 MG TABLET PO SCH (20:26)
[2022-04-27] MEDS: Mirtazapine 15 MG TABLET PO SCH (20:26)
[2022-04-28] MEDS: 0.9 % Sodium Chloride 1,000 ML IVC SCH ×3 (02:51→20:15)
[2022-04-28 04:39] LABS: CTX-M ESBL Gene Not Detected (Not Detect); Enterococcus faecalis by PCR Not Detected (Not Detect); Enterococcus faecium by PCR Not Detected (Not Detect); IMP Carbapenem-Resist Gene Not Detected (Not Detect); NDM Carbapenem-Resist Gene Not Detected (Not Detect); OXA-48-like Carbap-Resist Gene Not Detected (Not Detect); Staph epidermidis by PCR Not Detected (Not Detect); Staph lugdunensis by PCR Not Detected (Not Detect); Staphylococcus aureus by PCR Not Detected (Not Detect); Staphylococcus by PCR Not Detected (Not Detect); VIM Carbapenem-Resist Gene Not Detected (Not Detect); blaKPC Carbapenem-Resist Gene Not Detected (Not Detect); mcr-1 Colistin-Resist Gene Not Detected (Not Detect)
[2022-04-28 04:40] LABS: A.calcoaceticus-baumannii cplx Not Detected (Not Detect); Bacteroides fragilis by PCR Not Detected (Not Detect); Candida albicans by PCR Not Detected (Not Detect); Candida auris by PCR Not Detected (Not Detect); Candida glabrata by PCR Not Detected (Not Detect); Candida krusei by PCR Not Detected (Not Detect); Candida parapsilosis by PCR Not Detected (Not Detect); Candida tropicalis by PCR Not Detected (Not Detect); Crypto. neoformans/gattii PCR Not Detected (Not Detect); Enterobacter cloacae Cmplx PCR Not Detected (Not Detect); Escherichia coli by PCR DETECTED (Not Detect); Klebs. pneumoniae group by PCR Not Detected (Not Detect); Klebsiella aerogenes by PCR Not Detected (Not Detect); Klebsiella oxytoca by PCR Not Detected (Not Detect); Proteus by PCR Not Detected (Not Detect); Pseudomonas aeruginosa by PCR Not Detected (Not Detect); Salmonella species by PCR Not Detected (Not Detect); Serratia marcescens by PCR Not Detected (Not Detect); Stenotrophomonas maltophilia Not Detected (Not Detect); Streptococcus agalactiae(B)PCR Not Detected (Not Detect); Streptococcus by PCR Not Detected (Not Detect); Streptococcus pneumoniae PCR Not Detected (Not Detect); Streptococcus pyogenes (A) PCR Not Detected (Not Detect)
[2022-04-28] MEDS: *HR* Enoxaparin 40 MG/0.4 ML SYRINGE SQ SCH (05:20)
[2022-04-28 05:39] LABS: Basophils % 0.2 %; Hematocrit 31.2 % (35.3-44.9); Hemoglobin 10.1 g/dL (11.5-15.4); Immature Granulocytes % 1.3 % (0-4); Lymphocytes # 0.7 K/mcL (0.6-4.6); Lymphocytes % 5.4 %; Mean Corpuscular HGB Conc 32.4 g/dL (31.6-35.5); Mean Corpuscular Hemoglobin 28.4 pg (28.0-33.3); Mean Corpuscular Volume 87.6 fL (83.0-100.0); Mean Platelet Volume 9.6 fL (9.4-12.4); Monocytes % 7.5 %; Neutrophils # 11.1 K/mcL (1.6-8.9); Platelet Count 229 K/mcL (140-400); Red Blood Count 3.56 M/mcL (3.82-4.97); Red Cell Distribution Width 15.3 % (11.5-14.5); Segmented Neutrophils % 85.6 %
[2022-04-28 06:50] LABS: BUN/Creatinine Ratio 14 (6-26); Blood Urea Nitrogen 15 mg/dL (8-23); Calcium 6.6 mg/dL (8.6-10.3); Carbon Dioxide 20 mEq/L (23-29); Chloride 101 mEq/L (98-107); Glucose 67 mg/dL (70-105); Magnesium 1.5 mg/dL (1.6-2.6); Osmolality,Calculated 273 (280-300); Phosphorous 2.7 mg/dL (2.7-4.5); Potassium 3.1 mEq/L (3.5-5.1); Sodium 132 mEq/L (136-145); eGFR For African Americans > 60 (> 60); eGFR For Non-African Americans 52 (> 60)
[2022-04-28] MEDS: Divalproex Sodium 125 MG Sprinkle Capsule (DR) PO SCH ×2 (09:38→20:04)
[2022-04-28] MEDS: Ertapenem 1,000 MG in 0.9 % Sodium Chloride Mini Bag 100 ML IVPB SCH (09:38)
[2022-04-28] MEDS: Potassium Chloride Elixir 20 MEQ/15 ML UDC PO SCH ×2 (14:58→18:24)
[2022-04-28] MEDS: QUEtiapine Fumarate 300 MG TABLET PO SCH (20:04)
[2022-04-28] MEDS: Mirtazapine 15 MG TABLET PO SCH (20:05)
[2022-04-29 04:13] LABS: Basophils % 0.4 %; Eosinophils % 0.3 %; Hematocrit 29.1 % (35.3-44.9); Hemoglobin 9.6 g/dL (11.5-15.4); Lymphocytes # 0.7 K/mcL (0.6-4.6); Lymphocytes % 6.9 %; Mean Corpuscular Hemoglobin 28.8 pg (28.0-33.3); Mean Corpuscular Volume 87.4 fL (83.0-100.0); Mean Platelet Volume 9.4 fL (9.4-12.4); Monocytes % 9.7 %; Neutrophils # 8.5 K/mcL (1.6-8.9); Platelet Count 205 K/mcL (140-400); Red Blood Count 3.33 M/mcL (3.82-4.97); Red Cell Distribution Width 15.5 % (11.5-14.5); Segmented Neutrophils % 80.7 %; White Blood Count 10.5 K/mcL (4.3-11.1)
[2022-04-29 04:30] LABS: BUN/Creatinine Ratio 18 (6-26); Blood Urea Nitrogen 16 mg/dL (8-23); Carbon Dioxide 21 mEq/L (23-29); Chloride 105 mEq/L (98-107); Glucose 82 mg/dL (70-105); Magnesium 1.6 mg/dL (1.6-2.6); Osmolality,Calculated 280 (280-300); Phosphorous 2.8 mg/dL (2.7-4.5); Potassium 3.1 mEq/L (3.5-5.1); Sodium 135 mEq/L (136-145); eGFR For African Americans > 60 (> 60); eGFR For Non-African Americans > 60 (> 60)
[2022-04-29] MEDS: *HR* Enoxaparin 40 MG/0.4 ML SYRINGE SQ SCH (04:55)
[2022-04-29] MEDS: Divalproex Sodium 125 MG Sprinkle Capsule (DR) PO SCH ×2 (08:59→20:22)
[2022-04-29] MEDS: Ertapenem 1,000 MG in 0.9 % Sodium Chloride Mini Bag 100 ML IVPB SCH (08:59)
[2022-04-29] MEDS ORDERED: levoFLOXacin 750 MG/150 ML 750 MG/150 ML BAG IVPB SCH (09:00)
[2022-04-29] MEDS: Mirtazapine 15 MG TABLET PO SCH (20:22)
[2022-04-29] MEDS: Furosemide 40 MG/4 ML VIAL IVP SCH (20:22)
[2022-04-29] MEDS: QUEtiapine Fumarate 300 MG TABLET PO SCH (20:22)
[2022-04-29] MEDS: Magnesium Oxide 400 MG TABLET PO SCH (20:22)
[2022-04-29] MEDS: Ipratropium 1 PUFF INHALER IH SCH (22:56)
[2022-04-30] MEDS: Ipratropium 1 PUFF INHALER IH SCH ×4 (03:53→21:43)
[2022-04-30] MEDS: *HR* Enoxaparin 40 MG/0.4 ML SYRINGE SQ SCH (05:14)
[2022-04-30] MEDS ORDERED: Furosemide 20 MG TABLET PO SCH (09:00)
[2022-04-30] MEDS: Furosemide 40 MG/4 ML VIAL IVP SCH (09:05)
[2022-04-30] MEDS: Ertapenem 1,000 MG in 0.9 % Sodium Chloride Mini Bag 100 ML IVPB SCH (09:08)
[2022-04-30] MEDS: Magnesium Oxide 400 MG TABLET PO SCH ×2 (09:09→20:17)
[2022-04-30] MEDS: Loratadine 10 MG TABLET PO SCH (09:09)
[2022-04-30] MEDS: Divalproex Sodium 125 MG Sprinkle Capsule (DR) PO SCH ×2 (09:09→20:18)
[2022-04-30 09:31] LABS: Hematocrit 35.4 % (35.3-44.9); Mean Corpuscular HGB Conc 32.2 g/dL (31.6-35.5); Mean Corpuscular Hemoglobin 28.1 pg (28.0-33.3); Mean Corpuscular Volume 87.4 fL (83.0-100.0); Mean Platelet Volume 9.6 fL (9.4-12.4); Platelet Count 239 K/mcL (140-400); Red Blood Count 4.05 M/mcL (3.82-4.97); Red Cell Distribution Width 15.7 % (11.5-14.5)
[2022-04-30 09:41] LABS: Hemoglobin 11.4 g/dL (11.5-15.4); White Blood Count 4.8 K/mcL (4.3-11.1)
[2022-04-30 10:14] LABS: Alanine Aminotransferase 15 Units/L (7-52); Albumin 2.4 g/dL (3.5-5.7); Albumin/Globulin Ratio 0.8 (1.1-2.2); Alkaline Phosphatase 88 Units/L (34-104); Aspartate Amino Transferase 40 Units/L (13-39); BUN/Creatinine Ratio 19 (6-26); Bilirubin,Direct 0.1 mg/dL (0.0-0.2); Bilirubin,Indirect 0.1 mg/dL (0.0-1.0); Bilirubin,Total 0.2 mg/dL (0.3-1.0); Blood Urea Nitrogen 17 mg/dL (8-23); Calcium 7.7 mg/dL (8.6-10.3); Carbon Dioxide 22 mEq/L (23-29); Chloride 106 mEq/L (98-107); Ferritin 1297 ng/mL (10-120); Globulin 2.9 g/dL (2.4-3.5); Glucose 115 mg/dL (70-105); Magnesium 1.7 mg/dL (1.6-2.6); Osmolality,Calculated 284 (280-300); Potassium 3.9 mEq/L (3.5-5.1); Sodium 136 mEq/L (136-145); Total Protein 5.3 g/dL (6.4-8.9); eGFR For African Americans > 60 (> 60); eGFR For Non-African Americans > 60 (> 60)
[2022-04-30 10:29] LABS: Lymphocytes # 0.3 K/mcL (0.6-4.6); Monocytes # 0.1 K/mcL (0.0-1.3); Neutrophils # 4.3 K/mcL (1.6-8.9); Platelet Estimate Normal (Normal)
[2022-04-30] MEDS: Mirtazapine 15 MG TABLET PO SCH (20:17)
[2022-04-30] MEDS: QUEtiapine Fumarate 300 MG TABLET PO SCH (20:17)
[2022-05-01] MEDS: Ipratropium 1 PUFF INHALER IH SCH ×4 (04:05→22:17)
[2022-05-01 05:56] LABS: Hematocrit 30.5 % (35.3-44.9); Mean Corpuscular HGB Conc 32.8 g/dL (31.6-35.5); Mean Corpuscular Hemoglobin 28.2 pg (28.0-33.3); Mean Corpuscular Volume 86.2 fL (83.0-100.0); Mean Platelet Volume 9.8 fL (9.4-12.4); Monocytes # 0.5 K/mcL (0.0-1.3); Platelet Count 279 K/mcL (140-400); Red Blood Count 3.54 M/mcL (3.82-4.97); Red Cell Distribution Width 15.6 % (11.5-14.5)
[2022-05-01] MEDS: *HR* Enoxaparin 40 MG/0.4 ML SYRINGE SQ SCH (06:15)
[2022-05-01 06:16] LABS: BUN/Creatinine Ratio 22 (6-26); Blood Urea Nitrogen 21 mg/dL (8-23); Calcium 7.5 mg/dL (8.6-10.3); Carbon Dioxide 27 mEq/L (23-29); Chloride 105 mEq/L (98-107); Glucose 93 mg/dL (70-105); Magnesium 1.6 mg/dL (1.6-2.6); Osmolality,Calculated 287 (280-300); Potassium 3.6 mEq/L (3.5-5.1); Sodium 137 mEq/L (136-145); eGFR For African Americans > 60 (> 60); eGFR For Non-African Americans 58 (> 60)
[2022-05-01 06:44] LABS: Hypochromasia Present (Not Present); Platelet Estimate Normal (Normal); Reactive Lymphocytes Present (Not Present)
[2022-05-01 06:46] LABS: Lymphocytes # 2.7 K/mcL (0.6-4.6); Neutrophils # 4.6 K/mcL (1.6-8.9)
[2022-05-01] MEDS: Magnesium Oxide 400 MG TABLET PO SCH ×2 (08:25→21:15)
[2022-05-01] MEDS: Ertapenem 1,000 MG in 0.9 % Sodium Chloride Mini Bag 100 ML IVPB SCH (08:26)
[2022-05-01] MEDS: Loratadine 10 MG TABLET PO SCH (08:26)
[2022-05-01] MEDS: Divalproex Sodium 125 MG Sprinkle Capsule (DR) PO SCH ×2 (08:26→21:14)
[2022-05-01] MEDS: Furosemide 40 MG/4 ML VIAL IVP SCH (08:27)
[2022-05-01] MEDS: Mirtazapine 15 MG TABLET PO SCH (21:15)
[2022-05-01] MEDS: QUEtiapine Fumarate 300 MG TABLET PO SCH (21:16)
[2022-05-02] MEDS: Ipratropium 1 PUFF INHALER IH SCH ×4 (04:06→21:51)
[2022-05-02] MEDS: *HR* Enoxaparin 40 MG/0.4 ML SYRINGE SQ SCH (06:04)
[2022-05-02 09:51] LABS: Hemoglobin 10.4 g/dL (11.5-15.4); Mean Corpuscular HGB Conc 32.5 g/dL (31.6-35.5); Mean Corpuscular Hemoglobin 28.6 pg (28.0-33.3); Mean Corpuscular Volume 87.9 fL (83.0-100.0); Mean Platelet Volume 9.4 fL (9.4-12.4); Platelet Count 299 K/mcL (140-400); Red Blood Count 3.64 M/mcL (3.82-4.97); Red Cell Distribution Width 15.5 % (11.5-14.5); White Blood Count 8.4 K/mcL (4.3-11.1)
[2022-05-02] MEDS: Magnesium Oxide 400 MG TABLET PO SCH ×2 (10:00→20:21)
[2022-05-02] MEDS: Loratadine 10 MG TABLET PO SCH (10:00)
[2022-05-02] MEDS: Divalproex Sodium 125 MG Sprinkle Capsule (DR) PO SCH ×2 (10:00→20:21)
[2022-05-02] MEDS: Ertapenem 1,000 MG in 0.9 % Sodium Chloride Mini Bag 100 ML IVPB SCH (10:01)
[2022-05-02] MEDS: Furosemide 40 MG/4 ML VIAL IVP SCH (10:01)
[2022-05-02 10:24] LABS: BUN/Creatinine Ratio 24 (6-26); Blood Urea Nitrogen 24 mg/dL (8-23); Calcium 7.8 mg/dL (8.6-10.3); Carbon Dioxide 30 mEq/L (23-29); Chloride 102 mEq/L (98-107); Glucose 66 mg/dL (70-105); Magnesium 1.6 mg/dL (1.6-2.6); Osmolality,Calculated 290 (280-300); Potassium 3.5 mEq/L (3.5-5.1); Sodium 139 mEq/L (136-145); eGFR For African Americans > 60 (> 60); eGFR For Non-African Americans 55 (> 60)
[2022-05-02 12:34] LABS: Monocytes # 0.8 K/mcL (0.0-1.3); Platelet Estimate Normal (Normal)
[2022-05-02] MEDS: QUEtiapine Fumarate 300 MG TABLET PO SCH (20:21)
[2022-05-02] MEDS: Mirtazapine 15 MG TABLET PO SCH (20:21)
[2022-05-03] MEDS: Ipratropium 1 PUFF INHALER IH SCH ×4 (03:35→21:50)
[2022-05-03] MEDS: *HR* Enoxaparin 40 MG/0.4 ML SYRINGE SQ SCH (05:48)
[2022-05-03 06:57] LABS: Hematocrit 31.9 % (35.3-44.9); Hemoglobin 10.1 g/dL (11.5-15.4); Mean Corpuscular HGB Conc 31.7 g/dL (31.6-35.5); Mean Corpuscular Volume 88.4 fL (83.0-100.0); Mean Platelet Volume 9.1 fL (9.4-12.4); Platelet Count 323 K/mcL (140-400); Red Blood Count 3.61 M/mcL (3.82-4.97); Red Cell Distribution Width 15.5 % (11.5-14.5); White Blood Count 7.9 K/mcL (4.3-11.1)
[2022-05-03 07:13] LABS: BUN/Creatinine Ratio 24 (6-26); Blood Urea Nitrogen 23 mg/dL (8-23); Calcium 7.6 mg/dL (8.6-10.3); Carbon Dioxide 35 mEq/L (23-29); Chloride 99 mEq/L (98-107); Glucose 71 mg/dL (70-105); Magnesium 1.6 mg/dL (1.6-2.6); Osmolality,Calculated 290 (280-300); Potassium 3.8 mEq/L (3.5-5.1); Sodium 139 mEq/L (136-145); eGFR For African Americans > 60 (> 60); eGFR For Non-African Americans 58 (> 60)
[2022-05-03 08:19] LABS: Lymphocytes # 1.9 K/mcL (0.6-4.6); Monocytes # 0.6 K/mcL (0.0-1.3); Neutrophils # 5.1 K/mcL (1.6-8.9); Platelet Estimate Normal (Normal)
[2022-05-03] MEDS: Divalproex Sodium 125 MG Sprinkle Capsule (DR) PO SCH ×2 (09:59→20:51)
[2022-05-03] MEDS: Loratadine 10 MG TABLET PO SCH (10:01)
[2022-05-03] MEDS: Magnesium Oxide 400 MG TABLET PO SCH ×2 (10:01→20:51)
[2022-05-03] MEDS: Furosemide 40 MG/4 ML VIAL IVP SCH (10:02)
[2022-05-03] MEDS: Meropenem 1,000 MG in 0.9 % Sodium Chloride Mini Bag 100 ML IVPB SCH ×2 (10:03→20:50)
[2022-05-03] MEDS: QUEtiapine Fumarate 300 MG TABLET PO SCH (20:51)
[2022-05-03] MEDS: Mirtazapine 15 MG TABLET PO SCH (20:51)
[2022-05-04] MEDS: Ipratropium 1 PUFF INHALER IH SCH ×4 (03:34→21:00)
[2022-05-04] MEDS: *HR* Enoxaparin 40 MG/0.4 ML SYRINGE SQ SCH (05:35)
[2022-05-04] MEDS: Magnesium Oxide 400 MG TABLET PO SCH ×2 (09:28→20:19)
[2022-05-04] MEDS: Divalproex Sodium 125 MG Sprinkle Capsule (DR) PO SCH ×2 (09:28→20:19)
[2022-05-04] MEDS: Loratadine 10 MG TABLET PO SCH (09:28)
[2022-05-04] MEDS: Furosemide 40 MG/4 ML VIAL IVP SCH (09:29)
[2022-05-04] MEDS: Meropenem 1,000 MG in 0.9 % Sodium Chloride Mini Bag 100 ML IVPB SCH ×2 (09:30→20:20)
[2022-05-04 09:35] LABS: Hematocrit 36.1 % (35.3-44.9); Hemoglobin 11.4 g/dL (11.5-15.4); Mean Corpuscular HGB Conc 31.6 g/dL (31.6-35.5); Mean Corpuscular Hemoglobin 27.9 pg (28.0-33.3); Mean Corpuscular Volume 88.5 fL (83.0-100.0); Platelet Count 385 K/mcL (140-400); Red Blood Count 4.08 M/mcL (3.82-4.97); Red Cell Distribution Width 15.5 % (11.5-14.5); White Blood Count 10.8 K/mcL (4.3-11.1)
[2022-05-04 09:54] LABS: Alanine Aminotransferase 13 Units/L (7-52); Albumin 2.6 g/dL (3.5-5.7); Albumin/Globulin Ratio 0.9 (1.1-2.2); Alkaline Phosphatase 101 Units/L (34-104); Aspartate Amino Transferase 33 Units/L (13-39); BUN/Creatinine Ratio 19 (6-26); Bilirubin,Direct 0.1 mg/dL (0.0-0.2); Bilirubin,Indirect 0.2 mg/dL (0.0-1.0); Bilirubin,Total 0.3 mg/dL (0.3-1.0); Blood Urea Nitrogen 20 mg/dL (8-23); Calcium 7.9 mg/dL (8.6-10.3); Carbon Dioxide 35 mEq/L (23-29); Chloride 97 mEq/L (98-107); Globulin 2.9 g/dL (2.4-3.5); Glucose 80 mg/dL (70-105); Magnesium 1.8 mg/dL (1.6-2.6); Osmolality,Calculated 288 (280-300); Potassium 3.2 mEq/L (3.5-5.1); Sodium 138 mEq/L (136-145); Total Protein 5.5 g/dL (6.4-8.9); eGFR For African Americans > 60 (> 60); eGFR For Non-African Americans 54 (> 60)
[2022-05-04 10:14] LABS: ABG Base Excess 9 mEq/L (-2 to 3); ABG HCO3 33 mEq/L (21-27); ABG Oxygen Saturation 89 % (95-98); ABG PCO2 41 mmHg (35-45); ABG PH 7.51 pH Units (7.32-7.45); ABG PO2 51 mmHg (85-104); ABG TCO2 34 mEq/L (20-26)
[2022-05-04 10:18] LABS: Lymphocytes # 1.3 K/mcL (0.6-4.6); Monocytes # 0.2 K/mcL (0.0-1.3); Neutrophils # 8.9 K/mcL (1.6-8.9); Platelet Estimate Normal (Normal); Reactive Lymphocytes Present (Not Present); Smudge Cells Present (Not Present)
[2022-05-04 10:19] LABS: Anisocytosis 1+ (Not Present); Poikilocytosis 1+ (Not Present)
[2022-05-04 10:23] LABS: Platelet Clumps Few (Not Present)
[2022-05-04 10:43] LABS: VBG HCO3 32 mEq/L (21-27); VBG PCO2 51 mmHg (41-51); VBG PO2 65 mmHg (25-50)
[2022-05-04] MEDS: QUEtiapine Fumarate 300 MG TABLET PO SCH (20:19)
[2022-05-04] MEDS: Mirtazapine 15 MG TABLET PO SCH (20:19)
[2022-05-05] MEDS: Ipratropium 1 PUFF INHALER IH SCH ×4 (04:36→20:41)
[2022-05-05 06:29] LABS: Basophils # 0.1 K/mcL (0.0-0.2); Basophils % 0.9 %; Eosinophils # 0.1 K/mcL (0.0-0.6); Eosinophils % 1.2 %; Hemoglobin 10.3 g/dL (11.5-15.4); Immature Granulocytes % 4.6 % (0-4); Lymphocytes # 2.8 K/mcL (0.6-4.6); Lymphocytes % 35.9 %; Mean Corpuscular HGB Conc 32.2 g/dL (31.6-35.5); Mean Corpuscular Hemoglobin 28.6 pg (28.0-33.3); Mean Corpuscular Volume 88.9 fL (83.0-100.0); Mean Platelet Volume 9.1 fL (9.4-12.4); Monocytes # 0.5 K/mcL (0.0-1.3); Monocytes % 6.2 %; Platelet Count 386 K/mcL (140-400); Red Cell Distribution Width 15.5 % (11.5-14.5); Segmented Neutrophils % 51.2 %; White Blood Count 7.8 K/mcL (4.3-11.1)
[2022-05-05] MEDS: *HR* Enoxaparin 40 MG/0.4 ML SYRINGE SQ SCH (06:54)
[2022-05-05 06:56] LABS: BUN/Creatinine Ratio 20 (6-26); Blood Urea Nitrogen 19 mg/dL (8-23); Calcium 7.8 mg/dL (8.6-10.3); Carbon Dioxide 37 mEq/L (23-29); Chloride 96 mEq/L (98-107); Glucose 77 mg/dL (70-105); Magnesium 1.9 mg/dL (1.6-2.6); Osmolality,Calculated 287 (280-300); Potassium 3.3 mEq/L (3.5-5.1); Sodium 138 mEq/L (136-145); eGFR For African Americans > 60 (> 60); eGFR For Non-African Americans 60 (> 60)
[2022-05-05] MEDS: Divalproex Sodium 125 MG Sprinkle Capsule (DR) PO SCH ×2 (08:50→20:49)
[2022-05-05] MEDS: Magnesium Oxide 400 MG TABLET PO SCH ×2 (08:50→20:50)
[2022-05-05] MEDS: Meropenem 1,000 MG in 0.9 % Sodium Chloride Mini Bag 100 ML IVPB SCH ×2 (08:50→20:47)
[2022-05-05] MEDS: Loratadine 10 MG TABLET PO SCH (08:51)
[2022-05-05 10:04] LABS: C-Reactive Protein 28 mg/L (Less than 10)
[2022-05-05] MEDS: QUEtiapine Fumarate 300 MG TABLET PO SCH (20:49)
[2022-05-05] MEDS: Mirtazapine 15 MG TABLET PO SCH (20:49)
[2022-05-06] MEDS: Ipratropium 1 PUFF INHALER IH SCH ×4 (04:08→22:12)
[2022-05-06] MEDS: *HR* Enoxaparin 40 MG/0.4 ML SYRINGE SQ SCH (05:44)
[2022-05-06 05:55] LABS: Basophils # 0.1 K/mcL (0.0-0.2); Basophils % 0.8 %; Eosinophils # 0.2 K/mcL (0.0-0.6); Eosinophils % 1.7 %; Hematocrit 32.1 % (35.3-44.9); Hemoglobin 10.4 g/dL (11.5-15.4); Lymphocytes # 2.8 K/mcL (0.6-4.6); Lymphocytes % 31.9 %; Mean Corpuscular HGB Conc 32.4 g/dL (31.6-35.5); Mean Corpuscular Hemoglobin 28.7 pg (28.0-33.3); Mean Corpuscular Volume 88.7 fL (83.0-100.0); Monocytes # 0.6 K/mcL (0.0-1.3); Monocytes % 6.6 %; Neutrophils # 4.8 K/mcL (1.6-8.9); Platelet Count 398 K/mcL (140-400); Red Blood Count 3.62 M/mcL (3.82-4.97); Red Cell Distribution Width 15.6 % (11.5-14.5); White Blood Count 8.7 K/mcL (4.3-11.1)
[2022-05-06 06:11] LABS: BUN/Creatinine Ratio 17 (6-26); Blood Urea Nitrogen 17 mg/dL (8-23); Calcium 7.8 mg/dL (8.6-10.3); Carbon Dioxide 36 mEq/L (23-29); Chloride 97 mEq/L (98-107); Glucose 74 mg/dL (70-105); Osmolality,Calculated 286 (280-300); Potassium 3.2 mEq/L (3.5-5.1); Sodium 138 mEq/L (136-145); eGFR For African Americans > 60 (> 60); eGFR For Non-African Americans 56 (> 60)
[2022-05-06] MEDS ORDERED: Potassium Effervescent 25 MEQ TABLET.EFF PO ONE (08:07)
[2022-05-06 08:41] LABS: C-Reactive Protein 20 mg/L (Less than 10)
[2022-05-06] MEDS: Divalproex Sodium 125 MG Sprinkle Capsule (DR) PO SCH ×2 (08:52→21:47)
[2022-05-06] MEDS: Magnesium Oxide 400 MG TABLET PO SCH ×2 (08:53→21:47)
[2022-05-06] MEDS: Meropenem 1,000 MG in 0.9 % Sodium Chloride Mini Bag 100 ML IVPB SCH ×2 (08:53→21:45)
[2022-05-06] MEDS: Loratadine 10 MG TABLET PO SCH (08:53)
[2022-05-06] MEDS: Mirtazapine 15 MG TABLET PO SCH (21:47)
[2022-05-06] MEDS: QUEtiapine Fumarate 300 MG TABLET PO SCH (21:50)
[2022-05-07] MEDS: Ipratropium 1 PUFF INHALER IH SCH ×4 (03:14→22:33)
[2022-05-07] MEDS: *HR* Enoxaparin 40 MG/0.4 ML SYRINGE SQ SCH (03:57)
[2022-05-07 07:40] LABS: Basophils # 0.1 K/mcL (0.0-0.2); Basophils % 0.7 %; Eosinophils # 0.1 K/mcL (0.0-0.6); Eosinophils % 0.9 %; Hematocrit 33.9 % (35.3-44.9); Hemoglobin 10.7 g/dL (11.5-15.4); Immature Granulocytes % 2.4 % (0-4); Lymphocytes # 3.4 K/mcL (0.6-4.6); Lymphocytes % 33.3 %; Mean Corpuscular HGB Conc 31.6 g/dL (31.6-35.5); Mean Corpuscular Hemoglobin 28.3 pg (28.0-33.3); Mean Corpuscular Volume 89.7 fL (83.0-100.0); Mean Platelet Volume 9.4 fL (9.4-12.4); Monocytes # 0.5 K/mcL (0.0-1.3); Monocytes % 5.2 %; Neutrophils # 5.9 K/mcL (1.6-8.9); Platelet Count 448 K/mcL (140-400); Red Blood Count 3.78 M/mcL (3.82-4.97); Red Cell Distribution Width 15.9 % (11.5-14.5); Segmented Neutrophils % 57.5 %; White Blood Count 10.3 K/mcL (4.3-11.1)
[2022-05-07] MEDS: Magnesium Oxide 400 MG TABLET PO SCH ×2 (09:47→20:46)
[2022-05-07] MEDS: Divalproex Sodium 125 MG Sprinkle Capsule (DR) PO SCH ×2 (09:48→20:50)
[2022-05-07] MEDS: Loratadine 10 MG TABLET PO SCH (09:48)
[2022-05-07] MEDS: Meropenem 1,000 MG in 0.9 % Sodium Chloride Mini Bag 100 ML IVPB SCH ×2 (09:49→20:51)
[2022-05-07 10:38] LABS: BUN/Creatinine Ratio 14 (6-26); Blood Urea Nitrogen 15 mg/dL (8-23); C-Reactive Protein 18 mg/L (Less than 10); Calcium 8.1 mg/dL (8.6-10.3); Carbon Dioxide 35 mEq/L (23-29); Chloride 96 mEq/L (98-107); Glucose 68 mg/dL (70-105); Osmolality,Calculated 281 (280-300); Potassium 4.3 mEq/L (3.5-5.1); Sodium 136 mEq/L (136-145); eGFR For African Americans > 60 (> 60); eGFR For Non-African Americans 53 (> 60)
[2022-05-07] MEDS: QUEtiapine Fumarate 300 MG TABLET PO SCH (20:37)
[2022-05-07] MEDS: Mirtazapine 15 MG TABLET PO SCH (20:39)
[2022-05-08] MEDS: Ipratropium 1 PUFF INHALER IH SCH ×3 (04:01→15:55)
[2022-05-08 05:09] LABS: Basophils # 0.1 K/mcL (0.0-0.2); Basophils % 0.6 %; Eosinophils % 0.5 %; Hematocrit 33.5 % (35.3-44.9); Hemoglobin 10.6 g/dL (11.5-15.4); Immature Granulocytes % 2.2 % (0-4); Lymphocytes # 2.9 K/mcL (0.6-4.6); Lymphocytes % 35.1 %; Mean Corpuscular HGB Conc 31.6 g/dL (31.6-35.5); Mean Corpuscular Hemoglobin 28.3 pg (28.0-33.3); Mean Corpuscular Volume 89.6 fL (83.0-100.0); Mean Platelet Volume 9.1 fL (9.4-12.4); Monocytes # 0.4 K/mcL (0.0-1.3); Monocytes % 5.1 %; Neutrophils # 4.7 K/mcL (1.6-8.9); Platelet Count 428 K/mcL (140-400); Red Blood Count 3.74 M/mcL (3.82-4.97); Red Cell Distribution Width 15.7 % (11.5-14.5); Segmented Neutrophils % 56.5 %; White Blood Count 8.2 K/mcL (4.3-11.1)
[2022-05-08 05:26] LABS: BUN/Creatinine Ratio 16 (6-26); Blood Urea Nitrogen 14 mg/dL (8-23); C-Reactive Protein 14 mg/L (Less than 10); Calcium 8.3 mg/dL (8.6-10.3); Carbon Dioxide 34 mEq/L (23-29); Chloride 96 mEq/L (98-107); Glucose 80 mg/dL (70-105); Osmolality,Calculated 277 (280-300); Potassium 4.1 mEq/L (3.5-5.1); Sodium 134 mEq/L (136-145); eGFR For African Americans > 60 (> 60); eGFR For Non-African Americans > 60 (> 60)
[2022-05-08] MEDS: *HR* Enoxaparin 40 MG/0.4 ML SYRINGE SQ SCH (05:59)
[2022-05-08 07:11] VITALS: BP 126/99; PULSE 72; TEMP 97.7
[2022-05-08] MEDS: Magnesium Oxide 400 MG TABLET PO SCH (09:56)
[2022-05-08] MEDS: Loratadine 10 MG TABLET PO SCH (09:56)
[2022-05-08] MEDS: Divalproex Sodium 125 MG Sprinkle Capsule (DR) PO SCH (09:57)
[2022-05-08] MEDS: Meropenem 1,000 MG in 0.9 % Sodium Chloride Mini Bag 100 ML IVPB SCH (09:58)
[2022-05-08 16:10] VITALS: O2SAT 95
== END 2022-05-08 17:05 | disposition home health service (06) | DRG 871 ==
LOC: 3NENU → SUATTDRO 04-26 15:38
PROVIDERS: ADMIT Internal Medicine; ATTEND Hospitalist

== ENCOUNTER 2022-07-05 08:08 | Inpatient (IN) ==
[2022-07-05] MEDS ORDERED: Sulfamethoxazole/Trimeth DS 1 EACH TABLET PO ONE (08:21)
[2022-07-05 08:47] LABS: Basophils # 0.1 K/mcL (0.0-0.2); Basophils % 1.2 %; Eosinophils # 0.1 K/mcL (0.0-0.6); Eosinophils % 1.1 %; Hematocrit 33.3 % (35.3-44.9); Hemoglobin 10.8 g/dL (11.5-15.4); Immature Granulocytes % 1.2 % (0-4); Lymphocytes # 1.4 K/mcL (0.6-4.6); Lymphocytes % 15.5 %; Mean Corpuscular HGB Conc 32.4 g/dL (31.6-35.5); Mean Corpuscular Hemoglobin 29.8 pg (28.0-33.3); Mean Platelet Volume 8.3 fL (9.4-12.4); Monocytes # 0.7 K/mcL (0.0-1.3); Neutrophils # 6.5 K/mcL (1.6-8.9); Platelet Count 445 K/mcL (140-400); Red Blood Count 3.62 M/mcL (3.82-4.97); Red Cell Distribution Width 15.6 % (11.5-14.5); White Blood Count 8.9 K/mcL (4.3-11.1)
[2022-07-05 09:06] LABS: Bacteria,Urine Few per hpf (None-Few); Bilirubin,Urine Negative (Negative); Blood,Urine Negative (Negative); Clarity,Urine Turbid (Clear); Color,Urine Yellow (Yellow); Glucose,Urine (UA) Normal (Normal); Ketones,Urine Negative (Negative); Leukocyte Esterase,Urine Large (Negative); Nitrite,Urine Negative (Negative); PH,Urine 6.5 pH Units (5.0-8.0); Protein,Urine Trace mg/dL (Neg-Trace); RBC,Urine 15-30 per hpf (0-3); Specific Gravity,Urine 1.015 (1.010-1.025); Squamous Epithelial Cell,Urine Few per hpf (None-Few); Urobilinogen,Urine Normal (Normal); WBC,Urine TNTC per hpf (0-3)
[2022-07-05 09:06] LABS: Acetaminophen < 10 mcg/mL (10-20); BUN/Creatinine Ratio 11 (6-26); Blood Urea Nitrogen 12 mg/dL (8-23); Calcium 8.5 mg/dL (8.6-10.3); Carbon Dioxide 31 mEq/L (23-29); Chloride 97 mEq/L (98-107); Chol/HDL Ratio 2.9 (0-4.9); Cholesterol 123 mg/dL (< 200); Ethanol < 10 mg/dL (Less than 10); Glucose 95 mg/dL (70-105); HDL Cholesterol 42 mg/dL (40-59); LDL Cholesterol,Calculated 58 mg/dL (< 100); Osmolality,Calculated 282 (280-300); Potassium 3.5 mEq/L (3.5-5.1); Salicylate < 2.5 mg/dL (15.0-30.0); Sodium 136 mEq/L (136-145); Triglycerides 114 mg/dL (< 150)
[2022-07-05 10:12] LABS: Amphetamine Screen,Urine Negative ng/mL (Cutoff=1000); Barbiturate Screen,Urine Negative ng/mL (Cutoff=200); Benzodiazepines Screen,Urine Negative ng/mL (Cutoff=200); Cannabinoid Screen,Urine Negative ng/mL (Cutoff = 50); Cocaine Screen,Urine Negative ng/mL (Cutoff= 300); Opiate Screen,Urine Negative ng/mL (Cutoff=300); Phencyclidine Screen,Urine Negative ng/mL (Cutoff=25)
[2022-07-05 11:51] LABS: Estimated Average Glucose 103 mg/dl; Hemoglobin A1C 5.2 %
[2022-07-05] MEDS ORDERED: Haloperidol Oral Conc 10 MG/5 ML UDC PO PRN (14:41)
[2022-07-05] MEDS ORDERED: Ertapenem 1,000 MG in 0.9 % Sodium Chloride Mini Bag 100 ML IVPB SCH (15:00)
[2022-07-05] MEDS ORDERED: Iopamidol - 370 500 ML MLS IVP ONE (16:27)
[2022-07-05] MEDS ORDERED: Naloxone 0.4 MG/ML INJ IVP PRN (18:13)
[2022-07-06 03:57] LABS: Basophils # 0.1 K/mcL (0.0-0.2); Basophils % 0.8 %; Eosinophils # 0.1 K/mcL (0.0-0.6); Eosinophils % 0.8 %; Hematocrit 34.3 % (35.3-44.9); Hemoglobin 11.3 g/dL (11.5-15.4); Immature Granulocytes % 0.5 % (0-4); Lymphocytes # 1.9 K/mcL (0.6-4.6); Lymphocytes % 24.5 %; Mean Corpuscular HGB Conc 32.9 g/dL (31.6-35.5); Mean Corpuscular Hemoglobin 29.4 pg (28.0-33.3); Mean Corpuscular Volume 89.3 fL (83.0-100.0); Mean Platelet Volume 8.4 fL (9.4-12.4); Monocytes # 0.6 K/mcL (0.0-1.3); Monocytes % 7.7 %; Neutrophils # 5.1 K/mcL (1.6-8.9); Platelet Count 496 K/mcL (140-400); Red Blood Count 3.84 M/mcL (3.82-4.97); Red Cell Distribution Width 15.7 % (11.5-14.5); Segmented Neutrophils % 65.7 %; White Blood Count 7.7 K/mcL (4.3-11.1)
[2022-07-06 04:14] LABS: Calcium 8.5 mg/dL (8.6-10.3); Potassium 3.8 mEq/L (3.5-5.1)
[2022-07-06] MEDS ORDERED: Ipratropium/Albuterol Neb 3 ML IH PRN (09:46)
[2022-07-06] MEDS ORDERED: *HR* Labetalol 20 MG/4 ML SYRINGE IVP ONE (11:15)
[2022-07-06] MEDS ORDERED: SODIUM CHLORIDE 0.9% IVPB ONE (11:30)
[2022-07-06] MEDS ORDERED: MICRON FILTER SET IVPB ONE (11:30)
[2022-07-06] MEDS ORDERED: PHENYTOIN IVPB ONE (11:30)
[2022-07-06] MEDS ORDERED: Ertapenem 1,000 MG in 0.9 % Sodium Chloride Mini Bag 100 ML IVPB SCH (17:00)
[2022-07-06] MEDS ORDERED: cefTRIAXone 1,000 MG in 0.9 % Sodium Chloride 10 ML IVP SCH (17:00)
[2022-07-06] MEDS: Valproic Acid INJ 125 MG in 0.9 % Sodium Chloride 100 ML IVPB SCH ×2 (17:03→17:59)
[2022-07-06] MEDS: Zinc Sulfate 220 MG CAPSULE PO SCH ×3 (17:22→20:34)
[2022-07-06] MEDS: Aztreonam 500 MG in 0.9 % Sodium Chloride 50 ML IVPB SCH (17:22)
[2022-07-06] MEDS: *HR* Heparin 5,000 UNIT/ML VIAL SQ SCH (17:22)
[2022-07-06] MEDS: Magnesium Oxide 400 MG TABLET PO SCH ×2 (20:30→20:34)
[2022-07-07] MEDS: Aztreonam 500 MG in 0.9 % Sodium Chloride 50 ML IVPB SCH ×3 (00:03→17:34)
[2022-07-07] MEDS: Valproic Acid INJ 125 MG in 0.9 % Sodium Chloride 100 ML IVPB SCH ×2 (00:35→06:17)
[2022-07-07] MEDS: *HR* Heparin 5,000 UNIT/ML VIAL SQ SCH ×2 (06:20→17:34)
[2022-07-07] MEDS: Furosemide 20 MG TABLET PO SCH (09:00)
[2022-07-07] MEDS ORDERED: Divalproex (24 HR) 500 MG TABLET PO SCH (09:00)
[2022-07-07] MEDS: Zinc Sulfate 220 MG CAPSULE PO SCH ×3 (09:01→20:11)
[2022-07-07] MEDS: Magnesium Oxide 400 MG TABLET PO SCH ×2 (09:01→20:11)
[2022-07-07] MEDS: Divalproex (12 HR) 500 MG TABLET PO SCH (20:10)
[2022-07-07] MEDS ORDERED: Mirtazapine 15 MG TABLET PO SCH (21:00)
[2022-07-08] MEDS: Aztreonam 500 MG in 0.9 % Sodium Chloride 50 ML IVPB SCH ×3 (01:56→15:18)
[2022-07-08] MEDS: *HR* Heparin 5,000 UNIT/ML VIAL SQ SCH (04:58)
[2022-07-08 05:09] LABS: Basophils # 0.2 K/mcL (0.0-0.2); Basophils % 2.4 %; Eosinophils # 0.3 K/mcL (0.0-0.6); Eosinophils % 3.2 %; Hematocrit 34.6 % (35.3-44.9); Hemoglobin 11.1 g/dL (11.5-15.4); Immature Granulocytes % 0.8 % (0-4); Lymphocytes # 3.7 K/mcL (0.6-4.6); Lymphocytes % 43.1 %; Mean Corpuscular HGB Conc 32.1 g/dL (31.6-35.5); Mean Corpuscular Hemoglobin 29.8 pg (28.0-33.3); Mean Platelet Volume 8.5 fL (9.4-12.4); Monocytes # 0.7 K/mcL (0.0-1.3); Monocytes % 8.1 %; Neutrophils # 3.6 K/mcL (1.6-8.9); Platelet Count 413 K/mcL (140-400); Red Blood Count 3.72 M/mcL (3.82-4.97); Red Cell Distribution Width 15.5 % (11.5-14.5); Segmented Neutrophils % 42.4 %; White Blood Count 8.5 K/mcL (4.3-11.1)
[2022-07-08 05:30] LABS: Calcium 8.4 mg/dL (8.6-10.3); Potassium 4.9 mEq/L (3.5-5.1)
[2022-07-08] MEDS: Furosemide 20 MG TABLET PO SCH (08:52)
[2022-07-08] MEDS: Divalproex (12 HR) 500 MG TABLET PO SCH ×2 (08:52→21:39)
[2022-07-08] MEDS: Magnesium Oxide 400 MG TABLET PO SCH ×2 (08:53→21:40)
[2022-07-08] MEDS: Zinc Sulfate 220 MG CAPSULE PO SCH ×3 (08:53→21:39)
[2022-07-08] MEDS ORDERED: *HR* Enoxaparin 40 MG/0.4 ML SYRINGE SQ SCH (11:20)
[2022-07-09] MEDS: Aztreonam 500 MG in 0.9 % Sodium Chloride 50 ML IVPB SCH ×3 (00:32→15:22)
[2022-07-09 01:40] LABS: Hematocrit 32.3 % (35.3-44.9); Hemoglobin 10.2 g/dL (11.5-15.4); Mean Corpuscular HGB Conc 31.6 g/dL (31.6-35.5); Mean Corpuscular Hemoglobin 29.1 pg (28.0-33.3); Mean Platelet Volume 8.7 fL (9.4-12.4); Platelet Count 387 K/mcL (140-400); Red Blood Count 3.51 M/mcL (3.82-4.97); Red Cell Distribution Width 15.2 % (11.5-14.5); White Blood Count 8.3 K/mcL (4.3-11.1)
[2022-07-09 02:07] LABS: Calcium 8.1 mg/dL (8.6-10.3)
[2022-07-09 02:31] LABS: Valproate Free <7 ug/mL (7-23)
[2022-07-09 04:39] LABS: Valproate Total <7 ug/mL (50-125)
[2022-07-09] MEDS: *HR* Enoxaparin 30 MG/0.3 ML SYRINGE SQ SCH (05:10)
[2022-07-09] MEDS: Divalproex (12 HR) 500 MG TABLET PO SCH ×2 (07:43→20:20)
[2022-07-09] MEDS: Magnesium Oxide 400 MG TABLET PO SCH (07:43)
[2022-07-09] MEDS: Zinc Sulfate 220 MG CAPSULE PO SCH ×3 (07:43→20:42)
[2022-07-09] MEDS ORDERED: Furosemide 20 MG TABLET PO PRN (10:52)
[2022-07-09] MEDS: amLODIPine 5 MG TABLET PO SCH (12:11)
[2022-07-10] MEDS: Aztreonam 500 MG in 0.9 % Sodium Chloride 50 ML IVPB SCH ×3 (02:28→16:52)
[2022-07-10] MEDS: Magnesium Oxide 400 MG TABLET PO SCH ×3 (02:28→21:58)
[2022-07-10 03:40] LABS: Hematocrit 31.5 % (35.3-44.9); Hemoglobin 10.4 g/dL (11.5-15.4); Mean Corpuscular Hemoglobin 29.7 pg (28.0-33.3); Mean Platelet Volume 8.8 fL (9.4-12.4); Platelet Count 354 K/mcL (140-400); White Blood Count 6.7 K/mcL (4.3-11.1)
[2022-07-10 03:56] LABS: Calcium 8.2 mg/dL (8.6-10.3)
[2022-07-10] MEDS: *HR* Enoxaparin 30 MG/0.3 ML SYRINGE SQ SCH (06:00)
[2022-07-10] MEDS: Divalproex (12 HR) 500 MG TABLET PO SCH ×2 (08:35→21:58)
[2022-07-10] MEDS: amLODIPine 5 MG TABLET PO SCH (08:35)
[2022-07-10] MEDS: Zinc Sulfate 220 MG CAPSULE PO SCH ×3 (08:35→21:58)
[2022-07-11] MEDS ORDERED: *HR* Enoxaparin 40 MG/0.4 ML SYRINGE SQ SCH (06:00)
[2022-07-11 06:03] LABS: BUN/Creatinine Ratio 19 (6-26); Blood Urea Nitrogen 13 mg/dL (8-23); Calcium 8.5 mg/dL (8.6-10.3); Carbon Dioxide 24 mEq/L (23-29); Chloride 95 mEq/L (98-107); Glucose 83 mg/dL (70-105); Osmolality,Calculated 257 (280-300); Potassium 4.2 mEq/L (3.5-5.1); Sodium 124 mEq/L (136-145)
[2022-07-11] MEDS: *HR* Enoxaparin 30 MG/0.3 ML SYRINGE SQ SCH (06:49)
[2022-07-11] MEDS: Aztreonam 500 MG in 0.9 % Sodium Chloride 50 ML IVPB SCH ×3 (06:58→14:40)
[2022-07-11] MEDS: Magnesium Oxide 400 MG TABLET PO SCH ×2 (07:56→20:41)
[2022-07-11] MEDS: Zinc Sulfate 220 MG CAPSULE PO SCH ×3 (07:56→20:41)
[2022-07-11] MEDS: amLODIPine 5 MG TABLET PO SCH (07:57)
[2022-07-11] MEDS: Divalproex (12 HR) 500 MG TABLET PO SCH ×2 (07:57→20:41)
[2022-07-11] MEDS: 0.9 % Sodium Chloride 1,000 ML IVC SCH (20:41)
[2022-07-12] MEDS: *HR* Enoxaparin 30 MG/0.3 ML SYRINGE SQ SCH (05:22)
[2022-07-12] MEDS: 0.9 % Sodium Chloride 1,000 ML IVC SCH (05:23)
[2022-07-12] MEDS: Divalproex (12 HR) 500 MG TABLET PO SCH ×2 (08:35→21:01)
[2022-07-12] MEDS: amLODIPine 5 MG TABLET PO SCH (08:35)
[2022-07-12] MEDS: Magnesium Oxide 400 MG TABLET PO SCH ×2 (08:35→21:01)
[2022-07-12] MEDS: Zinc Sulfate 220 MG CAPSULE PO SCH ×3 (08:35→21:01)
[2022-07-12 11:18] LABS: Hemoglobin 10.9 g/dL (11.5-15.4); Mean Corpuscular Hemoglobin 29.7 pg (28.0-33.3); Mean Corpuscular Volume 89.9 fL (83.0-100.0); Mean Platelet Volume 8.9 fL (9.4-12.4); Platelet Count 302 K/mcL (140-400); Red Blood Count 3.67 M/mcL (3.82-4.97); Red Cell Distribution Width 14.7 % (11.5-14.5); White Blood Count 5.7 K/mcL (4.3-11.1)
[2022-07-12 11:38] LABS: BUN/Creatinine Ratio 24 (6-26); Blood Urea Nitrogen 15 mg/dL (8-23); Calcium 8.3 mg/dL (8.6-10.3); Carbon Dioxide 25 mEq/L (23-29); Chloride 96 mEq/L (98-107); Glucose 108 mg/dL (70-105); Osmolality,Calculated 263 (280-300); Potassium 3.9 mEq/L (3.5-5.1); Sodium 126 mEq/L (136-145)
[2022-07-13] MEDS: 0.9 % Sodium Chloride 1,000 ML IVC SCH ×2 (02:59→14:59)
[2022-07-13] MEDS: *HR* Enoxaparin 30 MG/0.3 ML SYRINGE SQ SCH (05:58)
[2022-07-13 07:03] LABS: Hematocrit 32.2 % (35.3-44.9); Hemoglobin 10.7 g/dL (11.5-15.4); Mean Corpuscular HGB Conc 33.2 g/dL (31.6-35.5); Mean Corpuscular Hemoglobin 30.1 pg (28.0-33.3); Mean Corpuscular Volume 90.7 fL (83.0-100.0); Mean Platelet Volume 9.1 fL (9.4-12.4); Platelet Count 309 K/mcL (140-400); Red Blood Count 3.55 M/mcL (3.82-4.97); Red Cell Distribution Width 14.9 % (11.5-14.5); White Blood Count 5.1 K/mcL (4.3-11.1)
[2022-07-13 07:43] LABS: Calcium 8.5 mg/dL (8.6-10.3); Potassium 4.2 mEq/L (3.5-5.1)
[2022-07-13] MEDS: Magnesium Oxide 400 MG TABLET PO SCH ×2 (09:06→20:53)
[2022-07-13] MEDS: Divalproex (12 HR) 500 MG TABLET PO SCH ×2 (09:06→20:53)
[2022-07-13] MEDS: Zinc Sulfate 220 MG CAPSULE PO SCH ×3 (09:07→20:53)
[2022-07-13] MEDS: amLODIPine 5 MG TABLET PO SCH (10:07)
[2022-07-14 05:53] LABS: Calcium 8.8 mg/dL (8.6-10.3); Potassium 4.2 mEq/L (3.5-5.1)
[2022-07-14] MEDS: *HR* Enoxaparin 30 MG/0.3 ML SYRINGE SQ SCH (07:04)
[2022-07-14] MEDS: Magnesium Oxide 400 MG TABLET PO SCH ×2 (09:08→21:25)
[2022-07-14] MEDS: Divalproex (12 HR) 500 MG TABLET PO SCH ×2 (09:08→21:25)
[2022-07-14] MEDS: amLODIPine 5 MG TABLET PO SCH (09:08)
[2022-07-14] MEDS: Zinc Sulfate 220 MG CAPSULE PO SCH ×3 (09:08→21:25)
[2022-07-15 02:45] LABS: Calcium 8.8 mg/dL (8.6-10.3); Potassium 4.4 mEq/L (3.5-5.1)
[2022-07-15] MEDS: *HR* Enoxaparin 30 MG/0.3 ML SYRINGE SQ SCH (05:34)
[2022-07-15] MEDS: Divalproex (12 HR) 500 MG TABLET PO SCH ×2 (08:52→19:39)
[2022-07-15] MEDS: amLODIPine 5 MG TABLET PO SCH (08:53)
[2022-07-15] MEDS: Magnesium Oxide 400 MG TABLET PO SCH ×2 (08:53→19:40)
[2022-07-15] MEDS: Zinc Sulfate 220 MG CAPSULE PO SCH ×3 (08:53→19:40)
[2022-07-15] MEDS: Melatonin 3 MG TABLET PO PRN (19:49)
[2022-07-15] MEDS ORDERED: QUEtiapine Fumarate 100 MG TABLET PO ONE (22:49)
[2022-07-16] MEDS: *HR* Enoxaparin 30 MG/0.3 ML SYRINGE SQ SCH (05:24)
[2022-07-16] MEDS: Divalproex (12 HR) 500 MG TABLET PO SCH ×2 (08:41→20:00)
[2022-07-16] MEDS: Magnesium Oxide 400 MG TABLET PO SCH ×2 (08:41→20:00)
[2022-07-16] MEDS: Zinc Sulfate 220 MG CAPSULE PO SCH ×3 (08:41→20:00)
[2022-07-16] MEDS: amLODIPine 5 MG TABLET PO SCH (08:41)
[2022-07-17] MEDS: *HR* Enoxaparin 30 MG/0.3 ML SYRINGE SQ SCH (06:07)
[2022-07-17 06:20] LABS: Calcium 8.4 mg/dL (8.6-10.3); Potassium 4.2 mEq/L (3.5-5.1)
[2022-07-17] MEDS: Magnesium Oxide 400 MG TABLET PO SCH ×2 (10:16→21:58)
[2022-07-17] MEDS: Divalproex (12 HR) 500 MG TABLET PO SCH ×2 (10:16→21:58)
[2022-07-17] MEDS: amLODIPine 5 MG TABLET PO SCH (10:16)
[2022-07-17] MEDS: Zinc Sulfate 220 MG CAPSULE PO SCH ×3 (10:16→21:58)
[2022-07-17] MEDS: Melatonin 3 MG TABLET PO PRN (22:02)
[2022-07-18] MEDS: *HR* Enoxaparin 30 MG/0.3 ML SYRINGE SQ SCH (05:09)
[2022-07-18] MEDS: Zinc Sulfate 220 MG CAPSULE PO SCH (07:44)
[2022-07-18] MEDS: Magnesium Oxide 400 MG TABLET PO SCH (07:44)
[2022-07-18] MEDS: Divalproex (12 HR) 500 MG TABLET PO SCH (07:44)
[2022-07-18] MEDS: amLODIPine 5 MG TABLET PO SCH (07:44)
[2022-07-18 11:37] VITALS: BP 113/63; PULSE 75; TEMP 97.8; O2SAT 94
== END 2022-07-18 14:11 | disposition home or self-care (01) | DRG 689 ==
LOC: EMEROOARM 08:08 → 3ANU 08:08 → SUATTDRO 07-07 12:47
PROVIDERS: ADMIT Student in an Organized Health Care Education/Training Program; ATTEND Internal Medicine